=== PATIENT | male | born 1955 | race Caucasian/White ===

== ENCOUNTER → 2024-10-09 | Outpatient (CLI) | payer MEDICARE, BC, SELFPAY ==
[2024-10-10 13:08] LABS: PSA, Free 2.27 ng/mL; PSA, Free % 20.3 % (.); PSA, Total Ultrasensitive 11.200 ng/mL (0.000-4.000)
== END | disposition home or self-care (01) ==
PROVIDERS: PCP Family Medicine; Referring Provider Nurse Practitioner; Visit Provider Nurse Practitioner
DX: R97.20 Elevated prostate specific antigen [PSA] (principal)
CPT/HCPCS: 36415; 84153; 84154

== ENCOUNTER → 2024-10-17 | Outpatient (CLI) | payer MEDICARE, BC, SELFPAY ==
--- NOTE | 2024-10-17 10:54 | MRI_ITS ---
PROCEDURE: PELVIS W/WO CONTRAST, 10/17/2024 REASON FOR EXAM: ELEVATED PSA. PSA reportedly 11.2 on 10/09/2024 TECHNIQUE: Multisequence multiplanar MRI pelvis was performed with and without IV contrast. IV Contrast: 19 mL Clariscan COMPARISON: None FINDINGS: Variable overall mild motion limitation. Prostate size: 5.1 x 3.7 x 4.9 cm, estimated volume 48.1 mL. Per the above provided PSA, PSA density is 0.233 ng/mL. Transition zone: PI-RADS 2 findings. Peripheral Zone: Background changes of likely prostatitis (PI-RADS 2). Additional lesions as below: *Lesion 1: RIGHT anterior and posterolateral peripheral zone midgland to apex, 2.4 cm (series 12, image 20).. *T2 score: 5. *DWI score: 5. *DCE: Positive. *Overall PI-RADS: PI-RADS 5. *Extracapsular extension:Broad-based capsular abutment well over 1 cm with subtle capsular bulging suspicious for possible early extracapsular extension. *Lesion 2: Ill-defined signal spanning 3.0 cm of the along the bilateral posteromedial peripheral zones extending from base to apex (series 12 image 19).. *T2 score: 3. *DWI score: Minimal restricted diffusion above background; DWI score 3. *DCE: Positive. *Overall PI-RADS: Borderline; felt the best considered PI-RADS 3. *Extracapsular extension:No gross extracapsular extension, however, there is capsular abutment well over 1 cm which increases the risk of occult early/microscopic extracapsular extension. Note that this includes the region of the bilateral neurovascular bundles and anterior rectum, without gross involvement. Neurovascular bundles: As above. Seminal vesicles: Unremarkable. Bladder: Underdistended and suboptimally evaluated. Mild trabeculation may suggest chronic bladder outlet obstruction.. Lymph nodes: Unremarkable. Bones: No destructive or frankly suspicious bony lesions identified. Artifact related to lumbar spinal fusion. Other: Diverticulosis.. MRI/Pelvis W/WO Contrast IMPRESSION: 1. 2.4 cm PI-RADS 5 lesion in the RIGHT anterior and posterolateral peripheral zone midgland to apex (lesion 1). Broad-based capsular abutment well over 1 cm with subtle capsular bulging suspicious for po ssible early extracapsular extension. 2. 3.0 cm ill-defined signal in the bilateral posteromedial peripheral zones ex tending from base to apex is felt the sequela of focally prominent prostatitis but is felt the best considered PI-RADS 3 (lesion 2). No gross extracapsular extension, however, there is capsular abutment well over 1 cm which increases the risk of occult ea rly/microscopic extracapsular extension. Note that this includes the region of the bilateral neurovascular bundles and anterior re ctum, without gross involvement. 3. no overt pelvic lymphadenopathy 4. Additional description as above. Reading Location: [id number]
== END | disposition home or self-care (01) ==
LOC: OPMRI 10:51
PROVIDERS: PCP Family Medicine; Referring Provider Urology; Visit Provider Urology
DX: R97.20 Elevated prostate specific antigen [PSA] (principal)
CPT/HCPCS: 72197; A9575; A4216

== ENCOUNTER → 2024-11-12 | Outpatient (CLI) | payer MEDICARE, BC, SELFPAY ==
--- NOTE | 2024-11-12 08:00 | PROSBIL_PTH ---
PATIENT: JONATHAN MCCRARY LOC: [facility] U#:[id number] AGE/SX: 69/M ROOM: RE11/12/[address]: Dr. Miah Pink MD : [id number] BED: DIS: 11/12/2024 SPEC #: [id number] RECD: 11/12/24 12:00 STATUS: RUSLAN JERRY #: [id number] SKIP: 11/12/24 08:[address]: Miah Pink DEPT: SURGICAL PATHOLOGY RECD BY: Darren Dykes ENTERED: 11/13/24 09:40 SP TYPE: PROST BX OTHR DR: Dr. Tank Peterson MD Tissues: A - PROSTATE RIGHT B - PROSTATE RIGHT C - PROSTATE RIGHT D - PROSTATE LEFT E - PROSTATE LEFT F - PROSTATE LEFT Procedures: PROSTATE BX Immunohistochemical Stains IHC Stain ADDITIONAL HEADER OPERATION: Prostate biopsy PRE-OP DIAGNOSIS: Elevated PSA TISSUE SUBMITTED: A - A - Right apex, B - Right mid, C - Right base, D - Left apex, E - Left mid, F - Left base MICROSCOPIC DIAGNOSIS A. 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 B. Prostate, right, mid, biopsy: - Adenocarcinoma Mindy 4+3=7 (55% cribriform pattern 4), two of two cores, involving 80% of the tissue. C. Prostate, right, base, biopsy: - Focal atypical small acini. - High grade PIN. - PIN4 IHC supports the histologic impression. D. Prostate, left, apex, biopsy: - Benign prostate tissue. E. Prostate, left, mid, biopsy: - Benign prostate tissue. F. Prostate, left, base, biopsy: - Adenocarcinoma Hana 3+3=6, two of two cores, involving 5% 0f the tissue. MICROSCOPIC DESCRIPTION Slides are reviewed. All matched controls reacted appropriately. These tests were developed and their performance characteristics determined by [facility]. They may not have been cleared or approved by the U.[place]. Food and Drug Administration. The FDA has determined that such clearance or approval is not necessary.? The above immunohistochemical/dualISH?markers are reviewed by the Pathologist. GROSS DESCRIPTION Received in 6 formalin containers labeled with the patient's name and date of . Designated as: A. RA is a conway tissue core, 1.5 cm in length by 0.1 cm in diameter. Entirely submitted in 1 cassette. B. RM are 2 conway tissue cores, averaging 1.3 cm in length by 0.1 cm in diameter. Entirely submitted in 1 cassette. C. RB are 3 conway tissue cores 0.6 cm to 1.1 cm in length by 0.1 cm in diameter. Entirely submitted in 1 cassette. D. LA is a conway tissue core, 1.6 cm in length by 0.1 cm in diameter. Entirely submitted in 1 cassette. E. LM are 2 conway tissue cores, 1.0 cm and 1.8 cm in length by 0.1 cm in diameter. Entirely submitted in 1 cassette. F. LB are 2 fragmented conway tissue cores, 1.4 cm and 2.0 cm in length by 0.1 cm in diameter. Entirely submitted in 1 cassette. CA 5CPT:[id number]
== END | disposition home or self-care (01) ==
LOC: LABSPEC 16:01
PROVIDERS: PCP Family Medicine; Referring Provider Urology; Visit Provider Urology
DX: R97.20 Elevated prostate specific antigen [PSA] (principal)
CPT/HCPCS: 88305; 88341; 88342; G0416

== ENCOUNTER → 2024-11-27 | Outpatient (CLI) | payer MEDICARE, BC, SELFPAY ==
[2024-11-27 12:58] LABS: Hematocrit 41.8 % (40-54); Hemoglobin 14.4 g/dL (13.0-16.5); Mean Corp Hgb Conc 34.4 g/dL (32-36); Mean Corpuscular Volume 88.7 fL (80-94); Mean Platelet Vol. 9.3 fl (6.2-12.0); Platelet Count 219 K/mm3 (150-450); RBC Distribution Width CV 12.3 % (11.6-14.6); RBC Distribution Width SD 40.5 fl (35.1-43.9); Red Blood Count 4.71 M/mm3 (4.6-6.2); White Blood Count 8.5 K/mm3 (4.4-11.0)
[2024-11-27 13:55] LABS: Anion Gap 11 (5-15); BUN 17 mg/dL (4-19); BUN/Creat Ratio 14.4 RATIO (10-20); Calcium,Total 9.2 mg/dL (7.6-11.0); Carbon Dioxide 24.4 mmol/L (21.0-32.0); Chloride 104 mmol/L (98-108); Glucose 105 mg/dL (70-99); Potassium 4.5 mmol/L (3.3-5.1)
== END | disposition home or self-care (01) ==
LOC: LAB 11:42
PROVIDERS: PCP Family Medicine; Referring Provider Urology; Visit Provider Urology
DX: C61 Malignant neoplasm of prostate (principal)
CPT/HCPCS: 36415; 80048; 85027

== ENCOUNTER 2024-12-07 07:42 | Observation (INO) | payer MEDICARE, BC, SELFPAY ==
--- NOTE | 2024-12-04 10:49 | EKG12_ITS ---
Test Reason : PREOP Blood Pressure : */* mmHG Vent. Rate : 64 BPM Atrial Rate : 64 BPM P-R Int : 174 ms QRS Dur : 120 ms QT Int : 404 ms P-R-T Axes : 9 -30 17 degrees QTcB Int : 416 ms Normal sinus rhythm Left axis deviation Non-specific intra-ventricular conduction delay Abnormal ECG Confirmed by LILLIAN MARTÍNEZ, RENALDO ([id number]), publications editor PAYTON MONTEZ ([id number]) on 12/05/2024 6:17:25 AM Referred By: Miah Pink Confirmed By: RENALDO SNYDER MD
--- NOTE | 2024-12-06 12:37 | PAT.ANESEVAL ---
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 When Was Last Pacemaker Check QUESTION #4 FULL TEXT: You/Your Family Experience fever (hyperthermia) with Anesthesia Last Oral Intake Last Oral intake: Last Oral Intake NPO since Meds taken in AM with sips of water? Meds patient instructed to take am of surgery PONV PONV - dining room attendant cafeteria: PONV - dining room attendant cafeteria Female No 11/28/24 14:13 HX of Motion Sickness No 11/28/24 14:13 HX of N/V After Surgery No 11/28/24 14:13 Non-Smoker Yes 11/28/24 14:13 Duration of Surgery greater Yes 11/28/24 14:13 than 60 minutes Number of Risk Factors 2 11/28/24 14:13 PONV Score Moderate Risk 11/28/24 14:13 Respiratory Assessment Respiratory Assessment - dining room attendant cafeteria: Respiratory Tract Infection Hx - dining room attendant cafeteria Hx Respiratory Tract Infection No 11/28/24 14:13 STOP Sleep Apnea STOP Sleep Apnea - dining room attendant cafeteria: STOP Sleep Apnea - dining room attendant cafeteria Hx Hypertension Yes 11/28/24 14:13 Hx Sleep Apnea No 11/28/24 14:13 CPAP BIPAP Do you snore loudly (louder No 11/28/24 14:13 than talking or can be heard Do you often feel tired/ No 11/28/24 14:13 fatigued/ sleepy during daytime? Has anyone observed you stop No 11/28/24 14:13 breathing during sleep? STOP Results Negative 11/28/24 14:13 QUESTION #5 FULL TEXT : Do you snore loudly (louder than talking or can be heard through closed doors)? 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 Specify any problems Hx of Preganancy in last 3 N/A 11/28/24 14:13 Months Nurse Filling Out Transfusion [id number] 11/28/24 14:13 & Questions: Date: 11/28/24 11/28/24 14:13 Time: 14:17 11/28/24 14:13 Patient unable to answer at this time (ie. confused, unrespo /Reproduction History /Reproductive History - dining room attendant cafeteria: /Reproductive Hx- dining room attendant cafeteria Hx Now Gestational Age (in weeks): EDC: Hx Hx Para Hx Section SAB Active Medications Active Medications: Current Medications Generic Name Dose Route Start Last Admin Trade Name Freq PRN Reason Stop Dose Admin Cefazolin Sodium 2 gm/ Sodium 110 mls @ 200 mls/hr 12/07/24 07:30 Chloride IV 12/07/24 08:02 INTRAOP ONE [facility] Medical History (Updated 11/28/24 @ 14:22 by Shamar Aldana) Kidney stones Wears glasses Cancer Arthritis Prostate disease High cholesterol Migraine headache Back pain History of pain when walking Hypertension History of echocardiogram History of stress test Home Medications ?Medication ?Instructions ?Recorded ?Last Taken ?Type aspirin 81 mg tablet,delayed 81 mg PO DAILY BLOOD THINNER 11/28/24 Unknown History release (Adult Aspirin Regimen) atorvastatin 20 mg tablet (Lipitor) 20 mg PO DAILY HIGH CHOLESTEROL 11/28/24 Unknown History docusate sodium 100 mg capsule 100 mg PO DAILY STOOL SOFTNER 11/28/24 Unknown History (Colace) fluticasone propionate 50 1 spray intranasal DAILY PRN 11/28/24 Unknown History mcg/actuation nasal allergy symptoms spray,suspension (24 Hour Allergy Relief) [id number] C-Mn 500 1 cap PO DAILY SUPPLEMENT 11/28/24 Unknown History mg-400 mg capsule (Glucosamine Chondroitin Maximum Strength) lisinopril 10 mg tablet 10 mg PO DAILY HTN 11/28/24 Unknown History tamsulosin 0.4 mg capsule (Flomax) 0.4 mg PO DAILY BPH 11/28/24 Unknown History Allergy/AdvReac Type Severity Reaction Status Date / Time No Known Allergies Allergy Verified 11/28/24 14:06 Surgical History (Updated 11/28/24 @ 14:22 by Shamar Aldana) H/O hand surgery Previous back surgery Social History Smoking Status: Former smoker Audit: Pertinent Findings Pertinent Findings EKG Perinent findings: 12/05/2024.Normal sinus rhythm. Left axis deviation. Non-specific intra-ventricular conduction delay Recommendation Anesthesia Recommendation Anesthesia recommendation: OPTIMIZED for anesthesia
[2024-12-07] VITALS (17 sets, daily range): BP systolic 85–138; BP diastolic 50–86; PULSE 60–89; RESP 14–18; TEMP 36.4–37.6; O2SAT 94–100; BMI 29.9
--- OUTSIDE RECORDS SUMMARY | 2024-12-07 05:41 | XMS RPT_ITS | CCD ---
Author Organization [facility] Care Team Providers Care Garage Door Opener Installer Name Role Phone VUCETIC, JORGE E Unavailable Unavailable VUCETIC, JORGE E Unavailable Unavailable TANK MELCHOR Unavailable Unavailable CHARLENE GARCIA Unavailable Unavailable IMCA Unavailable Unavailable TANK MELCHOR Unavailable Unavailable VUCETIC, JORGE E Unavailable Unavailable TANK MELCHOR Unavailable Unavailable TANK MELCHOR Unavailable Unavailable RADHACHARLENE Unavailable Unavailable VUCETIC, JORGE E Unavailable Unavailable TANK MELCHOR Unavailable Unavailable VUCETIC, JORGE E Unavailable Unavailable IMCA Unavailable Unavailable TANK MELCHOR Unavailable Unavailable CHARLENE GARCIA Unavailable Unavailable IMCA Unavailable Unavailable TANK MELCHOR Unavailable Unavailable VUCETIC, JORGE E Unavailable Unavailable IMCA Unavailable Unavailable TANK MELCHOR Unavailable Unavailable CHARLENE GARCIA Unavailable Unavailable IMCA Unavailable Unavailable TANK MELCHOR Unavailable Unavailable VUCETIC, JORGE Unavailable Unavailable VUCETIC, JORGE Unavailable Unavailable CHARLENE GARCIA (HEAD GREASE MAKER) Unavailable Unavailable VUCETIC, JORGE Unavailable Unavailable TANK MELCHOR [place] Unavailable Unavailable CHARLENE GARCIA (HEAD GREASE MAKER) Unavailable Unavailable VUCETIC, JORGE Unavailable Unavailable VUCETIC, JORGE Unavailable Unavailable RADHACHARLENE Camara (HEAD GREASE MAKER) Unavailable Unavailable VUCETIC, JORGE Unavailable Unavailable Tank Melchor MD Unavailable Dr. Hemal Baugh MD Unavailable [phone] [facility] Unavailable Dr. Aamn Meier MD ([place] [facility]) A Unavail able Orthopedic Provider Unavailable Unavailable Angelic Moser LPN Unavailable Misael JARAMILLO [employer] [place] Unavailable Unavailable Radha Hurst LPN Unavailable Unavailable Shay Seth MD Unavailable Karan Menon PA-C Unavailable [phone] Sinna, Michaela C Unavailable Unavailable Shilo ENERGY AUDIT ADVISOR, Tigist Unavailable Unavailable HEAD GREASE MAKER-C, Adair P Unavailable Saundra SOSA, Sonal Thornton Unavailable Unavaila ble Kleber TAYLOR, Mary Kay Unavailable Unavailable Felipe ENERGY AUDIT ADVISOR, Robin Unavailable Unavailable Mutersbaugh ENERGY AUDIT ADVISOR, Meryl K Unavailable Unavai quin Renee PA-C, Mis J Unavailable Johnny ENERGY AUDIT ADVISOR, Gracie M Unavailable Unavailab le Rishabh ENERGY AUDIT ADVISOR, Dominique Hearn Unavailable Unavailab luis Fabian MD, Donte Thornton Unavailable [phone] Wengerd ENERGY AUDIT ADVISOR, Daina Unavailable Unavailabl e Virginie ENERGY AUDIT ADVISOR, Marielos Almaguer Unavailable Unavaila ble Kalin ENERGY AUDIT ADVISOR, Mylene Unavailable Unavailable Unavailable Unavailable TANK MELCHOR Admitting Unavailable TANK MELCHOR Attending Unavailable TANK MELCHOR Consulting Unavailable TANK MELCHOR Primary Care Unavailable PROVIDER, UNKNOWN Consulting Unavailable PROVIDER, UNKNOWN Consulting Unavailable PROVIDER, UNKNOWN Consulting Unavailable Joesph MARTÍNEZ, Dr. Miah Almazan) Unavailable Dr. Tank Melchor MD Primary Care Provider Marielos Urban Attending Provider Marielos Urban Referring Provider Joesph MARTÍNEZ, Dr. Miah Fine Attending Provider Joesph MARTÍNEZ, Dr. Miah Fine Referring Provider Miah Pink Referring Unavailable Tank Melchor Primary Care Unavailable Miah Pink Attending Unavailable Tank Melchor Primary Care Unavailable JoesphMiah Attending Unavailable JoesphMiah quiñonez Referring Unavailable Tank Melchor Primary Care Unavailable Crosslake[place]ielos Attending Unavailable Crosslakea[place]rielos Referring Unavailable Miah Pink Admitting Unavailable Miah Pink Attending Unavailable Tank Melchor Primary Care Unavailable JoesphMiah quiñonez Referring Unavailable JoesphMiah Referring Unavailable Tank Melchor Primary Care Unavailable JoesphMiah Attending Unavailable Medications Current Medications Medication Drug Class(es) Dates Sig (Normalized) Sig (Original) aspirin 81 mg delayed release oral tablet (20 sources) Platelet Aggregation Inhibitor, Nonsteroidal Anti-inflammatory Drug Start: 11-28-2024 take 1 tablet by mouth once daily Aspirin (Adult Aspirin Regimen) 81 mg tablet,delayed release (DR/EC) Active 81 mg PO DAILY November 28, 2024 12:00am BLOOD THINNER atorvastatin 20 mg oral tablet (20 sources) HMG-CoA Reductase Inhibitor Start: 11-03-2023 atorvastatin 20 mg tablet ; 1 (one) Tablet qd for 0 days Quantity: 90 {Tablet} Refills: 1 Ordered: 20-Sep-2024 MD Tank Melchor Start: 20-Sep-2024 Start: 09-22-2023 atorvastatin 2 0 mg tablet ; 1 (one) Tablet qd for 0 days Quantity: 90 {Tablet} Refills: 1 Ordered: 22-Sep-2023 MD Tank Melchor Start: 22-Sep-2023 Start: 08-08-2023 atorvastatin 2 0 mg tablet ; 1 (one) Tablet qd for 0 days Quantity: 90 {Tablet} Refills: 0 Ordered: 08-Aug-2023 MD Tank Melchor Start: 08-Aug-2023 Start: 05-09-2023 atorvastatin 2 0 mg tablet ; 1 (one) Tablet qd for 0 days Quantity: 90 {Tablet} Refills: 0 Ordered: 09-May-2023 MD Tank Melchor Start: 09-May-2023 Start: 02-11-2023 atorvastatin 2 0 mg tablet ; 1 (one) Tablet qd for 0 days Quantity: 90 {Tablet} Refills: 0 Ordered: 11-Feb-2023 GASTON Renee Start: 11-Feb-2023 docusate sodium 100 mg oral capsule (1 source) Start: 11-28-2024 take 1 capsule by mouth once daily Docusate Sodium (Colace) 100 mg capsule Active 100 mg PO DAILY November 28, 2024 12:00am STOOL SOFTNER etodolac 500 mg oral tablet (20 sources) Nonsteroidal Anti-inflammatory Drug Start: 01-11-2022 etodolac 500 mg tablet ; 1 (one) Tablet bid prn back pain for 0 days Quantity: 60 {Tablet} Refills: 5 Ordered: 22-Sep-2023 MD Tank Melchor Start: 22-Sep-2023 Comment on above: Medication taken as needed. fluticasone propionate 0.05 mg/actuat metered dose nasal spray (20 sources) Corticosteroid Start: 11-28-2024 take 50 ug nasal route once daily as needed Fluticasone Propionate (24 Hour Allergy Relief) 50 mcg/actuation spray,suspension Active 1 NMA INTRANASAL DAILY as needed for allergy symptoms November 28, 2024 12:00am administer into each nostril Start: 09-20-2024 take 2 spray(s) nasa l route once daily fluticasone propionate 50 mcg/actuation nasal spray,suspension ; 2 (two) sprays each nostril daily for 30 days Quantity: 1 {Each} Refills: 3 Ordered: 20-Sep-2024 MD Tank Melchor Start: 20-Sep-2024 Comments: nasal inhaler Start: 07-23-2024 End: 08-22-2024 take 2 spray(s) nasal route once daily fluticasone propionate 50 mcg/actuation nasal spray,suspension ; 2 (two) sprays each nostril daily for 30 days Quantity: 1 {Each} Refills: 0 Ordered: 23-Jul-2024 MD Tank Melchor Start: 23-Jul-2024 End: 22-Aug-2024 Status: Inactive Comments: nasal inhaler Start: 05-09-2023 take 2 spray(s) nasa l route once daily fluticasone propionate 50 mcg/actuation nasal spray,suspension ; 2 (two) sprays each nostril daily for 30 days Quantity: 1 {Each} Refills: 5 Ordered: 09-May-2023 MD Tank Melchor Start: 09-May-2023 Comments: nasal inhaler Start: 03-24-2022 take 2 spray(s) nasa l route once daily Fluticasone Propionate 50 MCG/ACT Nasal Suspension ; 2 (two) sprays each nostril daily for 30 days Quantity: 1 {Each} Refills: 5 Ordered: 24-Mar-2022 MD Tank Melchor Start: 24-Mar-2022 Comments: nasal inhaler take 2 puff(s) nasal route once daily FLONASE, 50MCG/ACT (Nasal Suspension) ; 2 puffs each nostril once daily (50 MCG/ACT) Status: Inactive Comment on above: nasal inhaler glucosamine hydrochloride 1500 mg oral tablet (13 sources) glucosamine HCL 1,500 mg tablet ; 2 daily (1,500 mg) Yzdujswkpek-Vooshnpse-Rbw C-Mn (Glucosamine Chondroitin Maxstr) 500-400 mg capsule (1 source) Start: 11-28-2024 Kmtadhmrvlg-Fydkhucye-W it C-Mn (Glucosamine Chondroitin Maxstr) 500-400 mg capsule Active 1 NMA PO DAILY November 28, 2024 12:00am SUPPLEMENT lisinopril 10 mg oral tablet (20 sources) Angiotensin Converting Enzyme Inhibitor Start: 03-14-2024 lisinopriL 10 mg tablet ; 1 (one) Tablet qd for 0 days Quantity: 90 {Tablet} Refills: 1 Ordered: 20-Sep-2024 MD Tank Melchor Start: 20-Sep-2024 Start: 09-22-2023 lisinopriL 10 mg tablet ; 1 (one) Tablet qd for 0 days Quantity: 90 {Tablet} Refills: 1 Ordered: 22-Sep-2023 MD Tank Melchor Start: 22-Sep-2023 Start: 08-08-2023 lisinopriL 20 mg tablet ; 1 (one) Tablet qd for 0 days Quantity: 90 {Tablet} Refills: 0 Ordered: 08-Aug-2023 MD Tank Melchor Start: 08-Aug-2023 Start: 05-09-2023 lisinopriL 20 mg tablet ; 1 (one) Tablet qd for 0 days Quantity: 90 {Tablet} Refills: 0 Ordered: 09-May-2023 MD Tank Melchor Start: 09-May-2023 Start: 02-11-2023 lisinopriL 20 mg tablet ; 1 (one) Tablet qd for 0 days Quantity: 90 {Tablet} Refills: 0 Ordered: 11-Feb-2023 GASTON Renee Start: 11-Feb-2023 Start: 08-09-2014 End: 08-13-2015 take 1 tablet by mouth once daily LISINOPRIL, 20MG (Oral Tablet) ; 1 (one) Tablet Tablet qd for 0 days Quantity: 90 {Tablet} Refills: 1 Ordered: 13-Aug-2015 ELLA Trammell Start: 09-Aug-2014 End: 13-Aug-2015 Status: Inactive tamsulosin hydrochloride 0.4 mg oral capsule (1 source) alpha-Adrenergic Chris Start: 11-28-2024 take 1 capsule by mouth once daily Tamsulosin (Flomax) 0.4 mg capsule Active 0.4 mg PO DAILY November 28, 2024 12:00am BPH Completed/Discontinued Medications Medication Drug Class(es) Dates Sig (Normalized) Sig (Original) acetaminophen 500 mg / HYDROcodone bitartrate 5 mg oral tablet (20 sources) Opioid Agonist Start: 09-28-2010 End: 01-24-2012 take 1-2 tablets by mouth every four hours as needed VICODIN, 5-500MG (Oral Tablet) ; 1-2 Tablet every four hours, as needed for severe pain for 0 days Quantity: 60 {Tablet} Refills: 0 Ordered: 24-Jan-2012 ELLA Moser Start: 28-Sep-2010 End: 24-Jan-2012 Status: Inactive Comments: Medication taken as needed. wm Comment on above: Medication taken as needed. wm amoxicillin 875 mg / clavulanate 125 mg oral tablet (20 sources) Penicillin-class Antibacterial Start: 06-04-2022 End: 06-11-2022 take 1 tablet by mouth twice daily Amoxicillin-Pot Clavulanate 875-125 MG Oral Tablet ; 1 (one) Tablet twice a day for 7 days Quantity: 14 {Tablet} Refills: 0 Ordered: 04-Jun-2022 GASTON Menon Start: 04-Jun-2022 End: 11-Jun-2022 Status: Inactive Start: 04-13-2022 End: 04-23-2022 take 1 tablet by mouth twice daily Amoxicillin-Pot Clavulanate 875-125 MG Oral Tablet ; 1 (one) Tablet bid for 10 days Quantity: 20 {Tablet} Refills: 0 Ordered: 13-Apr-2022 MD aTnk Melchor Start: 13-Apr-2022 End: 23-Apr-2022 Status: Inactive Comments: take w food Start: 03-18-2014 End: 03-28-2014 take 1 tablet by mouth twice daily AUGMENTIN, 875-125MG (Oral Tablet) ; 1 (one) Tablet Tablet two times daily for 10 days Quantity: 20 {Tablet} Refills: 0 Ordered: 18-Mar-2014 MD Tank Melchor Start: 18-Mar-2014 End: 28-Mar-2014 Status: Inactive Comment on above: take w food azithromycin 250 mg oral tablet (20 sources) Macrolide Antimicrobial Start: 013 End: 013 ZITHROMAX Z-TOBY, 250MG (Oral Tablet) ; 2 (two) Tablet today and then 1 tablet daily for 4 days for 0 days Quantity: 1 {z-toby} Refills: 0 Ordered: 02-Aug-2012 Start: 29-Apr-2012 End: 02-Aug-2012 Status: Inactive cefdinir 300 mg oral capsule (20 sources) Cephalosporin Antibacterial Start: End: take 1 capsule by mouth twice daily Cefdinir 300 MG Oral Capsule ; 1 (one) Capsule bid for 10 days Quantity: 20 {Capsule} Refills: 0 Ordered: 20-Apr-2019 MD Tank Melchor Start: 20-Apr-2019 End: 30-Apr-2019 Status: Inactive cholecalciferol 0.05 mg oral capsule (20 sources) Vitamin D take 1 capsule by mouth once daily Vitamin D3 50 MCG (2000 UT) Oral Capsule ; 1 daily (50 MCG (2000 UT)) Status: Inactive cyclobenzaprine hydrochloride 10 mg oral tablet (20 sources) Muscle Relaxant Start: 011 End: take 1 tablet by mouth three times daily as needed FLEXERIL, 10MG (Oral Tablet) ; 1 Tab three times daily, as needed for 0 days Quantity: 20 {Tab} Refills: 0 Ordered: 24-Jan-2012 ELLA Moser Start: 28-Sep-2010 End: 24-Jan-2012 Status: Inactive Comments: Medication taken as needed. May cause drowsiness. Comment on above: Medication taken as needed. May cause drowsiness. enalapril maleate 20 mg oral tablet (20 sources) Angiotensin Converting Enzyme Inhibitor Start: 014 End: take 1 tablet by mouth once daily Enalapril Maleate 20 MG Oral Tablet ; 1 (one) Tablet daily for 0 days Quantity: 90 {Tablet} Refills: 2 Ordered: 28-May-2016 ELLA Hurst Start: 22-Feb-2014 End: 28-May-2016 Status: Inactive famciclovir 500 mg oral tablet (20 sources) Herpes Simplex Virus Nucleoside Analog DNA Polymerase Inhibitor Start: 017 End: 017 take 1 tablet by mouth every eight hours Famciclovir 500 MG Oral Tablet ; 1 (one) Tablet Every 8 hours for 7 days Quantity: 21 {Tablet} Refills: 0 Ordered: 14-Aug-2016 JAROD Cervantes Start: 14-Aug-2016 End: 21-Aug-2016 Status: Inactive hydroCHLOROthiazide 12.5 mg oral tablet (20 sources) Thiazide Diuretic Start: 015 End: 016 take 1 tablet by mouth once daily HYDROCHLOROTHIAZID E, 12.5MG (Oral Tablet) ; 1 (one) Tablet daily for 0 days Quantity: 90 {Tablet} Refills: 1 Ordered: 13-Aug-2015 ELLA Trammell [place] Start: 09-Aug-2014 End: 13-Aug-2015 Status: Inactive take 0.5 tablet by mouth once [place] HYDROCHLOROTHIAZIDE, 25MG (Oral Tablet) ; 1/2 tab daily (25 MG) Status: Inactive hydroCHLOROthiazide 12.5 mg / lisinopril 20 mg oral tablet (20 sources) Thiazide Diuretic, Angiotensin Converting Enzyme Inhibitor Start: 08-18-2020 End: 08-20-2020 take 1 tablet by mouth once daily Lisinopril-hydroCHLOROthiazide 20-12.5 MG Oral Tablet ; 1 (one) Tablet qd for 0 days Quantity: 90 {Tablet} Refills: 1 Ordered: 20-Aug-2020 MD Tank Melchor Start: 18-Aug-2020 End: 20-Aug-2020 Status: Inactive omeprazole 20 mg delayed release oral capsule (20 sources) Proton Pump Inhibitor Start: 02-04-2012 End: 02-07-2015 take 1 capsule by mouth once daily as needed OMEPRAZOLE, 20MG (Oral Capsule Delayed Release) ; [address] qd prn for 0 days Quantity: 60 {Cap_DR} Refills: 3 Ordered: 07-Feb-2015 ELLA Newsome Start: 04-Feb-2012 End: 07-Feb-2015 Status: Inactive predniSONE 20 mg oral tablet (20 sources) Start: 12-02-2022 End: 02-10-2023 predniSONE 20 mg tablet ; 1 (one) Tablet as directed for 0 days Quantity: 20 {Tablet} Refills: 0 Ordered: 10-Feb-2023 ELLA Wang Start: 02-Dec-2022 End: 10-Feb-2023 Status: Inactive Comments: Take 1 tab tid for 3 days thenTake 1 tab bid for 3 days thenTake 1 tab qd for 3 days thenTake 1/2 tab qd for 4 days. Comment on above: Take 1 tab tid for 3 days thenTake 1 tab bid for 3 days thenTake 1 tab qd for 3 days thenTake 1/2 tab qd for 4 days. sucralfate 1000 mg oral tablet (20 sources) Aluminum Complex take 1 tablet by mouth at bedtime CARAFATE, 1GM (Oral Tablet) ; 1 tablet AC and HS (1 GM) Status: Inactive sulfamethoxazole 800 mg / trimethoprim 160 mg oral tablet (20 sources) Dihydrofolate Reductase Inhibitor Antibacterial, Sulfonamide Antimicrobial Start: 06-17-2022 End: 06-27-2022 take 1 tablet by mouth twice daily Bactrim DS 800-160 MG Oral Tablet ; 1 (one) Tablet bid for 10 days Quantity: 20 {Tablet} Refills: 0 Ordered: 17-Jun-2022 MD Tank Melchor Start: 17-Jun-2022 End: 27-Jun-2022 Status: Inactive Problems Active Problems Problem Classification Problem Date Documented Date Episodic/Chronic Allergic reactions (20 sources) Environmental allergy; Translations: [Other allergy status, other than to drugs and biological substances] 09-20-2024 Episodic Cancer of prostate (1 source) Malignant neoplasm of prostate; Translations: [Malignant neoplasm of prostate] Onset: 12-03-2024 Chronic Chronic obstructive pulmonary disease and bronchiectasis (20 sources) Bronchitis; Translations: [Bronchitis, not specified as acute or chronic] 03-17-2023 Episodic Complications of surgical procedures or medical care (20 sources) Wound abscess; Translations: [Infection following a procedure, initial encounter] 03-05-2014 Episodic Coronary atherosclerosis and other heart disease (1 source) Coronary atherosclerosis and other heart disease 09-22-2023 Diabetes mellitus without complication (20 sources) Hyperglycemia; Translations: [Hyperglycemia, unspecified] 02-27-2020 Episodic Disorders of lipid metabolism (20 sources) Hyperlipidemia; Translations: [Hyperlipidemia, unspecified] 03-17-2023 Chronic Esophageal disorders (20 sources) Gastroesophageal reflux disease; Translations: [Gastro-esophageal reflux disease without esophagitis] 08-20-2020 Chronic Essential hypertension (20 sources) Benign essential hypertension; Translations: [Essential (primary) hypertension] 03-17-2023 Chronic Immunizations and screening for infectious disease (20 sources) Need for prophylactic vaccination and inoculation against influenza; Translations: [Needs influenza immunization] 02-22-2014 Episodic Osteoarthritis (20 sources) Degenerative joint disease involving multiple joints; Translations: [Polyosteoarthritis, unspecified] 03-17-2023 Chronic Other aftercare (20 sources) Drug indicated; Translations: [Other assisted (current) drug therapy] 09-01-2016 Episodic Other connective tissue disease (20 sources) Pain in right hand; Translations: [Pain in right hand] 03-17-2023 Episodic Other connective tissue disease (20 sources) Trigger finger of right hand; Translations: [Trigger finger, unspecified finger] 02-02-2013 Episodic Other diseases of veins and lymphatics (20 sources) Engorgement of vein; Translations: [Other specified disorders of veins] 09-28-2017 Episodic Other nervous system disorders (1 source) Other chronic pain; Translations: [Other chronic pain] Onset: 10-13-2017 Chronic Other non-traumatic joint disorders (20 sources) Pain in left knee; Translations: [Pain in joint, lower leg] 03-17-2023 Episodic Other nutritional; endocrine; and metabolic disorders (20 sources) Body mass index 30+ - obesity; Translations: [Body mass index (BMI) 38.0-38.9, adult] 03-14-2017 Chronic Other nutritional; endocrine; and metabolic disorders (20 sources) Obese class I; Translations: [Obesity, unspecified] 03-17-2023 Chronic Other screening for suspected conditions (not mental disorders or infectious disease) (20 sources) Encounter for screening for other disorder; Translations: [Raised prostate specific antigen] Onset: 09-08-2017 03-17-2023 Episodic Other skin disorders (20 sources) Sebaceous cyst of skin; Translations: [Sebaceous cyst] 03-01-2014 Episodic Other skin disorders (20 sources) Skin tag; Translations: [Other hypertrophic disorders of the skin] 02-04-2012 Episodic Other upper respiratory disease (20 sources) Eosinophilic nonallergic rhinitis; Translations: [Chronic rhinitis] 08-09-2014 Chronic Other upper respiratory disease (20 sources) Congestion of nasal sinus; Translations: [Nasal congestion] 03-17-2023 Episodic Otitis media and related conditions (20 sources) Dysfunction of eustachian tube; Translations: [Unspecified Eustachian tube disorder, unspecified ear] 01-07-2020 Episodic Pneumonia (except that caused by tuberculosis or sexually transmitted disease) (20 sources) Pneumonia; Translations: [Pneumonia, unspecified organism] 05-28-2016 Episodic Screening and history of mental health and substance abuse codes (20 sources) Patient encounter status; Translations: [Encounter for screening for depression] 08-19-2020 Episodic Spondylosis; intervertebral disc disorders; other back problems (20 sources) Postlaminectomy syndrome, not elsewhere classified; Translations: [Degeneration of lumbar or lumbosacral intervertebral disc] Onset: 12-08-2016 02-02-2013 Chronic Spondylosis; intervertebral disc disorders; other back problems (20 sources) Low back pain; Translations: [Low back pain] Onset: 10-13-2017 03-17-2023 Episodic Unclassified (1 source) Unknown / UNK(Unknown) Onset: 10-13-2017 Unclassified (20 sources) MCR Well Adult - In general the patient feels well with no complaints, has good energy level and is sleeping well. The patient has a balanced diet and takes no supplemental vitamins & iron. The patient exercises none (active) and sleeps 7 hours per night. The patient denies having trouble with bathing, dressing/grooming, toileting, preparing meals and ambulating. The patient denies having trouble with grocery shopping, driving, use of telephone, housework, laundry, preparing/taking medications and finances. The patient does not have Healthcare Power of Agricultural Scientist or Living Will. Note for MCR Well Adult: Pt is scheduled for surgery for his thumb next week at [facility]. 03-17-2023 Unclassified (20 sources) Follow Up for Multiple Chronic Conditions - The patient is here for follow-up of GERD, hyperlipidemia and hypertension. The patient always takes the prescribed medications. No side effects noted (does not need refills). The patient has an active lifestyle but no regular exercise program. The patient's out of office blood pressure checks occur rarely and dietary compliance is fairly good usually adhering to recommendations. The patient states that there is no recent angina or dyspnea, weight has decreased (down 1 pound) and headaches have been noticed occasionally. Note for Multiple chronic conditions follow-up: reviewed by [facility] 08-20-2020 Unclassified (20 sources) Well Adult, male - The patient feels well with no complaints, has good energy level and is sleeping well. The patient has a balanced diet and takes supplemental vitamins. The patient exercises none (active). The patient sleeps 7 hours per night. Note for Well Adult, male: reviewed by [facility] 02-27-2020 Unclassified (20 sources) Follow Up for Multiple Chronic Conditions - The patient is here for follow-up of hyperlipidemia and hypertension. The patient always takes the prescribed medications. No side effects noted (no refills needed). The patient has an active lifestyle but no regular exercise program. The patient's out of office blood pressure checks occur occasionally and dietary compliance is fair often eating foods not normally recommended. The patient states that there is no recent angina or dyspnea, there are no vision changes or weakness (recently got new glasses), weight has decreased (2#) and they do not have headaches. Note for Multiple chronic conditions follow-up: Last CMP, Lipid, PSA 09/2017 reviewed by [facility] 03-17-2018 Unclassified (20 sources) Follow Up for Multiple Chronic Conditions - The patient is here for follow-up of hyperlipidemia, hypertension and other condition(s) (Esophageal Reflux). The patient always takes the prescribed medications. No side effects noted. The patient has an active lifestyle but no regular exercise program. The patient's out of office blood pressure checks occur rarely and dietary compliance is fairly good usually adhering to recommendations. The patient states that there is no recent angina or dyspnea, there are no vision changes or weakness, weight has increased (up 8# from last visit.) and they do not have headaches (but still has some vertigo when he gets up from lying or sitting position at times.). The patient states that the disease has no overall impact. Note for Multiple chronic conditions follow-up: Has been fasting today. reviewed by [facility] 03-14-2017 Unclassified (20 sources) Back pain - The onset of the back pain has been gradual and has been occurring in a persistent pattern for 11 years. The course has been constant. The pain is characterized as stabbing (and tightening pain in mid back). The pain does not radiate. The pain is precipitated by a fall. The symptoms have no relieving factors. Note for Back pain: has had chronic back pain for 11 years. had back surgery in 2010. strained back while shoveling 2-3 weeks ago. then patient fell on 08/11/2016 and hurt back again. Denies bowel/bladder dysfunction. has had rash on lower back for 2 days. 08-14-2016 Unclassified (20 sources) Follow Up for Multiple Chronic Conditions - The patient is here for follow-up of hypertension and other condition(s) (Esophageal Reflux, Non Allergic Eosinpophlic Rhinitis). The patient always takes the prescribed medications. No side effects noted. The patient has an active lifestyle but no regular exercise program. The patient's out of office blood pressure checks occur occasionally (Average at home pressure 132/80.). The patient states that there is no recent angina or dyspnea (Rarely has need for Flonase. ), there are no vision changes or weakness (Pt states that he will get dizzy whenever he squats down. Dizziness does not happen any other time.), weight has decreased (Down 10# from last visit. GERD doing well.) and headaches are rarely noted. The patient states that the disease has no overall impact. Note for Multiple chronic conditions follow-up: reviewed by B 02-13-2016 Unclassified (20 sources) [facility] Routine Follow up - The patient is here for follow-up of hypertension and GERD. The patient always takes the prescribed medications. No side effects noted. The patient has an active lifestyle but no regular program. The patient's out of office blood pressure checks occur occasionally and dietary compliance is fairly good usually adhering to recommendations. The patient states that there is no recent angina or dyspnea, there are no vision changes or weakness and they do not have headaches. Note for Routine chronic follow-up: reviewed by [facility] 08-13-2015 Unclassified (20 sources) Follow up for multiple chronic conditions - The patient is here for follow-up of hypertension and GERD. The patient always takes the prescribed medications. No side effects noted. The patient has an active lifestyle but no regular exercise program. The patient's out of office blood pressure checks occur frequently and dietary compliance is fairly good usually adhering to recommendations. The patient states that breathing effort is stable, there is no recent angina or dyspnea, there are no vision changes or weakness and they do not have headaches. Note for Multiple chronic conditions follow-up: ov 08/23 and bmp. Reflux doing well. reviewed by [facility] 02-07-2015 Unclassified (20 sources) Follow Up for Multiple Chronic Conditions - The patient is here for follow-up of hypertension and other condition(s) (Esophageal Reflux and Lumbar disc degeneration). The patient always takes the prescribed medications. No side effects noted. The patient has an active lifestyle but no regular exercise program. The patient's out of office blood pressure checks occur occasionally (Average at home 128-135/70-80's) and dietary compliance is fairly good usually adhering to recommendations. The patient states that there is no recent angina or dyspnea, there are no vision changes or weakness, pain has improved (Back pain has really improved and doing well.), weight has decreased (Down 2# from last visit.) and they do not have headaches (but starts that he is having some pressure in his head- all around front portion of head and around eyes. Started week or two ago. He is wondering about sinus pressure/headache. It has not been bad enough where he has to take anything for it. Does have little drainage and blows clear out nose.). The patient states that the disease has no overall impact. Note for Multiple chronic conditions follow-up: Acid Reflux doing pretty well. Just using the Omeprazole or TUMS when he has a flare up which works well for him.. He is getting ready to retire. No record of immunizations. 08-09-2014 Unclassified (20 sources) Follow Up for Multiple Chronic Conditions - The patient is here for follow-up of hypertension and GERD. The patient always takes the prescribed medications. No side effects noted (Needs refills.). The patient has an active lifestyle but no regular exercise program. The patient's out of office blood pressure checks occur occasionally and dietary compliance is fairly good usually adhering to recommendations. The patient states that there is no recent angina or dyspnea, weight has increased (Up 7 pounds.) and headaches are rarely noted. Note for Multiple chronic conditions follow-up: He also has a mass on his back that gets painful as he leans against objects. 02-22-2014 Unclassified (20 sources) Follow Up for Multiple Chronic Conditions - The patient is here for follow-up of hypertension and other condition(s) (Esophageal Reflux and Degenration of Disc). The patient always takes the prescribed medications. No side effects noted. The patient engages in regular exercise program 3-5 times per week. The patient's out of office blood pressure checks occur rarely. The patient states that there is no recent angina or dyspnea, there are no vision changes or weakness, pain is generally stable (Back pain is doing well. Using Excedrin at times but does not feel he needs anything stronger than that.) and weight has increased (UP about4# since last visit.). Note for Multiple chronic conditions follow-up: Acid reflux doing pretty well. Only uses Omeprazole prn and that seems to keep it under control. Pt does want flu shot today. Pt ate some breakfast. reviewed by [facility] 02-02-2013 Unclassified (20 sources) [ADDITIONAL REASON] FInger issue - Pt states that right ring finger will click when he first gets up in the morning and then at night. Does not have the mobility or flexibility that he normally has. Started couple months ago. Not painful but would like to have evlauated. reviewed by [facility] 02-02-2013 Unclassified (20 sources) Follow Up for Multiple Chronic Conditions - The patient is here for follow-up of hypertension, GERD and other condition(s) (Degenerative disc disease). The patient always takes the prescribed medications. No side effects noted. The patient engages in regular exercise program 1-3 times per week (Has been off routine for couple weeks but had been walking every day.). The patient's out of office blood pressure checks occur occasionally (Does not remember what Bp's have been running.). The patient states that there is no recent angina or dyspnea, there are no vision changes or weakness, pain is worse (Having problems with pain in upper right side of back. If he moves certain way it causes quite a bit of pain .Dr. Hemal Baugh ordered pt some topical cream but has not come in yet. Dr. Baugh says that cream should help relieve the pain. ), weight has decreased (DOwn 2# from Apr. visit.) and headaches have been noticed occasionally (But feels these h/s's are related to allergies.). Note for Multiple chronic conditions follow-up: Acid reflux has been acting up a little bit so is back to using his omeprazole on occassion. reviewed by [facility] 08-04-2012 Unclassified (20 sources) Follow Up for Multiple Chronic Conditions - The patient is here for follow-up of hypertension, GERD and other condition(s). The patient always takes the prescribed medications. No side effects noted. The patient engages in regular exercise program 3-5 times per week (Walks daily). The patient's out of office blood pressure checks occur occasionally (Average home bp is anywhere from 124/75-121/61) and dietary compliance is fairly good usually adhering to recommendations. The patient states that there is no recent angina or dyspnea, there are no vision changes or weakness, weight has increased (Weight up about 3# from last visit.) and they do not have headaches. Note for Multiple chronic conditions follow-up: reviewed by B 02-04-2012 Unclassified (20 sources) [ADDITIONAL REASON] Skin Tag - Pt also needs skin tag removed from left upper eyelid. It is starting to bother him when he blinks and he just notices it a lot more lately.Pt would also like flu shot today. reviewed by [facility] 02-04-2012 Unclassified (20 sources) Follow Up for Multiple Chronic Conditions - The patient is here for follow-up of hypertension and GERD (Using omeprazole only as needed.). The patient always takes the prescribed medications. No side effects noted. The patient engages in regular exercise program 3-5 times per week (Walks daily). The patient's out of office blood pressure checks occur rarely and dietary compliance is fairly good usually adhering to recommendations. The patient states that weight has decreased (down 12 pounds) and they do not have headaches. Note for Follow Up for Multiple Chronic Conditions: reviewed by [facility] 07-05-2011 Unclassified (20 sources) Follow up for multiple chronic conditions - The patient is here for follow-up of hypertension. The patient always takes the prescribed medications. No side effects noted. The patient has an active lifestyle but no regular exercise program. The patient's out of office blood pressure checks occur frequently. Note for Follow up for multiple chronic conditions: Pt has hx of lumbar disc disease with stenosis seen on MRI about 6 years ago. Sx are progressing w pain down R leg. Have treated as sciatica but not helping. 07-06-2010 Unclassified (9 sources) FInger issue - Pt states that right ring finger will click when he first gets up in the morning and then at night. Does not have the mobility or flexibility that he normally has. Started couple months ago. Not painful but would like to have evlauated. reviewed by [facility] 02-02-2013 Unclassified (9 sources) [ADDITIONAL REASON] Follow Up for Multiple Chronic Conditions - The patient is here for follow-up of hypertension and other condition(s) (Esophageal Reflux and Degenration of Disc). The patient always takes the prescribed medications. No side effects noted. The patient engages in regular exercise program 3-5 times per week. The patient's out of office blood pressure checks occur rarely. The patient states that there is no recent angina or dyspnea, there are no vision changes or weakness, pain is generally stable (Back pain is doing well. Using Excedrin at times but does not feel he needs anything stronger than that.) and weight has increased (UP about4# since last visit.). Note for Multiple chronic conditions follow-up: Acid reflux doing pretty well. Only uses Omeprazole prn and that seems to keep it under control. Pt does want flu shot today. Pt ate some breakfast. reviewed by [facility] 02-02-2013 Unclassified (10 sources) Skin Tag - Pt also needs skin tag removed from left upper eyelid. It is starting to bother him when he blinks and he just notices it a lot more lately.Pt would also like flu shot today. reviewed by [facility] 02-04-2012 Unclassified (10 sources) [ADDITIONAL REASON] Follow Up for Multiple Chronic Conditions - The patient is here for follow-up of hypertension, GERD and other condition(s). The patient always takes the prescribed medications. No side effects noted. The patient engages in regular exercise program 3-5 times per week (Walks daily). The patient's out of office blood pressure checks occur occasionally (Average home bp is anywhere from 124/75-121/61) and dietary compliance is fairly good usually adhering to recommendations. The patient states that there is no recent angina or dyspnea, there are no vision changes or weakness, weight has increased (Weight up about 3# from last visit.) and they do not have headaches. Note for Multiple chronic conditions follow-up: reviewed by [facility] 02-04-2012 Unclassified (20 sources) Follow up for multiple chronic conditions - The patient is here for follow-up of hyperlipidemia, hypertension and other condition(s) (elevated PSA). The patient always takes the prescribed medications. No side effects noted. The patient has an active lifestyle but no regular exercise program. The patient's out of office blood pressure checks occur rarely and dietary compliance is fairly good usually adhering to recommendations. The patient states that there is no recent angina or dyspnea, weight has decreased (down 2) and headaches are rarely noted. Note for Multiple chronic conditions follow-up: reviewed by [facility] 09-22-2023 Unclassified (13 sources) MCR Well Adult - In general the patient feels well with no complaints, has good energy level and is sleeping well. The patient has a balanced diet. The patient exercises none (Patient stays active in general) and sleeps 7 (8) hours per night. The patient denies having trouble with bathing, dressing/grooming, toileting, preparing meals and ambulating. The patient denies having trouble with grocery shopping, driving, use of telephone, housework, laundry, preparing/taking medications and finances. The patient does not have Healthcare Power of Agricultural Scientist or Living Will. Note for MCR Well Adult: BP at home 116/68, 129/79, 109/69, 114/68, 115/75 reviewed by B 09-20-2024 Viral infection (20 sources) Herpes zoster; Translations: [Zoster without complications] 08-14-2016 Episodic Past or Other Problems Problem Classification Problem Date Documented Da te Episodic/Chronic Esophageal disorders (20 sources) Esophageal disorders 01-06-2010 Unclassified (20 sources) Hand pain - The hand pain has been occurring in a persistent pattern for 8 months. The course has been increasing. The hand pain is characterized as a moderate sharp stabbing. The hand pain is aggravated by physical activity. There have been no relieving factors. Note for Hand pain: Pt voicing c/o right hand pain, having difficulty tying shoes. Pt states had talked about it before and told arthritis. 12-02-2022 Unclassified (20 sources) Cold Symptoms - Symptoms include runny nose, scratchy throat (PND), hoarseness, productive cough and general malaise (fatigue). The onset was gradual 3 week(s) ago (3-4 weeks ?). The symptoms occur constantly. The patient describes this as moderate in severity and worsening. The patient is not currently being treated for this problem. Risk factors do not include smoking. Note for Upper respiratory infection: DOMINICK 06/04/22-- bronchitis given augmentin seen by DILCIA reviewed by [facility] 06-17-2022 Unclassified (20 sources) Cold Symptoms - Symptoms include runny nose, ear fullness, sore throat (PND), productive cough, wheezing and general malaise, but do not include nasal congestion, ear pain, fever (maybe 100 one day), chills or headache. The onset was gradual 2 month(s) ago. The symptoms occur frequently. The patient describes this as moderate in severity and unchanged. Current treatment includes a decongestant nasal spray and frank pot . Risk factors do not include smoking. The patient has been exposed to an individual with similar symptoms (family member are sick in general). Patient denies history of seasonal allergies, recurrent sinusitis, recurrent strep pharyngitis, asthma, tonsillectomy or recurrent ear infections. Note for Upper respiratory infection: he says he is having SOB 06-04-2022 Unclassified (20 sources) Well Adult, male - The patient feels well with minor complaints (painful hands for a couple of months and getting worse.), has good energy level and is sleeping well. The patient has a balanced diet and takes no supplemental vitamins & iron. The patient does not exercise. The patient sleeps 7 hours per night. Note for Well Adult, male: reviewed by [facility] 03-24-2022 Unclassified (20 sources) Well adult male - The patient feels well with no complaints, has good energy level and is sleeping well. The patient has a balanced diet. The patient exercises daily (CUTS FIRE WOOD AND WALKS DOG DAILY). The patient sleeps 7 hours per night. 04-02-2021 Unclassified (20 sources) Plugged ears - Ears have felt plugged for the past couple of weeks and getting worse. No ear pain. Is having a small amount of sinus drainage and slight cough. reviewed by [facility] 01-07-2020 Unclassified (20 sources) Cough - The onset of the cough has been acute and has been occurring in a persistent pattern for weeks (about 3 1/2 weeks). The course has been constant. The cough is characterized as productive of white sputum (white-dixon). The cough occurs all the time (worse in the mornings). Associated symptoms include fever (possibly low grade fever at times), hoarseness, runny nose and throat clearing. Note for Cough: Been taking Mucinex-DM and using Netti-pod.Has scratchy throat and chest hurt from coughing. Feels very tired. Having shortness of breath and wheezing. reviewed by [facility] 04-06-2019 Unclassified (20 sources) Well adult male - The patient feels well with minor complaints, has good energy level and is sleeping well. The patient has an inappropriate diet (diet has not been as good lately since surgery) and takes no supplemental vitamins & iron. The patient exercises daily (walking with dog for about 1 hour, was doing water therapy). The patient sleeps 8 hours per night. Note for Well adult male: Labs printed to review today.Would like refill on Atorvastatin and Etodolac. 02-26-2019 Unclassified (20 sources) [ADDITIONAL REASON] Transition into care - The patient is transitioning into care from a hospital ([facility] 09/13 to 09/14/2018) and a summary of care was reviewed. Note for Transition into care: Pt saw [facility] 09/01/2018. 02-26-2019 Unclassified (20 sources) Well adult male - The patient feels well with no complaints, has good energy level and is sleeping well. The patient has a balanced diet and takes no supplemental vitamins & iron. The patient exercises 3 - 4 times per week (work and walks). The patient sleeps 7 hours per night. Note for Well adult male: Pt is having some back problems again and is seeing pain management for that. Pt had injections on 08/22/17 and 09/26 epidural steroid. reviewed by [facility] 09-30-2017 Unclassified (20 sources) swelling - Noted swelling in right wrist after venipuncture 2 days ago. Annada like vein was iflammed. Picked at a pimple on his arm and noted swelling was worse. He also had a frozen thumb on that side for awhile last night and wonders if its all related. 09-28-2017 Unclassified (20 sources) Knee pain - The onset of the knee pain has been sudden following no specific incident and has been occurring in a persistent pattern for 8 days. The course has been constant. The knee pain is moderate to severe in the left knee. The knee pain is characterized as a dull aching (but can be sharp at times.). The knee pain is described as being located in the lateral knee (but also feels pain right under knee cap itself.). There were no relieving factors. The symptoms have been associated with muscle stiffness and joint swelling (at times.), but have not been associated with erythema or fever. Previous diagnostic tests include none (but has knee issues for years.). Note for Knee pain: Pt is worse when walking or stairs- any time he bends the knee. reviewed by [facility] 06-06-2017 Unclassified (20 sources) Well Adult, male - The patient feels well with no complaints, has good energy level and is sleeping well. The patient has a balanced diet and takes no supplemental vitamins & iron. The patient does not exercise. The patient sleeps 7 hours per night. Note for Well Adult, male: reviewed by [facility] 09-01-2016 Unclassified (20 sources) Back pain - The onset of the back pain has been acute and has been occurring in a persistent pattern for 2 weeks (fell and has increased pain.). The course has been constant. The pain is characterized as a dull ache. The pain is located in the lower back. The symptoms have no relieving factors. Note for Back pain: Was diagnosed with shingles in same area a few weeks ago. Has a history of back surgery. reviewed by [facility] 08-25-2016 Unclassified (20 sources) Follow up consultation - The patient is here to follow-up after Emergency Room/Urgent Care (Diagnosis: Lower respiratory infection and sinusitis. Was given Z-Pack x 5 days whoch he has finished and Pro-Air Inhaler. ) on : (05/22/2016). Current symptoms include cough (and slightly wheezing. PO 97%. Expectorating clear phlegm. Cough is less than it was. Nasal congestion and runny nose but that has lessened also. Using Blanchard Pot.). Past medical history includes hypertension. Note for Consultation follow-up: reviewed by [facility] 05-28-2016 Unclassified (20 sources) [ADDITIONAL REASON] Transition into care - The patient is transitioning into care from urgent care and a summary of care was reviewed. 05-28-2016 Unclassified (20 sources) follow up - Patient had a sebaceous cyst removed from his back, on 02/22/14, by Dr. Tank Melchor. Patient was seen by Dr. Seth, on 02/28/14, for a wound abscess at the site of the cyst removal. Patient was started on Augmentin 875mg at that time. Patient is back because the wound is still not healing and is draining. Patient reports he was starting to improve, but then last night it starting draining large amounts of puss again. Patient denies a fever or pain. reviewed by [facility] 03-05-2014 Unclassified (20 sources) Cyst draining - Was in office to have cyst checked on 02/22/14, area was cut out by Dr. Melchor. Area is located on his left back under the shoulder blade. Six sutures were placed. Area is now draining, clear, white, greenish yellow colors. Surrounding tussue is pink. 03-01-2014 Unclassified (20 sources) Cold Symptoms - Symptoms include runny nose, sore throat (intially; noticed swollen lymph nodes yesterday) and productive cough, but do not include sneezing or nasal congestion. The onset was sudden 1 week(s) ago. The symptoms occur constantly. The patient describes this as moderate in severity and improving (some with rhinitis). Current treatment includes non-prescription cold medication (nell seltzer). The patient has been exposed to an individual with similar symptoms (). Patient denies history of seasonal allergies, recurrent sinusitis, recurrent strep pharyngitis, asthma, tonsillectomy or recurrent ear infections. 04-29-2012 Unclassified (20 sources) Follow Up for Multiple Chronic Conditions - The patient is here for follow-up of hypertension, GERD (Has not had any symptoms for several months and has stopped medication.) and other condition(s) (Lumbar disc degeneration. Has surgery early November and is doing much better. Is currently doing Physical Therapy.). The patient always takes the prescribed medications. No side effects noted. The patient engages in regular exercise program 3-5 times per week (Walks and Physical Therapy). The patient's out of office blood pressure checks occur occasionally. The patient states that weight has decreased (Down 15 pounds since June.) and they do not have headaches. Note for Follow Up for Multiple Chronic Conditions: reviewed by B 01-04-2011 Unclassified (20 sources) Preoperative Clearance - Date of procedure: (November 04) Surgeon: (Dr Hemal Baugh) and Location of procedure: ([facility]) There have been no problems with general anesthesia or blood/blood products. Prosthetics include eye glasses. Medical history includes hypertension. Pertinent family history includes myocardial infarction (Father). Note for Preoperative Clearance: reviewed by [facility] 10-27-2010 Unclassified (20 sources) Hypertension - The symptoms can not be characterized. Habits include adequate exercise, use of alcohol, medications as directed and home blood pressure monitoring (once per month). There is a family history of diabetes, hypertension, myocardial infarction before age 55 and stroke. 01-06-2010 Unclassified (7 sources) Transition into care - The patient is transitioning into care from a hospital ([facility] 09/13 to 09/14/2018) and a summary of care was reviewed. Note for Transition into care: Pt saw [facility] 09/01/2018. 02-26-2019 Unclassified (7 sources) [ADDITIONAL REASON] Well adult male - The patient feels well with minor complaints, has good energy level and is sleeping well. The patient has an inappropriate diet (diet has not been as good lately since surgery) and takes no supplemental vitamins & iron. The patient exercises daily (walking with dog for about 1 hour, was doing water therapy). The patient sleeps 8 hours per night. Note for Well adult male: Labs printed to review today.Would like refill on Atorvastatin and Etodolac. 02-26-2019 Unclassified (15 sources) Transition into care - The patient is transitioning into care from urgent care and a summary of care was reviewed. 05-28-2016 Unclassified (15 sources) [ADDITIONAL REASON] Follow up consultation - The patient is here to follow-up after Emergency Room/Urgent Care (Diagnosis: Lower respiratory infection and sinusitis. Was given Z-Pack x 5 days whoch he has finished and Pro-Air Inhaler. ) on : (05/22/2016). Current symptoms include cough (and slightly wheezing. PO 97%. Expectorating clear phlegm. Cough is less than it was. Nasal congestion and runny nose but that has lessened also. Using Frank Pot.). Past medical history includes hypertension. Note for Consultation follow-up: reviewed by [facility] 05-28-2016 Unclassified (12 sources) [ADDITIONAL REASON] Hypertension - The symptoms can not be characterized. Habits include adequate exercise, use of alcohol, medications as directed and home blood pressure monitoring (once per month). There is a family history of diabetes, hypertension, myocardial infarction before age 55 and stroke. 01-06-2010 Unclassified (1 source) [facility] Well Adult 09-20-2024 Results Test Name Value Interpretation Reference Range Facility MR/PAT.JOHNNYon 12-06-2024 MR/PAT.JOHNNY [facility] Medical Records Department [address] [place] [address] PAT - Anesthesia 12/06/24 1237 MR#: [id number] Acct: [id number] Name: JONATHAN MCCRARY Rep #: [id number] : 1955 69 From: Gilles Phan MD PCP: Dr. 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 When Was Last Pacemaker Check QUESTION #4 FULL TEXT: You/Your Family Experience fever (hyperthermia) with Anesthesia Last Oral Intake Last Oral intake: Last Oral Intake NPO since Meds taken in AM with sips of water? Meds patient instructed to take am of surgery PONV PONV - relay tester: PONV - relay tester Female No 11/28/24 14:13 HX of Motion Sickness No 11/28/24 14:13 HX of N/V After Surgery No 11/28/24 14:13 Non-Smoker Yes 11/28/24 14:13 Duration of Surgery greater Yes 11/28/24 14:13 than 60 minutes Number of Risk Factors 2 11/28/24 14:13 PONV Score Moderate Risk 11/28/24 14:13 Respiratory Assessment Respiratory Assessment - relay tester: Respiratory Tract Infection Hx - relay tester Hx Respiratory Tract Infection No 11/28/24 14:13 STOP Sleep Apnea STOP Sleep Apnea - relay tester: STOP Sleep Apnea - relay tester Hx Hypertension Yes 11/28/24 14:13 Hx Sleep Apnea No 11/28/24 14:13 CPAP BIPAP Do you snore loudly (louder No 11/28/24 14:13 than talking or can be heard Do you often feel tired/ No 11/28/24 14:13 fatigued/ sleepy during daytime? Has anyone observed you stop No 11/28/24 14:13 breathing during sleep? STOP Results Negative 11/28/24 14:13 QUESTION #5 FULL TEXT : Do you snore loudly (louder than talking or can be heard through closed doors)? 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 Specify any problems Hx of Preganancy in last 3 N/A 11/28/24 14:13 Months Nurse Filling Out Transfusion [email or web address] 11/28/24 14:13 Questions: Date: 11/28/24 11/28/24 14:13 Time: 14:17 11/28/24 14:13 Patient unable to answer at this time (ie. confused, unrespo /Reproduction History /Reproductive History - relay tester: /Reproductive Hx- relay tester Hx Now Gestational Age (in weeks): EDC: Hx Hx Para Hx Section SAB Active Medications Active Medications: Current Medications Generic Name Dose Route Start Last Admin Trade Name Freq PRN Reason Stop Dose Admin Cefazolin Sodium 2 gm/ Sodium 110 mls @ 200 mls/hr 12/07/24 07:30 Chloride IV 12/07/24 08:02 INTRAOP ONE [facility] Medical History (Updated 11/28/24 @ 14:22 by Shamar Aldana) Kidney stones Wears glasses Cancer Arthritis Prostate disease High cholesterol Migraine headache Back pain History of pain when walking Hypertension History of echocardiogram History of stress test Home Medications ???Medication ???Instructions ???Recorded ???Last Taken ???Type aspirin 81 mg tablet,delayed 81 mg PO DAILY BLOOD THINNER 11/28 Unknown History release (Adult Aspirin Regimen) atorvastatin 20 mg tablet (Lipitor) 20 mg PO DAILY HIGH CHOLESTEROL 11/28/24 Unknown History docusate sodium 100 mg capsule 100 mg PO DAILY STOOL SOFTNER 11/10 Unknown History (Colace) fluticasone propionate 50 1 spray intranasal DAILY PRN 11/28 Unknown History mcg/actuation n (more content not included)... Normal [facility] 12 Lead EKGon 12-04-2024 12 Lead EKG [facility] Cardiovascular Services [address] [place] [address] 12 Lead EKG 12/04/24 1101 MR#: [id number] Acct: [id number] Name: JONATHAN MCCRARY Rep #: [id number] : 1955 69 From: Dion Solomon MD Attending Dr: Dr. Miah Pink MD Status: PRE [facility] Ordering Dr: Miah Pink MD Date: 12/04/24 Location: [facility] Sex: M C Admitted: Test Reason : PREOP Blood Pressure : */* mmHG Vent. Rate : 64 BPM Atrial Rate : 64 BPM P-R Int : 174 ms QRS Dur : 120 ms QT Int : 404 ms P-R-T Axes : 9 -30 17 degrees QTcB Int : 416 ms Normal sinus rhythm Left axis deviation Non-specific intra-ventricular conduction delay Abnormal ECG Confirmed by LILLIAN MARTÍNEZ, DION ([id number]), scientific publications editor PAYTON MONTEZ ([id number]) on 12/05/2024 6:17:25 AM Referred By: Miah Pink Confirmed By: DION SOLOMON MD 12/05/24 0617 Date Dion Solomon MD CC: Dr. Miah Pink MD; Dr. Tank Melchor MD Signed [facility] Anion gap in Serum or Plasma Ordered By: Miah Pink on 11-27-2024 Anion gap [Moles/Vol] 11 mmol/L 5-15 [facility] BUN/creatinine ratioOrdered By: Miah Pink on 11-27-2024 Urea nitrogen/Creatinine [Mass ratio] 14.4 mg/mg - [facility] Basic Metabolic Profile (BMP )on 11-27-2024 BUN/CRE 14.4 RATIO Normal 01-28 [facility] Comment on above: Performed By: #### L 100.0500, L500.2500 #### [facility] [address] [place], [address] Calcium [Mass/Vol] 9.2 mg/dL Normal 7.6-11.0 [facility] Comment on above: Performed By: #### L 100.0500, L500.2500 #### [facility] [address] [place], [address] Chloride [Moles/Vol] 104 mmol/L Normal 98-108 [facility] Comment on above: Performed By: #### L 100.0500, L500.2500 #### [facility] [address] [place], [address] CO2 [Moles/Vol] 24.4 mmol/L Normal 21.0-32.0 [facility] Comment on above: Performed By: #### L 100.0500, L500.2500 #### [facility] [address] [place], [address] Creatinine [Mass/Vol] 1.15 mg/dL Normal 0.70-1.20 [facility] Comment on above: Performed By: #### L 100.0500, L500.2500 #### [facility] [address] [place] [place], [address] GAP 11 Normal 08-23 [facility] Comment on above: Performed By: #### L 100.0500, L500.2500 #### [facility] [address] [place] [place], [address] GFR/1.73 sq M.predicted among non-blacks MDRD (S/P/Bld) [Vol rate/Area] 70 mL/min/{1.73_m2} Normal >60 [facility] Comment on above: Result Comment: mL/m in/1.73m2 CKD-EPI Creatinine Equation (2020) Performed By: #### L 100.0500, L500.2500 #### [facility] [address] [place], [address] Glucose [Mass/Vol] 105 mg/dL High 70-99 [facility] Comment on above: Performed By: #### L 100.0500, L500.2500 #### [facility] [address] [place], [address] Potassium [Moles/Vol] 4.5 mmol/L Normal 3.3-5.1 [facility] Comment on above: Performed By: #### L 100.0500, L500.2500 #### [facility] [address] [place], [address] Sodium [Moles/Vol] 140 mmol/L Normal 133-145 [facility] Comment on above: Performed By: #### L 100.0500, L500.2500 #### [facility] [address] [place], [address] Urea nitrogen [Mass/Vol] 17 mg/dL Normal 4-19 [facility] Comment on above: Performed By: #### L 100.0500, L500.2500 #### [facility] [address] [place], [address] CBC-Complete Blood Cnt No Di ffon 11-27-2024 Erythrocyte distribution width (RBC) [Ratio] 12.3 % Normal 11.6-14.6 [facility] Comment on above: Performed By: #### L 100.0500, L500.2500 #### [facility] [address] [place], [address] Hematocrit (Bld) [Volume fraction] 41.8 % Normal 40-54 [facility] Comment on above: Performed By: #### L 100.0500, L500.2500 #### [facility] [address] [place], [address] Hemoglobin (Bld) [Mass/Vol] 14.4 g/dL Normal 13.0-16.5 [facility] Comment on above: Performed By: #### L 100.0500, L500.2500 #### [facility] [address] [place], [address] MCH (RBC) [Entitic mass] 30.6 pg Normal 27.0-32.0 [facility] Comment on above: Performed By: #### L 100.0500, L500.2500 #### [facility] [address] [place], [address] MCHC (RBC) [Mass/Vol] 34.4 g/dL Normal 32-36 [facility] Comment on above: Performed By: #### L 100.0500, L500.2500 #### [facility] [address] [place], [address] MCV (RBC) [Entitic vol] 88.7 fL Normal 80-94 [facility] Comment on above: Performed By: #### L 100.0500, L500.2500 #### [facility] [address] [place], [address] Platelet mean volume (Bld) [Entitic vol] 9.3 fL Normal 6.2-12.0 [facility] Comment on above: Performed By: #### L 100.0500, L500.2500 #### [facility] [address] [place], [address] Platelets (Bld) [#/Vol] 219 10*3/uL Normal 150-450 [facility] Comment on above: Performed By: #### L 100.0500, L500.2500 #### [facility] [address] [place], [address] RBC (Bld) [#/Vol] 4.71 10*6/uL Normal 4.6-6.2 [facility] Comment on above: Performed By: #### L 100.0500, L500.2500 #### [facility] [address] [place], [address] RDW SD 40.5 fl Normal 35.1-43.9 [facility] Comment on above: Performed By: #### L 100.0500, L500.2500 #### [facility] [address] [place], [address] WBC (Bld) [#/Vol] 8.5 10*3/uL Normal 4.4-11.0 [facility] Comment on above: Performed By: #### L 100.0500, L500.2500 #### [facility] [address] [place], [address] Carbon dioxide, total [Moles /volume] in Central venous bloodOrdered By: Miah Pink on 11-27-2024 CO2 [Moles/Vol] 24.4 mmol/L 21.0-32.0 [facility] Chloride assayOrdered By: Birdie Pink on 11-27-2024 Chloride [Moles/Vol] 104 mmol/L 98-108 [facility] Erythrocyte distribution wid th ratioOrdered By: Miah Pink on 11-27-2024 Erythrocyte distribution width (RBC) [Ratio] 12.3 % 11.6-14.6 [facility] Erythrocyte distribution wid th standard deviationOrdered By: Miah Pink on 11-27-2024 Erythrocyte distribution width (RBC) [Ratio] 40.5 fl 35.1-43.9 [facility] Glomerular filtration rate ( GFR) estimation/1.73 sq m using serum, plasma, or whole bOrdered By: Miah Pink on 11-27-2024 GFR/1.73 sq M.predicted among non-blacks MDRD (S/P/Bld) [Vol rate/Area] 70 mL/min/{1.73_m2} >60 [facility] Comment on above: mL/min/1.73m2 CKD-EP I Creatinine Equation (2020) Hematocrit Auto (Bld) [Volum e fraction]Ordered By: Miah Pink on 11-27-2024 Hematocrit (Bld) [Volume fraction] 41.8 % 40-54 [facility] Hemoglobin measurementOrdere d By: Miah Pink on 11-27-2024 Hemoglobin (Bld) [Mass/Vol] 14.4 g/dL 13.0-16.5 [facility] MCV (mean corpuscular volume ) determinationOrdered By: Miah Pink on 11-27-2024 MCV (RBC) [Entitic vol] 88.7 fL 80-94 [facility] Mean corpuscular hemoglobin (MCH) determinationOrdered By: Miah Pink on 11-27-2024 MCH (RBC) [Entitic mass] 30.6 pg 27.0-32.0 [facility] Mean corpuscular hemoglobin concentration (MCHC) determinationOrdered By: Miah Pink on 11-27-2024 MCHC (RBC) [Mass/Vol] 34.4 g/dL 32-36 [facility] Mean platelet volume determi nationOrdered By: Miah Pink on 11-27-2024 Platelet mean volume (Bld) [Entitic vol] 9.3 fL 6.2-12.0 [facility] Platelet countOrdered By: Birdie Pink on 11-27-2024 Platelets (Bld) [#/Vol] 219 10*3/uL 150-450 [facility] Potassium measurement (mass/ volume)Ordered By: Miah Pnik on 11-27-2024 Potassium (Unsp spec) [Mass/Vol] 4.5 mmol/L 3.3-5.1 [facility] RBC Auto (Bld) [#/Vol]Ordere d By: Miah Pink on 11-27-2024 RBC (Bld) [#/Vol] 4.71 10*6/uL 4.6-6.2 [facility] Serum creatinine measurement (mass/volume)Ordered By: Miah Pink on 11-27-2024 Creatinine [Mass/Vol] 1.15 mg/dL 0.70-1.20 [facility] Serum glucose measurement (m ass/volume)Ordered By: Miah Pink on 11-27-2024 Glucose [Mass/Vol] 105 mg/dL High 70-99 [facility] Serum or plasma calcium dez urement (mass/volume)Ordered By: Miah Pink on 11-27-2024 Calcium [Mass/Vol] 9.2 mg/dL 7.6-11.0 [facility] Serum or plasma urea nitroge n measurement (mass/volume)Ordered By: Miah Pink on 11-27-2024 Urea nitrogen [Mass/Vol] 17 mg/dL 4- [facility] Sodium levelOrdered By: Miah Pink on 11-27-2024 Sodium [Moles/Vol] 140 mmol/L 133-145 [facility] White blood cell (WBC) count Ordered By: Miah Pink on 11-27-2024 WBC (Bld) [#/Vol] 8.5 10*3/uL 4.4-11.0 [facility] Immunohistochemical Stainson 11-12-2024 Immunohistochemical Stains Patient Age/Sex Location Account Attending Physician JONATHAN MCCRARY 69/M LABSPEC [id number] Dr. Miah Pink MD Specimen: [id number] Received: 11/12/24 Status: RUSLAN Mckeon Num: [id number] Spec Type: PROST BX Subm Dr: Dr. Miah Pink MD HEADER OPERATION: Prostate biopsy PRE-OP DIAGNOSIS: Elevated PSA TISSUE SUBMITTED: A - A - Right apex, B - Right mid, C - Right base, D - Left apex, E - Left mid, F - Left base MICROSCOPIC DIAGNOSIS A. 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 B. Prostate, right, mid, biopsy: - Adenocarcinoma Mindy 4+3=7 (55% cribriform pattern 4), two of two cores, involving 80% of the tissue. C. Prostate, right, base, biopsy: - Focal atypical small acini. - High grade PIN. - PIN4 IHC supports the histologic impression. D. Prostate, left, apex, biopsy: - Benign prostate tissue. E. Prostate, left, mid, biopsy: - Benign prostate tissue. F. Prostate, left, base, biopsy: - Adenocarcinoma Dinosaur 3+3=6, two of two cores, involving 5% 0f the tissue. MICROSCOPIC DESCRIPTION Slides are reviewed. All matched controls reacted appropriately. These tests were developed and their performance characteristics determined by [facility]. They may not have been cleared or approved by the U.[place]. Food and Drug Administration. The FDA has determined that such clearance or approval is not necessary.??? The above immunohistochemical/dualIS H???markers are reviewed by the Pathologist. GROSS DESCRIPTION Received in 6 formalin containers labeled with the patient's name and date of . Designated as: A. RA is a conway tissue core, 1.5 cm in length by 0.1 cm in diameter. Entirely submitted in 1 cassette. B. RM are 2 conway tissue cores, averaging 1.3 cm in length by 0.1 cm in diameter. Entirely submitted in 1 cassette. Patient Age/Sex Location Account Attending Physician [facility]CRARY 69[id number]. Miah Pink MD C. RB are 3 conway tissue cores 0.6 cm to 1.1 cm in length by 0.1 cm in diameter. Entirely submitted in 1 cassette. D. LA is a conway tissue core, 1.6 cm in length by 0.1 cm in diameter. Entirely submitted in 1 cassette. E. LM are 2 conway tissue cores, 1.0 cm and 1.8 cm in length by 0.1 cm in diameter. Entirely submitted in 1 cassette. F. LB are 2 fragmented conway tissue cores, 1.4 cm and 2.0 cm in length by 0.1 cm in diameter. Entirely submitted in 1 cassette. DE 11/13/2024PT:[id number], [id number] Patient Age/Sex Location Account Attending Physician JONATHAN MCCRARY 69/M [facility]SPEC [id number] Dr. Miah Pink MD Signed (signature on file) Dr. Kadie Cabrera MD 11/21/24 1528 [facility] Comment on above: Performed By: #### P IMHI #### [facility] [address] [place], [place], [address] Magnetic resonance imaging r eportOrdered By: Hemal Kim on 10-18-2024 Study report [facility] Imaging Services [address] [place] [address] Pelvis W/WO Contrast MR#: [id number] Acct: [id number] Name: JONATHAN MCCRARY Rep #: [id number] : 1955 M 69 From: Nini Kim MD PCP: Dr. Tank Melchor MD Status: REG CL I Study:Pelvis W/WO Contrast Date of Exam: 10/17/24 Exam# [id number] Ordering Dr: Talat Pink MD PROCEDURE: PELVIS W/WO CONTRAST, 10/17/2024 REASON FOR EXAM: ELEVATED PSA. PSA reportedly 11.2 on 10/09/2024 TECHNIQUE: Multisequence multiplanar MRI pelvis was performed with and without IV contrast. IV Contrast: 19 mL Clariscan COMPARISON: None FINDINGS: Variable overall mild motion limitation. Prostate size: 5.1 x 3.7 x 4.9 cm, estimated volume 48.1 mL. Per the above provided PSA, PSA density is 0.233 ng/mL. Transition zone: PI-RADS 2 findings. Peripheral Zone: Background changes of likely prostatitis (PI-RADS 2). Additional lesions as below: *Lesion 1: RIGHT anterior and posterolateral peripheral zone midgland to apex, 2.4 cm (series 12, image 20).. *T2 score: 5. *DWI score: 5. *DCE: Positive. *Overall PI-RADS: PI-RADS 5. *Extracapsular extension:Broad-based capsular abutment well over 1 cm with subtle capsular bulging suspicious for possible early extracapsular extension. *Lesion 2: Ill-defined signal spanning 3.0 cm of the along the bilateral posteromedial peripheral zones extending from base to apex (series 12 image 19).. *T2 score: 3. *DWI score: Minimal restricted diffusion above background; DWI score 3. *DCE: Positive. *Overall PI-RADS: Borderline; felt the best considered PI-RADS 3. *Extracapsular extension:No gross extracapsular extension, however, there is capsular abutment well over 1 cm which increases the risk of occult early/microscopic extracapsular extension. Note that this includes the region of the bilateral neurovascular bundles and anterior rectum, without gross involvement. Neurovascular bundles: As above. Seminal vesicles: Unremarkable. Bladder: Underdistended and suboptimally evaluated. Mild trabeculation may suggest chronic bladder outlet obstruction.. Lymph nodes: Unremarkable. Bones: No destructive or frankly suspicious bony lesions identified. Artifact related to lumbar spinal fusion. Other: Diverticulosis.. MRI/Pelvis W/WO Contrast IMPRESSION: 1. 2.4 cm PI-RADS 5 lesion in the RIGHT anterior and posterolateral peripheral zone midgland to apex (lesion 1). Broad-based capsular abutment well over 1 cm with subtle capsular bulging suspicious for possible early extracapsular extension. 2. 3.0 cm ill-defined signal in the bilateral posteromedial peripheral zones extending from base to apex is felt the sequela of focally prominent prostatitis but is felt the best considered PI-RADS 3 (lesion 2). No gross extracapsular extension, however, there is capsular abutment well over 1 cm which increases the risk of occult early/microscopic extracapsular extension. Note that this includes the region of the bilateral neurovascular bundles and anterior rectum, without gross involvement. 3. no overt pelvic lymphadenopathy 4. Additional description as above. Reading Location: [id number] CC: Dr. Miah Pink MD; Dr. Tank Melchor MD ~ Plasma Processing Centrifuge Operator: Signed [facility] Pelvis W/WO Contraston 10-17 Pelvis W/WO Contrast [facility] Imaging Services [address] [place] [address] Pelvis W/WO Contrast MR#: [id number] Acct: [id number] Name: JONATHAN MCCRARY Rep #: [id number] : 1955 M 69 From: Hemal Kim MD PCP: Dr. Tank Melchor MD Status: REG CLI Study: Pelvis W/WO Contrast Date of Exam: 10/17/24 Exam# [id number] Ordering Dr: Miah Pink MD PROCEDURE: PELVIS W/WO CONTRAST, 10/17/2024 REASON FOR EXAM: ELEVATED PSA. PSA reportedly 11.2 on 10/09/2024 TECHNIQUE: Multisequence multiplanar MRI pelvis was performed with and without IV contrast. IV Contrast: 19 mL Clariscan COMPARISON: None FINDINGS: Variable overall mild motion limitation. Prostate size: 5.1 x 3.7 x 4.9 cm, estimated volume 48.1 mL. Per the above provided PSA, PSA density is 0.233 ng/mL. Transition zone: PI-RADS 2 findings. Peripheral Zone: Background changes of likely prostatitis (PI-RADS 2). Additional lesions as below: *Lesion 1: RIGHT anterior and posterolateral peripheral zone midgland to apex, 2.4 cm (series 12, image 20).. *T2 score: 5. *DWI score: 5. *DCE: Positive. *Overall PI-RADS: PI-RADS 5. *Extracapsular extension:Broad-based capsular abutment well over 1 cm with subtle capsular bulging suspicious for possible early extracapsular extension. *Lesion 2: Ill-defined signal spanning 3.0 cm of the along the bilateral posteromedial peripheral zones extending from base to apex (series 12 image 19).. *T2 score: 3. *DWI score: Minimal restricted diffusion above background; DWI score 3. *DCE: Positive. *Overall PI-RADS: Borderline; felt the best considered PI-RADS 3. *Extracapsular extension:No gross extracapsular extension, however, there is capsular abutment well over 1 cm which increases the risk of occult early/microscopic extracapsular extension. Note that this includes the region of the bilateral neurovascular bundles and anterior rectum, without gross involvement. Neurovascular bundles: As above. Seminal vesicles: Unremarkable. Bladder: Underdistended and suboptimally evaluated. Mild trabeculation may suggest chronic bladder outlet obstruction.. Lymph nodes: Unremarkable. Bones: No destructive or frankly suspicious bony lesions identified. Artifact related to lumbar spinal fusion. Other: Diverticulosis.. MRI/Pelvis W/WO Contrast IMPRESSION: 1. 2.4 cm PI-RADS 5 lesion in the RIGHT anterior and posterolateral peripheral zone midgland to apex (lesion 1). Broad-based capsular abutment well over 1 cm with subtle capsular bulging suspicious for possible early extracapsular extension. 2. 3.0 cm ill-defined signal in the bilateral posteromedial peripheral zones extending from base to apex is felt the sequela of focally prominent prostatitis but is felt the best considered PI-RADS 3 (lesion 2). No gross extracapsular extension, however, there is capsular abutment well over 1 cm which increases the risk of occult early/microscopic extracapsular extension. Note that this includes the region of the bilateral neurovascular bundles and anterior rectum, without gross involvement. 3. no overt pelvic lymphadenopathy 4. Additional description as above. Reading Location: [id number] CC: Dr. Miah Pink MD; Dr. Tank Melchor MD Plasma Processing Centrifuge Operator: Signed Normal [facility] PSA Total+%Freeon 10-10-2024 PSA, FREE 2.27 ng/mL Normal N/A [facility] Comment on above: Result Comment: Godwin ARMENTA methodology. Performed By: #### L 3110.0500 #### [facility] [address] [place], [address] PSA, FREE % 20.3 Normal . [facility] Comment on above: Result Comment: The table below lists the probability of prostate cancer for men with non-suspicious DEVIKA results and total PSA between 4 and 10 ng/mL, by patient age (Barron et al, NORI 1998, 279:1542). % Free PSA 50-64 yr 65-75 yr 0.00-10.00% 56% 55% 10.01-15.00% 24% 35% 15.01-20.00% 17% 23% 20.01-25.00% 10% 20% >25.00% 5% 9% Please note: Barron et al did not make specific recommendations regarding the use of percent free PSA for any other population of men. Performed at: [facility] [id number] Collection Systems Technician: Alejo Cruz PhD, Phone: [phone] Performed By: #### L 3110.0500 #### [facility] [address] [place], [address] PSA, TOTAL ULTR 11.200 ng/mL Abnormal 0.000-4.00 0 [facility] Comment on above: Result Comment: Godwin camara ECLIA methodology. According to the [employer], Serum PSA should decrease and remain at undetectable levels after radical prostatectomy. The AUA defines biochemical recurrence as an initial PSA value 0.200 ng/mL or greater followed by a subsequent confirmatory PSA value 0.200 ng/mL or greater. Values obtained with different assay methods or kits cannot be used interchangeably. Results cannot be interpreted as absolute evidence of the presence or absence of malignant disease. Performed By: #### L 3110.0500 #### [facility] [address] [place], [address] Serum or plasma free prostat e specific antigen (PSA)/total PSA mass ratioOrdered By: Marielos Urban on 10-09-2024 Free PSA/Total PSA [Mass fraction] 20.3 % . [facility] Comment on above: The table below list s the probability of prostate cancer formen with non-suspicious DEVIKA results and total PSA between4 and 10 ng/mL, by patient age (Barron et al, NORI 1998,279:1542). % Free PSA 50-64 yr 65-75 yr 0.00-10.00% 56% 55% 10.01-15.00% 24% 35% 15.01-20.00% 17% 23% 20.01-25.00% 10% 20% >25.00% 5% 9%Please note: Barron et al did not make specific recommendations regarding the use of percent free PSA for any other population of men.Performed at: [facility] [id number] [place], [place] [id number] Director: Alejo Cruz PhD, Phone: [phone] [facility] with eGFRon 03-14-2024 AGE 68 years Normal [facility] Comment on above: Performed By: #### 2 68945 #### [facility],[address] [facility] [address] Albumin [Mass/Vol] 4.1 g/dL Normal 3.4 - 5.0 g/dL [facility].; [facility]. Comment on above: Performed By: #### 2 36395 #### [place] [id number] Albumin/Globulin [Mass ratio] 1.5 {ratio} Normal 0.9 - 1.6 [facility] Comment on above: Performed By: #### 2 60994 #### [address] [address] ALK PHOS 68 U/L Normal 46 - 116 [facility] Comment on above: Performed By: #### 2 93665 #### [place] [id number] ALT [Catalytic activity/Vol] 27 U/L Normal 16 - 63 U/L [facility].; [facility], [facility]. Comment on above: Performed By: #### 2 33676 #### [address] [address] Anion gap [Moles/Vol] 11 mmol/L Normal 10 - 2 0 mmol/L [facility].; [facility], [facility]. Comment on above: Performed By: #### 2 08530 #### [address] [address] AST [Catalytic activity/Vol] 19 U/L Normal 15 - 37 U/L [facility].; [facility], [facility]. Comment on above: Performed By: #### 2 62886 #### [address] [address] B/C RATIO 14 ratio Normal 0 - 30 [facility] Comment on above: Performed By: #### 2 51406 #### [address] [address] Bilirubin [Mass/Vol] 0.8 mg/dL Normal 0.2 - 1 .0 mg/dL [facility].; [facility], [facility]. Comment on above: Performed By: #### 2 22168 #### [address] [address] Calcium [Mass/Vol] 9.2 mg/dL Normal 8.5 - 10. 1 mg/dL [facility], [facility].; [facility], [facility]. Comment on above: Performed By: #### 2 07252 #### [place] [id number] Chloride [Moles/Vol] 103 mmol/L Normal 98 - 10 7 mmol/L [facility].; [facility], [facility]. Comment on above: Performed By: #### 2 59618 #### [place] [id number] CMP with eGFR Normal [facility] Comment on above: Result Comment: COMP REHENSIVE METABOLIC PANEL Performed By: #### 2 39230 #### [place] [id number] CO2 [Moles/Vol] 29.6 mmol/L Normal 21.0 - 32.0 mmol/L [facility], [facility].; [facility], [facility]. Comment on above: Performed By: #### 2 55318 #### [address] [address] Creatinine [Mass/Vol] 1.22 mg/dL Normal 0.70 - 1.30 mg/dL [facility], [facility].; [facility], [facility]. Comment on above: Performed By: #### 2 23738 #### [place] [id number] eGFR 59 ML/MINUTE Low 60 - 999 [facility] Comment on above: Performed By: #### 2 30097 #### [address] [address] GFR/1.73 sq M.predicted among non-blacks MDRD (S/P/Bld) [Vol rate/Area] mL/min/{1.73_m2} Normal 60 - 999 [facility] Comment on above: Result Comment: ACCO RDING TO THE NATIONAL KIDNEY DISEASE EDUCATION PROGRAM(NKDE), A NORMAL eGFR IS A VALUE GREATER THAN OR EQUAL TO 60 ML/MIN/1.73 SQ METERS. CHRONIC KIDNEY DISEASE: <60mL/MIN/1.73 SQ METERS KIDNEY FAILURE: <15mL/MIN/1.73 SQ METERS THIS TEST SHOULD ONLY BE USED FOR PATIENTS 18 YEARS OF AGE AND OLDER. Performed By: #### 2 54891 #### [place] [address] Globulin (S) [Mass/Vol] 2.8 g/dL Normal 1.5 - 3.8 g/dL [facility], [facility].; [facility], [place]. Comment on above: Performed By: #### 2 98876 #### [address] [address] Glucose [Mass/Vol] 96 mg/dL Normal 74 - 106 mg/dL [facility], [facility].; [facility] [employer] [facility], [place]. Comment on above: Performed By: #### 2 36135 #### [address] [address] Potassium [Moles/Vol] 4.0 mmol/L Normal 3.5 - 5.1 mmol/L [facility], [facility].; [facility], [facility]. Comment on above: Performed By: #### 2 50999 #### [address] [address] Protein [Mass/Vol] 6.9 g/dL Normal 6.4 - 8.2 g/dL [facility], [facility].; [facility] [employer] [facility], [place]. Comment on above: Performed By: #### 2 48242 #### [address] [address] Sodium [Moles/Vol] 140 mmol/L Normal 136 - 145 mmol/L [facility], [facility].; [facility] [employer] [facility], [place]. Comment on above: Performed By: #### 2 37368 #### [facility],[address] [place] [address] Urea nitrogen [Mass/Vol] 17 mg/dL Normal 7 - 18 mg/dL [facility], [facility].; [facility], [facility]. Comment on above: Performed By: #### 2 43606 #### [facility],[address] [place] [address] LIPID PROFILEon 03-14-2024 Cholesterol [Mass/Vol] 144 mg/dL Normal 0 - 2 40 mg/dL [facility], [facility].; [facility], [facility]. Comment on above: Performed By: #### 2 97527 #### [facility],[address] [place] [address] Cholesterol in HDL [Mass/Vol] 61 mg/dL High 40 - 60 [facility] Comment on above: Performed By: #### 2 22066 #### [facility],[address] [place] [address] Cholesterol in LDL [Mass/Vol] 69 mg/dL Normal 0 - 129 mg/dL [facility], [facility].; [facility] Comment on above: Performed By: #### 2 39025 #### [address] [address] Cholesterol.total/Chol esterol in HDL [Mass ratio] 2.4 {ratio} Normal 0.0 - 5.0 [facility], [facility].; [facility], [facility]. Comment on above: Performed By: #### 2 61475 #### [address] [address] Lipid 1996 panel Normal [facility] Comment on above: Result Comment: LIPI D PROFILE Performed By: #### 2 57456 #### [facility],[address] [place] [address] Triglyceride [Mass/Vol] 72 mg/dL Normal 0 - 150 mg/dL [facility], [facility].; [facility], [facility]. Comment on above: Performed By: #### 2 20545 #### [facility],[address] [place] [address] Laboratory - Chemistry and C hemistry - challengeon 03-14-2024 Albumin [Mass/Vol] 1.5 g/dL Normal 0.9 - 1.6 [facility], [facility].; [facility] [employer] [facility] ALP [Catalytic activity/Vol] 68 U/L Normal 46 - 116 U/L [facility], [facility].; [facility] [employer] [facility] Cholesterol in HDL [Mass or moles/Vol] 61 mg/dL Abnormal 40 - 60 mg/dL [facility], [facility].; [facility] [employer] [facility], [facility]. Comprehensive metabolic 2000 panel CMP with eGFR Normal [facility], [facility].; [facility] GFR/1.73 sq M.predicted among blacks MDRD (S/P/Bld) [Vol rate/Area] mL/min/{1.73_m2} Normal 60 - 999 {ML/MINUTE } [facility], [facility].; [facility] [employer] [facility], [facility]. GFR/1.73 sq M.predicted MDRD (S/P/Bld) [Vol rate/Area] 59 {ML/MINUTE} Abnormal 60 - 999 {ML/MINUTE } [facility], [facility].; [facility] [employer] [facility] Lipid 1996 panel LIPID PROFILE Normal [facility], [facility].; [facility] [employer] Prostate specific Ag [Mass/Vol] 12.23 ng/mL Abnormal 0.00 - 4.00 ng/mL [facility], [facility].; [facility] [employer] [facility] Urea nitrogen/Creatinine [Mass ratio] 14 {ratio} Normal 0 - 30 {ratio} [facility] [employer] No Panel Informationon 03-14 AGE 68 {years} Normal [facility] [employer] [facility], [facility].; [facility] [employer] [facility] COMPREHENSIVE METABOLIC PANE Shane 03-11-2023 Albumin [Mass/Vol] 4.6 g/dL Normal 3.6-5.1 [facility] Comment on above: Performed By: #### 7 727, 17389, 1876 #### [facility] [address], [address] [place] [address] Distribution Transformer Assembler: Enmanuel Mirza MD Albumin/Globulin [Mass ratio] 2.2 {ratio} Normal 1.0-2.5 [facility] Comment on above: Performed By: #### 7 600, 88942, 5363 #### [facility] of [address], [address] [place] [address] Distribution [employer] Assembler: Enmanuel Mirza MD ALP [Catalytic activity/Vol] 49 U/L Normal 35-144 [facility] Comment on above: Performed By: #### 7 600, 19044, 5363 #### [facility] of [address], [address] [place] [address] [employer] Assembler: Enmanuel Mirza MD ALT [Catalytic activity/Vol] 18 U/L Normal 9-46 [facility] Comment on above: Performed By: #### 7 600, 31518, 5363 #### [facility] of [address], [address] [place] [address] Distribution [employer]former Assembler: Enmanuel Mirza MD AST [Catalytic activity/Vol] 16 U/L Normal 10-35 [facility] Comment on above: Performed By: #### 7 600, 31947, 5363 #### [facility] of [address], [address] [place] [address] Distribution [employer] Assembler: Enmanuel Mirza MD Bilirubin [Mass/Vol] 0.8 mg/dL Normal 0.2-1.2 [facility] Comment on above: Performed By: #### 7 600, 10545, 5363 #### [facility] of [place] [address] Distribution Transformer Assembler: Enmanuel Mirza MD BUN/CREATININE RATIO SEE NOTE: Normal 6-22 [facility] Comment on above: Result Comment: Not Reported: BUN and Creatinine are within reference range. Performed By: #### 7 600, 19614, 5363 #### [facility] of [address], [address] [place] [address] Distribution [employer]former Assembler: Enmanuel Mirza MD Calcium [Mass/Vol] 9.5 mg/dL Normal 8.6-10.3 [facility] Comment on above: Performed By: #### 7 600, 58543, 5363 #### [facility] of [place] [address] Distribution Transformer Assembler: Enmanuel Mirza MD Chloride [Moles/Vol] 105 mmol/L Normal 98-110 [facility] Comment on above: Performed By: #### 7 600, , 5363 #### [facility] of [address], [address] [place] [address] Distribution [employer]former Assembler: Enmanuel Mirza MD CO2 [Moles/Vol] 26 mmol/L Normal 20-32 [facility] Comment on above: Performed By: #### 7 600, , 5363 #### [facility] of [place] [address] Distribution Transformer Assembler: Enmanuel Mirza MD Creatinine [Mass/Vol] 1.15 mg/dL Normal 0.70-1.35 [facility] Comment on above: Performed By: #### 7 600, , 5363 #### [facility] of [place] [address] Distribution Transformer Assembler: Enmanuel Mirza MD GFR/1.73 sq M.predicted among non-blacks MDRD (S/P/Bld) [Vol rate/Area] 71 mL/min/{1.73_m2} Normal > OR = 60 [facility] Comment on above: Performed By: #### 7 600, 15875, 5363 #### [facility] of [place] [address] Distribution Transformer Assembler: Enmanuel Mirza MD Globulin (S) [Mass/Vol] 2.1 g/dL Normal 1.9-3.7 [facility] Comment on above: Performed By: #### 7 600, 88352, 5363 #### [facility] of [place] [address] Distribution Transformer Assembler: Enmanuel Mirza MD Glucose [Mass/Vol] 94 mg/dL Normal 65-99 [facility] Comment on above: Result Comment: Fasting reference interval Performed By: #### 7 600, 23812, 5363 #### [facility] of [place] [address] Distribution Transformer Assembler: Enmanuel Mirza MD Potassium [Moles/Vol] 4.3 mmol/L Normal 3.5-5.[address] [facility] Comment on above: Performed By: #### 7 600, 80466, 5363 #### [facility] of [place] [address] Distribution Transformer Assembler: Enmanuel Mirza MD Protein [Mass/Vol] 6.7 g/dL Normal 6.1-8.1 [facility] Comment on above: Performed By: #### 7 600, , 5363 #### [facility] of [place] [address] Distribution Transformer Assembler: Enmanuel Mirza MD Sodium [Moles/Vol] 140 mmol/L Normal 135-146 [facility] Comment on above: Performed By: #### 7 600, , 5363 #### [facility] of [place] [address] Distribution Transformer Assembler: Enmanuel Mirza MD Urea nitrogen [Mass/Vol] 17 mg/dL Normal 7-25 [facility] Comment on above: Performed By: #### 7 600, , 5363 #### [facility] of [place] [address] Distribution Transformer Assembler: Enmanuel Mirza MD LIPID PANEL, [facility] 12-0 Cholesterol [Mass/Vol] 140 mg/dL Normal <200 [facility] Comment on above: Performed By: #### 7 600, 56127, 5363 #### [facility] of [place] [address] Distribution Transformer Assembler: Enmanuel Mirza MD Cholesterol in HDL [Mass/Vol] 55 mg/dL Normal > OR = 40 [facility] Comment on above: Performed By: #### 7 600, , 5363 #### [facility] [place] [address] Distribution Transformer Assembler: Enmanuel Mirza MD Cholesterol in LDL [Mass/Vol] 67 mg/dL Normal [facility] Comment on above: Result Comment: Refe rence range: <100 Desirable range <100 mg/dL for primary prevention; <70 mg/dL for patients with CHD or diabetic patients with > or = 2 CHD risk factors. LDL-C is now calculated using the Dany calculation, which is a validated novel method providing better accuracy than the Friedewald equation in the estimation of LDL-C. Arturo QUINONES et al. NORI. 2013;310(19): 2205-6968 (http://education.KitLocate.[employer]faq/ZKK788) Performed By: #### 7 600, 08573, 5363 #### [facility] [place] [address] Distribution Transformer Assembler: Enmanuel Mirza MD Cholesterol.total/Chol esterol in HDL [Mass ratio] 2.5 {ratio} Normal <5.0 [facility] Comment on above: Performed By: #### 7 600, 25549, 5363 #### [facility] [place] [address] Distribution [employer] Assembler: Enmanuel Mirza MD NON HDL CHOLESTEROL 85 mg/dL (calc) Normal <130 [facility] Comment on above: Result Comment: For patients with diabetes plus 1 major ASCVD risk factor, treating to a non-HDL-C goal of <100 mg/dL (LDL-C of <70 mg/dL) is considered a therapeutic option. Performed By: #### 7 600, 69896, 5363 #### [facility] [address], [address] [place] [address] Distribution Transformer Assembler: Enmanuel Mirza MD Triglyceride [Mass/Vol] 92 mg/dL Normal <150 [facility] Comment on above: Performed By: #### 7 600, 98537, 5363 #### [facility] [place] [address] Distribution Transformer Assembler: Enmanuel Mirza MD PSA, TOTALon 03-11-2023 PSA, TOTAL 7.97 ng/mL High < OR = 4.00 [employer] [facility] Comment on above: Result Comment: The total PSA value from this assay system is standardized against the WHO standard. The test result will be approximately 20% lower when compared to the equimolar-standardized total PSA (Chay Pride). Comparison of serial PSA results should be interpreted with this fact in mind. This test was performed using the Siemens chemiluminescent method. Values obtained from different assay methods cannot be used interchangeably. PSA levels, regardless of value, should not be interpreted as absolute evidence of the presence or absence of disease. Performed By: #### 7 600, 99536, 5363 #### [employer] [facility] [place] [address] [facility], [address] [place] [id number] Distribution Transformer Assembler: Enmanuel Mirza MD Laboratory - Chemistry and C hemistry - challengeon 03-10-2023 Albumin [Mass/Vol] 4.6 g/dL Normal 3.6 - 5.1 g/dL [facility] [employer] Albumin/Globulin [Mass ratio] 2.2 {ratio} Normal 1.0 - 2.5 [facility] [employer] [facility], [facility].; [facility] [employer] ALP [Catalytic activity/Vol] 49 U/L Normal 35 - 144 U/L [facility] [employer] [facility] [place] [employer] ALT [Catalytic activity/Vol] 18 U/L Normal 9 - 46 U/L [facility] [employer] [facility] [employer] AST [Catalytic activity/Vol] 16 U/L Normal 10 - 35 U/L [facility] [employer] [facility], [facility].; [employer] Bilirubin [Mass/Vol] 0.8 mg/dL Normal 0.2 - 1 .2 mg/dL [facility] [employer] [facility] [employer] Calcium [Mass/Vol] 9.5 mg/dL Normal 8.6 - 10. 3 mg/dL [facility] [employer] [facility] [employer] Chloride [Moles/Vol] 105 mmol/L Normal 98 - 11 0 mmol/L [facility] [employer] [facility] [employer] Cholesterol [Mass/Vol] 140 mg/dL Normal [facility], [place].; [facility] [employer]. Cholesterol in HDL [Mass/Vol] 55 mg/dL Normal [facility].; [facility] [employer] [facility], [facility]. Cholesterol in LDL [Mass/Vol] 67 mg/dL Normal [facility].; [facility] [employer] [facility], [place]. CO2 [Moles/Vol] 26 mmol/L Normal 20 - 32 mmol/L [facility], [facility].; [facility] [employer] [facility], [facility]. Creatinine [Mass/Vol] 1.15 mg/dL Normal 0.70 - 1.35 mg/dL [facility] [employer] [facility].; [facility] [employer] [facility], [facility]. GFR/1.73 sq M.predicted among non-blacks MDRD (S/P/Bld) [Vol rate/Area] 71 mL/min/{1.73_m2} Normal [facility].; [facility], [place]. Glucose [Mass/Vol] 94 mg/dL Normal 65 - 99 mg/dL [facility].; [facility] [employer], [facility]. Potassium [Moles/Vol] 4.3 mmol/L Normal 3.5 - 5.3 mmol/L [facility].; [employer]. Protein [Mass/Vol] 6.7 g/dL Normal 6.1 - 8.1 g/dL [facility] [employer] [facility].; [employer], [place]. Sodium [Moles/Vol] 140 mmol/L Normal 135 - 146 mmol/L [facility] [employer] [facility].; [employer], [place]. Triglyceride [Mass/Vol] 92 mg/dL Normal [facility] [employer].; [employer]. Urea nitrogen [Mass/Vol] 17 mg/dL Normal 7 - 25 mg/dL [facility] [employer] [facility].; [employer] [facility] No Panel Informationon 03-10 BUN/CREATININE RATIO SEE NOTE: Normal 6 - 22 [facility] [employer] [facility].; [employer], [place]. CHOL/HDLC RATIO 2.5 Normal [facility].; [employer] GLOBULIN 2.1 Normal 1.9 - 3.7 [facility] [employer] [facility].; [employer], [place]. NON HDL CHOLESTEROL 85 Normal [facility].; [facility] [employer] PSA, TOTAL 7.97 ng/mL Abnormal [facility].; [facility]. PSA, TOTALon 12-03-2022 PSA, TOTAL 6.38 ng/mL High < OR = 4.00 [facility] Comment on above: Result Comment: The total PSA value from this assay system is standardized against the WHO standard. The test result will be approximately 20% lower when compared to the equimolar-standardized total PSA (Chay Aryan). Comparison of serial PSA results should be interpreted with this fact in mind. This test was performed using the Siemens chemiluminescent method. Values obtained from different assay methods cannot be used interchangeably. PSA levels, regardless of value, should not be interpreted as absolute evidence of the presence or absence of disease. Performed By: #### 5 363 #### [facility] [place] [address] [employer]former Assembler: Enmanuel Mirza MD No Panel Informationon 12-02 PSA, TOTAL 6.38 ng/mL Abnormal [facility].; [facility] COMPREHENSIVE METABOLIC PANE [facility] 03-19-2022 Albumin [Mass/Vol] 4.8 g/dL Normal 3.6-5.1 [facility] Comment on above: Performed By: #### 7 600, 43302, 5398 #### [facility] [place] [address] [employer] Assembler: Enmanuel Mirza MD Albumin/Globulin [Mass ratio] 2.0 {ratio} Normal 1.0-2.5 [facility] Comment on above: Performed By: #### 7 600, 08632, 5363 #### [facility] [place] [address] [employer]er: Enmanuel Mirza MD ALP [Catalytic activity/Vol] 53 U/L Normal 35-144 [facility] Comment on above: Performed By: #### 7 600, 64209, 5363 #### [facility] [place] [address] [employer] As[employer]er: Enmanuel Mirza MD ALT [Catalytic activity/Vol] 23 U/L Normal 9-46 [facility] Comment on above: Performed By: #### 7 600, 61856, 5363 #### [facility] of [address], [address] [place] [address] Distribution [employer]former [employer]er: Enmanuel Mirza MD AST [Catalytic activity/Vol] 17 U/L Normal 10-35 [facility] Comment on above: Performed By: #### 7 600, [id number], [id number] #### [facility] of [address], [address] [place] [address] [employer]er: Enmanuel Mirza MD Bilirubin [Mass/Vol] 1.0 mg/dL Normal 0.2-1.2 [facility] Comment on above: Performed By: #### 7 600, 13754, 5363 #### [facility] of [address], [address] [place] [address] Distribution [employer]er: Enmanuel Mirza MD BUN/CREATININE RATIO NOT APPLICABLE Normal 6-22 [facility] Comment on above: Performed By: #### 7 600, [id number], 5363 #### [facility] of [address], [address] [place] [address] Distribution [employer]er: Enmanuel Mirza MD Calcium [Mass/Vol] 9.6 mg/dL Normal 8.6-10.3 [facility] Comment on above: Performed By: #### 7 600, 73271, 5363 #### [facility] of [address], [address] [place] [address] [employer]er: Enmanuel Mirza MD Chloride [Moles/Vol] 104 mmol/L Normal 98-110 [facility] Comment on above: Performed By: #### 7 600, [id number], 5363 #### [facility] of [address], [address] [place] [address] [employer]er: Enmanuel Mirza MD CO2 [Moles/Vol] 27 mmol/L Normal 20-32 [facility] Comment on above: Performed By: #### 7 600, [id number], 5363 #### [facility] of [address], [address] [place] [address] [employer]er: Enmanuel Mirza MD Creatinine [Mass/Vol] 1.09 mg/dL Normal 0.70-1.[address] [facility] Comment on above: Performed By: #### 7 600, 89720, 5363 #### [facility] [place] [address] [employer]er: Enmanuel Mirza MD GFR/1.73 sq M.predicted among non-blacks MDRD (S/P/Bld) [Vol rate/Area] 76 mL/min/{1.73_m2} Normal > OR = 60 [facility] Comment on above: Result Comment: The eGFR is based on the CKD-EPI 2020 equation. To calculate the new eGFR from a previous Creatinine or Cystatin C result, go to https://www.kidney.org/professionals/ kdoqi/gfr%5Fcalculator Performed By: #### 7 600, [id number], 5363 #### [facility] [place] [address] [employer]er: Enmanuel Mirza MD Globulin (S) [Mass/Vol] 2.4 g/dL Normal 1.9-3.7 [facility] Comment on above: Performed By: #### 7 600, 30183, 5363 #### [facility] [place] [address] [employer]er: Enmanuel Mirza MD Glucose [Mass/Vol] 86 mg/dL Normal 65-99 [facility] Comment on above: Result Comment: Fasting reference interval Performed By: #### 7 600, 15584, 5363 #### [facility] [place] [address] [employer]er: Enmanuel Mirza MD Potassium [Moles/Vol] 4.4 mmol/L Normal 3.5-5.[address] [facility] Comment on above: Performed By: #### 7 600, 30292, 5363 #### [facility] [place] [address] [employer]er: Enmanuel Mirza MD Protein [Mass/Vol] 7.2 g/dL Normal 6.1-8.1 [facility] Comment on above: Performed By: #### 7 600, 02474, 5363 #### [facility] of [place] [address] Distribution [employer]er: Enmanuel Mirza MD Sodium [Moles/Vol] 140 mmol/L Normal 135-146 [facility] Comment on above: Performed By: #### 7 600, 09547, 5363 #### [facility] of [place] [address] [employer]er: Enmanuel Mirza MD Urea nitrogen [Mass/Vol] 21 mg/dL Normal 7-25 [facility] Comment on above: Performed By: #### 7 600, 90984, 5363 #### [facility] of [place] [address] [employer]er: Enmanuel Mirza MD LIPID PANEL, [facility] 12-0 Cholesterol [Mass/Vol] 159 mg/dL Normal <200 [facility] Comment on above: Performed By: #### 7 600, 34304, 5363 #### [facility] of [place] [address] [employer]er: Enmanuel Mirza MD Cholesterol in HDL [Mass/Vol] 60 mg/dL Normal > OR = 40 [facility] Comment on above: Performed By: #### 7 600, 17316, 5363 #### [facility] of [place] [address] [employer]er: Enmanuel Mirza MD Cholesterol in LDL [Mass/Vol] 85 mg/dL Normal [facility] Comment on above: Result Comment: Refe rence range: <100 Desirable range <100 mg/dL for primary prevention; <70 mg/dL for patients with CHD or diabetic patients with > or = 2 CHD risk factors. LDL-C is now calculated using the Dany calculation, which is a validated novel method providing better accuracy than the Friedewald equation in the estimation of LDL-C. Arturo QUINONES et al. NORI. 2013;310(19): 5723-1033 (http://education.[employer]/faq/BEZ397) Performed By: #### 7 600, , 5363 #### [facility] [place] [address] [employer]er: Enmanuel Mirza MD Cholesterol.total/Chol esterol in HDL [Mass ratio] 2.7 {ratio} Normal <5.0 [facility] Comment on above: Performed By: #### 7 600, , 5363 #### [facility] [place] [address] [employer]er: Enmanuel Mirza MD NON HDL CHOLESTEROL 99 mg/dL (calc) Normal <130 [facility] Comment on above: Result Comment: For patients with diabetes plus 1 major ASCVD risk factor, treating to a non-HDL-C goal of <100 mg/dL (LDL-C of <70 mg/dL) is considered a therapeutic option. Performed By: #### 7 600, 97144, 5363 #### [facility] [place] [address] [employer]er: Enmanuel Mirza MD Triglyceride [Mass/Vol] 62 mg/dL Normal <150 [facility] Comment on above: Performed By: #### 7 600, 16068, 5363 #### [facility] [place] [address] [employer]er: Enmanuel Mirza MD PSA, TOTALon 03-19-2022 PSA, TOTAL 7.60 ng/mL High < OR = 4.00 [facility] Comment on above: Result Comment: The total PSA value from this assay system is standardized against the WHO standard. The test result will be approximately 20% lower when compared to the equimolar-standardized total PSA (Chay Aryan). Comparison of serial PSA results should be interpreted with this fact in mind. This test was performed using the Siemens chemiluminescent method. Values obtained from different assay methods cannot be used interchangeably. PSA levels, regardless of value, should not be interpreted as absolute evidence of the presence or absence of disease. Performed By: #### 7 600, 54278, 5363 #### [facility] [address] [place] [address] Distribution [employer]er: Enmanuel Mirza MD Laboratory - Chemistry and C hemistry - challengeon 03-18-2022 Albumin [Mass/Vol] 4.8 g/dL Normal 3.6 - 5.1 g/dL [facility], [facility].; [facility] [employer] [facility] Albumin/Globulin [Mass ratio] 2.0 {ratio} Normal 1.0 - 2.5 [facility], [facility].; [facility] [employer] [facility] ALP [Catalytic activity/Vol] 53 U/L Normal 35 - 144 U/L [facility], [facility].; [facility] [employer] [facility] ALT [Catalytic activity/Vol] 23 U/L Normal 9 - 46 U/L [facility], [facility].; [facility] [employer] [facility] AST [Catalytic activity/Vol] 17 U/L Normal 10 - 35 U/L [facility], [facility].; [facility] [employer] Bilirubin [Mass/Vol] 1.0 mg/dL Normal 0.2 - 1 .2 mg/dL [facility], [facility].; [facility] [employer] Calcium [Mass/Vol] 9.6 mg/dL Normal 8.6 - 10. 3 mg/dL [facility], [facility].; [facility] [employer] Chloride [Moles/Vol] 104 mmol/L Normal 98 - 11 0 mmol/L [facility], [facility].; [facility] [employer] Cholesterol [Mass/Vol] 159 mg/dL Normal [facility], [facility].; [facility] [employer] Cholesterol in HDL [Mass/Vol] 60 mg/dL Normal [facility] [employer] [facility] [employer] Cholesterol in LDL [Mass/Vol] 85 mg/dL Normal [facility] [employer] [facility] [employer] CO2 [Moles/Vol] 27 mmol/L Normal 20 - 32 mmol/L [facility], [facility].; [facility] [employer] Creatinine [Mass/Vol] 1.09 mg/dL Normal 0.70 - 1.35 mg/dL [facility], [facility].; [facility] [employer] GFR/1.73 sq M.predicted among non-blacks MDRD (S/P/Bld) [Vol rate/Area] 76 mL/min/{1.73_m2} Normal [facility]; [facility] Glucose [Mass/Vol] 86 mg/dL Normal 65 - 99 mg/dL [facility]; [facility] Potassium [Moles/Vol] 4.4 mmol/L Normal 3.5 - 5.3 mmol/L [facility]; [facility] Protein [Mass/Vol] 7.2 g/dL Normal 6.1 - 8.1 g/dL [facility]; [facility] Sodium [Moles/Vol] 140 mmol/L Normal 135 - 146 mmol/L [facility]; [facility] Triglyceride [Mass/Vol] 62 mg/dL Normal [facility]; [facility] [employer] [facility] Urea nitrogen [Mass/Vol] 21 mg/dL Normal 7 - 25 mg/dL [facility]; [facility] [employer] [facility] No Panel Informationon 03-18 BUN/CREATININE RATIO NOT APPLICABLE Normal 6 - 22 [facility]; [facility] [employer] [facility] CHOL/HDLC RATIO 2.7 Normal [facility]; [facility] [employer] [facility] GLOBULIN 2.4 Normal 1.9 - 3.7 [facility]; [facility] [employer] [facility] NON HDL CHOLESTEROL 99 Normal [facility]; [facility] [employer] [facility] PSA, TOTAL 7.60 ng/mL Abnormal [facility]; [facility] [employer] [facility] Laboratory - Chemistry and C hemistry - challengeon 02-25-2021 Albumin [Mass/Vol] 4.5 g/dL Normal 3.6 - 5.1 g/dL [facility]; [employer] [facility], [facility] Albumin/Globulin [Mass ratio] 2.1 {ratio} Normal 1.0 - 2.5 [facility]; [facility] [employer] [facility] ALP [Catalytic activity/Vol] 50 U/L Normal 35 - 144 U/L [facility].; [facility] [employer] [facility] ALT [Catalytic activity/Vol] 20 U/L Normal 9 - 46 U/L [facility].; [facility], [facility]. AST [Catalytic activity/Vol] 15 U/L Normal 10 - 35 U/L [facility].; [facility], [facility]. Bilirubin [Mass/Vol] 0.7 mg/dL Normal 0.2 - 1 .2 mg/dL [facility], [facility].; [facility], [facility] Calcium [Mass/Vol] 9.3 mg/dL Normal 8.6 - 10. 3 mg/dL [facility], [facility].; [facility], [facility]. Chloride [Moles/Vol] 104 mmol/L Normal 98 - 11 0 mmol/L [facility], [facility].; [facility], [facility]. Cholesterol [Mass/Vol] 133 mg/dL Normal [facility]; [facility], [facility] Cholesterol in HDL [Mass/Vol] 51 mg/dL Normal [facility], [facility].; [facility], [facility] Cholesterol in LDL [Mass/Vol] 68 mg/dL Normal [facility], [facility].; [facility], [facility]. CO2 [Moles/Vol] 26 mmol/L Normal 20 - 32 mmol/L [facility], [facility].; [facility], [facility] Creatinine [Mass/Vol] 1.01 mg/dL Normal 0.70 - 1.25 mg/dL [facility], [facility].; [facility], [facility]. GFR/1.73 sq M.predicted among blacks MDRD (S/P/Bld) [Vol rate/Area] 91 mL/min/{1.73_m2} Normal [facility], [facility].; [facility] Glucose [Mass/Vol] 81 mg/dL Normal 65 - 99 mg/dL [facility], [facility].; [facility], [facility]. Potassium [Moles/Vol] 4.3 mmol/L Normal 3.5 - 5.3 mmol/L [facility], [facility].; [facility] Protein [Mass/Vol] 6.6 g/dL Normal 6.1 - 8.1 g/dL [facility], [facility].; [facility] Sodium [Moles/Vol] 140 mmol/L Normal 135 - 146 mmol/L [facility]; [facility] Triglyceride [Mass/Vol] 65 mg/dL Normal [facility]; [facility] Urea nitrogen [Mass/Vol] 18 mg/dL Normal 7 - 25 mg/dL [facility]; [facility] [employer] [facility] No Panel Informationon 02-25 BUN/CREATININE RATIO NOT APPLICABLE Normal 6 - 22 [facility]; [facility] CHOL/HDLC RATIO 2.6 Normal [facility]; [facility] eGFR NON-AFR. SUDANESE 79 Normal [facility]; [facility] GLOBULIN 2.1 Normal 1.9 - 3.7 [facility]; [facility] NON HDL CHOLESTEROL 82 Normal [facility]; [facility] [employer] [facility] PSA, TOTAL 5.23 ng/mL Abnormal [facility]; [facility] [employer] [facility] Laboratory - Chemistry and C hemistry - challengeon 02-18-2020 Albumin [Mass/Vol] 4.7 g/dL Normal 3.6 - 5.1 g/dL [facility]; [employer] [facility], [facility] Albumin/Globulin [Mass ratio] 2.2 {ratio} Normal 1.0 - 2.5 [facility]; [facility] [employer] [facility]. ALP [Catalytic activity/Vol] 53 U/L Normal 35 - 144 U/L [facility].; [facility] [employer] [facility], [facility]. ALT [Catalytic activity/Vol] 23 U/L Normal 9 - 46 U/L [facility]; [employer] [facility], [facility]. AST [Catalytic activity/Vol] 18 U/L Normal 10 - 35 U/L [facility]; [employer] [facility], [facility]. Bilirubin [Mass/Vol] 0.6 mg/dL Normal 0.2 - 1 .2 mg/dL [facility]; [employer] [facility], [facility]. Calcium [Mass/Vol] 9.6 mg/dL Normal 8.6 - 10. 3 mg/dL [facility].; [facility] [employer] [facility]. Chloride [Moles/Vol] 102 mmol/L Normal 98 - 11 0 mmol/L [facility].; [facility], [facility]. Cholesterol [Mass/Vol] 140 mg/dL Normal [facility].; [facility], [facility] Cholesterol in HDL [Mass/Vol] 48 mg/dL Normal [facility].; [facility], [facility] Cholesterol in LDL [Mass/Vol] 78 mg/dL Normal [facility].; [facility] [employer] [facility]. CO2 [Moles/Vol] 24 mmol/L Normal 20 - 32 mmol/L [facility].; [facility], [facility]. Creatinine [Mass/Vol] 1.13 mg/dL Normal 0.70 - 1.25 mg/dL [facility].; [facility], [facility]. GFR/1.73 sq M.predicted among blacks MDRD (S/P/Bld) [Vol rate/Area] 80 mL/min/{1.73_m2} Normal [facility].; [facility], [facility]. Glucose [Mass/Vol] 95 mg/dL Normal 65 - 99 mg/dL [facility].; [facility] [employer] [facility], [facility]. Potassium [Moles/Vol] 3.8 mmol/L Normal 3.5 - 5.3 mmol/L [facility].; [facility] [employer] [facility], [facility]. Protein [Mass/Vol] 6.8 g/dL Normal 6.1 - 8.1 g/dL [facility], [facility].; [facility] [employer], [facility]. Sodium [Moles/Vol] 138 mmol/L Normal 135 - 146 mmol/L [facility].; [facility] [employer], [facility]. Triglyceride [Mass/Vol] 68 mg/dL Normal [facility].; [facility] [employer], [facility]. Urea nitrogen [Mass/Vol] 21 mg/dL Normal 7 - 25 mg/dL [facility].; [facility] [employer] [facility], [facility]. Laboratory - Hematology and Cell countson 02-18-2020 HbA1c (Bld) [Mass fraction] 5.7 % Abnormal [facility].; [facility] [employer], [facility]. No Panel Informationon 02-17 BUN/CREATININE RATIO NOT APPLICABLE Normal 6 - 22 [facility]; [facility] CHOL/HDLC RATIO 2.9 Normal [facility]; [facility] eGFR NON-AFR. SUDANESE 69 Normal [facility]; [facility] GLOBULIN 2.1 Normal 1.9 - 3.7 [facility]; [facility] [employer] [facility] NON HDL CHOLESTEROL 92 Normal [facility]; [facility] PSA, TOTAL 4.2 ng/mL Abnormal [facility]; [facility] Laboratory - Hematology and Cell countson 02-26-2019 HbA1c (Bld) [Mass fraction] 7.3 % Abnormal 4.6 - 7.1 % [facility]; [facility] [employer] [facility] Laboratory - Chemistry and C hemistry - challengeon 02-19-2019 Albumin [Mass/Vol] 4.2 g/dL Normal 3.6 - 5.1 g/dL [facility]; [facility] Albumin/Globulin [Mass ratio] 1.7 {ratio} Normal 1.0 - 2.5 [facility]; [facility] ALP [Catalytic activity/Vol] 77 U/L Normal 40 - 115 U/L [facility]; [facility] [employer] [facility] [place]. ALT [Catalytic activity/Vol] 23 U/L Normal 9 - 46 U/L [facility]; [facility] [employer] [facility]. AST [Catalytic activity/Vol] 17 U/L Normal 10 - 35 U/L [facility]; [facility] [employer] [facility]. Bilirubin [Mass/Vol] 0.6 mg/dL Normal 0.2 - 1 .2 mg/dL [facility]; [facility] [employer] [facility] Calcium [Mass/Vol] 9.2 mg/dL Normal 8.6 - 10. 3 mg/dL [facility].; [facility] [employer] [facility], [place] Chloride [Moles/Vol] 104 mmol/L Normal 98 - 11 0 mmol/L [facility]; [facility] [employer] [facility] Cholesterol [Mass/Vol] 143 mg/dL Normal [facility] Cholesterol in HDL [Mass/Vol] 41 mg/dL Normal [facility]; [facility] Cholesterol in LDL [Mass/Vol] 82 mg/dL Normal 0 - 100 mg/dL [facility].; [facility], [facility] Cholesterol non HDL [Mass/Vol] 102 mg/dL Normal [facility].; [facility], [facility] Cholesterol.total/Chol esterol in HDL [Mass ratio] 3.5 {ratio} Normal [facility]; [facility] CO2 [Moles/Vol] 24 mmol/L Normal 20 - 32 mmol/L [facility]; [facility], [facility] Creatinine [Mass/Vol] 1.04 mg/dL Normal 0.70 - 1.25 mg/dL [facility].; [facility], [facility]. GFR/1.73 sq M.predicted among blacks MDRD (S/P/Bld) [Vol rate/Area] 89 {ML/MIN/1.73M2} Normal [facility].; [facility], [facility]. GFR/1.73 sq M.predicted MDRD (S/P/Bld) [Vol rate/Area] 77 {ML/MIN/1.73M2} Normal [facility].; [facility], [facility]. Globulin (S) [Mass/Vol] 2.5 g/dL Normal 1.9 - 3.7 g/dL [facility].; [facility], [facility]. Glucose [Mass/Vol] 143 mg/dL Abnormal 65 - 99 mg/dL [facility].; [facility], [facility]. Potassium [Moles/Vol] 4.0 mmol/L Normal 3.5 - 5.3 mmol/L [facility].; [facility], [facility]. Prostate specific Ag [Mass/Vol] 3.4 ng/mL Normal [facility].; [facility], [facility]. Protein [Mass/Vol] 6.7 g/dL Normal 6.1 - 8.1 g/dL [facility].; [facility] Sodium [Moles/Vol] 137 mmol/L Normal 135 - 146 mmol/L [facility].; [facility]. Triglyceride [Mass/Vol] 106 mg/dL Normal [facility]; [facility]. Urea nitrogen [Mass/Vol] 17 mg/dL Normal 7 - 25 mg/dL [facility].; [facility] Urea nitrogen/Creatinine [Mass ratio] 16.0 mg/mg Normal 6 - 22 [facility]; [facility] URINE CULTUREon 09-15-2018 Bacteria identified Cx Nom (U) NO GROWTH 2 DAYS Normal [facility] [facility] Comment on above: Order Comment: CONSE RVATIONCBN: YESCampus: MAIN Performed By: #### M 100.85543 ####Test performed at: [address] [address] BASIC MET PANELon 09-14-2018 Anion gap [Moles/Vol] 13 mmol/L Normal 6-18 [facility] Comment on above: Order Comment: CONSE RVATION Performed By: #### L 500.68984, L500.05048, L500.51702 ####Test performed at: [address] [address] Calcium [Mass/Vol] 8.4 mg/dL Low 8.5-10.1 [facility] Comment on above: Order Comment: CONSE RVATION Performed By: #### L 500.73927, L500.52059, L500.01291 ####Test performed at: [address] [address] Chloride [Moles/Vol] 105 mmol/L Normal 98-107 [facility] Comment on above: Order Comment: CONSE RVATION Performed By: #### L 500.80173, L500.71628, L500.74729 ####Test performed at: [address] [address] CO2 [Moles/Vol] 24 mmol/L Normal 21-32 [facility] Comment on above: Order Comment: CONSE RVATION Performed By: #### L 500.87599, L500.38708, L500.57935 ####Test performed at: [address] [address] Creatinine [Mass/Vol] 1.110 mg/dL Normal 0.700- 1.30 0 [facility] Comment on above: Order Comment: CONSE RVATION Performed By: #### L 500.43181, L500.83239, L500.85117 ####Test performed at: [address] [address] Glucose [Mass/Vol] 153 mg/dL High 70-99 [facility] Comment on above: Order Comment: CONSE RVATION Result Comment: Fast ing GLUCOSE reference range has been updated per (ADA) [place] [employer]'s recommendation. 07/04/2018 Performed By: #### L 500.54702, L500.83431, L500.58794 ####Test performed at: [address] [address] OSM 290 mosm/kg Normal 270-300 [facility] Comment on above: Order Comment: CONSE RVATION Performed By: #### L 500.68079, L500.03250, L500.14338 ####Test performed at: [address] [address] Potassium [Moles/Vol] 4.1 mmol/L Normal 3.5-5.1 [facility] Comment on above: Order Comment: CONSE RVATION Performed By: #### L 500.39188, L500.26578, L500.57577 ####Test performed at: [address] [address] Sodium [Moles/Vol] 138 mmol/L Normal 136-145 [facility] Comment on above: Order Comment: CONSE RVATION Performed By: #### L 500.99016, L500.43200, L500.88757 ####Test performed at: [address] [address] Urea nitrogen [Mass/Vol] 14 mg/dL Normal 7-18 [facility] Comment on above: Order Comment: CONSE RVATION Performed By: #### L 500.77671, L500.48582, L500.87905 ####Test performed at: [address] [address] CBC W/DIFFon 09-14-2018 BASO ABS 0.0 K/uL Normal 0.0-0.2 [facility] Comment on above: Order Comment: CONSE RVATION Performed By: #### L 200.82313 ####Test performed at: [address] [address] Basophils/100 WBC (Bld) 0.1 % Normal [facility] Comment on above: Order Comment: CONSE RVATION Performed By: #### L 200.72700 ####Test performed at: [address] [address] EOS ABS 0.0 K/uL Normal 0.0-0.5 [facility] Comment on above: Order Comment: CONSE RVATION Performed By: #### L 200.38537 ####Test performed at: [address] [address] Eosinophils/100 WBC (Bld) 0.0 % Normal [facility] Comment on above: Order Comment: CONSE RVATION Performed By: #### L 200.59665 ####Test performed at: [address] [address] Erythrocyte distribution width (RBC) [Ratio] 12.2 % Normal 11.5-14.5 [facility] Comment on above: Order Comment: CONSE RVATION Performed By: #### L 200.10344 ####Test performed at: [address] [address] Hematocrit (Bld) [Volume fraction] 38.0 % Low 39.0-55.0 [facility] Comment on above: Order Comment: CONSE RVATION Performed By: #### L 200.31740 ####Test performed at: [place] [address] Hemoglobin (Bld) [Mass/Vol] 13.0 g/dL Low 14.0-16.5 [facility] Comment on above: Order Comment: CONSE RVATION Result Comment: Delt a: 15.8 on 08/29/18-1210 Performed By: #### L 200.36564 ####Test performed at: [place] [address] IG % 0.5 % Normal [facility] Comment on above: Order Comment: CONSE RVATION Performed By: #### L 200.10472 ####Test performed at: [address] [address] IG ABS 0.08 K/uL High 0-0.05 [facility] Comment on above: Order Comment: CONSE RVATION Performed By: #### L 200.70816 ####Test performed at: [address] [address] Lymphocytes (Bld) [#/Vol] 0.9 10*3/uL Low 1.2-3.5 [facility] Comment on above: Order Comment: CONSE RVATION Performed By: #### L 200.24166 ####Test performed at: [place] [address] Lymphocytes/100 WBC (Bld) 5.4 % Normal [facility] Comment on above: Order Comment: CONSE RVATION Performed By: #### L 200.53168 ####Test performed at: [address] [address] MCH (RBC) [Entitic mass] 29.1 pg Normal 25.4-34.6 [facility] Comment on above: Order Comment: CONSE RVATION Performed By: #### L 200.77333 ####Test performed at: [address] [address] MCHC (RBC) [Mass/Vol] 34.2 g/dL Normal 31.5-36.5 [facility] Comment on above: Order Comment: CONSE RVATION Performed By: #### L 200.99951 ####Test performed at: [address] [address] MCV (RBC) [Entitic vol] 85.0 fL Normal 80.0-100.0 [facility] Comment on above: Order Comment: CONSE RVATION Performed By: #### L 200.49269 ####Test performed at: [address] [address] MONO ABS 0.5 K/uL Normal 0.0-1.0 [facility] Comment on above: Order Comment: CONSE RVATION Performed By: #### L 200.39000 ####Test performed at: [address] [address] Monocytes/100 WBC (Bld) 3.3 % Normal [facility] Comment on above: Order Comment: CONSE RVATION Performed By: #### L 200.87346 ####Test performed at: [address] [address] NEUTROPHIL ABS 15.0 K/uL High 1.4-6.6 [facility] Comment on above: Order Comment: CONSE RVATION Performed By: #### L 200.64624 ####Test performed at: [address] [address] Neutrophils/100 WBC (Bld) 90.7 % Normal [facility] Comment on above: Order Comment: CONSE RVATION Performed By: #### L 200.37573 ####Test performed at: [address] [address] NRBC # 0.000 K/uL Normal 0-0.012 [facility] Comment on above: Order Comment: CONSE RVATION Performed By: #### L 200.59555 ####Test performed at: [address] [address] NRBC % 0.0 /100 WBC Normal 0-0.2 [facility] Comment on above: Order Comment: CONSE RVATION Performed By: #### L 200.06772 ####Test performed at: [address] [address] Platelet mean volume (Bld) [Entitic vol] 9.1 fL Normal 8.7-12.4 [facility] Comment on above: Order Comment: CONSE RVATION Performed By: #### L 200.91101 ####Test performed at: [address] [address] Platelets (Bld) [#/Vol] 211 10*3/uL Normal 140-440 [facility] Comment on above: Order Comment: CONSE RVATION Performed By: #### L 200.28572 ####Test performed at: [address] [address] RBC (Bld) [#/Vol] 4.47 10*6/uL Normal 3.5-5.5 [facility] Comment on above: Order Comment: CONSE RVATION Performed By: #### L 200.93934 ####Test performed at: [address] [address] WBC (Bld) [#/Vol] 16.5 10*3/uL High 3.9-11.0 [facility] Comment on above: Order Comment: CONSE RVATION Performed By: #### L 200.78281 ####Test performed at: [place] [address] EST. CREAT CLRon 09-14-2018 Creatinine [Mass/Vol] 117.117 ML/MIN Normal [facility] Comment on above: Order Comment: CONSE RVATION Result Comment: This result is an ESTIMATED blood creatinine clearance value which is derived from the patient age, sex, weight, and previous blood creatinine result. Performed By: #### L 500.84932, L500.35225, L500.40553 ####Test performed at: [place] [address] GFR ESTIMATEon 09-14-2018 IF AMER > 60 Normal > 60 [facility] Comment on above: Order Comment: CONSE RVATION Result Comment: eGFR (Estimated GFR) Units of measure:mL/min/1.73 meters sq. *CALCULATION REVISED 01/28/2015;IDMS-traceable MDRD equation eGFR is derived from the reexpressed MDRD Study equation using the following parameters: serum creatinine, age, gender and race. An eGFR<60 mL/min/1.73m2 for >3 months is consistent with chronic kidney disease. Refer to KDOQI guidelines for clinical interpretation. Performed By: #### L 500.44969, L500.82965, L500.05917 ####Test performed at: [place] [address] IF non-AFR AMER > 60 Normal > 60 [facility] Comment on above: Order Comment: CONSE RVATION Performed By: #### L 500.18527, L500.33170, L500.23016 ####Test performed at: [place] [address] OPERATIVE REPORTon 9 OPERATIVE REPORT NAME: JONATHAN MCCRARY MR#: [id number] SURGEON: Hemal Baugh MD DATE OF SURGERY: 09/13/2018 OPERATIVE REPORT PROCEDURES: 1. Posterolateral fusion, L3-L4. 2. Lumbar laminectomy, facetectomies, and foraminotomies, L3 bilaterally. 3. Lumbar laminectomy, facetectomy, and foraminotomy, L4 right. 4. Exploration of spinal fusion, L4-L5. 5. Removal of nonsegmental pedicle screw zee fixation L4-L5. 6. Placement of nonsegmental pedicle screw zee fixation L3-L4. 7. Use of local autograft. 8. Bone marrow aspiration L4 vertebral body. 9. Use of allograft bone graft. PREOPERATIVE DIAGNOSES: 1. Lumbar spinal stenosis. 2. Lumbar segmental instability. 3. Status post previous low back surgery. POSTOPERATIVE DIAGNOSES: 1. Lumbar spinal stenosis. 2. Lumbar segmental instability. 3. Status post previous low back surgery. ANESTHESIA: General. COUNTS: Sponge and needle counts correct. COMPLICATIONS: None. EBL: Minimal. COMPLICATIONS: None. INSTRUMENTATION: [place]. NARRATIVE: Patient had undergone anterior surgery and was positioned for posterior surgery. The patient's lower back was then prepped and draped in the usual sterile manner. Fluoroscopy was brought in. Fluoroscopy assisted with skin incision placement. Initial incision was made on the left side in a posterolateral manner with a #15 knife blade. Fascia was divided with electrocautery. Previously placed instrumentation at L4-5 was identified. This pedicle screw zee construct was carefully removed. Loli and [facility] PT NAME: JONATHAN MCCRARY MR#: [id number] [address] [place] [address] ACCT: [id number] : 59 OPERATIVE REPORT subsequent K-wire were placed in the pedicles at L3 and L4 on the left side. Bone marrow was aspirated from the L4 vertebral body via the pedicle. The bone marrow was then mixed with local autograft and allograft bone for the posterior lateral fusions. We then went over to the right side. A right- sided posterolateral incision was made with a #15 knife blade. Fascia was divided with electrocautery. Previously placed instrumentation at L4-L5 was identified and carefully removed. Exploration of the spinal fusion at this level along with on the other side revealed good posterolateral fusion. Jamshidi and subsequent K-wires were placed in the pedicles at L3 and L4 on the right. We then made a slightly more midline fascial incision with electrocautery. Tubular retractor was placed following serial dilation. Tubular retractor was docked on the lamina of L3 on the right. Tubular retractor used was a 90 mm x 22 mm retractor. Retractor was then connected to the flexible retractor arm. Microscope was brought in for direct visualization. Residual soft tissue was carefully removed electrocautery. Laminectomies, facetectomies, and foraminotomies were begun with the fluted bur. We also used a sara bur, straight and angled curettes and Kerrison rongeurs of various sizes to complete the decompression. Following decompression, the thecal sac was found to be freely mobile bilaterally along with the exiting traversing nerve roots. Blockade was placed over the exposed dura to prevent future epidural fibrosis. The tubular retractor was removed. [place] following dilation onto the lamina of L4 was then performed. Microscope was brought, improved with direct visualization. Residual soft tissue was carefully removed with electrocautery. The patient had previous surgery at this level. A laminotomy, facetectomy, and foraminotomy were performed at L4-5 on the right. This allowed decompressing transversing and the exiting L4 nerve root. Following the decompression, blockade was placed along the dura. Decompression included use of this fluted and sara burs, straight and angled curettes and Kerrison rongeurs of various sizes. Following the decompression, the tubular retractor was removed. Decortication of the posterolateral surfaces at L3-L4 was then performed. This was done bilaterally. Bone graft was placed along the decorticated posterolateral surfaces bilaterally for the posterolateral fusion. Cannulated and polyaxial pedicle screws were then placed on each respective K-wire. The K-wires were removed and the pedicle screws were fully seated. This was done under fluoroscopic guidance. In addition, all pedicle screws were stimulated with EMG technique. All pedicle screws stimulated above threshold values. Top- loading rods and set screws were placed. For final set screw tightening, the extension sleeves were removed. Final AP and lateral fluoroscopic images revealed well placed construct. We then commenced with closure of the incision. This was done in the usual manner. Dry sterile dressings were thus applied. HEMAL BAUGH MD MRG/MODL/[id number] [facility] PT NAME: JONATHAN MCCRARY MR#: [id number] [address] [place] [address] ACCT: [id number] : 59 OPERATIVE REPORT E/S: Hemal Baugh MD 12/20/18 0848 Electronically Signed [facility] PT NAME: JONATHAN MCCRARY MR#: [id number] [address] [place], [place] [address] ACCT: [id number] : 59 OPERATIVE REPORT Normal [facility] OPERATIVE REPORT NAME: JONATHAN MCCRARY MR#: [id number] SURGEON: Hemal Baugh MD DATE OF SURGERY: 09/13/2018 OPERATIVE REPORT PROCEDURES: 1. Anterior lumbar interbody fusion, L3-4. 2. Exploration of spinal fusion, L4-L5. 3. Placement of anterior interbody cage, lumbar interspace, L3-L4. 4. Bone marrow aspiration L3 vertebrae. 5. Use of allograft bone graft. PRE/POSTOPERATIVE DIAGNOSIS: 1. Lumbar spinal stenosis. 2. Lumbar instability. 3. Status post L4-5 fusion. ANESTHESIA: General. COUNTS: Sponge and needle counts correct. COMPLICATIONS: None. ESTIMATED BLOOD LOSS: Minimal. INSTRUMENTATION: [place]. NARRATIVE: The patient was brought into the operating room. He successfully underwent endotracheal intubation, administration of general anesthesia. The patient was then carefully positioned on the radiolucent table. The area of the patient's lower back and right flank were prepped and draped in the usual sterile manner. Fluoroscopy was brought in. Fluoroscopy assisted with skin incision placement. The skin incision was made such that the anterior access via anterior oblique incision would be possible for the L3-4 disk space. The incision was made with a #15 knife blade. Fascia was divided with electrocautery. Blunt retroperitoneal dissection was performed without difficulty. Fluoroscopy confirmed our location. We placed a Jamshidi needle within the L3 vertebral body. Bone marrow was aspirated. This bone marrow was then concentrated down mixed with allograft bone for the interbody fusion. We then also explored the L4-5 level. A solid fusion was identified. We then approached the L3-4 disk space. Using the ProMap probe as well as fluoroscopic guidance, the safe zone of entry into the anterior disk space was determined. This was followed by the guide pin placement such that the tip of the guide pin was at the center of the disk space at both AP and lateral views. We then commenced with anterior diskectomy for interbody fusion using [facility] PT NAME: JONATHAN MCCRARY MR#: [id number] [address] [place], [place] [address] ACCT: [id number] : 59 OPERATIVE REPORT the disk cutters, end-plate adrian and disk extraction instrumentation. The adequacy of the disk and endplate preparation was verified using a contrast filled balloon catheter. Approximately 80% of the disk space was noted to have been prepared on both AP and lateral fluoroscopic imaging. We then removed the working port. Guide pin was placed. Then we removed the working port. This was followed by the obturator placement. Obturator was placed within the L3-4 disk space. We then placed the interbody cage. The cage was placed within the center of the disk space. This was followed by removal of the obturator. We then expanded the interbody cage. Post expansion additional bone graft was placed within the disk space. Good disk space height jewish was achieved as well as bilateral indirect neuroforaminal decompression. Blockade was then placed along the anterior surface of the L3- 4 disk space. This was done to prevent future fibrosis. We then commenced with closure of the incision. This was done in the usual manner. Dry sterile dressing was then applied. HEMAL BAUGH MD MRG/MODL/[id number] E/S: Hemal Baugh MD 12/20/18 0848 Electronically Signed [facility] PT NAME: JONATHAN MCCRARY MR#: [id number] [address] [place], [place] [address] ACCT: [id number] : 59 OPERATIVE REPORT Normal [facility] SURGon 09-13-2018 SURG Normal [facility] Comment on above: Result Comment: RUN DATE: 09/14/18 [facility] LAB *LIVE* PAGE 1RUN TIME: 1400 Specimen InquiryRUN USER: [employer]ITE[employer] Name: JONATHAN MCCRARY : 59 Sex:M Attend Dr: Hemal Baugh [facility]#: [id number] Unit#: [id number] Status: ADM IN Location: [place] 605-01 Received: 09/13/18 Status: RUSLAN Mike#: [id number]#: [id number] Collected: 09/13/18 [facility] [address]: Hemal Baugh MDTISSUES: A. EXPLANTED HARDWARE MICROSCOPIC EXAM: N/A DIAGNOSIS: SPINAL HARDWARE, REMOVAL: - ORTHOPEDIC HARDWARE (GROSS DIAGNOSIS ONLY) Signed Signature on File SEVERINO DRISCOLL 09/14/18 1400 [facility] Name: JONATHAN MCCRARY [facility] Hosp Num: [id number] A [facility] of Age / Sex: 62/M [facility] Physician: Hemal Baugh MD [address] [place] [address] Location: SPINE/ORTHO UNIT END OF REPORT Performed By: #### P SURG ####Test performed at: [place] [address] TSon 09-13-2018 ABO and Rh group Nom (Bld) O POSITIVE Normal [facility] Comment on above: Order Comment: CONSE RVATION CBN: NO [place]: MAIN Transfusion Status: CONSERVATION Blood Bank service requested: TYPE AND SCREEN Comments To Phleb: IN SDS-COMPLETED Performed By: #### B 100.0200 #### Test performed at: [place] [address] ECHO REPORT (HL)on ECHO REPORT (HL) Patient: GRACIA MCCRARY [facility] Rec#: [id number] : 1955 Date: 09/11/2018 Age: 62y Height: 5.8 Weight: 254.5 lbs Sex: M BSA: 2.29 m2 Type: Outpatient Loc: ECHO DEPARTMENT Referring: Hemal Baugh Reading: Raza Bang MD Rink Rat: SR Transthoracic Echocardiogram CPT Codes: ECHOALL - ECHO COMPLETE WITH 2D M MODE DOP CLR (1) Indication: HTN BP: 126/84 Measurements Chambers MM IVSd (MM) 1.04 cm LVPWd (MM) 1 cm LVIDd (MM) 5.12 cm LVIDs (MM) 3.43 cm Ao root diameter (MM) 2.6 cm LA dimension (MM) 3.7 cm AV cusp separation (MM) 2 cm Volumes/Mass LA ESV SP 4CH (MOD) 36 ml Diastolic/Systolic Function MV E-wave Vmax 0.57 m/sec MV deceleration time 306 msec MV A-wave Vmax 0.9 m/sec LV septal e' Vmax 0.07 m/sec LV lateral e' Vmax 0.08 m/sec LV E:e' septal ratio 8.6 ratio LV E:e' lateral ratio 7.3 ratio Aortic Valve [facility] PT. NAME: JONATHAN MCCRARY MR#: [id number] [address] [place] [address] ACCT: [id number] : 59 ECHOCARDIOGRAPHIC REPORT ATTENDING PHY: Raza Bang MD AV Vmax 1.25 m/sec AV peak gradient 6 mmHg LVOT Vmax 0.84 m/sec LVOT peak gradient 3 mmHg Ascending Ao 3.1 cm Tricuspid Valve TR Vmax 2.31 m/sec TR peak gradient 21 mmHg RAP 5 mmHg RVSP 26 mmHg Pulmonic Valve/Qp:Qs PV Vmax 1.1 m/sec PV peak gradient 5 mmHg Findings Procedure Info: The study quality is fair. The exam was completed at14:30PM Left Ventricle: The left ventricular chamber size is normal. There is no left ventricular hypertrophy. Global left ventricular wall motion and contractility are within normal limits. There is normal left ventricular systolic function. The estimated ejection fraction is 60-65 percent. Abnormal left ventricular diastolic function is observed. Abnormal left ventricular diastolic filling is observed, consistent with impaired relaxation. Left Atrium: The left atrial chamber size is normal. Right Ventricle: The right ventricular cavity size is normal. The right ventricular global systolic function is normal. Right Atrium: The right atrium is normal in size with no visual thrombus identified. Aortic Valve: The aortic valve is trileaflet. There is no evidence of aortic regurgitation. There is no evidence of aortic stenosis. Mitral Valve: The mitral valve appears normal in structure and function. Tricuspid Valve: The tricuspid valve is normal in structure. There is mild tricuspid [facility] PT. NAME: JONATHAN MCCRARY MR#: [id number] [address] [place], [place] [address] ACCT: [id number] : 59 ECHOCARDIOGRAPHIC REPORT ATTENDING PHY: Raza Bang MD regurgitation. The right ventricular systolic pressure is calculated at 26 mmHg. Pulmonic Valve: The pulmonic valve is not well visualized. There is no evidence of pulmonic regurgitation. There is no pulmonic stenosis. Pericardium: There is no pericardial effusion seen. Aorta: There is no dilatation of the ascending aorta. There is no dilatation of the aortic root. Pulmonary Artery: The main pulmonary artery is not well visualized. Venous: The inferior vena cava was not well visualized. Conclusions There is normal left ventricular systolic function: the estimated ejection fraction is 60-65 percent. Thank you for the courtesy of this referral. [facility] PT. NAME: JONATHAN MCCRARY MR#: [id number] [address] [place], [place] [address] ACCT: [id number] : 59 ECHOCARDIOGRAPHIC REPORT ATTENDING PHY: Raza Bang MD Normal [facility] BASIC MET PANELon 08-29-2018 Anion gap [Moles/Vol] 14 mmol/L Normal 6-18 [facility] Comment on above: Order Comment: CBN: YES [place]: MAIN Performed By: #### L 500.16002, L500.05572 #### Test performed at: [address] [address] Calcium [Mass/Vol] 9.5 mg/dL Normal 8.5-10.1 [facility] Comment on above: Order Comment: CBN: YES [place]: MAIN Performed By: #### L 500.27347, L500.29132 #### Test performed at: [address] [address] Chloride [Moles/Vol] 101 mmol/L Normal 98-107 [facility] Comment on above: Order Comment: CBN: YES [place]: MAIN Performed By: #### L 500.20775, L500.08295 #### Test performed at: [address] [address] CO2 [Moles/Vol] 27 mmol/L Normal 21-32 [facility] Comment on above: Order Comment: CBN: YES [place]: MAIN Performed By: #### L 500.71230, L500.56893 #### Test performed at: [address] [address] Creatinine [Mass/Vol] 1.190 mg/dL Normal 0.700- 1.30 0 [facility] Comment on above: Order Comment: CBN: YES [place]: MAIN Performed By: #### L 500.43871, L500.23005 #### Test performed at: [address] [address] Glucose [Mass/Vol] 94 mg/dL Normal 70-99 [facility] Comment on above: Order Comment: CBN: YES [place]: MAIN Result Comment: Fast ing GLUCOSE reference range has been updated per (ADA) [place] [employer]'s recommendation. 07/04/2018 Performed By: #### L 500.11812, L500.22853 #### Test performed at: [address] [address] OSM 285 mosm/kg Normal 270-300 [facility] Comment on above: Order Comment: CBN: YES [place]: MAIN Performed By: #### L 500.12418, L500.36362 #### Test performed at: [address] [address] Potassium [Moles/Vol] 4.6 mmol/L Normal 3.5-5.1 [facility] Comment on above: Order Comment: CBN: YES [place]: MAIN Performed By: #### L 500.43624, L500.28545 #### Test performed at: [address] [address] Sodium [Moles/Vol] 137 mmol/L Normal 136-145 [facility] Comment on above: Order Comment: CBN: YES [place]: MAIN Performed By: #### L 500.23773, L500.90022 #### Test performed at: [address] [address] Urea nitrogen [Mass/Vol] 16 mg/dL Normal 7-18 [facility] Comment on above: Order Comment: CBN: YES Hitchcock: MAIN Performed By: #### L 500.22701, L500.96229 #### Test performed at: [address] [address] CBCon 08-29-2018 Erythrocyte distribution width (RBC) [Ratio] 12.3 % Normal 11.5-14.5 [facility] Comment on above: Order Comment: CBN: YES Hitchcock: MAIN Performed By: #### L 200.76073 #### Test performed at: [address] [address] Hematocrit (Bld) [Volume fraction] 46.6 % Normal 39.0-55.0 [facility] Comment on above: Order Comment: CBN: YES Hitchcock: MAIN Performed By: #### L 200.13759 #### Test performed at: [address] [address] Hemoglobin (Bld) [Mass/Vol] 15.8 g/dL Normal 14.0-16.5 [facility] Comment on above: Order Comment: CBN: YES Hitchcock: MAIN Performed By: #### L 200.10585 #### Test performed at: [address] [address] MCH (RBC) [Entitic mass] 29.5 pg Normal 25.4-34.6 [facility] Comment on above: Order Comment: CBN: YES Hitchcock: MAIN Performed By: #### L 200.08360 #### Test performed at: [address] [address] MCHC (RBC) [Mass/Vol] 33.9 g/dL Normal 31.5-36.5 [facility] Comment on above: Order Comment: CBN: YES Hitchcock: MAIN Performed By: #### L 200.39794 #### Test performed at: [address] [address] MCV (RBC) [Entitic vol] 86.9 fL Normal 80.0-100.0 [facility] Comment on above: Order Comment: CBN: YES Hitchcock: MAIN Performed By: #### L 200.36241 #### Test performed at: [address] [address] NRBC # 0.000 K/uL Normal 0-0.012 [facility] Comment on above: Order Comment: CBN: YES Hitchcock: MAIN Performed By: #### L 200.79803 #### Test performed at: [address] [address] NRBC % 0.0 /100 WBC Normal 0-0.2 [facility] Comment on above: Order Comment: CBN: YES Hitchcock: MAIN Performed By: #### L 200.98734 #### Test performed at: [address] [address] Platelet mean volume (Bld) [Entitic vol] 9.5 fL Normal 8.7-12.4 [facility] Comment on above: Order Comment: CBN: YES Hitchcock: MAIN Performed By: #### L 200.01421 #### Test performed at: [address] [address] Platelets (Bld) [#/Vol] 292 10*3/uL Normal 140-440 [facility] Comment on above: Order Comment: CBN: YES Hitchcock: MAIN Performed By: #### L 200.84642 #### Test performed at: [address] [address] RBC (Bld) [#/Vol] 5.36 10*6/uL Normal 3.5-5.5 [facility] Comment on above: Order Comment: CBN: YES Hitchcock: MAIN Performed By: #### L 200.73421 #### Test performed at: [address] [address] WBC (Bld) [#/Vol] 12.2 10*3/uL High 3.9-11.0 [facility] Comment on above: Order Comment: CBN: YES Hitchcock: MAIN Performed By: #### L 200.09636 #### Test performed at: [address] [address] CHEST PA/AP & LATERAL OR 2 V WSon 08-29-2018 CHEST PA/AP & LATERAL OR 2 VWS STUDY: CHEST PA/AP LATERAL OR 2 VWS; 08/29/2018 12:28 pm INDICATION: HTN. COMPARISON: None. ACCESSION NUMBER(S): [id number] ORDERING CLINICIAN: Hemal Baugh FINDINGS: Mild atelectasis or scarring in the left lung base. Otherwise lungs are clear without pleural effusion. Normal heart size, mediastinum, elizabeth, and pulmonary vasculature. Thoracic degenerative changes are present. IMPRESSION: Mild left basilar atelectasis or scarring. Otherwise no active disease in the chest. Normal [facility] GFR ESTIMATEon 08-29-2018 IF AMER > 60 Normal > 60 [facility] Comment on above: Order Comment: CBN: YES Hitchcock: MAIN Result Comment: eGFR (Estimated GFR) Units of measure:mL/min/1.73 meters sq. *CALCULATION REVISED 01/28/2015;IDMS-traceable MDRD equation eGFR is derived from the reexpressed MDRD Study equation using the following parameters: serum creatinine, age, gender and race. An eGFR<60 mL/min/1.73m2 for >3 months is consistent with chronic kidney disease. Refer to KDOQI guidelines for clinical interpretation. Performed By: #### L 500.02240, L500.16855 #### Test performed at: [place] [address] IF non-AFR AMER > 60 Normal > 60 [facility] Comment on above: Order Comment: CBN: YES Hitchcock: MAIN Performed By: #### L 500.21769, L500.36399 #### Test performed at: [place] [address] TSPATon 08-29-2018 ABO and Rh group Nom (Bld) O POSITIVE Normal [facility] Comment on above: Order Comment: CBN: YES Hitchcock: MAIN Transfusion Status: CONSERVATION Blood Bank service requested: TYPE AND SCREEN Specimen Comment: SURG 09/13 Performed By: #### B 100.0201 #### Test performed at: [place] [address] CNOVon 03-31-2018 CNOV Office Visit (AGSPINE3) JONATHAN MCCRARY ([id number]) 1955 MDate Time Provider Dwevqiojld07/21/18 9:10 AM JORGE BAUM AGSPINE3 During your visit today, we recorded the following information about you: Pulse Respiration Blood pressure Weight 73/minute 16/minute 120/73 117.9 kg Height 1.753 Bridger Moya LPN 03/31/2018 8:51 AM SignedPROCEDURE DISCHARGE [id number]/21/2018Betito Mccrary1955Physician: KASSY Ascenciorocedure:Epidural Steroid Injection: Lumbar (transforaminal/Interlamin ar/Caudal)Post Procedure Instructions:If sedation not given, no driving for 3 hours after the procedure., If sedationgiven, no driving the day of the procedure., Rest the day of the procedure.,You may resume normal activities the day after the procedure, as tolerated.,Avoid movements that may aggravate pain., Apply cold compresses to injectionsite if needed., If medically acceptable, take over the counteranti-inflammatories such as ibuprofen or Aleve if needed for post procedurediscomfort., No hot baths, hot tubs or hot compresses for 24 hours. andIncreased pain the day after the procedure may occur.If you have any of the following signs or symptoms, please call our office [phone]? Fever and/or chills? Swelling and/or drainage from injection site? New pain that is different than your normal pain (other than soreness at thesite of the procedure)? Stiff neck? Shortness of breath? Severe increase in pain? Motor dysfunctions, such as difficulty walking, bowel or bladder dysfunctionand/or incontinence? Headache that is severe, light sensitive or develops when changing positions(positional headache)? Nausea and/or vomiting accompanied by headache that started 24-48 hours afterthe procedureIf you have any emergent concerns, please call [phone] or go to your localemergency room. Please also contact our office to let us know you will beseeking emergency care and why.Tammy Moya LPN 03/31/2018 9:03 AM SignedDriver: Steven: Melany thinner: noBridge: noPregnancy/Surgery: n/aXanax: noSteroid: noAntibiotic: Lindsay Moya LPN 03/31/2018 9:25 AM SignedSubjectiveHPIReview of SystemsEyes: Negative for blurred vision and double vision.Respiratory: Negative for shortness of breath.Cardiovascular: Negative for chest pain and leg swelling.Gastrointestinal: Negative for constipation, diarrhea, nausea and vomiting.Genitourinary: Negative for dysuria.Skin: Negative for itching.Neurological: Positive for tingling. Negative for dizziness, weakness andheadaches. LegEndo/Heme/Allergies: Does not bruise/bleed easily.Psychiatric/Behavio ral: Negative for depression and suicidal ideas.PAST MEDICAL HISTORYDiagnosis Date- HypertensionPAST SURGICAL HISTORYProcedure Laterality Date- OTHER SURGICAL HISTORY (PLEASE SPECIFY) HX 2010 Back surgery - fusion- OTHER SURGICAL HISTORY (PLEASE SPECIFY) HX 2010 Back surgery - cyst removedFAMILY HISTORYProblem Relation Age of Onset- Diabetes Mother- Hypertension FatherSocial History Marital status: Spouse name: Years of education: Number of children:Social History Main Topics Smoking status: Never Smoker Smokeless tobacco: Current User Types: Chew Comment: Uses chewing tobacco Alcohol use: No Drug use: NoOther Topics ConcernCaffeine Concern NoSpecial Diet NoExercise YesCurrent Medsaspirin, enteric coated (ASPIRIN, ENTERIC COATED) 81 mg EC tablet Take 81 mg bymouth once daily.atorvastatin (LIPITOR) 20 mg tablet Take 20 mg by mouth once daily.Etodolac 500 mg tablet Take 500 mg by mouth twice daily.lisinopril-hydrochlo rothiazide (PRINZIDE,ZESTORETIC) 20-12.5 mg per tablet Take1 tablet by mouth once daily.methylPREDNISolone (MEDROL, TOBY,) 4 mg Dose-Pack Take as directedObjectiveBP 120/73 Pulse 73 Resp 16 Ht 5' 9 (1.75m) Wt 260 lb (117.9kg) BMI38.38 kg/(m2).Physical ExamAdriana Shane MA 03/31/2018 9:22 AM SignedProcedure to be performed: CaudalPatient was wheeled on stretcher from pre op bay to procedure room and assistedonto the procedure tablePatient?s procedure was performed in an [facility] Procedure[facility]. Pressure was applied to patient?s injection site(s) and bleeding wasminimal. Patient had no complaint of shortness of breath, dizziness, headache,numbness, tingling, weakness or complications from procedure. Patient wasassisted from the procedure table onto the stretcher and wheeled into a post opbay. Patient was advised a clinician will be to obtain another set of vitals.Jorge Baum MD 03/31/2018 9:25 AM SignedDiagnosis: Lumbar Spinal StenosisProcedure: Caudal Epidural Steroid InjectionThe patient was identified in the preoperative area. The procedure wasdiscussed in detail including its risks, benefits, and alternatives. Signedconsent was obtained and the patient agreed to proceed.The patient was brought to the [facility] procedure room andplaced in the prone position onto the fluoroscopy table. The lumbosacral areawas prepped and draped in the usual sterile fashion using Chloroprep and afenestrated drape. Under fluoroscopic guidance in the lateral view the sacrumwas imaged and the the intended needle insertion site was marked onto the skin. The skin was anesthetized with 5ml of 2% lidocaine. After adequate skinanesthesia was obtained, a 22 gauge spinale needle was inserted through thesacro-coccygeal ligament into the epidural space under fluoroscopic guidance inthe AP view. The needle was aspirated and 1 ml of omnipaque contrast dye wasinjected under live fluoroscopy which showed epidural spread. The needle wasthen advanced under intermittent fluoroscopic guidance in the AP until theneedle tip was between the S2 and S3 neuro-foramen. The needle was aspiratedfor heme and csf again, which was negative, and 1 ml of omnipqaue was injectedunder live fluoroscopy which showed appropriate spread without intrathecal orintravascular uptake. Then 10 ml of 0.5% preservative free lidocaine and 40 mgof methylprednisolone was injected. The needle was removed and a sterilebandage was applied. The patient was take back to the recovery area.The procedure was completed without complications and was tolerated well. Thepatient was monitored after the procedure. The patient (or responsible green party)was given post-procedure and discharge instructions to follow at home. Thepatient was discharged in stable condition. A follow up appointment was made.Time Out: 916Confirmed patient name, date of , procedure site, laterality, and allergiesProcedure Start: 917Procedure End: 923Jorge Baum MD 03/31/2018 9:25 AM SignedUPDATED HISTORY AND PHYSICAL EXAMINATIONSERVICE DATE: 03/31/2018SERVICE TIME: 909PHYSICAL EXAM MUST BE COMPLETED ON ADMISSIONThe History and Physical (completed in the past 30 days) has been reviewed andthe patient has been examined. The contents accurately reflect the patient'scondition with the following additions or revisions since the HANDP was completed.Examination indicates no changes.This HANDP can be found in the Electronic Medical Record dated 03/30/2018.SIGNATURE: Jorge Baum MD PATIENT NAME:DATE: MRN:TIME: PAGER:Tammy Griffin JARAMILLO 03/31/2018 9:36 AM SignedDressing dry and intact. No drainage noted. The patient denies numbness,tingling, weakness, shortness of breath, dizziness, or headache. Pain level0/10. Vital signs within normal limits. Patient given discharge instructionsand escorted to transportation via ambulatory method. Patient left in goodcondition.Tammy Moya LPNReferring Provider: SELF [200]Allergies As of Date: 03/31/2018(No Known Allergies)Date Reviewed: 03/31/2018Reviewed by: Tammy Moya LPN - Fully AssessedReason for Visit: Injections [199] Cmt: caudal ESIPrimary Visit Diagnosis:Postlaminectomy syndrome, lumbar region [M96.1]Order(s):[] methylPREDNISolone acetate 40 mg injection (DEPO-Medrol)Disp: Rfl: [] lidocaine (PF) 5 mg/mL (0.5 %) 40 mg injection (XYLOCAINE)Disp: Rfl: [] lidocaine (PF) 20 mg/mL (2 %) 100 mg injection (XYLOCAINE)Disp: Rfl: [] iohexol 600 mg IV injection (OMNIPAQUE 300)Disp: Rfl:Prescriptions as of 03/31/2018 Sig: ASPIRIN 81 MG TABLET,DELAYED * Take 81 mg by mouth once matilda* ATORVASTATIN 20 MG TABLET Take 20 mg by mouth once matilda* ETODOLAC 500 MG TABLET Take 500 mg by mouth twice da* LISINOPRIL 20 MG-HYDROCHLOROT* Take 1 tablet by mouth once d* METHYLPREDNISOLONE 4 MG TABLE* Take as directed Patient not taking: Reported on 09/08/2017Problem List As Of Date 03/31/2018 Noted Resolved Lumbar stenosis [M48.061] INVALID FOR* Postlaminectomy syndrome, lumbar region [M96.1] INVALID FOR* Chronic bilateral low back pain without sciatic*INVALID FOR* Other instructions from your clinician: PROCEDURE DISCHARGE INSTRUCTIONS 03/31/2018 Jonathan Mccrary 1955 Physician: Jorge Baum MD Procedure: Epidural Steroid Injection: Lumbar (transforaminal/Interlamin ar/Caudal) Post Procedure Instructions: If sedation not given, no driving for 3 hours after the procedure., If sedation given, no driving the day of the procedure., Rest the day of the procedure., You may resume normal activities the day after the procedure, as tolerated., Avoid movements that may aggravate pain., Apply cold compresses to injection site if needed., If medically acceptable, take over the counter anti-inflammatories such as ibuprofen or Aleve if needed for post procedure discomfort., No hot baths, hot tubs or hot compresses for 24 hours. and Increased pain the day after the procedure may occur. If you have any of the following signs or symptoms, please call our office at ? Fever and/or chills ? Swelling and/or drainage from injection site ? New pain that is different than your normal pain (other than soreness at the site of the procedure) ? Stiff neck ? Shortness of breath ? Severe increase in pain ? Motor dysfunctions, such as difficulty walking, bowel or bladder dysfunction and/or incontinence ? Headache that is severe, light sensitive or develops when changing positions (positional headache) ? Nausea and/or vomiting accompanied by headache that started 24-48 hours after the procedure If you have any emergent concerns, please call 911 or go to your local emergency room. Please also contact our office to let us know you will be seeking emergency care and why.Visit Notes:>> Tmamy Moya LPN TueMar 31, 2018 9:03 AM Status: SignedDriver: PatRosauraabetic: Melany thinner: noBridge: noPregnancy/Surgery: n/aXanax: noSteroid: noAntibiotic: Lindsay Moya LPN>> Adriana Shane TueMar 31, 2018 9:21 AM Status: SignedProcedure to be performed: CaudalPatient was wheeled on stretcher from pre op bay to procedure room andassisted onto the procedure tablePatient?s procedure was performed in [facility] Procedure room. Pressure was applied to patient?s injection site(s)and bleeding was minimal. Patient had no complaint of shortness of breath,dizziness, headache, numbness, tingling, weakness or complications fromprocedure. [facility]. Patient was advised a clinicianwill be to obtain another set of vitals.>> Tammy Moya LPN TueMar 31, 2018 9:35 AM Status: SignedDressing dry and intact. No drainage noted. The patient denies numbness,tingling, weakness, shortness of breath, dizziness, or headache. Painlevel 0/10. Vital signs within normal limits. Patient given dischargeinstructions and escorted to transportation via ambulatory method. Patientleft in good condition.Tammy Moya LPNPrescriptions ordered this encounter Disp Refills Start End METHYLPREDNISOLONE ACETATE 40 MG/ML * 03/31/2018 03/31/2018 Route: OTHER LIDOCAINE (PF) 5 MG/ML (0.5 %) INJEC* 03/31/2018 03/31/2018 Route: OTHER LIDOCAINE (PF) 20 MG/ML (2 %) INJECT* 03/31/2018 03/31/2018 Route: OTHER IOHEXOL 300 MG IODINE/ML INTRAVENOUS* 03/31/2018 03/31/2018 Route: OTHEREncounter Number: [id number] Status:Closed by JORGE BAUM MD on 03/31/18 Normal [facility] PROCEDUREon 03-31-2018 Protein mass conc HNO ID: [id number] thor: Jorge Tinocoervice: (none)Author Type: PhysicianType: ProceduresFiled: 03/31/2018 9:25 AMNote Text:Diagnosis: Lumbar Spinal StenosisProcedure: Caudal Epidural Steroid InjectionThe patient was identified in the preoperative area. The procedure wasdiscussed in detail including its risks, benefits, and alternatives.Signed consent was obtained and the patient agreed to proceed.The patient was brought to the [facility] procedure roomand placed in the prone position onto the fluoroscopy table. Thelumbosacral area was prepped and draped in the usual sterile fashion usingChloroprep and a fenestrated drape. Under fluoroscopic guidance in thelateral view the sacrum was imaged and the the intended needle insertionsite was marked onto the skin. The skin was anesthetized with 5ml of 2%lidocaine. After adequate skin anesthesia was obtained, a 22 gaugespinale needle was inserted through the sacro-coccygeal ligament into theepidural space under fluoroscopic guidance in the AP view. The needle wasaspirated and 1 ml of omnipaque contrast dye was injected under livefluoroscopy which showed epidural spread. The needle was then advancedunder intermittent fluoroscopic guidance in the AP until the needle tipwas between the S2 and S3 neuro-foramen. The needle was aspirated forheme and csf again, which was negative, and 1 ml of omnipqaue was injectedunder live fluoroscopy which showed appropriate spread without intrathecalor intravascular uptake. Then 10 ml of 0.5% preservative free lidocaineand 40 mg of methylprednisolone was injected. The needle was removed devante sterile bandage was applied. The patient was take back to the recoveryarea.The procedure was completed without complications and was tolerated well.The patient was monitored after the procedure. The patient (or responsibleparty) was given post-procedure and discharge instructions to follow athome. The patient was discharged in stable condition. A follow upappointment was made.Time Out: 916Confirmed patient name, date of , procedure site, laterality, andallergiesProcedure Start: 917Procedure End: 923 [facility] PROGRESSon 03-31-2018 Protein mass conc HNO ID: [id number] thor: Jorge Tinocoervice: (none)Author Type: PhysicianType: Progress NotesFiled: 03/31/2018 9:25 AMNote Text:UPDATED HISTORY AND PHYSICAL EXAMINATIONSERVICE DATE: 03/31/2018SERVICE TIME: 909PHYSICAL EXAM MUST BE COMPLETED ON ADMISSIONThe History and Physical (completed in the past 30 days) has been reviewedand the patient has been examined. The contents accurately reflect thepatient's condition with the following additions or revisions since theHANDP was completed.Examination indicates no changes.This HANDP can be found in the Electronic Medical Record dated 03/30/2018.SIGNATURE: Jorge Baum MD PATIENT NAME:DATE: MRN:TIME: PAGER: [facility] Protein mass conc HNO ID: [id number] thor: Tammy Moya LPNService: (none)Author Type: (none)Type: Progress NotesFiled: 03/31/2018 9:25 AMNote Text:SubjectiveHPIReview of SystemsEyes: Negative for blurred vision and double vision.Respiratory: Negative for shortness of breath.Cardiovascular: Negative for chest pain and leg swelling.Gastrointestinal: Negative for constipation, diarrhea, nausea andvomiting.Genitourinary: Negative for dysuria.Skin: Negative for itching.Neurological: Positive for tingling. Negative for dizziness, weakness andheadaches. LegEndo/Heme/Allergies: Does not bruise/bleed easily.Psychiatric/Behavio ral: Negative for depression and suicidal ideas.PAST MEDICAL HISTORYDiagnosis Date- HypertensionPAST SURGICAL HISTORYProcedure Laterality Date- OTHER SURGICAL HISTORY (PLEASE SPECIFY) HX 2010 Back surgery - fusion- OTHER SURGICAL HISTORY (PLEASE SPECIFY) HX 2010 Back surgery - cyst removedFAMILY HISTORYProblem Relation Age of Onset- Diabetes Mother- Hypertension FatherSocial History Marital status: Spouse name: Years of education: Number of children:Social History Main Topics Smoking status: Never Smoker Smokeless tobacco: Current User Types: Chew Comment: Uses chewing tobacco Alcohol use: No Drug use: NoOther Topics ConcernCaffeine Concern NoSpecial Diet NoExercise YesCurrent Medsaspirin, enteric coated (ASPIRIN, ENTERIC COATED) 81 mg EC tablet Take 81mg by mouth once daily.atorvastatin (LIPITOR) 20 mg tablet Take 20 mg by mouth once daily.Etodolac 500 mg tablet Take 500 mg by mouth twice daily.lisinopril-hydrochlo rothiazide (PRINZIDE,ZESTORETIC) 20-12.5 mg per tabletTake 1 tablet by mouth once daily.methylPREDNISolone (MEDROL, TOBY,) 4 mg Dose-Pack Take as directedObjectiveBP 120/73 Pulse 73 Resp 16 Ht 5' 9 (1.75m) Wt 260 lb (117.9kg) BMI 38.38 kg/(m2).[facility] Office Visit (AGSPINE3) JONATHAN MCCRARY ([id number]) 1955 MDate Time Provider Qlttfswasd42/20/18 2:45 PM CHARLENE GARCIA (HEAD GREASE MAKER) AGSPINE3 During your visit today, we recorded the following information about you: Blood pressure Weight Height 138/84 117.9 kg 1.753 Huey Garcia APRN.CNP 04/03/2018 10:48 AM SignedSubjectiveBack PainThis is a chronic problem. The problem occurs constantly. The problem has beengradually improving. The pain is present in the lumbar spine. The quality ofthe pain is described as stabbing and shooting. The pain is at a severity of6/10. The pain is moderate. The symptoms are aggravated by twisting andbending. The pain is the same all the time. Associated symptoms includetingling. Pertinent negatives include no chest pain, no headaches, no dysuriaand no weakness. He has tried NSAIDs for the symptoms.He is here for a follow up from a caudal APOLLO. He states he received about 60%improvement however it is slowly tapering off. He would like to try anotherinjection before he goes out of town.Review of SystemsEyes: Negative for blurred vision.Respiratory: Negative for shortness of breath.Cardiovascular: Negative for chest pain and leg swelling.Gastrointestinal: Negative for constipation, diarrhea, nausea and vomiting.Genitourinary: Negative for dysuria.Musculoskeletal: Positive for back pain.Skin: Negative for itching.Neurological: Positive for tingling. Negative for dizziness, weakness andheadaches.Endo/Heme/All ergies: Bruises/bleeds easily.Psychiatric/Behavio ral: Negative for depression, substance abuse and suicidalideas.PAST MEDICAL HISTORYDiagnosis Date- HypertensionPAST SURGICAL HISTORYProcedure Laterality Date- OTHER SURGICAL HISTORY (PLEASE SPECIFY) 2010 Back surgery - fusion- OTHER SURGICAL HISTORY (PLEASE SPECIFY) 2010 Back surgery - cyst removedFAMILY HISTORYProblem Relation Age of Onset- Diabetes Mother- Hypertension FatherSocial History Marital status: Spouse name: Years of education: Number of children:Social History Main Topics Smoking status: Never Smoker Smokeless tobacco: Current User Types: Chew Comment: Uses chewing tobacco Alcohol use: No Drug use: NoOther Topics ConcernCaffeine Concern NoSpecial Diet NoExercise YesCurrent Medsaspirin, enteric coated (ASPIRIN, ENTERIC COATED) 81 mg EC tablet Take 81 mg bymouth once daily.atorvastatin (LIPITOR) 20 mg tablet Take 20 mg by mouth once daily.Etodolac 500 mg tablet Take 500 mg by mouth twice daily.lisinopril-hydrochlo rothiazide (PRINZIDE,ZESTORETIC) 20-12.5 mg per tablet Take1 tablet by mouth once daily.methylPREDNISolone (MEDROL, TOBY,) 4 mg Dose-Pack Take as directedObjectiveThere were no vitals taken for this visit.Physical ExamConstitutional: He is oriented to person, place, and time and well-developed,well-nouris hed, and in no distress.HENT:Head: Normocephalic and atraumatic. Head is without abrasion and withoutcontusion. Hair is normal.Right Ear: Hearing normal.Left Ear: Hearing normal.Nose: No rhinorrhea.Mouth/Throat: No oropharyngeal exudate.Eyes: Lids are normal. Right eye exhibits no discharge. Left eye exhibits nodischarge. Right conjunctiva is not injected. Left conjunctiva is not injected.Neck: Normal range of motion. No JVD present. No spinous process tendernesspresent.Cardiova scular: Normal rate.Pulmonary/Chest: Effort normal. No stridor. No apnea and no tachypnea. Norespiratory distress.Abdominal: Normal appearance. He exhibits no distension.Musculoskeletal : Normal range of motion. Lumbar back: He exhibits tenderness, pain and spasm. Back:Lymphadenopathy: He has no cervical adenopathy.Neurological: He is alert and oriented to person, place, and time. He is notagitated and not disoriented. He displays weakness. He displays no atrophy andno tremor. A sensory deficit is present. He exhibits normal muscle tone. Gaitnormal. Coordination and gait normal.Reflex Scores: Patellar reflexes are 1+ on the right side and 2+ on the left side.Strength:Right hip 4/5 Left hip 5/5Right knee 4/5 Left knee 5/5Right foot 5/5 Left foot 5/5Skin: Skin is warm and dry. No lesion noted.Psychiatric: Mood, memory, affect and judgment normal.Assessment/Plan1. Postlaminectomy syndrome, lumbar regionI will order a second caudal APOLLO.He is trying to avoid surgery.He will follow up 2 weeks after.- PRE-CERT ORDER (AG)2. Chronic bilateral low back pain without sciatica- PRE-CERT ORDER (AG)Charlene Garcia APRN.CNPReferring Provider: SELF [200]Allergies As of Date: 03/30/2018(No Known Allergies)Date Reviewed: 03/30/2018Reviewed by: April Sevilla - Fully AssessedReason for Visit: Follow Up [171] Pain [78]Primary Visit Diagnosis:Postlaminectomy syndrome, lumbar region [M96.1] Other Visit Diagnosis:Chronic bilateral low back pain without sciatica [M54.5, G89.29]Order(s):PRE-CERT ORDER () [[id number]] Order #: [id number]: 1Prescriptions as of 03/30/2018 Sig: ASPIRIN 81 MG TABLET,DELAYED * Take 81 mg by mouth once matilda* ATORVASTATIN 20 MG TABLET Take 20 mg by mouth once matilda* ETODOLAC 500 MG TABLET Take 500 mg by mouth twice da* LISINOPRIL 20 MG-HYDROCHLOROT* Take 1 tablet by mouth once d* METHYLPREDNISOLONE 4 MG TABLE* Take as directed Patient not taking: Reported on 09/08/2017Problem List As Of Date 03/30/2018 Noted Resolved Lumbar stenosis [M48.061] INVALID FOR* Postlaminectomy syndrome, lumbar region [M96.1] INVALID FOR* Chronic bilateral low back pain without sciatic*INVALID FOR* Status:Closed by CHARLENE GARCIA CNP on 04/03/18 [facility] PROGRESSon 03-30-2018 Protein mass conc HNO ID: [id number] thor: Charlene (Manager Secondary) AmriteService: (none)Author Type: Nurse PractitionerType: Progress NotesFiled: 04/03/2018 10:48 AMNote Text:SubjectiveBack PainThis is a chronic problem. The problem occurs constantly. The problem hasbeen gradually improving. The pain is present in the lumbar spine. Thequality of the pain is described as stabbing and shooting. The pain is ben severity of 6/10. The pain is moderate. The symptoms are aggravated bytwisting and bending. The pain is the same all the time. Associatedsymptoms include tingling. Pertinent negatives include no chest pain, noheadaches, no dysuria and no weakness. He has tried NSAIDs for thesymptoms.He is here for a follow up from a caudal APOLLO. He states he received about60% improvement however it is slowly tapering off. He would like to tryanother injection before he goes out of town.Review of SystemsEyes: Negative for blurred vision.Respiratory: Negative for shortness of breath.Cardiovascular: Negative for chest pain and leg swelling.Gastrointestinal: Negative for constipation, diarrhea, nausea andvomiting.Genitourinary: Negative for dysuria.Musculoskeletal: Positive for back pain.Skin: Negative for itching.Neurological: Positive for tingling. Negative for dizziness, weakness andheadaches.Endo/Heme/All ergies: Bruises/bleeds easily.Psychiatric/Behavio ral: Negative for depression, substance abuse andsuicidal ideas.PAST MEDICAL HISTORYDiagnosis Date- HypertensionPAST SURGICAL HISTORYProcedure Laterality Date- OTHER SURGICAL HISTORY (PLEASE SPECIFY) HX 2010 Back surgery - fusion- OTHER SURGICAL HISTORY (PLEASE SPECIFY) HX 2010 Back surgery - cyst removedFAMILY HISTORYProblem Relation Age of Onset- Diabetes Mother- Hypertension FatherSocial History Marital status: Spouse name: Years of education: Number of children:Social History Main Topics Smoking status: Never Smoker Smokeless tobacco: Current User Types: Chew Comment: Uses chewing tobacco Alcohol use: No Drug use: NoOther Topics ConcernCaffeine Concern NoSpecial Diet NoExercise YesCurrent Medsaspirin, enteric coated (ASPIRIN, ENTERIC COATED) 81 mg EC tablet Take 81mg by mouth once daily.atorvastatin (LIPITOR) 20 mg tablet Take 20 mg by mouth once daily.Etodolac 500 mg tablet Take 500 mg by mouth twice daily.lisinopril-hydrochlo rothiazide (PRINZIDE,ZESTORETIC) 20-12.5 mg per tabletTake 1 tablet by mouth once daily.methylPREDNISolone (MEDROL, TOBY,) 4 mg Dose-Pack Take as directedObjectiveThere were no vitals taken for this visit.Physical ExamConstitutional: He is oriented to person, place, and time andwell-developed, well-nourished, and in no distress.HENT:Head: Normocephalic and atraumatic. Head is without abrasion and withoutcontusion. Hair is normal.Right Ear: Hearing normal.Left Ear: Hearing normal.Nose: No rhinorrhea.Mouth/Throat: No oropharyngeal exudate.Eyes: Lids are normal. Right eye exhibits no discharge. Left eye exhibitsno discharge. Right conjunctiva is not injected. Left conjunctiva is notinjected.Neck: Normal range of motion. No JVD present. No spinous processtenderness present.Cardiovascular: Normal rate.Pulmonary/Chest: Effort normal. No stridor. No apnea and no tachypnea. Norespiratory distress.Abdominal: Normal appearance. He exhibits no distension.Musculoskeletal : Normal range of motion. Lumbar back: He exhibits tenderness, pain and spasm. Back:Lymphadenopathy: He has no cervical adenopathy.Neurological: He is alert and oriented to person, place, and time. He isnot agitated and not disoriented. He displays weakness. He displays noatrophy and no tremor. A sensory deficit is present. He exhibits normalmuscle tone. Gait normal. Coordination and gait normal.Reflex Scores: Patellar reflexes are 1+ on the right side and 2+ on the left side.Strength:Right hip 4/5 Left hip 5/5Right knee 4/5 Left knee 5/5Right foot 5/5 Left foot 5/5Skin: Skin is warm and dry. No lesion noted.Psychiatric: Mood, memory, affect and judgment normal.Assessment/Plan1. Postlaminectomy syndrome, lumbar regionI will order a second caudal APOLLO.He is trying to avoid surgery.He will follow up 2 weeks after.- PRE-CERT ORDER (AG)2. Chronic bilateral low back pain without sciatica- PRE-CERT ORDER (AG)Charlene Garcia APRN.COURSE DEVELOPER [facility] CNOVon 03-06-2018 CNOV Office Visit (AGSPINE3) JONATHAN MCCRARY ([id number]) 1955 MDate Time Provider Agfclckyao68/26/18 9:50 AM JORGE BAUM AGSPINE3 During your visit today, we recorded the following information about you: Pulse Blood pressure Weight Height 67/minute 114/56 117.9 kg 1.753 Tee Sevilla MA 03/06/2018 9:29 AM SignedPROCEDURE DISCHARGE [id number]/26/2018Betito Mccrary1955Physician: KASSY Ascenciorocedure:Epidural Steroid Injection: Lumbar (transforaminal/Interlamin ar/Caudal)Post Procedure Instructions:If sedation not given, no driving for 3 hours after the procedure., If sedationgiven, no driving the day of the procedure., Rest the day of the procedure.,You may resume normal activities the day after the procedure, as tolerated.,Avoid movements that may aggravate pain., Apply cold compresses to injectionsite if needed., If medically acceptable, take over the counteranti-inflammatories such as ibuprofen or Aleve if needed for post procedurediscomfort., No hot baths, hot tubs or hot compresses for 24 hours. andIncreased pain the day after the procedure may occur.If you have any of the following signs or symptoms, please call our office [phone]? Fever and/or chills? Swelling and/or drainage from injection site? New pain that is different than your normal pain (other than soreness at thesite of the procedure)? Stiff neck? Shortness of breath? Severe increase in pain? Motor dysfunctions, such as difficulty walking, bowel or bladder dysfunctionand/or incontinence? Headache that is severe, light sensitive or develops when changing positions(positional headache)? Nausea and/or vomiting accompanied by headache that started 24-48 hours afterthe procedureIf you have any emergent concerns, please call 911 or go to your localemergency room. Please also contact our office to let us know you will beseeking emergency care and why.April Sevilla MA 03/06/2018 10:18 AM SignedSubjectiveHPIReview of SystemsEyes: Negative for blurred vision.Respiratory: Negative for shortness of breath.Cardiovascular: Negative for chest pain and leg swelling.Gastrointestinal: Negative for constipation, diarrhea, nausea and vomiting.Genitourinary: Negative for dysuria.Skin: Negative for itching.Neurological: Positive for dizziness. Negative for tingling, weakness andheadaches.Endo/Heme/All ergies: Does not bruise/bleed easily.Psychiatric/Behavio ral: Negative for depression, substance abuse and suicidalideas.PAST MEDICAL HISTORYDiagnosis Date- HypertensionPAST SURGICAL HISTORYProcedure Laterality Date- OTHER SURGICAL HISTORY (PLEASE SPECIFY) 2010 Back surgery - fusion- OTHER SURGICAL HISTORY (PLEASE SPECIFY) 2010 Back surgery - cyst removedFAMILY HISTORYProblem Relation Age of Onset- Diabetes Mother- Hypertension FatherSocial History Marital status: Spouse name: Years of education: Number of children:Social History Main Topics Smoking status: Never Smoker Smokeless tobacco: Current User Types: Chew Comment: Uses chewing tobacco Alcohol use: No Drug use: NoOther Topics ConcernCaffeine Concern NoSpecial Diet NoExercise YesCurrent Medslisinopril-hydrochloro thiazide (PRINZIDE,ZESTORETIC) 20-12.5 mg per tablet Take1 tablet by mouth once daily.aspirin, enteric coated (ASPIRIN, ENTERIC COATED) 81 mg EC tablet Take 81 mg bymouth once daily.atorvastatin (LIPITOR) 20 mg tablet Take 20 mg by mouth once daily.Etodolac 500 mg tablet Take 500 mg by mouth twice daily.methylPREDNISolone (MEDROL, TOBY,) 4 mg Dose-Pack Take as directedObjectiveBP 133/84 Pulse 89 Ht 5' 9 (1.75m) Wt 260 lb (117.9kg) BMI 38.38kg/(m2).Physical ExamMallory BRANDON Sevilla 03/06/2018 9:37 AM SignedPatients pick up truck driver is GustavoAuthorly Thinnersean NoDiabetic NoPregnancy waiver NoXanax Lindsay Moya LPN 03/06/2018 10:12 AM SignedProcedure to be performed: Caudal Epidural Steroid Injection???Patient was wheeled on stretcher from the pre-op bay to the procedure room andassisted onto the procedure table Patient?s procedure was performed in [facility] procedure [facility]. Pressure was applied topatient?s injection site(s) and bleeding was minimal. Patient had no complaintof shortness of breath, dizziness, headache, numbness, tingling, weakness orcomplications from procedure. Patient was assisted from the procedure tableonto the stretcher and wheeled into a post op bay. Patient was advised aclinician will be to obtain another set of vitals.Tammy Baum MD 03/06/2018 10:18 AM SignedDiagnosis: Lumbar Spinal StenosisProcedure: Caudal Epidural Steroid InjectionThe patient was identified in the preoperative area. The procedure wasdiscussed in detail including its risks, benefits, and alternatives. Signedconsent was obtained and the patient agreed to proceed.The patient was brought to the [facility] procedure room andplaced in the prone position onto the fluoroscopy table. The lumbosacral areawas prepped and draped in the usual sterile fashion using Chloroprep and afenestrated drape. Under fluoroscopic guidance in the lateral view the sacrumwas imaged and the the intended needle insertion site was marked onto the skin. The skin was anesthetized with 5ml of 2% lidocaine. After adequate skinanesthesia was obtained, a 22 gauge spinale needle was inserted through thesacro-coccygeal ligament into the epidural space under fluoroscopic guidance inthe AP view. The needle was aspirated and 1 ml of omnipaque contrast dye wasinjected under live fluoroscopy which showed epidural spread. The needle wasthen advanced under intermittent fluoroscopic guidance in the AP until theneedle tip was between the S2 and S3 neuro-foramen. The needle was aspiratedfor heme and csf again, which was negative, and 1 ml of omnipaque was injectedunder live fluoroscopy which showed appropriate spread without intrathecal orintravascular uptake. Then 10 ml of 0.5% preservative free lidocaine and 40 mgof methylprednisolone was injected. The needle was removed and a sterilebandage was applied. The patient was take back to the recovery area.The procedure was completed without complications and was tolerated well. Thepatient was monitored after the procedure. The patient (or responsible green party)was given post-procedure and discharge instructions to follow at home. Thepatient was discharged in stable condition. A follow up appointment was made.Time Out: 1009Confirmed patient name, date of , procedure site, laterality, and allergiesProcedure Start: 1010Procedure End: 1014Jorge Baum MD 03/06/2018 10:18 AM SignedSubjectiveHPI Jonathan Mccrary is a 62 year old male who presents with low back and leg painhere for APOLLO.ROSPAST MEDICAL HISTORYDiagnosis Date- HypertensionPAST SURGICAL HISTORYProcedure Laterality Date- OTHER SURGICAL HISTORY (PLEASE SPECIFY) 2010 Back surgery - fusion- OTHER SURGICAL HISTORY (PLEASE SPECIFY) 2010 Back surgery - cyst removedFAMILY HISTORYProblem Relation Age of Onset- Diabetes Mother- Hypertension FatherSocial History Marital status: Spouse name: Years of education: Number of children:Social History Main Topics Smoking status: Never Smoker Smokeless tobacco: Current User Types: Chew Comment: Uses chewing tobacco Alcohol use: No Drug use: NoOther Topics ConcernCaffeine Concern NoSpecial Diet NoExercise YesCurrent Medslisinopril-hydrochloro thiazide (PRINZIDE,ZESTORETIC) 20-12.5 mg per tablet Take1 tablet by mouth once daily.aspirin, enteric coated (ASPIRIN, ENTERIC COATED) 81 mg EC tablet Take 81 mg bymouth once daily.atorvastatin (LIPITOR) 20 mg tablet Take 20 mg by mouth once daily.Etodolac 500 mg tablet Take 500 mg by mouth twice daily.methylPREDNISolone (MEDROL, TOBY,) 4 mg Dose-Pack Take as directedObjectiveBP 133/84 Pulse 89 Ht 5' 9 (1.75m) Wt 260 lb (117.9kg) BMI 38.38kg/(m2).Physical ExamConstitutional: He is oriented to person, place, and time and well-developed,well-nouris hed, and in no distress. No distress.HENT:Head: Normocephalic.Eyes: Right eye exhibits no discharge. Left eye exhibits no discharge.Cardiovascular: Normal rate.Pulmonary/Chest: Effort normal.Neurological: He is alert and oriented to person, place, and time.Skin: Skin is dry. No lesion noted. He is not diaphoretic. No pallor.Psychiatric: Mood, memory, affect and judgment normal.Nursing note and vitals reviewed. Assessment and PlanI had a nice discussion with the patient today about their current pain and thepathology that could be causing it. We discussed different treatment options.Our plan will be as follows:1. Postlaminectomy syndrome, lumbar regionCaudal APOLLO.riks Risks, benefits, and alternatives were discussed with the patient prior to theprocedure.- methylPREDNISolone acetate 40 mg injection (DEPO-Medrol); 1 mL one time only.- iohexol 600 mg IV injection (OMNIPAQUE 300); 2 mL one time only.- lidocaine (PF) 10 mg/mL (1 %) 50 mg injection (XYLOCAINE); 5 mL byINTRADERMAL route one time only.- lidocaine (PF) 5 mg/mL (0.5 %) 40 mg injection (XYLOCAINE); 8 mL one timeonly.Referring Provider: SELF [200]Allergies As of Date: 03/06/2018(No Known Allergies)Date Reviewed: 03/06/2018Reviewed by: Tammy Moya LPN - Fully AssessedReason for Visit: Injections [199] Cmt: caudalPrimary Visit Diagnosis:Postlaminectomy syndrome, lumbar region [M96.1]Order(s):[] methylPREDNISolone acetate 40 mg injection (DEPO-Medrol)Disp: Rfl: [] iohexol 600 mg IV injection (OMNIPAQUE 300)Disp: Rfl: [] lidocaine (PF) 10 mg/mL (1 %) 50 mg injection (XYLOCAINE)Disp: Rfl: [] lidocaine (PF) 5 mg/mL (0.5 %) 40 mg injection (XYLOCAINE)Disp: Rfl:Prescriptions as of 03/06/2018 Sig: LISINOPRIL 20 MG-HYDROCHLOROT* Take 1 tablet by mouth once d* ASPIRIN 81 MG TABLET,DELAYED * Take 81 mg by mouth once matilda* ATORVASTATIN 20 MG TABLET Take 20 mg by mouth once matilda* ETODOLAC 500 MG TABLET Take 500 mg by mouth twice da* METHYLPREDNISOLONE 4 MG TABLE* Take as directed Patient not taking: Reported on 09/08/2017Problem List As Of Date 03/06/2018 Noted Resolved Lumbar stenosis [M48.061] INVALID FOR* Postlaminectomy syndrome, lumbar region [M96.1] INVALID FOR* Chronic bilateral low back pain without sciatic*INVALID FOR* Other instructions from your clinician: PROCEDURE DISCHARGE INSTRUCTIONS 03/06/2018 Jonathan Mccrary 1955 Physician: Jorge Baum MD Procedure: Epidural Steroid Injection: Lumbar (transforaminal/Interlamin ar/Caudal) Post Procedure Instructions: If sedation not given, no driving for 3 hours after the procedure., If sedation given, no driving the day of the procedure., Rest the day of the procedure., You may resume normal activities the day after the procedure, as tolerated., Avoid movements that may aggravate pain., Apply cold compresses to injection site if needed., If medically acceptable, take over the counter anti-inflammatories such as ibuprofen or Aleve if needed for post procedure discomfort., No hot baths, hot tubs or hot compresses for 24 hours. and Increased pain the day after the procedure may occur. If you have any of the following signs or symptoms, please call our office at ? Fever and/or chills ? Swelling and/or drainage from injection site ? New pain that is different than your normal pain (other than soreness at the site of the procedure) ? Stiff neck ? Shortness of breath ? Severe increase in pain ? Motor dysfunctions, such as difficulty walking, bowel or bladder dysfunction and/or incontinence ? Headache that is severe, light sensitive or develops when changing positions (positional headache) ? Nausea and/or vomiting accompanied by headache that started 24-48 hours after the procedure If you have any emergent concerns, please call 911 or go to your local emergency room. 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 Pressure was applied topatient?s injection site(s) and bleeding was minimal. Patient had nocomplaint of shortness of breath, dizziness, headache, numbness, tingling,weakness or complications from procedure. Patient was assisted from theprocedure table onto the stretcher and wheeled into a post op bay. Patientwas advised a clinician will be to obtain another set of vitals.Tammy Moya LPNPrescriptions ordered this encounter Disp Refills Start End METHYLPREDNISOLONE ACETATE 40 MG/ML * 03/06/2018 03/06/2018 Route: OTHER IOHEXOL 300 MG IODINE/ML INTRAVENOUS* 03/06/2018 03/06/2018 Route: OTHER LIDOCAINE (PF) 10 MG/ML (1 %) INJECT* 03/06/2018 03/06/2018 Route: INTRADERM. LIDOCAINE (PF) 5 MG/ML (0.5 %) INJEC* 03/06/2018 03/06/2018 Route: OTHEREncounter Number: [id number] Status:Closed by JORGE BAUM MD on 03/06/18 [facility] PROCEDUREon 03-06-2018 Protein mass conc HNO ID: [id number] thor: Jorge Tinocoervice: (none)Author Type: PhysicianType: ProceduresFiled: 03/06/2018 10:18 AMNote Text:Diagnosis: Lumbar Spinal StenosisProcedure: Caudal Epidural Steroid InjectionThe patient was identified in the preoperative area. The procedure wasdiscussed in detail including its risks, benefits, and alternatives.Signed consent was obtained and the patient agreed to proceed.The patient was brought to the [facility] procedure roomand placed in the prone position onto the fluoroscopy table. Thelumbosacral area was prepped and draped in the usual sterile fashion usingChloroprep and a fenestrated drape. Under fluoroscopic guidance in thelateral view the sacrum was imaged and the the intended needle insertionsite was marked onto the skin. The skin was anesthetized with 5ml of 2%lidocaine. After adequate skin anesthesia was obtained, a 22 gaugespinale needle was inserted through the sacro-coccygeal ligament into theepidural space under fluoroscopic guidance in the AP view. The needle wasaspirated and 1 ml of omnipaque contrast dye was injected under livefluoroscopy which showed epidural spread. The needle was then advancedunder intermittent fluoroscopic guidance in the AP until the needle tipwas between the S2 and S3 neuro-foramen. The needle was aspirated forheme and csf again, which was negative, and 1 ml of omnipaque was injectedunder live fluoroscopy which showed appropriate spread without intrathecalor intravascular uptake. Then 10 ml of 0.5% preservative free lidocaineand 40 mg of methylprednisolone was injected. The needle was removed devante sterile bandage was applied. The patient was take back to the recoveryarea.The procedure was completed without complications and was tolerated well.The patient was monitored after the procedure. The patient (or responsibleparty) was given post-procedure and discharge instructions to follow athome. The patient was discharged in stable condition. A follow upappointment was made.Time Out: 1009Confirmed patient name, date of , procedure site, laterality, andallergiesProcedure Start: 1010Procedure End: 1015 [facility] PROGRESSon 03-06-2018 Protein mass conc HNO ID: [id number] thor: Jorge Tinocoervice: (none)Author Type: PhysicianType: Progress NotesFiled: 03/06/2018 10:18 AMNote Text:SubjectiveHPI Jonathan Mccrary is a 62 year old male who presents with low back and legpain here for APOLLO.ROSPAST MEDICAL HISTORYDiagnosis Date- HypertensionPAST SURGICAL HISTORYProcedure Laterality Date- OTHER SURGICAL HISTORY (PLEASE SPECIFY) HX 2010 Back surgery - fusion- OTHER SURGICAL HISTORY (PLEASE SPECIFY) HX 2010 Back surgery - cyst removedFAMILY HISTORYProblem Relation Age of Onset- Diabetes Mother- Hypertension FatherSocial History Marital status: Spouse name: Years of education: Number of children:Social History Main Topics Smoking status: Never Smoker Smokeless tobacco: Current User Types: Chew Comment: Uses chewing tobacco Alcohol use: No Drug use: NoOther Topics ConcernCaffeine Concern NoSpecial Diet NoExercise YesCurrent Medslisinopril-hydrochloro thiazide (PRINZIDE,ZESTORETIC) 20-12.5 mg per tabletTake 1 tablet by mouth once daily.aspirin, enteric coated (ASPIRIN, ENTERIC COATED) 81 mg EC tablet Take 81mg by mouth once daily.atorvastatin (LIPITOR) 20 mg tablet Take 20 mg by mouth once daily.Etodolac 500 mg tablet Take 500 mg by mouth twice daily.methylPREDNISolone (MEDROL, TOBY,) 4 mg Dose-Pack Take as directedObjectiveBP 133/84 Pulse 89 Ht 5' 9 (1.75m) Wt 260 lb (117.9kg) BMI 38.38kg/(m2).Physical ExamConstitutional: He is oriented to person, place, and time andwell-developed, well-nourished, and in no distress. No distress.HENT:Head: Normocephalic.Eyes: Right eye exhibits no discharge. Left eye exhibits no discharge.Cardiovascular: Normal rate.Pulmonary/Chest: Effort normal.Neurological: He is alert and oriented to person, place, and time.Skin: Skin is dry. No lesion noted. He is not diaphoretic. No pallor.Psychiatric: Mood, memory, affect and judgment normal.Nursing note and vitals reviewed. Assessment and PlanI had a nice discussion with the patient today about their current painand the pathology that could be causing it. We discussed differenttreatment options. Our plan will be as follows:1. Postlaminectomy syndrome, lumbar regionCaudal APOLLO.hvriks Risks, benefits, and alternatives were discussed with the patient priorto the procedure.- methylPREDNISolone acetate 40 mg injection (DEPO-Medrol); 1 mL one timeonly.- iohexol 600 mg IV injection (OMNIPAQUE 300); 2 mL one time only.- lidocaine (PF) 10 mg/mL (1 %) 50 mg injection (XYLOCAINE); 5 mL byINTRADERMAL route one time only.- lidocaine (PF) 5 mg/mL (0.5 %) 40 mg injection (XYLOCAINE); 8 mL onetime only. [facility] Protein mass conc HNO ID: [id number] thor: April Braxton) McEwenService: (none)Author Type: Medical AssistantType: Progress NotesFiled: 03/06/2018 10:18 AMNote Text:SubjectiveHPIReview of SystemsEyes: Negative for blurred vision.Respiratory: Negative for shortness of breath.Cardiovascular: Negative for chest pain and leg swelling.Gastrointestinal: Negative for constipation, diarrhea, nausea andvomiting.Genitourinary: Negative for dysuria.Skin: Negative for itching.Neurological: Positive for dizziness. Negative for tingling, weakness andheadaches.Endo/Heme/All ergies: Does not bruise/bleed easily.Psychiatric/Behavio ral: Negative for depression, substance abuse andsuicidal ideas.PAST MEDICAL HISTORYDiagnosis Date- HypertensionPAST SURGICAL HISTORYProcedure Laterality Date- OTHER SURGICAL HISTORY (PLEASE SPECIFY) 2010 Back surgery - fusion- OTHER SURGICAL HISTORY (PLEASE SPECIFY) 2010 Back surgery - cyst removedFAMILY HISTORYProblem Relation Age of Onset- Diabetes Mother- Hypertension FatherSocial History Marital status: Spouse name: Years of education: Number of children:Social History Main Topics Smoking status: Never Smoker Smokeless tobacco: Current User Types: Chew Comment: Uses chewing tobacco Alcohol use: No Drug use: NoOther Topics ConcernCaffeine Concern NoSpecial Diet NoExercise YesCurrent Medslisinopril-hydrochloro thiazide (PRINZIDE,ZESTORETIC) 20-12.5 mg per tabletTake 1 tablet by mouth once daily.aspirin, enteric coated (ASPIRIN, ENTERIC COATED) 81 mg EC tablet Take 81mg by mouth once daily.atorvastatin (LIPITOR) 20 mg tablet Take 20 mg by mouth once daily.Etodolac 500 mg tablet Take 500 mg by mouth twice daily.methylPREDNISolone (MEDROL, TOBY,) 4 mg Dose-Pack Take as directedObjectiveBP 133/84 Pulse 89 Ht 5' 9 (1.75m) Wt 260 lb (117.9kg) BMI 38.38kg/(m2).Physical Exam [facility]N Telephone (AGSPINE3) DEMETRAJONATHAN ([id number]) 1955 MDate Time Provider Derweiqgmb62/30/18 JORGE BAUM AGSPINE3 During your visit today, we recorded the following information about you:Fernando Sanchez 02/07/2018 9:49 AM SignedPatients left a message wanting to know if Jonathan could have another backinjection. If so, please place order and I will call to schedule.Fernando SanchezSecretary to Dr. Jorge Baum and Dr. Danitza Shah [facility] [phone] ext [phone] Baum MD 02/07/2018 10:34 AM SignedOrder in for Margaret Baum MD 02/07/2018 10:34 AM SignedAddended by: JORGE BAUM MD on: 02/07/2018 10:34 AM Modules accepted: OrdersAllergies As of Date: 02/07/2018(No Known Allergies)Date Reviewed: 10/13/2017Reviewed by: April Sevilla - Fully AssessedReason for Visit: Patient Question [5447]Primary Visit Diagnosis:Postlaminectomy syndrome, lumbar region [M96.1]Order(s):PRE-CERT ORDER (AG) [[id number]] Order #: [id number]: 1Prescriptions as of 02/07/2018 Sig: METHYLPREDNISOLONE 4 MG TABLE* Take as directed Patient not taking: Reported on 09/08/2017 LISINOPRIL 20 MG-HYDROCHLOROT* Take 1 tablet by mouth once d* ASPIRIN 81 MG TABLET,DELAYED * Take 81 mg by mouth once matilda* ATORVASTATIN 20 MG TABLET Take 20 mg by mouth once matilda* ETODOLAC 500 MG TABLET Take 500 mg by mouth twice da*Problem List As Of Date 02/07/2018 Noted Resolved Lumbar stenosis [M48.061] INVALID FOR* Postlaminectomy syndrome, lumbar region [M96.1] INVALID FOR* Chronic bilateral low back pain without sciatic*INVALID FOR* Status:Closed by FERNANDO SANCHEZ on 02/07/18 [facility] CNOVon 10-13-2017 CNOV Office Visit (AGSPINE3) JONATHAN MCCRARY ([id number]) 1955 MDate Time Provider Department10/13/17 3:30 PM CHARLENE GARCIA (HEAD GREASE MAKER) AGSPINE3 During your visit today, we recorded the following information about you: Blood pressure Weight Height 128/82 117.9 kg 1.753 Huey Garcia APRN.CNP 10/13/2017 3:46 PM SignedSubjectiveBack PainThis is a chronic problem. The problem occurs constantly. The problem has beengradually improving. The pain is present in the lumbar spine. The quality ofthe pain is described as stabbing and shooting. The pain is at a severity of1/10. The pain is mild. The symptoms are aggravated by twisting and bending.The pain is the same all the time. Pertinent negatives include no chest pain,no headaches, no dysuria, no tingling and no weakness. He has tried NSAIDs forthe symptoms.HE is here to follow up from a caudal APOLLO. He states he received about 90%improvement. He is happy with how his pain has been managed.Review of SystemsEyes: Negative for blurred vision.Respiratory: Negative for shortness of breath.Cardiovascular: Negative for chest pain and leg swelling.Gastrointestinal: Negative for constipation, diarrhea, nausea and vomiting.Genitourinary: Negative for dysuria.Musculoskeletal: Positive for back pain.Skin: Negative for itching.Neurological: Negative for dizziness, tingling, weakness and headaches.Endo/Heme/Allerg ies: Bruises/bleeds easily.Psychiatric/Behavio ral: Negative for depression, substance abuse and suicidalideas.PAST MEDICAL HISTORYDiagnosis Date- HypertensionPAST SURGICAL HISTORYProcedure Laterality Date- OTHER SURGICAL HISTORY (PLEASE SPECIFY) HX 2010 Back surgery - fusion- OTHER SURGICAL HISTORY (PLEASE SPECIFY) HX 2010 Back surgery - cyst removedFAMILY HISTORYProblem Relation Age of Onset- Diabetes Mother- Hypertension FatherSocial History Marital status: Spouse name: Years of education: Number of children:Social History Main Topics Smoking status: Never Smoker Smokeless tobacco: Current User Types: Chew Comment: Uses chewing tobacco Alcohol use: No Drug use: NoOther Topics ConcernCaffeine Concern NoSpecial Diet NoExercise YesCurrent Medslisinopril-hydrochloro thiazide (PRINZIDE,ZESTORETIC) 20-12.5 mg per tablet Take1 tablet by mouth once daily.aspirin, enteric coated (ASPIRIN, ENTERIC COATED) 81 mg EC tablet Take 81 mg bymouth once daily.atorvastatin (LIPITOR) 20 mg tablet Take 20 mg by mouth once daily.Etodolac 500 mg tablet Take 500 mg by mouth twice daily.methylPREDNISolone (MEDROL, TOBY,) 4 mg Dose-Pack Take as directedObjectiveBP 128/82 Ht 5' 9 (1.75m) Wt 260 lb (117.9kg) BMI 38.38 kg/(m2).Physical ExamConstitutional: He is oriented to person, place, and time and well-developed,well-nouris hed, and in no distress.HENT:Head: Normocephalic and atraumatic. Head is without abrasion and withoutcontusion. Hair is normal.Right Ear: Hearing normal.Left Ear: Hearing normal.Nose: No rhinorrhea.Mouth/Throat: No oropharyngeal exudate.Eyes: Lids are normal. Right eye exhibits no discharge. Left eye exhibits nodischarge. Right conjunctiva is not injected. Left conjunctiva is not injected.Neck: Normal range of motion. No JVD present. No spinous process tendernesspresent.Cardiova scular: Normal rate.Pulmonary/Chest: Effort normal. No stridor. No apnea and no tachypnea. Norespiratory distress.Abdominal: Normal appearance. He exhibits no distension.Musculoskeletal : Normal range of motion. Lumbar back: He exhibits tenderness, pain and spasm. Back:Lymphadenopathy: He has no cervical adenopathy.Neurological: He is alert and oriented to person, place, and time. He is notagitated and not disoriented. He displays weakness. He displays no atrophy andno tremor. A sensory deficit is present. He exhibits normal muscle tone. Gaitnormal. Coordination and gait normal.Reflex Scores: Patellar reflexes are 1+ on the right side and 2+ on the left side.Strength:Right hip 4/5 Left hip 5/5Right knee 4/5 Left knee 5/5Right foot 5/5 Left foot 5/5Skin: Skin is warm and dry. No lesion noted.Psychiatric: Mood, memory, affect and judgment normal.Assessment/Plan1. Postlaminectomy syndrome, lumbar regionHe is doing much better overall.He will follow up prn for future injections.2. Chronic bilateral low back pain without sciaticaHe was told to call if pain worse.Charlene Garcia APRN.CNPReferring Provider: JORGE BAUM [[id number]]Allergies As of Date: 10/13/2017(No Known Allergies)Date Reviewed: 10/13/2017Reviewed by: April Sevilla - Fully AssessedReason for Visit: Follow Up [171] Pain [78]Primary Visit Diagnosis:Postlaminectomy syndrome, lumbar region [M96.1] Other Visit Diagnosis:Chronic bilateral low back pain without sciatica [M54.5, G89.29]Prescriptions as of 10/13/2017 Sig: LISINOPRIL 20 MG-HYDROCHLOROT* Take 1 tablet by mouth once d* ASPIRIN 81 MG TABLET,DELAYED * Take 81 mg by mouth once matilda* ATORVASTATIN 20 MG TABLET Take 20 mg by mouth once matilda* ETODOLAC 500 MG TABLET Take 500 mg by mouth twice da* METHYLPREDNISOLONE 4 MG TABLE* Take as directed Patient not taking: Reported on 09/08/2017Problem List As Of Date 10/13/2017 Noted Resolved Lumbar stenosis [M48.061] INVALID FOR* Postlaminectomy syndrome, lumbar region [M96.1] INVALID FOR* Chronic bilateral low back pain without sciatic*INVALID FOR*Disposition: Return if symptoms worsen or fail to improve.Follow-up and Disposition History RecordedEncounter Number: [id number] Status:Closed by CHARLENE GARCIA CNP on 10/13/17 [facility] PROGRESSon 10-13-2017 Protein mass conc HNO ID: [id number] thor: Charlene (Manager Secondary) AmriteService: (none)Author Type: Nurse PractitionerType: Progress NotesFiled: 10/13/2017 3:46 PMNote Text:SubjectiveBack PainThis is a chronic problem. The problem occurs constantly. The problem hasbeen gradually improving. The pain is present in the lumbar spine. Thequality of the pain is described as stabbing and shooting. The pain is ben severity of 1/10. The pain is mild. The symptoms are aggravated bytwisting and bending. The pain is the same all the time. Pertinentnegatives include no chest pain, no headaches, no dysuria, no tingling andno weakness. He has tried NSAIDs for the symptoms.HE is here to follow up from a caudal APOLLO. He states he received about 90%improvement. He is happy with how his pain has been managed.Review of SystemsEyes: Negative for blurred vision.Respiratory: Negative for shortness of breath.Cardiovascular: Negative for chest pain and leg swelling.Gastrointestinal: Negative for constipation, diarrhea, nausea andvomiting.Genitourinary: Negative for dysuria.Musculoskeletal: Positive for back pain.Skin: Negative for itching.Neurological: Negative for dizziness, tingling, weakness and headaches.Endo/Heme/Allerg ies: Bruises/bleeds easily.Psychiatric/Behavio ral: Negative for depression, substance abuse andsuicidal ideas.PAST MEDICAL HISTORYDiagnosis Date- HypertensionPAST SURGICAL HISTORYProcedure Laterality Date- OTHER SURGICAL HISTORY (PLEASE SPECIFY) HX 2010 Back surgery - fusion- OTHER SURGICAL HISTORY (PLEASE SPECIFY) HX 2010 Back surgery - cyst removedFAMILY HISTORYProblem Relation Age of Onset- Diabetes Mother- Hypertension FatherSocial History Marital status: Spouse name: Years of education: Number of children:Social History Main Topics Smoking status: Never Smoker Smokeless tobacco: Current User Types: Chew Comment: Uses chewing tobacco Alcohol use: No Drug use: NoOther Topics ConcernCaffeine Concern NoSpecial Diet NoExercise YesCurrent Medslisinopril-hydrochloro thiazide (PRINZIDE,ZESTORETIC) 20-12.5 mg per tabletTake 1 tablet by mouth once daily.aspirin, enteric coated (ASPIRIN, ENTERIC COATED) 81 mg EC tablet Take 81mg by mouth once daily.atorvastatin (LIPITOR) 20 mg tablet Take 20 mg by mouth once daily.Etodolac 500 mg tablet Take 500 mg by mouth twice daily.methylPREDNISolone (MEDROL, TOBY,) 4 mg Dose-Pack Take as directedObjectiveBP 128/82 Ht 5' 9 (1.75m) Wt 260 lb (117.9kg) BMI 38.38 kg/(m2).Physical ExamConstitutional: He is oriented to person, place, and time andwell-developed, well-nourished, and in no distress.HENT:Head: Normocephalic and atraumatic. Head is without abrasion and withoutcontusion. Hair is normal.Right Ear: Hearing normal.Left Ear: Hearing normal.Nose: No rhinorrhea.Mouth/Throat: No oropharyngeal exudate.Eyes: Lids are normal. Right eye exhibits no discharge. Left eye exhibitsno discharge. Right conjunctiva is not injected. Left conjunctiva is notinjected.Neck: Normal range of motion. No JVD present. No spinous processtenderness present.Cardiovascular: Normal rate.Pulmonary/Chest: Effort normal. No stridor. No apnea and no tachypnea. Norespiratory distress.Abdominal: Normal appearance. He exhibits no distension.Musculoskeletal : Normal range of motion. Lumbar back: He exhibits tenderness, pain and spasm. Back:Lymphadenopathy: He has no cervical adenopathy.Neurological: He is alert and oriented to person, place, and time. He isnot agitated and not disoriented. He displays weakness. He displays noatrophy and no tremor. A sensory deficit is present. He exhibits normalmuscle tone. Gait normal. Coordination and gait normal.Reflex Scores: Patellar reflexes are 1+ on the right side and 2+ on the left side.Strength:Right hip 4/5 Left hip 5/5Right knee 4/5 Left knee 5/5Right foot 5/5 Left foot 5/5Skin: Skin is warm and dry. No lesion noted.Psychiatric: Mood, memory, affect and judgment normal.Assessment/Plan1. Postlaminectomy syndrome, lumbar regionHe is doing much better overall.He will follow up prn for future injections.2. Chronic bilateral low back pain without sciaticaHe was told to call if pain worse.Charlene Garcia APRN.COURSE DEVELOPER [facility] OBSOLETEon 09-26-2017 OBSOLETE Procedure (AGSPINE3) JONATHAN MCCRARY ([id number]) 1955 MDate Time Provider Department09/26/17 11:00 AM JORGE BAUM AGSPINE3 During your visit today, we recorded the following information about you: Temperature Pulse Respiration Blood pressure 97.7 degrees 71/minute 16/minute 117/62 Weight Height 117.9 kg 1.753 mCaroline Arias 09/26/2017 11:07 AM SignedDriver PatBlood Thinners NoDiabetic NoPregnancy N/ACaroline Arias 09/26/2017 12:14 PM SignedSubjectiveHPIReview of SystemsEyes: Negative for blurred vision.Respiratory: Negative for shortness of breath.Cardiovascular: Negative for chest pain and leg swelling.Gastrointestinal: Negative for constipation, diarrhea, nausea and vomiting.Genitourinary: Negative for dysuria.Skin: Negative for itching.Neurological: Negative for dizziness, tingling, weakness and headaches.Endo/Heme/Allerg ies: Does not bruise/bleed easily.Psychiatric/Behavio ral: Negative for depression and suicidal ideas.PAST MEDICAL HISTORYDiagnosis Date- HypertensionPAST SURGICAL HISTORYProcedure Laterality Date- OTHER SURGICAL HISTORY (PLEASE SPECIFY) 2010 Back surgery - fusion- OTHER SURGICAL HISTORY (PLEASE SPECIFY) 2010 Back surgery - cyst removedFAMILY HISTORYProblem Relation Age of Onset- Diabetes Mother- Hypertension FatherSocial History Marital status: Spouse name: Years of education: Number of children:Social History Main Topics Smoking status: Never Smoker Smokeless tobacco: Current User Types: Chew Comment: Uses chewing tobacco Alcohol use: No Drug use: NoOther Topics ConcernCaffeine Concern NoSpecial Diet NoExercise YesCurrent Medslisinopril-hydrochloro thiazide (PRINZIDE,ZESTORETIC) 20-12.5 mg per tablet Take1 tablet by mouth once daily.aspirin, enteric coated (ASPIRIN, ENTERIC COATED) 81 mg EC tablet Take 81 mg bymouth once daily.atorvastatin (LIPITOR) 20 mg tablet Take 20 mg by mouth once daily.Etodolac 500 mg tablet Take 500 mg by mouth twice daily.methylPREDNISolone (MEDROL, TOBY,) 4 mg Dose-Pack Take as directedObjectiveHt 5' 9 (1.75m) Wt 260 lb (117.9kg) BMI 38.38 kg/(m2).Physical ExamCaroline Arias 09/26/2017 11:07 AM SignedPROCEDURE DISCHARGE INSTRUCTIONS09/26/2017Jonathan Mccrary1955Physician: Jorge Baum, MDProcedure:Epidural Steroid Injection: Lumbar (transforaminal/Interlamin ar/Caudal)Post Procedure Instructions:If sedation not given, no driving for 3 hours after the procedure., Rest theday of the procedure., You may resume normal activities the day after theprocedure, as tolerated., Avoid movements that may aggravate pain., Apply coldcompresses to injection site if needed., If medically acceptable, take over thecounter anti-inflammatories such as ibuprofen or Aleve if needed for postprocedure discomfort., No hot baths, hot tubs or hot compresses for 24 hours.and Increased pain the day after the procedure may occur.If you have any of the following signs or symptoms, please call our office [phone]? Fever and/or chills? Swelling and/or drainage from injection site? New pain that is different than your normal pain (other than soreness at thesite of the procedure)? Stiff neck? Shortness of breath? Severe increase in pain? Motor dysfunctions, such as difficulty walking, bowel or bladder dysfunctionand/or incontinence? Headache that is severe, light sensitive or develops when changing positions(positional headache)? Nausea and/or vomiting accompanied by headache that started 24-48 hours afterthe procedureIf you have any emergent concerns, please call 911 or go to your localemergency room. Please also contact our office to let us know you will beseeking emergency care and why.Tammy Griffin JARAMILLO 09/26/2017 11:26 AM SignedProcedure to be performed: Caudal Epidural Steroid Injection???Patient was wheeled on stretcher from the pre-op bay to the procedure room andassisted onto the procedure table Patient?s procedure was performed in [facility] procedure [facility]. Pressure was applied topatient?s injection site(s) and bleeding was minimal. Patient had no complaintof shortness of breath, dizziness, headache, numbness, tingling, weakness orcomplications from procedure. Patient was assisted from the procedure tableonto the stretcher and wheeled into a post op bay. Patient was advised aclinician will be to obtain another set of vitals.Tammy Munozchris LUNDBERGNCaroline Arias 09/26/2017 11:36 AM SignedDressing dry and intact, no drainage noted. The patient denies numbness,tingling, weakness, shortness of breath, dizziness or headache. Pain level0/10.Patient given discharge instructions and escorted to transportation viaambulatory method. Patient left in good condition.Rachell Baum MD 09/26/2017 12:14 PM SignedDiagnosis: Lumbar Spinal StenosisProcedure: Caudal Epidural Steroid InjectionThe patient was identified in the preoperative area. The procedure wasdiscussed in detail including its risks, benefits, and alternatives. Signedconsent was obtained and the patient agreed to proceed.The patient was brought to the [facility] procedure room andplaced in the prone position onto the fluoroscopy table. The lumbosacral areawas prepped and draped in the usual sterile fashion using Chloroprep and afenestrated drape. Under fluoroscopic guidance in the lateral view the sacrumwas imaged and the the intended needle insertion site was marked onto the skin. The skin was anesthetized with 5ml of 2% lidocaine. After adequate skinanesthesia was obtained, a 22 gauge spinale needle was inserted through thesacro-coccygeal ligament into the epidural space under fluoroscopic guidance inthe AP view. The needle was aspirated and 1 ml of omnipaque contrast dye wasinjected under live fluoroscopy which showed epidural spread. The needle wasthen advanced under intermittent fluoroscopic guidance in the AP until theneedle tip was between the S2 and S3 neuro-foramen. The needle was aspiratedfor heme and csf again, which was negative, and 1 ml of omnipaque was injectedunder live fluoroscopy which showed appropriate spread without intrathecal orintravascular uptake. Then 10 ml of 0.5% preservative free lidocaine and 40 mgof methylprednisolone was injected. The needle was removed and a sterilebandage was applied. The patient was take back to the recovery area.The procedure was completed without complications and was tolerated well. Thepatient was monitored after the procedure. The patient (or responsible green party)was given post-procedure and discharge instructions to follow at home. Thepatient was discharged in stable condition. A follow up appointment was made.Time Out: 1140Confirmed patient name, date of , procedure site, laterality, and allergiesProcedure Start: 1154Procedure End: 1150Henalyssa Baum MD 09/26/2017 12:14 PM SignedSubjective Low Back and Leg PainHPIJloree Mccrary is a 61 year old male who presents today for caudal APOLLO to helpwith low back and leg pain.ROSPAST MEDICAL HISTORYDiagnosis Date- HypertensionPAST SURGICAL HISTORYProcedure Laterality Date- OTHER SURGICAL HISTORY (PLEASE SPECIFY) 2010 Back surgery - fusion- OTHER SURGICAL HISTORY (PLEASE SPECIFY) 2010 Back surgery - cyst removedFAMILY HISTORYProblem Relation Age of Onset- Diabetes Mother- Hypertension FatherSocial History Marital status: Spouse name: Years of education: Number of children:Social History Main Topics Smoking status: Never Smoker Smokeless tobacco: Current User Types: Chew Comment: Uses chewing tobacco Alcohol use: No Drug use: NoOther Topics ConcernCaffeine Concern NoSpecial Diet NoExercise YesCurrent Medslisinopril-hydrochloro thiazide (PRINZIDE,ZESTORETIC) 20-12.5 mg per tablet Take1 tablet by mouth once daily.aspirin, enteric coated (ASPIRIN, ENTERIC COATED) 81 mg EC tablet Take 81 mg bymouth once daily.atorvastatin (LIPITOR) 20 mg tablet Take 20 mg by mouth once daily.Etodolac 500 mg tablet Take 500 mg by mouth twice daily.methylPREDNISolone (MEDROL, TOBY,) 4 mg Dose-Pack Take as directedObjectiveBP 117/62 Pulse 71 Temp (Src) 97.7 (Tympanic) Resp 16 Ht 5' 9 (1.75m) Wt 260 lb (117.9kg) BMI 38.38 kg/(m2).Physical ExamConstitutional: He is oriented to person, place, and time and well-developed,well-nouris hed, and in no distress. No distress.HENT:Head: Normocephalic.Eyes: Right eye exhibits no discharge. Left eye exhibits no discharge.Cardiovascular: Normal rate.Pulmonary/Chest: Effort normal.Neurological: He is alert and oriented to person, place, and time.Skin: Skin is dry. No lesion noted. He is not diaphoretic. No pallor.Psychiatric: Mood, memory, affect and judgment normal.Nursing note and vitals reviewed. Assessment and PlanI had a nice discussion with the patient today about their current pain and thepathology that could be causing it. We discussed different treatment options.Our plan will be as follows:1. Postlaminectomy syndrome, lumbar regionCaudal APOLLO Risks, benefits, and alternatives were discussed with the patient prior to theprocedure.Referring Provider: TANK MELCHOR [[id number]]Allergies As of Date: 09/26/2017(No Known Allergies)Date Reviewed: 09/26/2017Reviewed by: Tammy Moya LPN - Fully AssessedReason for Visit: Injections [199] Cmt: caudalPrimary Visit Diagnosis:Postlaminectomy syndrome, lumbar region [M96.1]Order(s):[] methylPREDNISolone acetate 40 mg injection (DEPO-Medrol)Disp: Rfl: [] lidocaine (PF) 5 mg/mL (0.5 %) 45 mg injection (XYLOCAINE)Disp: Rfl: [] lidocaine 2 % 9 mL buffered injection (XYLOCAINE)Disp: Rfl: [] iohexol 600 mg IV injection (OMNIPAQUE 300)Disp: Rfl:Prescriptions as of 09/26/2017 Sig: LISINOPRIL 20 MG-HYDROCHLOROT* Take 1 tablet by mouth once d* ASPIRIN 81 MG TABLET,DELAYED * Take 81 mg by mouth once matilda* ATORVASTATIN 20 MG TABLET Take 20 mg by mouth once matilda* ETODOLAC 500 MG TABLET Take 500 mg by mouth twice da* METHYLPREDNISOLONE 4 MG TABLE* Take as directed Patient not taking: Reported on 09/08/2017Problem List As Of Date 09/26/2017 Noted Resolved Lumbar stenosis [M48.061] INVALID FOR* Postlaminectomy syndrome, lumbar region [M96.1] INVALID FOR* Other instructions from your clinician: PROCEDURE DISCHARGE INSTRUCTIONS 09/26/2017 Jonathan Mccrary 1955 Physician: Jorge Baum MD Procedure: Epidural Steroid Injection: Lumbar (transforaminal/Interlamin ar/Caudal) Post Procedure Instructions: If sedation not given, no driving for 3 hours after the procedure., Rest the day of the procedure., You may resume normal activities the day after the procedure, as tolerated., Avoid movements that may aggravate pain., Apply cold compresses to injection site if needed., If medically acceptable, take over the counter anti-inflammatories such as ibuprofen or Aleve if needed for post procedure discomfort., No hot baths, hot tubs or hot compresses for 24 hours. and Increased pain the day after the procedure may occur. If you have any of the following signs or symptoms, please call our office at ? Fever and/or chills ? Swelling and/or drainage from injection site ? New pain that is different than your normal pain (other than soreness at the site of the procedure) ? Stiff neck ? Shortness of breath ? Severe increase in pain ? Motor dysfunctions, such as difficulty walking, bowel or bladder dysfunction and/or incontinence ? Headache that is severe, light sensitive or develops when changing positions (positional headache) ? Nausea and/or vomiting accompanied by headache that started 24-48 hours after the procedure If you have any emergent concerns, please call 911 or go to your local emergency room. Please also contact our office to let us know you will be seeking emergency care and why.Visit Notes:>> Rachell Hawk Sep 26, 2017 11:01 AM Status: SignedDriver Jaret Arora NoDiabetic NoPregnancy N/A>> Tammy Hawk Sep 26, 2017 11:23 AM Status: SignedProcedure to be performed: Caudal Epidural Steroid Injection???Patient was wheeled on stretcher from the pre-op bay to the procedure roomand assisted onto the procedure table Patient?s procedure was performed [facility] procedure [facility]. Pressure was applied topatient?s injection site(s) and bleeding was minimal. Patient had nocomplaint of shortness of breath, dizziness, headache, numbness, tingling,weakness or complications from procedure. Patient was assisted from theprocedure table onto the stretcher and wheeled into a post op bay. Patientwas advised a clinician will be to obtain another set of vitals.Tammy Moya ENERGY AUDIT ADVISOR>> Rachell Arias TueSep 26, 2017 11:36 AM Status: SignedDressing dry and intact, no drainage noted. The patient denies numbness,tingling, weakness, shortness of breath, dizziness or headache. Painlevel 0/10.Patient given discharge instructions and escorted to transportation viaambulatory method. Patient left in good condition.Rachell Mayrescriptions ordered this encounter Disp Refills Start End METHYLPREDNISOLONE ACETATE 40 MG/ML * 09/26/2017 09/26/2017 Route: OTHER LIDOCAINE (PF) 5 MG/ML (0.5 %) INJEC* 09/26/2017 09/26/2017 Route: INTRADERM. LIDOCAINE 2 % (BUFFERED) INJECTION 09/26/2017 09/26/2017 Route: OTHER IOHEXOL 300 MG IODINE/ML INTRAVENOUS* 09/26/2017 09/26/2017 Route: OTHEREncounter Number: [id number] Status:Closed by JORGE BAUM MD on 09/26/17 [facility] PROCEDUREon 09-26-2017 Protein mass conc HNO ID: [id number] thor: Jorge Tinocoervice: (none)Author Type: PhysicianType: ProceduresFiled: 09/26/2017 12:14 PMNote Text:Diagnosis: Lumbar Spinal StenosisProcedure: Caudal Epidural Steroid InjectionThe patient was identified in the preoperative area. The procedure wasdiscussed in detail including its risks, benefits, and alternatives.Signed consent was obtained and the patient agreed to proceed.The patient was brought to the [facility] procedure roomand placed in the prone position onto the fluoroscopy table. Thelumbosacral area was prepped and draped in the usual sterile fashion usingChloroprep and a fenestrated drape. Under fluoroscopic guidance in thelateral view the sacrum was imaged and the the intended needle insertionsite was marked onto the skin. The skin was anesthetized with 5ml of 2%lidocaine. After adequate skin anesthesia was obtained, a 22 gaugespinale needle was inserted through the sacro-coccygeal ligament into theepidural space under fluoroscopic guidance in the AP view. The needle wasaspirated and 1 ml of omnipaque contrast dye was injected under livefluoroscopy which showed epidural spread. The needle was then advancedunder intermittent fluoroscopic guidance in the AP until the needle tipwas between the S2 and S3 neuro-foramen. The needle was aspirated forheme and csf again, which was negative, and 1 ml of omnipaque was injectedunder live fluoroscopy which showed appropriate spread without intrathecalor intravascular uptake. Then 10 ml of 0.5% preservative free lidocaineand 40 mg of methylprednisolone was injected. The needle was removed devante sterile bandage was applied. The patient was take back to the recoveryarea.The procedure was completed without complications and was tolerated well.The patient was monitored after the procedure. The patient (or responsibleparty) was given post-procedure and discharge instructions to follow athome. The patient was discharged in stable condition. A follow upappointment was made.Time Out: 1140Confirmed patient name, date of , procedure site, laterality, andallergiesProcedure Start: 1154Procedure End: 1150 Normal [facility] PROGRESSon 09-26-2017 Protein mass conc HNO ID: [id number] thor: Jorge Tinocoervice: (none)Author Type: PhysicianType: Progress NotesFiled: 09/26/2017 12:14 PMNote Text:Subjective Low Back and Leg PainHPPaula Mccrary is a 61 year old male who presents today for caudal APOLLO tohelp with low back and leg pain.ROSPAST MEDICAL HISTORYDiagnosis Date- HypertensionPAST SURGICAL HISTORYProcedure Laterality Date- OTHER SURGICAL HISTORY (PLEASE SPECIFY) HX 2010 Back surgery - fusion- OTHER SURGICAL HISTORY (PLEASE SPECIFY) HX 2010 Back surgery - cyst removedFAMILY HISTORYProblem Relation Age of Onset- Diabetes Mother- Hypertension FatherSocial History Marital status: Spouse name: Years of education: Number of children:Social History Main Topics Smoking status: Never Smoker Smokeless tobacco: Current User Types: Chew Comment: Uses chewing tobacco Alcohol use: No Drug use: NoOther Topics ConcernCaffeine Concern NoSpecial Diet NoExercise YesCurrent Medslisinopril-hydrochloro thiazide (PRINZIDE,ZESTORETIC) 20-12.5 mg per tabletTake 1 tablet by mouth once daily.aspirin, enteric coated (ASPIRIN, ENTERIC COATED) 81 mg EC tablet Take 81mg by mouth once daily.atorvastatin (LIPITOR) 20 mg tablet Take 20 mg by mouth once daily.Etodolac 500 mg tablet Take 500 mg by mouth twice daily.methylPREDNISolone (MEDROL, TOBY,) 4 mg Dose-Pack Take as directedObjectiveBP 117/62 Pulse 71 Temp (Src) 97.7 (Tympanic) Resp 16 Ht 5' 9(1.75m) Wt 260 lb (117.9kg) BMI 38.38 kg/(m2).Physical ExamConstitutional: He is oriented to person, place, and time andwell-developed, well-nourished, and in no distress. No distress.HENT:Head: Normocephalic.Eyes: Right eye exhibits no discharge. Left eye exhibits no discharge.Cardiovascular: Normal rate.Pulmonary/Chest: Effort normal.Neurological: He is alert and oriented to person, place, and time.Skin: Skin is dry. No lesion noted. He is not diaphoretic. No pallor.Psychiatric: Mood, memory, affect and judgment normal.Nursing note and vitals reviewed. Assessment and PlanI had a nice discussion with the patient today about their current painand the pathology that could be causing it. We discussed differenttreatment options. Our plan will be as follows:1. Postlaminectomy syndrome, lumbar regionCaudal APOLLO Risks, benefits, and alternatives were discussed with the patient priorto the procedure. [facility] Protein mass conc HNO ID: [id number] thor: Rachell Quintero: (none)Author Type: (none)Type: Progress NotesFiled: 09/26/2017 12:14 PMNote Text:SubjectiveHPIReview of SystemsEyes: Negative for blurred vision.Respiratory: Negative for shortness of breath.Cardiovascular: Negative for chest pain and leg swelling.Gastrointestinal: Negative for constipation, diarrhea, nausea andvomiting.Genitourinary: Negative for dysuria.Skin: Negative for itching.Neurological: Negative for dizziness, tingling, weakness and headaches.Endo/Heme/Allerg ies: Does not bruise/bleed easily.Psychiatric/Behavio ral: Negative for depression and suicidal ideas.PAST MEDICAL HISTORYDiagnosis Date- HypertensionPAST SURGICAL HISTORYProcedure Laterality Date- OTHER SURGICAL HISTORY (PLEASE SPECIFY) HX 2010 Back surgery - fusion- OTHER SURGICAL HISTORY (PLEASE SPECIFY) HX 2010 Back surgery - cyst removedFAMILY HISTORYProblem Relation Age of Onset- Diabetes Mother- Hypertension FatherSocial History Marital status: Spouse name: Years of education: Number of children:Social History Main Topics Smoking status: Never Smoker Smokeless tobacco: Current User Types: Chew Comment: Uses chewing tobacco Alcohol use: No Drug use: NoOther Topics ConcernCaffeine Concern NoSpecial Diet NoExercise YesCurrent Medslisinopril-hydrochloro thiazide (PRINZIDE,ZESTORETIC) 20-12.5 mg per tabletTake 1 tablet by mouth once daily.aspirin, enteric coated (ASPIRIN, ENTERIC COATED) 81 mg EC tablet Take 81mg by mouth once daily.atorvastatin (LIPITOR) 20 mg tablet Take 20 mg by mouth once daily.Etodolac 500 mg tablet Take 500 mg by mouth twice daily.methylPREDNISolone (MEDROL, TOBY,) 4 mg Dose-Pack Take as directedObjectiveHt 5' 9 (1.75m) Wt 260 lb (117.9kg) BMI 38.38 kg/(m2).Physical Exam Normal [facility] Laboratory - Chemistry and C hemistry - challengeon 09-19-2017 Albumin [Mass/Vol] 4.6 g/dL Normal 3.6 - 5.1 g/dL [facility], [place].; [facility] Albumin/Globulin [Mass ratio] 2.1 {ratio} Normal 1.0 - 2.5 [facility], [facility].; [employer], [place]. ALP [Catalytic activity/Vol] 71 U/L Normal 40 - 115 U/L [facility].; [facility]. ALT [Catalytic activity/Vol] 25 U/L Normal 9 - 46 U/L [facility], [facility].; [facility], [facility]. AST [Catalytic activity/Vol] 16 U/L Normal 10 - 35 U/L [facility].; [facility], [facility]. Bilirubin [Mass/Vol] 0.8 mg/dL Normal 0.2 - 1 .2 mg/dL [facility].; [facility], [facility] Calcium [Mass/Vol] 9.3 mg/dL Normal 8.6 - 10. 3 mg/dL [facility].; [facility], [facility] Chloride [Moles/Vol] 103 mmol/L Normal 98 - 11 0 mmol/L [facility].; [facility], [facility]. Cholesterol [Mass/Vol] 126 mg/dL Normal [facility].; [facility], [facility] Cholesterol in HDL [Mass/Vol] 41 mg/dL Normal [facility].; [facility], [facility]. Cholesterol in LDL [Mass/Vol] 69 mg/dL Normal 0 - 100 mg/dL [facility].; [facility], [facility]. Cholesterol non HDL [Mass/Vol] 85 mg/dL Normal [facility].; [facility], [facility]. Cholesterol.total/Chol esterol in HDL [Mass ratio] 3.1 {ratio} Normal [facility].; [facility], [facility] CO2 [Moles/Vol] 22 mmol/L Normal 20 - 31 mmol/L [facility].; [facility], [facility]. Creatinine [Mass/Vol] 1.15 mg/dL Normal 0.70 - 1.33 mg/dL [facility], [facility].; [facility], [facility]. GFR/1.73 sq M.predicted among blacks MDRD (S/P/Bld) [Vol rate/Area] 80 {ML/MIN/1.73M2} Normal [facility], [facility].; [facility], [facility]. GFR/1.73 sq M.predicted MDRD (S/P/Bld) [Vol rate/Area] 69 {ML/MIN/1.73M2} Normal [facility] [employer]. Globulin (S) [Mass/Vol] 2.2 g/dL Normal 1.9 - 3.7 g/dL [employer].; [employer]. Glucose [Mass/Vol] 120 mg/dL Abnormal 65 - 99 mg/dL [employer].; [employer]. Potassium [Moles/Vol] 4.1 mmol/L Normal 3.5 - 5.3 mmol/L [employer].; [employer]. Prostate specific Ag [Mass/Vol] 2.7 ng/mL Normal [employer].; [employer]. Protein [Mass/Vol] 6.8 g/dL Normal 6.1 - 8.1 g/dL [employer].; [employer]. Sodium [Moles/Vol] 135 mmol/L Normal 135 - 146 mmol/L [employer].; [employer]. Triglyceride [Mass/Vol] 77 mg/dL Normal [employer].; [employer]. Urea nitrogen [Mass/Vol] 17 mg/dL Normal 7 - 25 mg/dL [employer].; [employer]. Urea nitrogen/Creatinine [Mass ratio] 14.9 mg/mg Normal 6 - 22 [employer].; [employer]. Namita 09-09-2017 [facility] Telephone (AGSPINE3) JONATHAN MCCRARY ([id number]) 1955 [facility] Department09/09/17 CHARLENE GARCIA (DIYA) AGSPINE3 During your visit today, we recorded the following information about you:Dotty Harper 09/09/2017 12:56 PM SignedThere is no precert needed per Medical MutualCovered benefit.Reference #: [id number]: [id number] Dx: M96.1Veronica TommieMahnazKeron Jose 09/12/2017 2:19 PM Yokastaemma Mccrary has been scheduled for an Injection on 09/26/17 at 11am, with Dr.Henry Baum in [place].Neema GarciaEmmie As of Date: 09/09/2017(No Known Allergies)Date Reviewed: 09/08/2017Reviewed by: Kvng Gallegos - Fully AssessedReason for Visit: Insurance Authorization [[id number]] Cmt: Caudal ESIPrescriptions as of 09/09/2017 Sig: METHYLPREDNISOLONE 4 MG TABLE* Take as directed Patient not taking: Reported on 09/08/2017 LISINOPRIL 20 MG-HYDROCHLOROT* Take 1 tablet by mouth once d* ASPIRIN 81 MG TABLET,DELAYED * Take 81 mg by mouth once matilda* ATORVASTATIN 20 MG TABLET Take 20 mg by mouth once matilda* ETODOLAC 500 MG TABLET Take 500 mg by mouth twice da*Problem List As Of Date 09/09/2017 Noted Resolved Lumbar stenosis [M48.061] INVALID FOR* Postlaminectomy syndrome, lumbar region [M96.1] INVALID FOR* Status:Closed by DOTTY HARPER on 09/09/17 [facility] Amarjit 09-08-2017 [facility] Office Visit (AGSPINE3) MCCRARYJONATHAN NINO ([id number]) 1955 MDate Time Provider Department09/08/17 10:45 AM CHARLENE GARCIA (HEAD GREASE MAKER) AGSPINE3 During your visit today, we recorded the following information about you: Pulse Blood pressure Weight Height 72/minute 132/90 117.9 kg 1.753 Huey Garcia APRN.CNP 09/08/2017 1:00 PM SignedSubjectiveBack PainThis is a chronic problem. The problem occurs constantly. The problem has beengradually improving. The pain is present in the lumbar spine. The quality ofthe pain is described as stabbing and shooting. The pain radiates to the leftthigh, left knee, right thigh, right knee and right foot. The pain is at aseverity of 5/10. The pain is moderate. The symptoms are aggravated by twistingand bending. The pain is the same all the time. He has tried NSAIDs for thesymptoms.He is here to follow up from a caudal APOLLO. He states he received about 80%improvement for 3 days and then it tapered to about 65% improvement.He is still having some right leg pain. He would like to try another injection.[employer] Questionnaire GREENLIGHTCompleted Date 09/08/2017Review of SystemsConstitutional: Negative.Eyes: Negative.Respiratory: Negative.Cardiovascular: Negative.Gastrointestinal: Positive for constipation.Genitourinary : Negative.Musculoskeletal: Positive for back pain.Skin: Negative.Neurological: Negative.Endo/Heme/Allergi es: Negative.Psychiatric/Behav ioral: Negative.PAST MEDICAL HISTORYDiagnosis Date- HypertensionPAST SURGICAL HISTORYProcedure Laterality Date- OTHER SURGICAL HISTORY (PLEASE SPECIFY) 2010 Back surgery - fusion- OTHER SURGICAL HISTORY (PLEASE SPECIFY) 2010 Back surgery - cyst removedFAMILY HISTORYProblem Relation Age of Onset- Diabetes Mother- Hypertension FatherSocial History Marital status: Spouse name: Years of education: Number of children:Social History Main Topics Smoking status: Never Smoker Smokeless tobacco: Current User Types: Chew Comment: Uses chewing tobacco Alcohol use: No Drug use: NoOther Topics ConcernCaffeine Concern NoSpecial Diet NoExercise YesCurrent Medslisinopril-hydrochloro thiazide (PRINZIDE,ZESTORETIC) 20-12.5 mg per tablet Take1 tablet by mouth once daily.aspirin, enteric coated (ASPIRIN, ENTERIC COATED) 81 mg EC tablet Take 81 mg bymouth once daily.atorvastatin (LIPITOR) 20 mg tablet Take 20 mg by mouth once daily.Etodolac 500 mg tablet Take 500 mg by mouth twice daily.methylPREDNISolone (MEDROL, TOBY,) 4 mg Dose-Pack Take as directedObjectiveHt 5' 9 (1.75m) Wt 260 lb (117.9kg) BMI 38.38 kg/(m2).Physical ExamConstitutional: He is oriented to person, place, and time and well-developed,well-nouris hed, and in no distress.HENT:Head: Normocephalic and atraumatic. Head is without abrasion and withoutcontusion. Hair is normal.Right Ear: Hearing normal.Left Ear: Hearing normal.Nose: No rhinorrhea.Mouth/Throat: No oropharyngeal exudate.Eyes: Lids are normal. Right eye exhibits no discharge. Left eye exhibits nodischarge. Right conjunctiva is not injected. Left conjunctiva is not injected.Neck: Normal range of motion. No JVD present. No spinous process tendernesspresent.Cardiova scular: Normal rate.Pulmonary/Chest: Effort normal. No stridor. No apnea and no tachypnea. Norespiratory distress.Abdominal: Normal appearance. He exhibits no distension.Musculoskeletal : Normal range of motion. Lumbar back: He exhibits tenderness, pain and spasm. Back:Lymphadenopathy: He has no cervical adenopathy.Neurological: He is alert and oriented to person, place, and time. He is notagitated and not disoriented. He displays weakness. He displays no atrophy andno tremor. A sensory deficit is present. He exhibits normal muscle tone. Gaitnormal. Coordination and gait normal.Reflex Scores: Patellar reflexes are 1+ on the right side and 2+ on the left side.Strength:Right hip 4/5 Left hip 5/5Right knee 4/5 Left knee 5/5Right foot 5/5 Left foot 5/5Skin: Skin is warm and dry. No lesion noted.Psychiatric: Mood, memory, affect and judgment normal.Assessment/Plan1. Postlaminectomy syndrome, lumbar regionWe will plan on repeating the caudal APOLLO since he had good relief with thefirst.He will follow up 2 weeks.He is trying to avoid surgery with Dr. Baugh.- PRE-CERT ORDER (AG)2. Screening for depression [facility] Medical screen for anxiety, depression, and opioid risk assessmentcompleted today. Patient stable and no concern or need for referral to psychat this time.- PSYCHOLOGIC TESTING ADMIN BY COMPUTER3. Radiculopathy, lumbar region4. Chronic right-sided low back pain with right-sided sciaticaElise PETRA Garcia.CNPReferring Provider: SELF [[id number]]Allergies As of Date: 09/08/2017(No Known Allergies)Date Reviewed: 09/08/2017Reviewed by: Kvng HooksCancer Treatment Centers Of AmericaNorman Gallegos - Fully AssessedReason for Visit: Follow Up [171] Cmt: felt great two days after. Stayed fine since then.Primary Visit Diagnosis:Postlaminectomy syndrome, lumbar region [M96.1] Other Visit Diagnoses:Screening for depression [Z13.89] Radiculopathy, lumbar region [M54.16] Chronic right-sided low back pain with right-sided sciatica [M54.41, G89.29]Order(s):PSYCHOLOGI C TESTING ADMIN BY COMPUTER [[id number]] Order #: [id number] PRE-CERT ORDER (AG) [[id number]] Order #: [id number]: 1Prescriptions as of 09/08/2017 Sig: LISINOPRIL 20 MG-HYDROCHLOROT* Take 1 tablet by mouth once d* ASPIRIN 81 MG TABLET,DELAYED * Take 81 mg by mouth once matilda* ATORVASTATIN 20 MG TABLET Take 20 mg by mouth once matilda* ETODOLAC 500 MG TABLET Take 500 mg by mouth twice da* METHYLPREDNISOLONE 4 MG TABLE* Take as directed Patient not taking: Reported on 09/08/2017Problem List As Of Date 09/08/2017 Noted Resolved Lumbar stenosis [M48.061] INVALID FOR* Postlaminectomy syndrome, lumbar region [M96.1] INVALID FOR*Disposition: Return in about 2 weeks (around 09/22/2017).Follow-up and Disposition History RecordedEncounter Number: [id number] Status:Closed by CHARLENE GARCIA CNP on 09/08/17 [facility] Namita 09-08-2017 [facility] Telephone (AGSPINE3) JONATHAN MCCRARY ([id number]) 1955 MDate Time Provider Department09/08/17 VUCETICJORGE3 During your visit today, we recorded the following information about you:Jannie Bennett 09/08/2017 11:45 AM AddendumPatient will be calling in to schedule.1.Are you diabetic No2. Are you on any blood thinners? No3. Are you taking any aspirin? Yes. Please list the current medications beingprescribed baby Asprin 81 mg.4. Have you had any recent imaging done on your body part that's beinginjected? No5. Do you have any allergies to latex? No6. Do you have any allergies to seafood? No7. Do you have any allergies to shellfish? No8. Do you have any allergies to x-ray dye? No9. Are you taking Xanax for the procedure? No10. Have you done physical therapy in the last year? No If yes, When and Where? (Medical Records Release needs to be signed.)11. Were the pre-procedure instructions explained to the patient? Yes12. Do you have a pacemaker? Bob Persaud As of Date: 09/08/2017(No Known Allergies)Date Reviewed: 09/08/2017Reviewed by: Kvng HooksCancer Treatment Centers Of America) El - Fully AssessedReason for Visit: Injections [199]Prescriptions as of 09/08/2017 Sig: METHYLPREDNISOLONE 4 MG TABLE* Take as directed Patient not taking: Reported on 09/08/2017 LISINOPRIL 20 MG-HYDROCHLOROT* Take 1 tablet by mouth once d* ASPIRIN 81 MG TABLET,DELAYED * Take 81 mg by mouth once matilda* ATORVASTATIN 20 MG TABLET Take 20 mg by mouth once matilda* ETODOLAC 500 MG TABLET Take 500 mg by mouth twice da*Problem List As Of Date 09/08/2017 Noted Resolved Lumbar stenosis [M48.061] INVALID FOR* Postlaminectomy syndrome, lumbar region [M96.1] INVALID FOR* Status:Closed by ANDRESSA JANNIE on 09/08/17 [facility] PROGRESSon 09-08-2017 Protein mass conc HNO ID: [id number] thor: Charlene Britt) LeoneService: (none)Author Type: Nurse PractitionerType: Progress NotesFiled: 09/08/2017 1:00 PMNote Text:SubjectiveBack PainThis is a chronic problem. The problem occurs constantly. The problem hasbeen gradually improving. The pain is present in the lumbar spine. Thequality of the pain is described as stabbing and shooting. The painradiates to the left thigh, left knee, right thigh, right knee and rightfoot. The pain is at a severity of 5/10. The pain is moderate. Thesymptoms are aggravated by twisting and bending. The pain is the same allthe time. He has tried NSAIDs for the symptoms.He is here to follow up from a caudal APOLLO. He states he received about 80%improvement for 3 days and then it tapered to about 65% improvement.He is still having some right leg pain. He would like to try anotherinjection.Tiarra leonel Questionnaire GREENLIGHTCompleted Date 09/08/2017Review of SystemsConstitutional: Negative.Eyes: Negative.Respiratory: Negative.Cardiovascular: Negative.Gastrointestinal: Positive for constipation.Genitourinary : Negative.Musculoskeletal: Positive for back pain.Skin: Negative.Neurological: Negative.Endo/Heme/Allergi es: Negative.Psychiatric/Behav ioral: Negative.PAST MEDICAL HISTORYDiagnosis Date- HypertensionPAST SURGICAL HISTORYProcedure Laterality Date- OTHER SURGICAL HISTORY (PLEASE SPECIFY) 2010 Back surgery - fusion- OTHER SURGICAL HISTORY (PLEASE SPECIFY) 2010 Back surgery - cyst removedFAMILY HISTORYProblem Relation Age of Onset- Diabetes Mother- Hypertension FatherSocial History Marital status: Spouse name: Years of education: Number of children:Social History Main Topics Smoking status: Never Smoker Smokeless tobacco: Current User Types: Chew Comment: Uses chewing tobacco Alcohol use: No Drug use: NoOther Topics ConcernCaffeine Concern NoSpecial Diet NoExercise YesCurrent Medslisinopril-hydrochloro thiazide (PRINZIDE,ZESTORETIC) 20-12.5 mg per tabletTake 1 tablet by mouth once daily.aspirin, enteric coated (ASPIRIN, ENTERIC COATED) 81 mg EC tablet Take 81mg by mouth once daily.atorvastatin (LIPITOR) 20 mg tablet Take 20 mg by mouth once daily.Etodolac 500 mg tablet Take 500 mg by mouth twice daily.methylPREDNISolone (MEDROL, TOBY,) 4 mg Dose-Pack Take as directedObjectiveHt 5' 9 (1.75m) Wt 260 lb (117.9kg) BMI 38.38 kg/(m2).Physical ExamConstitutional: He is oriented to person, place, and time andwell-developed, well-nourished, and in no distress.HENT:Head: Normocephalic and atraumatic. Head is without abrasion and withoutcontusion. Hair is normal.Right Ear: Hearing normal.Left Ear: Hearing normal.Nose: No rhinorrhea.Mouth/Throat: No oropharyngeal exudate.Eyes: Lids are normal. Right eye exhibits no discharge. Left eye exhibitsno discharge. Right conjunctiva is not injected. Left conjunctiva is notinjected.Neck: Normal range of motion. No JVD present. No spinous processtenderness present.Cardiovascular: Normal rate.Pulmonary/Chest: Effort normal. No stridor. No apnea and no tachypnea. Norespiratory distress.Abdominal: Normal appearance. He exhibits no distension.Musculoskeletal : Normal range of motion. Lumbar back: He exhibits tenderness, pain and spasm. Back:Lymphadenopathy: He has no cervical adenopathy.Neurological: He is alert and oriented to person, place, and time. He isnot agitated and not disoriented. He displays weakness. He displays noatrophy and no tremor. A sensory deficit is present. He exhibits normalmuscle tone. Gait normal. Coordination and gait normal.Reflex Scores: Patellar reflexes are 1+ on the right side and 2+ on the left side.Strength:Right hip 4/5 Left hip 5/5Right knee 4/5 Left knee 5/5Right foot 5/5 Left foot 5/5Skin: Skin is warm and dry. No lesion noted.Psychiatric: Mood, memory, affect and judgment normal.Assessment/Plan1. Postlaminectomy syndrome, lumbar regionWe will plan on repeating the caudal APOLLO since he had good relief with thefirst.He will follow up 2 weeks.He is trying to avoid surgery with Dr. Baugh.- PRE-CERT ORDER (AG)2. Screening for depression [facility] Medical screen for anxiety, depression, and opioid riskassessment completed today. Patient stable and no concern or need forreferral to psych at this time.- PSYCHOLOGIC TESTING ADMIN BY COMPUTER3. Radiculopathy, lumbar region4. Chronic right-sided low back pain with right-sided sciaticaElkasandra Garcia APRN.COURSE DEVELOPER [facility] CNOVon 08-22-2017 CNOV Office Visit (AGSPINE3) JONATHAN MCCRARY ([id number]) 1955 MDate Time Provider Department08/22/17 9:40 AM JORGE BAUM AGSPINE3 During your visit today, we recorded the following information about you: Temperature Pulse Respiration Blood pressure 97.6 degrees 67/minute 16/minute 112/60 Weight Height 113.4 kg 1.753 Tammy George LPN 08/22/2017 8:56 AM SignedPROCEDURE DISCHARGE INSTRUCTIONS08/22/2017Jonathan Mccrary1955Physician: KASSY Ascenciorocedure:Epidural Steroid Injection: Lumbar (transforaminal/Interlamin ar/Caudal)Post Procedure Instructions:If sedation not given, no driving for 3 hours after the procedure., If sedationgiven, no driving the day of the procedure., Rest the day of the procedure.,You may resume normal activities the day after the procedure, as tolerated.,Avoid movements that may aggravate pain., Apply cold compresses to injectionsite if needed., If medically acceptable, take over the counteranti-inflammatories such as ibuprofen or Aleve if needed for post procedurediscomfort., No hot baths, hot tubs or hot compresses for 24 hours. andIncreased pain the day after the procedure may occur.If you have any of the following signs or symptoms, please call our office [phone]? Fever and/or chills? Swelling and/or drainage from injection site? New pain that is different than your normal pain (other than soreness at thesite of the procedure)? Stiff neck? Shortness of breath? Severe increase in pain? Motor dysfunctions, such as difficulty walking, bowel or bladder dysfunctionand/or incontinence? Headache that is severe, light sensitive or develops when changing positions(positional headache)? Nausea and/or vomiting accompanied by headache that started 24-48 hours afterthe procedureIf you have any emergent concerns, please call 911 or go to your localemergency room. Please also contact our office to let us know you will beseeking emergency care and why.Tammy Moya LPN 08/22/2017 9:45 AM SignedDriver: PatDiabetic: noBlood thinner: ASA 81mgBridge: noPregnancy/Surgery: n/aXanax: noJeperry Moya LPNKsachaTammy perez LPN 08/22/2017 10:08 AM SignedSubjectiveHPIReview of SystemsEyes: Negative for blurred vision and double vision.Respiratory: Negative for shortness of breath.Cardiovascular: Negative for chest pain and leg swelling.Gastrointestinal: Negative for constipation, diarrhea, nausea and vomiting.Genitourinary: Negative for dysuria.Skin: Negative for itching.Neurological: Negative for dizziness, tingling, weakness and headaches.Endo/Heme/Allerg ies: Does not bruise/bleed easily.Psychiatric/Behavio ral: Negative for depression and suicidal ideas.PAST MEDICAL HISTORYDiagnosis Date- HypertensionPAST SURGICAL HISTORYProcedure Laterality Date- OTHER SURGICAL HISTORY (PLEASE SPECIFY) 2010 Back surgery - fusion- OTHER SURGICAL HISTORY (PLEASE SPECIFY) 2010 Back surgery - cyst removedFAMILY HISTORYProblem Relation Age of Onset- Diabetes Mother- Hypertension FatherSocial History Marital status: Spouse name: Years of education: Number of children:Social History Main Topics Smoking status: Never Smoker Smokeless tobacco: Current User Types: Chew Comment: Uses chewing tobacco Alcohol use: No Drug use: NoOther Topics ConcernCaffeine Concern NoSpecial Diet NoExercise NoCurrent Medslisinopril-hydrochloro thiazide (PRINZIDE,ZESTORETIC) 20-12.5 mg per tablet Take1 tablet by mouth once daily.aspirin, enteric coated (ASPIRIN, ENTERIC COATED) 81 mg EC tablet Take 81 mg bymouth once daily.atorvastatin (LIPITOR) 20 mg tablet Take 20 mg by mouth once daily.Etodolac 500 mg tablet Take 500 mg by mouth twice daily.methylPREDNISolone (MEDROL, TOBY,) 4 mg Dose-Pack Take as directedObjectiveHt 5' 9 (1.75m) Wt 250 lb (113.4kg) BMI 36.90 kg/(m2).Physical ExamVrosaJorge sandoval 08/22/2017 10:08 AM SignedDiagnosis: Lumbar Spinal StenosisProcedure: Caudal Epidural Steroid InjectionThe patient was identified in the preoperative area. The procedure wasdiscussed in detail including its risks, benefits, and alternatives. Signedconsent was obtained and the patient agreed to proceed.The patient was brought to the [facility] procedure room andplaced in the prone position onto the fluoroscopy table. The lumbosacral areawas prepped and draped in the usual sterile fashion using Chloroprep and afenestrated drape. Under fluoroscopic guidance in the lateral view the sacrumwas imaged and the the intended needle insertion site was marked onto the skin. The skin was anesthetized with 5ml of 2% lidocaine. After adequate skinanesthesia was obtained, a 22 gauge spinale needle was inserted through thesacro-coccygeal ligament into the epidural space under fluoroscopic guidance inthe AP view. The needle was aspirated and 1 ml of omnipaque contrast dye wasinjected under live fluoroscopy which showed epidural spread. The needle wasthen advanced under intermittent fluoroscopic guidance in the AP until theneedle tip was between the S2 and S3 neuro-foramen. The needle was aspiratedfor heme and csf again, which was negative, and 1 ml of omnipaque was injectedunder live fluoroscopy which showed appropriate spread without intrathecal orintravascular uptake. Then 10 ml of 0.5% preservative free lidocaine and 40 mgof methylprednisolone was injected. The needle was removed and a sterilebandage was applied. The patient was take back to the recovery area.The procedure was completed without complications and was tolerated well. Thepatient was monitored after the procedure. The patient (or responsible green party)was given post-procedure and discharge instructions to follow at home. Thepatient was discharged in stable condition. A follow up appointment was made.Time Out: 1000Confirmed patient name, date of , procedure site, laterality, and allergiesProcedure Start: 1001Procedure End: 1006Vucelori Jorge 08/22/2017 10:08 AM SignedSubjective Low back and Leg PainHPDIANAloree Mccrary is a 61 year old male who presents today with chronic low back andleg pain here today for APOLLO.ROSPAST MEDICAL HISTORYDiagnosis Date- HypertensionPAST SURGICAL HISTORYProcedure Laterality Date- OTHER SURGICAL HISTORY (PLEASE SPECIFY) HX 2010 Back surgery - fusion- OTHER SURGICAL HISTORY (PLEASE SPECIFY) HX 2010 Back surgery - cyst removedFAMILY HISTORYProblem Relation Age of Onset- Diabetes Mother- Hypertension FatherSocial History Marital status: Spouse name: Years of education: Number of children:Social History Main Topics Smoking status: Never Smoker Smokeless tobacco: Current User Types: Chew Comment: Uses chewing tobacco Alcohol use: No Drug use: NoOther Topics ConcernCaffeine Concern NoSpecial Diet NoExercise NoCurrent Medslisinopril-hydrochloro thiazide (PRINZIDE,ZESTORETIC) 20-12.5 mg per tablet Take1 tablet by mouth once daily.aspirin, enteric coated (ASPIRIN, ENTERIC COATED) 81 mg EC tablet Take 81 mg bymouth once daily.atorvastatin (LIPITOR) 20 mg tablet Take 20 mg by mouth once daily.Etodolac 500 mg tablet Take 500 mg by mouth twice daily.methylPREDNISolone (MEDROL, TOBY,) 4 mg Dose-Pack Take as directedObjectiveBP 133/74 Pulse 76 Temp 97.6 Resp 16 Ht 5' 9 (1.75m) Wt 250 lb(113.4kg) BMI 36.90 kg/(m2).Physical ExamConstitutional: He is oriented to person, place, and time and well-developed,well-nouris hed, and in no distress. No distress.HENT:Head: Normocephalic.Eyes: Right eye exhibits no discharge. Left eye exhibits no discharge.Cardiovascular: Normal rate.Pulmonary/Chest: Effort normal.Neurological: He is alert and oriented to person, place, and time.Skin: Skin is dry. No lesion noted. He is not diaphoretic. No pallor.Psychiatric: Mood, memory, affect and judgment normal.Nursing note and vitals reviewed.Assessment and PlanI had a nice discussion with the patient today about their current pain and thepathology that could be causing it. We discussed different treatment options.Our plan will be as follows:1. Postlaminectomy syndrome, lumbar regionCadual APOLLO Risks, benefits, and alternatives were discussed with the patient prior to theprocedure.Kai Correa LPN 08/22/2017 10:16 AM SignedDressing dry and intact, no drainage noted. The patient denies numbness,tingling, weakness, shortness of breath, dizziness or headache. Pain level0/10. Patient given discharge instructions and escorted out to [facility] ambulatory method. Patient left in good condition.Kai (Ella) LandinghamReferring Provider: JORGE BAUM [[id number]]Allergies As of Date: 08/22/2017(No Known Allergies)Date Reviewed: 08/22/2017Reviewed by: Tammy Moya LPN - Fully AssessedReason for Visit: Injections [199] Cmt: Caudal ESIPrimary Visit Diagnosis:Postlaminectomy syndrome, lumbar region [M96.1]Order(s):[] lidocaine (PF) 20 mg/mL (2 %) 200 mg injection (XYLOCAINE)Disp: Rfl: [] lidocaine (PF) 5 mg/mL (0.5 %) 45 mg injection (XYLOCAINE)Disp: Rfl: [] methylPREDNISolone acetate 40 mg injection (DEPO-MEDROL)Disp: Rfl: [] iohexol 600 mg IV injection (OMNIPAQUE 300)Disp: Rfl:Prescriptions as of 08/22/2017 Sig: LISINOPRIL 20 MG-HYDROCHLOROT* Take 1 tablet by mouth once d* ASPIRIN 81 MG TABLET,DELAYED * Take 81 mg by mouth once matilda* ATORVASTATIN 20 MG TABLET Take 20 mg by mouth once matilda* ETODOLAC 500 MG TABLET Take 500 mg by mouth twice da* METHYLPREDNISOLONE 4 MG TABLE* Take as directedMedication notes this encounter METHYLPREDNISOLONE 4 MG TABLETS IN A DOSE PACK >> Tammy Moya LPN 08/22/2017 9:41 AM >> TAMMY MOYA LPN TueAugust 22, 2017 9:41 AM NOT TAKINGProblem List As Of Date 08/22/2017 Noted Resolved Lumbar stenosis [M48.061] INVALID FOR* Postlaminectomy syndrome, lumbar region [M96.1] INVALID FOR* Other instructions from your clinician: PROCEDURE DISCHARGE INSTRUCTIONS 08/22/2017 Jonathan Mccrary 1955 Physician: Jorge Baum MD Procedure: Epidural Steroid Injection: Lumbar (transforaminal/Interlamin ar/Caudal) Post Procedure Instructions: If sedation not given, no driving for 3 hours after the procedure., If sedation given, no driving the day of the procedure., Rest the day of the procedure., You may resume normal activities the day after the procedure, as tolerated., Avoid movements that may aggravate pain., Apply cold compresses to injection site if needed., If medically acceptable, take over the counter anti-inflammatories such as ibuprofen or Aleve if needed for post procedure discomfort., No hot baths, hot tubs or hot compresses for 24 hours. and Increased pain the day after the procedure may occur. If you have any of the following signs or symptoms, please call our office at ? Fever and/or chills ? Swelling and/or drainage from injection site ? New pain that is different than your normal pain (other than soreness at the site of the procedure) ? Stiff neck ? Shortness of breath ? Severe increase in pain ? Motor dysfunctions, such as difficulty walking, bowel or bladder dysfunction and/or incontinence ? Headache that is severe, light sensitive or develops when changing positions (positional headache) ? Nausea and/or vomiting accompanied by headache that started 24-48 hours after the procedure If you have any emergent concerns, please call 911 or go to your local emergency room. Please also contact our office to let us know you will be seeking emergency care and why.Visit Notes:>> Tammy Moya LPN TueAugust 22, 2017 9:41 AM Status: SignedDriver: PatDiabetic: noBlood thinner: ASA 81mgBridge: noPregnancy/Surgery: n/aXanax: Lindsay Moya LPN>> Kai Correa LPN TueAugust 22, 2017 10:16 AM Status: SignedDressing dry and intact, no drainage noted. The patient denies numbness,tingling, weakness, shortness of breath, dizziness or headache. Pain level0/10. Patient given discharge instructions and escorted out totransportation via ambulatory method. Patient left in good condition.Kai CorreaPrescriptions ordered this encounter Disp Refills Start End LIDOCAINE (PF) 20 MG/ML (2 %) INJECT* 08/22/2017 08/22/2017 Route: INTRADERM. LIDOCAINE (PF) 5 MG/ML (0.5 %) INJEC* 08/22/2017 08/22/2017 Route: OTHER METHYLPREDNISOLONE ACETATE 40 MG/ML * 08/22/2017 08/22/2017 Route: OTHER IOHEXOL 300 MG IODINE/ML INTRAVENOUS* 08/22/2017 08/22/2017 Route: OTHEREncounter Number: [id number] Status:Closed by JORGE BAUM MD on 08/22/17 [facility] PROCEDUREon 08-22-2017 Protein mass conc HNO ID: [id number] thor: Jorge BaumService: (none)Author Type: PhysicianType: ProceduresFiled: 08/22/2017 10:08 AMNote Text:Diagnosis: Lumbar Spinal StenosisProcedure: Caudal Epidural Steroid InjectionThe patient was identified in the preoperative area. The procedure wasdiscussed in detail including its risks, benefits, and alternatives.Signed consent was obtained and the patient agreed to proceed.The patient was brought to the [facility] procedure roomand placed in the prone position onto the fluoroscopy table. Thelumbosacral area was prepped and draped in the usual sterile fashion usingChloroprep and a fenestrated drape. Under fluoroscopic guidance in thelateral view the sacrum was imaged and the the intended needle insertionsite was marked onto the skin. The skin was anesthetized with 5ml of 2%lidocaine. After adequate skin anesthesia was obtained, a 22 gaugespinale needle was inserted through the sacro-coccygeal ligament into theepidural space under fluoroscopic guidance in the AP view. The needle wasaspirated and 1 ml of omnipaque contrast dye was injected under livefluoroscopy which showed epidural spread. The needle was then advancedunder intermittent fluoroscopic guidance in the AP until the needle tipwas between the S2 and S3 neuro-foramen. The needle was aspirated forheme and csf again, which was negative, and 1 ml of omnipaque was injectedunder live fluoroscopy which showed appropriate spread without intrathecalor intravascular uptake. Then 10 ml of 0.5% preservative free lidocaineand 40 mg of methylprednisolone was injected. The needle was removed devante sterile bandage was applied. The patient was take back to the recoveryarea.The procedure was completed without complications and was tolerated well.The patient was monitored after the procedure. The patient (or responsibleparty) was given post-procedure and discharge instructions to follow athome. The patient was discharged in stable condition. A follow upappointment was made.Time Out: 1000Confirmed patient name, date of , procedure site, laterality, andallergiesProcedure Start: 1001Procedure End: 1006 [facility] PROGRESSon 08-22-2017 Protein mass conc HNO ID: [id number] thor: Corrina Baum: (none)Author Type: PhysicianType: Progress NotesFiled: 08/22/2017 10:08 AMNote Text:Subjective Low back and Leg PainHPIJloree Mccrary is a 61 year old male who presents today with chronic lowback and leg pain here today for APOLLO.ROSPAST MEDICAL HISTORYDiagnosis Date- HypertensionPAST SURGICAL HISTORYProcedure Laterality Date- OTHER SURGICAL HISTORY (PLEASE SPECIFY) HX 2010 Back surgery - fusion- OTHER SURGICAL HISTORY (PLEASE SPECIFY) HX 2010 Back surgery - cyst removedFAMILY HISTORYProblem Relation Age of Onset- Diabetes Mother- Hypertension FatherSocial History Marital status: Spouse name: Years of education: Number of children:Social History Main Topics Smoking status: Never Smoker Smokeless tobacco: Current User Types: Chew Comment: Uses chewing tobacco Alcohol use: No Drug use: NoOther Topics ConcernCaffeine Concern NoSpecial Diet NoExercise NoCurrent Medslisinopril-hydrochloro thiazide (PRINZIDE,ZESTORETIC) 20-12.5 mg per tabletTake 1 tablet by mouth once daily.aspirin, enteric coated (ASPIRIN, ENTERIC COATED) 81 mg EC tablet Take 81mg by mouth once daily.atorvastatin (LIPITOR) 20 mg tablet Take 20 mg by mouth once daily.Etodolac 500 mg tablet Take 500 mg by mouth twice daily.methylPREDNISolone (MEDROL, TOBY,) 4 mg Dose-Pack Take as directedObjectiveBP 133/74 Pulse 76 Temp 97.6 Resp 16 Ht 5' 9 (1.75m) Wt 250 lb(113.4kg) BMI 36.90 kg/(m2).Physical ExamConstitutional: He is oriented to person, place, and time andwell-developed, well-nourished, and in no distress. No distress.HENT:Head: Normocephalic.Eyes: Right eye exhibits no discharge. Left eye exhibits no discharge.Cardiovascular: Normal rate.Pulmonary/Chest: Effort normal.Neurological: He is alert and oriented to person, place, and time.Skin: Skin is dry. No lesion noted. He is not diaphoretic. No pallor.Psychiatric: Mood, memory, affect and judgment normal.Nursing note and vitals reviewed.Assessment and PlanI had a nice discussion with the patient today about their current painand the pathology that could be causing it. We discussed differenttreatment options. Our plan will be as follows:1. Postlaminectomy syndrome, lumbar regionCadual APOLLO Risks, benefits, and alternatives were discussed with the patient priorto the procedure. [facility] Protein mass conc HNO ID: [id number] thor: Gisselle Moya LPN: (none)Author Type: (none)Type: Progress NotesFiled: 08/22/2017 10:08 AMNote Text:SubjectiveHPIReview of SystemsEyes: Negative for blurred vision and double vision.Respiratory: Negative for shortness of breath.Cardiovascular: Negative for chest pain and leg swelling.Gastrointestinal: Negative for constipation, diarrhea, nausea andvomiting.Genitourinary: Negative for dysuria.Skin: Negative for itching.Neurological: Negative for dizziness, tingling, weakness and headaches.Endo/Heme/Allerg ies: Does not bruise/bleed easily.Psychiatric/Behavio ral: Negative for depression and suicidal ideas.PAST MEDICAL HISTORYDiagnosis Date- HypertensionPAST SURGICAL HISTORYProcedure Laterality Date- OTHER SURGICAL HISTORY (PLEASE SPECIFY) 2010 Back surgery - fusion- OTHER SURGICAL HISTORY (PLEASE SPECIFY) 2010 Back surgery - cyst removedFAMILY HISTORYProblem Relation Age of Onset- Diabetes Mother- Hypertension FatherSocial History Marital status: Spouse name: Years of education: Number of children:Social History Main Topics Smoking status: Never Smoker Smokeless tobacco: Current User Types: Chew Comment: Uses chewing tobacco Alcohol use: No Drug use: NoOther Topics ConcernCaffeine Concern NoSpecial Diet NoExercise NoCurrent Medslisinopril-hydrochloro thiazide (PRINZIDE,ZESTORETIC) 20-12.5 mg per tabletTake 1 tablet by mouth once daily.aspirin, enteric coated (ASPIRIN, ENTERIC COATED) 81 mg EC tablet Take 81mg by mouth once daily.atorvastatin (LIPITOR) 20 mg tablet Take 20 mg by mouth once daily.Etodolac 500 mg tablet Take 500 mg by mouth twice daily.methylPREDNISolone (MEDROL, TOBY,) 4 mg Dose-Pack Take as directedObjectiveHt 5' 9 (1.75m) Wt 250 lb (113.4kg) BMI 36.90 kg/(m2).Physical Exam [facility] CNPNon 08-18-2017 CNPN Telephone (AGSPINE3) JONATHAN MCCRARY ([id number]) 1955 MDate Time Provider Department08/18/17 JORGE BAUM AGSPINE3 During your visit today, we recorded the following information about you:Fernando Sanchez 08/18/2017 10:13 AM Signed1.Are you diabetic No2. Are you on any blood thinners? No3. Are you taking any aspirin? Yes. Please list the current medications beingprescribed 81mg.4. Have you had any recent imaging done on your body part that's beinginjected? No5. Do you have any allergies to latex? No6. Do you have any allergies to seafood? No7. Do you have any allergies to shellfish? No8. Do you have any allergies to x-ray dye? No9. Are you taking Xanax for the procedure? No10. Have you done physical therapy in the last year? No If yes, When and Where? (Medical Records Release needs to be signed.)11. Were the pre-procedure instructions explained to the patient? Yes12. Do you have a pacemaker? NoAutum Rowan Gramajo 08/18/2017 3:51 PM SignedNO PRECERT/AUTHORIZATION IS REQUIREDPER STU @ [facility] [id number] M96.1Ref # [id number] AdelmanAllergies As of Date: 08/18/2017(No Known Allergies)Date Reviewed: 12/08/2016Reviewed by: Tammy Moya LPN AssessedReason for Visit: Insurance Authorization [[id number]] Cmt: NO AUTH NEEDED FOR INTERLAMINAR INJ [id number] For Visit History RecordedPrescriptions as of 08/18/2017 Sig: METHYLPREDNISOLONE 4 MG TABLE* Take as directed LISINOPRIL 20 MG-HYDROCHLOROT* Take 1 tablet by mouth once d* ASPIRIN 81 MG TABLET,DELAYED * Take 81 mg by mouth once matilda* ATORVASTATIN 20 MG TABLET Take 20 mg by mouth once matilda* ETODOLAC 500 MG TABLET Take 500 mg by mouth twice da*Problem List As Of Date 08/18/2017 Noted Resolved Lumbar stenosis [M48.061] INVALID FOR* Postlaminectomy syndrome, lumbar region [M96.1] INVALID FOR* Status:Closed by FERNANDO SANCHEZ on 08/18/17 [facility] CNPN Telephone (AGSPINE3) JONATHAN MCCRARY ([id number]) 1955 MDate Time Provider Department08/18/17 JORGE BAUM AGSPINE3 During your visit today, we recorded the following information about you:Fernando Sanchez 08/18/2017 9:28 AM SignedPatients left message stating that Jonathan was told to call in when hewanted an injection? He hasnt been seen in a while and I dont see hes hadprocedures with us before?Fernando SanchezSecretary to Dr. Jorge Baum and Dr. Danitza Shah [facility] [phone] ext [phone] Baum 08/18/2017 9:53 AM SignedOrder plced for Jorge Mike 08/18/2017 9:53 AM SignedAddended by: JORGE BAUM MD on: 08/18/2017 09:53 AM Modules accepted: Fernando Amaya 08/18/2017 10:20 AM SignedPlease precert order, MMO insurance no cards scanned since he hasn't been insince November 2016. Dr. Baum placed an order for injection. Confirmed numberon the back of card was [phone] MMO supermed plus OPERS built into EPICregistration.Fernando SanchezSecretary to Dr. Jorge Baum and Dr. Danitza Shah [facility] [phone] ext [phone] As of Date: 08/18/2017(No Known Allergies)Date Reviewed: 12/08/2016Reviewed by: Tammy Moya LPN for Visit: Patient Question [3708]Primary Visit Diagnosis:Postlaminectomy syndrome, lumbar region [M96.1]Order(s):PRE-CERT ORDER (AG) [[id number]] Order #: [id number]: 1Prescriptions as of 08/18/2017 Sig: METHYLPREDNISOLONE 4 MG TABLE* Take as directed LISINOPRIL 20 MG-HYDROCHLOROT* Take 1 tablet by mouth once d* ASPIRIN 81 MG TABLET,DELAYED * Take 81 mg by mouth once matilda* ATORVASTATIN 20 MG TABLET Take 20 mg by mouth once matilda* ETODOLAC 500 MG TABLET Take 500 mg by mouth twice da*Problem List As Of Date 08/18/2017 Noted Resolved Lumbar stenosis [M48.061] INVALID FOR* Postlaminectomy syndrome, lumbar region [M96.1] INVALID FOR* Status:Closed by FERNANDO SANCHEZ on 08/18/17 [facility] CNOVon 12-08-2016 CNOV Office Visit (AGSPINE3) JONATHAN MCCRARY ([id number]) 1955 MDate Time Provider Department12/08/16 10:30 AM JORGE BAUM AGSPINE3 During your visit today, we recorded the following information about you: Pulse Blood pressure Weight Height 76/minute 124/86 113.4 kg 1.753 Maria Victoria Baum MD 12/09/2016 10:06 AM Yuri Mccrary is a 61 year old male who presents today for a new patientevaluation of his low back and right buttock pain. He has a l4/[id number] Baugh and was doing excellent up until about 1 year.He started to noticed pain low back pain that was high that before and then itwas a shooting pain across his pain. If he reached to his right he would haveshooting pain. He has pain in the back and now is having numbness and sorenessradiating into the buttocks and posterior thigh. He gets his pain with sittingmore than anything. If he can walk the buttock and leg pain. When he gets theshocking pain in the back there is nothing he can do.He has seen other pain management doctors in the past and had APOLLO prior to hisback surgery and it did not make him any better.He has had a recent appointment with Dr. Baugh and had a new MRI completed andhe felt that there is no need for surgery at this time.Greenlight Questionnaire GREENLIGHTComments GL not working, complete when availableOpioid Risk Tool Opiod Risk ToolDate Completed 12/08/2016Comments New ptReview of SystemsConstitutional: Positive for malaise/fatigue. Weight gainHENT: Positive for hearing loss.Eyes: Negative for blurred vision and double vision.Respiratory: Negative for shortness of breath.Cardiovascular: Positive for leg swelling. Negative for chest pain.Gastrointestinal: Positive for constipation. Negative for diarrhea, nausea andvomiting.Genitourinary: Positive for frequency. Negative for dysuria. IncontinenceSkin: Negative for itching.Neurological: Positive for tingling. Negative for dizziness, weakness andheadaches. Gait disturbanceEndo/Heme/Aller gies: Does not bruise/bleed easily.Psychiatric/Behavio ral: Positive for depression. Negative for suicidal ideas.The patient has insomnia.PAST MEDICAL HISTORYDiagnosis Date- HypertensionPAST SURGICAL HISTORYProcedure Laterality Date- OTHER SURGICAL HISTORY (PLEASE SPECIFY) HX 2010 Back surgery - fusion- OTHER SURGICAL HISTORY (PLEASE SPECIFY) 2010 Back surgery - cyst removedFAMILY HISTORYProblem Relation Age of Onset- Diabetes Mother- Hypertension FatherSocial History Marital status: Spouse name: Years of education: Number of children:Social History Main Topics Smoking status: Never Smoker Smokeless status: Current User Types: Chew Comment: Uses chewing tobacco Alcohol use: No Drug use: NoOther Topics ConcernCaffeine Concern NoSpecial Diet NoExercise NoCurrent Medslisinopril-hydrochloro thiazide (PRINZIDE,ZESTORETIC) 20-12.5 mg per tablet Take1 tablet by mouth once daily.aspirin, enteric coated (ASPIRIN, ENTERIC COATED) 81 mg EC tablet Take 81 mg bymouth once daily.atorvastatin (LIPITOR) 20 mg tablet Take 20 mg by mouth once daily.There were no vitals taken for this visit.Physical ExamConstitutional: He is oriented to person, place, and time and well-developed,well-nouris hed, and in no distress.HENT:Head: Normocephalic and atraumatic. Head is without abrasion and withoutcontusion. Hair is normal.Right Ear: Hearing normal.Left Ear: Hearing normal.Nose: No rhinorrhea.Mouth/Throat: No oropharyngeal exudate.Eyes: Lids are normal. Right eye exhibits no discharge. Left eye exhibits nodischarge. Right conjunctiva is not injected. Left conjunctiva is not injected.Neck: Normal range of motion. No JVD present. No spinous process tendernesspresent.Cardiova scular: Normal rate.Pulmonary/Chest: Effort normal. No stridor. No apnea and no tachypnea. Norespiratory distress.Abdominal: Normal appearance. He exhibits no distension.Musculoskeletal : Normal range of motion. Lumbar back: He exhibits tenderness, pain and spasm. Back:Lymphadenopathy: He has no cervical adenopathy.Neurological: He is alert and oriented to person, place, and time. He is notagitated and not disoriented. He displays weakness. He displays no atrophy andno tremor. A sensory deficit is present. He exhibits normal muscle tone. Gaitnormal. Coordination and gait normal.Reflex Scores: Patellar reflexes are 1+ on the right side and 2+ on the left side.Strength:Right hip 4/5 Left hip 5/5Right knee 4/5 Left knee 5/5Right foot 5/5 Left foot 5/5Skin: Skin is warm and dry. No lesion noted.Psychiatric: Mood, memory, affect and judgment normal.Assessment and PlanI had a nice discussion with the patient today about their current pain and thepathology that could be causing it. We discussed different treatment options.Our plan will be as follows:1. Postlaminectomy syndrome, lumbar regionPatient is doing well at this point. He does have severe stenosis at L3/4 aswell as foraminal stenosis at L4/5 at the level of his surgery. In the futureif his pain returns patient to call and I will call in medrol dose toby and ifpain is not better we will get him in for a caudal vs LTR at that time. Risks, benefits, and alternatives were discussed with the patient prior to theprocedure.Patient in agreement for the plan.2. Lumbar stenosisReferring Provider: HEMAL BAUGH [[id number]]Allergies As of Date: 12/08/2016(No Known Allergies)Date Reviewed: 12/08/2016Reviewed by: Tammy Moya LPN - Fully AssessedReason for Visit: New Patient Evaluation [154] Cmt: RP Hemal Baugh Back Pain [12]Primary Visit Diagnosis:Postlaminectomy syndrome, lumbar region [M96.1] Other Visit Diagnosis:Lumbar stenosis [M48.06]Prescriptions as of 12/08/2016 Sig: LISINOPRIL 20 MG-HYDROCHLOROT* Take 1 tablet by mouth once d* ASPIRIN 81 MG TABLET,DELAYED * Take 81 mg by mouth once matilda* ATORVASTATIN 20 MG TABLET Take 20 mg by mouth once matilda* ETODOLAC 500 MG TABLET Take 500 mg by mouth twice da*Medication notes this encounter ETODOLAC 500 MG TABLET >> Tammy Moya LPN 12/08/2016 10:19 AM >> TAMMY MOYA LPN TueDec 08, 2016 10:19 AM PRNProblem List As Of Date 12/08/2016 Noted Resolved Lumbar stenosis [M48.06] INVALID FOR* Postlaminectomy syndrome, lumbar region [M96.1] INVALID FOR*Level of Service: NEW PATIENT VISIT LEVEL 4 [16188]Additional E/M codes: PROLONG PHYS SERV 1ST HR [45072]Disposition: Return if symptoms worsen or fail to improve.Follow-up and Disposition History RecordedLetter [facility] [place] Jorge Baum [phone] Mccrary Patient : Jonathan MccraryDOSuki: 1955Gender: maleDear Hemal Baugh,Thank you for the opportunity of seeing your patient, Jonathan Mccrary, today.Following is a summary of today's visit and my recommendation(s).Nathalia Mccrary is a 61 year old male who presents today for a new patientevaluation of his low back and right buttock pain. He has a l4/[id number] Baugh and was doing excellent up until about 1 year.He started to noticed pain low back pain that was high that before and thenit was a shooting pain across his pain. If he reached to his right he wouldhave shooting pain. He has pain in the back and now is having numbness andsoreness radiating into the buttocks and posterior thigh. He gets his painwith sitting more than anything. If he can walk the buttock and leg pain.When he gets the shocking pain in the back there is nothing he can do.He has seen other pain management doctors in the past and had APOLLO prior tohis back surgery and it did not make him any better.He has had a recent appointment with Dr. Baugh and had a new MRI completedand he felt that there is no need for surgery at this time.Greenlight Questionnaire GREENLIGHTComments GL not working, complete when availableOpioid Risk Tool Opiod Risk ToolDate Completed 12/08/2016Comments New ptReview of SystemsConstitutional: Positive for malaise/fatigue. Weight gainHENT: Positive for hearing loss.Eyes: Negative for blurred vision and double vision.Respiratory: Negative for shortness of breath.Cardiovascular: Positive for leg swelling. Negative for chest pain.Gastrointestinal: Positive for constipation. Negative for diarrhea, nauseaand vomiting.Genitourinary: Positive for frequency. Negative for dysuria. IncontinenceSkin: Negative for itching.Neurological: Positive for tingling. Negative for dizziness, weakness andheadaches. Gait disturbanceEndo/Heme/Aller gies: Does not bruise/bleed easily.Psychiatric/Behavio ral: Positive for depression. Negative for suicidal ideas.The patient has insomnia.PAST MEDICAL HISTORYDiagnosis Date- HypertensionPAST SURGICAL HISTORYProcedure Laterality Date- OTHER SURGICAL HISTORY (PLEASE SPECIFY) HX 2010 Back surgery - fusion- OTHER SURGICAL HISTORY (PLEASE SPECIFY) HX 2010 Back surgery - cyst removedFAMILY HISTORYProblem Relation Age of Onset- Diabetes Mother- Hypertension FatherSocial History Marital status: Spouse name: Years of education: Number of children:Social History Main Topics Smoking status: Never Smoker Smokeless status: Current User Types: Chew Comment: Uses chewing tobacco Alcohol use: No Drug use: NoOther Topics ConcernCaffeine Concern NoSpecial Diet NoExercise NoCurrent Medslisinopril-hydrochloro thiazide (PRINZIDE,ZESTORETIC) 20-12.5 mg per tabletTake 1 tablet by mouth once daily.aspirin, enteric coated (ASPIRIN, ENTERIC COATED) 81 mg EC tablet Take 81mg by mouth once daily.atorvastatin (LIPITOR) 20 mg tablet Take 20 mg by mouth once daily.There were no vitals taken for this visit.Physical ExamConstitutional: He is oriented to person, place, and time and well-developed,well-nouris hed, and in no distress.HENT:Head: Normocephalic and atraumatic. Head is without abrasion and withoutcontusion. Hair is normal.Right Ear: Hearing normal.Left Ear: Hearing normal.Nose: No rhinorrhea.Mouth/Throat: No oropharyngeal exudate.Eyes: Lids are normal. Right eye exhibits no discharge. Left eye exhibits nodischarge. Right conjunctiva is not injected. Left conjunctiva is notinjected.Neck: Normal range of motion. No JVD present. No spinous process tendernesspresent.Cardiova scular: Normal rate.Pulmonary/Chest: Effort normal. No stridor. No apnea and no tachypnea. Norespiratory distress.Abdominal: Normal appearance. He exhibits no distension.Musculoskeletal : Normal range of motion. Lumbar back: He exhibits tenderness, pain and spasm. Back:Lymphadenopathy: He has no cervical adenopathy.Neurological: He is alert and oriented to person, place, and time. He is notagitated and not disoriented. He displays weakness. He displays no atrophyand no tremor. A sensory deficit is present. He exhibits normal muscle tone.Gait normal. Coordination and gait normal.Reflex Scores: Patellar reflexes are 1+ on the right side and 2+ on the left side.Strength:Right hip 4/5 Left hip 5/5Right knee 4/5 Left knee 5/5Right foot 5/5 Left foot 5/5Skin: Skin is warm and dry. No lesion noted.Psychiatric: Mood, memory, affect and judgment normal.Assessment and PlanI had a nice discussion with the patient today about their current pain andthe pathology that could be causing it. We discussed different treatmentoptions. Our plan will be as follows:1. Postlaminectomy syndrome, lumbar regionPatient is doing well at this point. He does have severe stenosis at L3/4 aswell as foraminal stenosis at L4/5 at the level of his surgery. In thefuture if his pain returns patient to call and I will [facility] if pain is not better we will get him in for a caudal vs LTR at thattime. Risks, benefits, and alternatives were discussed with the patient prior tothe procedure.Patient in agreement for the plan.2. Lumbar stenosisJorge Baum MD(Signed electronically to expedite mailing)[facility] [address] [id number] Number: [id number] Status:Closed by JORGE BAUM MD on 12/09/16 Normal [facility] PROGRESSon 12-08-2016 PROGRESS HNO ID: [id number] thor: Jorge Tinocoervice: (none)Author Type: PhysicianType: Progress NotesFiled: 12/09/2016 10:06 AMNote Text:Nathalia Mccrary is a 61 year old male who presents today for a new patientevaluation of his low back and right buttock pain. He has a l4/[address] Baugh and was doing excellent up until about 1 year.He started to noticed pain low back pain that was high that before andthen it was a shooting pain across his pain. If he reached to his righthe would have shooting pain. He has pain in the back and now is havingnumbness and soreness radiating into the buttocks and posterior thigh. Hegets his pain with sitting more than anything. If he can walk the buttockand leg pain. When he gets the shocking pain in the back there is nothinghe can do.He has seen other pain management doctors in the past and had APOLLO prior tohis back surgery and it did not make him any better.He has had a recent appointment with Dr. Baugh and had a new MRI completedand he felt that there is no need for surgery at this time.Greenlight Questionnaire GREENLIGHTComments GL not working, complete when availableOpioid Risk Tool Opiod Risk ToolDate Completed 12/08/2016Comments New ptReview of SystemsConstitutional: Positive for malaise/fatigue. Weight gainHENT: Positive for hearing loss.Eyes: Negative for blurred vision and double vision.Respiratory: Negative for shortness of breath.Cardiovascular: Positive for leg swelling. Negative for chest pain.Gastrointestinal: Positive for constipation. Negative for diarrhea, nauseaand vomiting.Genitourinary: Positive for frequency. Negative for dysuria. IncontinenceSkin: Negative for itching.Neurological: Positive for tingling. Negative for dizziness, weakness andheadaches. Gait disturbanceEndo/Heme/Aller gies: Does not bruise/bleed easily.Psychiatric/Behavio ral: Positive for depression. Negative for suicidalideas. The patient has insomnia.PAST MEDICAL HISTORYDiagnosis Date- HypertensionPAST SURGICAL HISTORYProcedure Laterality Date- OTHER SURGICAL HISTORY (PLEASE SPECIFY) 2010 Back surgery - fusion- OTHER SURGICAL HISTORY (PLEASE SPECIFY) 2010 Back surgery - cyst removedFAMILY HISTORYProblem Relation Age of Onset- Diabetes Mother- Hypertension FatherSocial History Marital status: Spouse name: Years of education: Number of children:Social History Main Topics Smoking status: Never Smoker Smokeless status: Current User Types: Chew Comment: Uses chewing tobacco Alcohol use: No Drug use: NoOther Topics ConcernCaffeine Concern NoSpecial Diet NoExercise NoCurrent Medslisinopril-hydrochloro thiazide (PRINZIDE,ZESTORETIC) 20-12.5 mg per tabletTake 1 tablet by mouth once daily.aspirin, enteric coated (ASPIRIN, ENTERIC COATED) 81 mg EC tablet Take 81mg by mouth once daily.atorvastatin (LIPITOR) 20 mg tablet Take 20 mg by mouth once daily.There were no vitals taken for this visit.Physical ExamConstitutional: He is oriented to person, place, and time andwell-developed, well-nourished, and in no distress.HENT:Head: Normocephalic and atraumatic. Head is without abrasion and withoutcontusion. Hair is normal.Right Ear: Hearing normal.Left Ear: Hearing normal.Nose: No rhinorrhea.Mouth/Throat: No oropharyngeal exudate.Eyes: Lids are normal. Right eye exhibits no discharge. Left eye exhibitsno discharge. Right conjunctiva is not injected. Left conjunctiva is notinjected.Neck: Normal range of motion. No JVD present. No spinous processtenderness present.Cardiovascular: Normal rate.Pulmonary/Chest: Effort normal. No stridor. No apnea and no tachypnea. Norespiratory distress.Abdominal: Normal appearance. He exhibits no distension.Musculoskeletal : Normal range of motion. Lumbar back: He exhibits tenderness, pain and spasm. Back:Lymphadenopathy: He has no cervical adenopathy.Neurological: He is alert and oriented to person, place, and time. He isnot agitated and not disoriented. He displays weakness. He displays noatrophy and no tremor. A sensory deficit is present. He exhibits normalmuscle tone. Gait normal. Coordination and gait normal.Reflex Scores: Patellar reflexes are 1+ on the right side and 2+ on the left side.Strength:Right hip 4/5 Left hip 5/5Right knee 4/5 Left knee 5/5Right foot 5/5 Left foot 5/5Skin: Skin is warm and dry. No lesion noted.Psychiatric: Mood, memory, affect and judgment normal.Assessment and PlanI had a nice discussion with the patient today about their current painand the pathology that could be causing it. We discussed differenttreatment options. Our plan will be as follows:1. Postlaminectomy syndrome, lumbar regionPatient is doing well at this point. He does have severe stenosis at L3/4as well as foraminal stenosis at L4/5 at the level of his surgery. In thefuture if his pain returns patient to call and I will call in medrol dosepak and if pain is not better we will get him in for a caudal vs LTR atthat time. Risks, benefits, and alternatives were discussed with the patient priorto the procedure.Patient in agreement for the plan.2. Lumbar stenosis Normal [facility] CNCOon 10-28-2016 CNCO Letter TextAd[facility] [place] Jorge Baum [phone] 2016Jonathan Mccrary[address] [place] [address]DjliLavern Solis:We have attempted to contact you by phone to schedule your new patientappointment, but have been unable to reach you.Please make every effort to contact us at your earliest convenience. We canbe reached at Tuesday through Tuesday from 8:00 am-5:00 pm.Thank you for your attention to this matter.Sincerely,[facility] [address] [facility] [address], [place], [place] [address]Wyeoq: [phone]: [phone] [facility] CNCO Letter TextThe [facility] [place] Jorge Baum [phone] TO OUR PRACTICEHere at [facility] [place], you will have access to physiatrists,interventiona l anestheslologists, chiropractors and physical therapists. Webelieve that combining specialties of these providers gives the patient thebest possible care and quickest road to recovery.Enclosed you will find your paperwork, which must be completed prior to yourappointment. Completing these forms before your appointment will expediteyour check in process and help keep everyone on schedule. If all of yourpaperwork is not completed we reserve the right to reschedule yourappointment. If you have any questions, please call our office and we'll behappy to assist you.Please bring the following information with you the day of your appointment: 1. Complete New Patient paperwork. Make sure the patient's name is onevery page. 2. Your Insurance Cards, both primary and secondary 3. Photo Identification 4. Your co-payment 5. Copies of x-rays or MRI's on disc 6. A list of any and all medication including over the counterPlease remember that an appointment does not guarantee a prescription forcontrolled substances or that any medications will be prescribed to you.At your new patient visit you will be required to do a psychologicalassessment, which will be performed on an iPad. Your appointment is scheduled with Dr. Jorge Baum On 12/08 at 10:30AM at [address] [facility] [address], [place] [address] .However, you MUST arrive at our office for processing no later than 10:00AM.If you do not arrive early for processing we reserve the right to rescheduleyour appointment.Please note that all appointments must be cancelled within 24 hours or a$25.00 no-show fee will be applied.If you have any questions before or regarding your appointment, please callour office at [phone].Sincerely,The Staff at [facility] [place] [facility] 10-22-2016 CNPN Telephone (AGSPINE3) JONATHAN MCCRARY ([id number]) 1955 MDate Time Provider Department10/22/16 JORGE BAUM AGSPINE3 During your visit today, we recorded the following information about you:Ivett Atkinson 10/22/2016 10:40 AM SignedThe background check is clear and the OARRS website stated that no matchingpatient was identified. The patient would be coming in for lumbar pain. This tunde [facility] referral. The referring physician is Dr. Hemal Baugh, of the [facility]. The patient has MMO insurance, which is eligible perPassport. Please review.Have you had Pain Management in the past 3 years? UnknownIf yes, where? Unknown - please ask the patient when they call inAre you currently taking pain medication? NoIf so, please list: OAS site stated no matching patient identified.Ivett Atkinson10/22/2016 10:39:25Ivett Atkinson 10/22/2016 10:40 AM SignedI have attempted to contact this patient by phone, Left brief message on homeBlue Ant Media stating to give us a call to get set up for a new patient appointmentwith Dr. Baum.Ivett Atkinson 10/28/2016 11:15 AM Ihjfnf1yw attempt:I have attempted to contact this patient by phone, Left brief message on homevoicemail stating to give us a call to get set up for a new patient appointmentwith Dr. Baum.An attempt to contact letter will be mailed.Ivett Atkinson10/28/2016 11:15:34Eric Cornel 10/28/2016 11:57 AM SignedJonathan Demetra has been scheduled for an Office visit on 12/08 at 10:30AM, [place]Dr. Jorge Ba[place] in [place].[facility]ram[facility] As of Date: 10/22/2016(Not on File)Date Reviewed: Never ReviewedReason for Visit: New Patient [172] Cmt: PPG ReferralProblem List As Of Date: 10/22/2016(None) Status:Closed by IVETT ATKINSON on 10/28/16 [facility] HOSPon 10-22-2016 HOSP Patient Update (AGSPINE3) JONATHAN MCCRARY ([id number]) 1955 MDate Time Provider Department10/22/16 [facility] During your visit today, we recorded the following information about you:Allergies As of Date: 10/22/2016(Not on File)Date Reviewed: Never ReviewedReason for Visit: OARRS [3503]Problem List As Of Date: 10/22/2016(None) Status:Closed by IVETT ATKINSON on 10/22/16 [facility] Laboratory - Chemistry and C hemistry - challengeon 08-25-2016 Albumin [Mass/Vol] 4.5 g/dL Normal 3.6 - 5.1 g/dL [facility] Albumin/Globulin [Mass ratio] 1.7 {ratio} Normal 1.0 - 2.5 [facility]. ALP [Catalytic activity/Vol] 71 U/L Normal 40 - 115 U/L [facility] [employer] [facility], [facility]. ALT [Catalytic activity/Vol] 32 U/L Normal 9 - 46 U/L [facility].; [facility]. AST [Catalytic activity/Vol] 18 U/L Normal 10 - 35 U/L [facility] [employer] [facility]. Bilirubin [Mass/Vol] 1.2 mg/dL Normal 0.2 - 1 .2 mg/dL [facility] [employer] [facility], [facility]. Calcium [Mass/Vol] 9.4 mg/dL Normal 8.6 - 10. 3 mg/dL [facility].; [facility] [employer] [facility]. Chloride [Moles/Vol] 99 mmol/L Normal 98 - 11 0 mmol/L [facility].; [facility] [employer] [place]. Cholesterol [Mass/Vol] 141 mg/dL Normal 125 - 200 mg/dL [facility] [employer] [facility].; [facility] [employer]. Cholesterol in HDL [Mass/Vol] 56 mg/dL Normal [facility].; [facility] [employer]. Cholesterol in LDL [Mass/Vol] 62 mg/dL Normal [facility] [employer] [facility].; [facility] [employer]. Cholesterol non HDL [Mass/Vol] 85 mg/dL Normal [facility] Strategies [facility].; Branch [employer]. Cholesterol.total/Chol esterol in HDL [Mass ratio] 2.5 {ratio} Normal Branch [facility].; [facility] [employer]. CO2 [Moles/Vol] 26 mmol/L Normal 20 - 31 mmol/L [facility].; Branch [employer] [facility], [facility]. Creatinine [Mass/Vol] 1.13 mg/dL Normal 0.70 - 1.33 mg/dL [facility].; Branch [employer], [place]. GFR/1.73 sq M.predicted among blacks MDRD (S/P/Bld) [Vol rate/Area] 83 {ML/MIN/1.73M2} Normal [facility], [facility].; [facility], [facility]. GFR/1.73 sq M.predicted MDRD (S/P/Bld) [Vol rate/Area] 71 {ML/MIN/1.73M2} Normal [facility], [facility].; [facility], [facility]. Globulin (S) [Mass/Vol] 2.6 g/dL Normal 1.9 - 3.7 g/dL [facility].; [facility], [facility]. Glucose [Mass/Vol] 94 mg/dL Normal 65 - 99 mg/dL [facility], [facility].; [facility], [facility]. Potassium [Moles/Vol] 4.3 mmol/L Normal 3.5 - 5.3 mmol/L [facility], [facility].; [facility], [facility]. Protein [Mass/Vol] 7.1 g/dL Normal 6.1 - 8.1 g/dL [facility], [facility].; [facility], [facility]. Sodium [Moles/Vol] 136 mmol/L Normal 135 - 146 mmol/L [facility].; [facility], [facility]. Triglyceride [Mass/Vol] 113 mg/dL Normal [facility].; [facility], [facility]. Urea nitrogen [Mass/Vol] 18 mg/dL Normal 7 - 25 mg/dL [facility], [facility].; Branch [employer] [facility], [facility]. Urea nitrogen/Creatinine [Mass ratio] 16.0 mg/mg Normal 6 - 22 [facility].; [facility], [facility]. Laboratory - Chemistry and C hemistry - challengeon 02-13-2016 Calcium [Mass/Vol] 9.5 mg/dL Normal 8.6 - 10. 3 mg/dL [facility], [facility].; [facility] [employer] [facility], [facility]. Chloride [Moles/Vol] 101 mmol/L Normal 98 - 11 0 mmol/L [facility], [facility].; [facility] [employer] [facility] Cholesterol [Mass/Vol] 211 mg/dL Abnormal 125 - 200 mg/dL [facility], [facility].; [facility], [facility]. Cholesterol in HDL [Mass/Vol] 41 mg/dL Normal [facility], [facility].; [facility], [facility]. Cholesterol in LDL [Mass/Vol] 145 mg/dL Abnormal [facility].; [facility], [facility]. Cholesterol non HDL [Mass/Vol] 169 mg/dL Abnormal [facility].; [facility], [facility]. Cholesterol.total/Chol esterol in HDL [Mass ratio] 5.1 {ratio} Abnormal [facility], [facility].; [facility], [facility]. CO2 [Moles/Vol] 27 mmol/L Normal 20 - 31 mmol/L [facility].; [facility], [facility]. Creatinine [Mass/Vol] 1.13 mg/dL Normal 0.70 - 1.33 mg/dL [facility], [facility].; [facility], [facility]. GFR/1.73 sq M.predicted among blacks MDRD (S/P/Bld) [Vol rate/Area] 83 {ML/MIN/1.73M2} Normal [facility], [facility].; [facility], [facility]. GFR/1.73 sq M.predicted MDRD (S/P/Bld) [Vol rate/Area] 71 {ML/MIN/1.73M2} Normal [facility], [facility].; [facility], [facility]. Glucose [Mass/Vol] 98 mg/dL Normal 65 - 99 mg/dL [facility], [facility].; [facility] [employer] [facility], [facility]. Potassium [Moles/Vol] 4.2 mmol/L Normal 3.5 - 5.3 mmol/L [facility], [facility].; [facility] [employer] [facility], [facility]. Prostate specific Ag [Mass/Vol] 3.3 ng/mL Normal [facility], [facility].; [facility] [employer] [facility], [facility]. Sodium [Moles/Vol] 135 mmol/L Normal 135 - 146 mmol/L [facility], [facility].; [facility] [employer] [facility], [facility]. Triglyceride [Mass/Vol] 124 mg/dL Normal [facility], [facility].; [facility] [employer] [facility], [facility]. Urea nitrogen [Mass/Vol] 18 mg/dL Normal 7 - 25 mg/dL [facility], [facility].; [facility] [employer] [facility], [facility]. Urea nitrogen/Creatinine [Mass ratio] 15.6 mg/mg Normal 6 - 22 [facility].; [facility] [employer] [facility], [facility]. Laboratory - Chemistry and C hemistry - challengeon 08-09-2014 Calcium [Mass/Vol] 9.2 mg/dL Normal 8.6 - 10. 3 mg/dL [facility], [facility].; [employer] Chloride [Moles/Vol] 106 mmol/L Normal 98 - 11 0 mmol/L [facility], [facility].; [employer] CO2 [Moles/Vol] 24 mmol/L Normal 19 - 30 mmol/L [facility] [employer] [facility], [facility].; [employer] Creatinine [Mass/Vol] 1.29 mg/dL Normal 0.70 - 1.33 mg/dL [facility] [employer] [facility], [facility].; Branch [employer] GFR/1.73 sq M.predicted among blacks MDRD (S/P/Bld) [Vol rate/Area] 71 {ML/MIN/1.73M2} Normal [facility] [employer] [facility], [facility].; [facility] [employer] GFR/1.73 sq M.predicted MDRD (S/P/Bld) [Vol rate/Area] 62 {ML/MIN/1.73M2} Normal [facility] [employer], [facility].; [employer] Glucose [Mass/Vol] 120 mg/dL Abnormal 65 - 99 mg/dL [facility] [employer] [facility], [facility].; [employer] Potassium [Moles/Vol] 4.3 mmol/L Normal 3.5 - 5.3 mmol/L [facility] [employer] [facility], [facility].; [employer] Sodium [Moles/Vol] 139 mmol/L Normal 135 - 146 mmol/L [facility] [employer], [facility].; [employer] Urea nitrogen [Mass/Vol] 18 mg/dL Normal 7 - 25 mg/dL [facility] [employer], [facility].; [employer] Urea nitrogen/Creatinine [Mass ratio] 13.8 mg/mg Normal 6 - 22 [facility] [employer], [place].; [employer] [place]. Vital Signs Date Time Vital Sign Value Performing Clinician Facility 09-20-2024 09:57-0400 Body height 176.53 cm Tigist Lao LPN [facility] [employer] [facility].; [employer] [place] 09-20-2024 09:57-0400 Body mass index (BMI) [Ratio] 28.67 kg/m2 Tigist Lao LPN [facility], [facility].; [facility], [facility]. 09-20-2024 09:57-0400 Body surface area Derived from formula 2.06 m2 Tigist Lao LPN [facility], [facility].; Branch [employer] 09-20-2024 09:57-0400 Body weight 89.36 kg Tigist Lao LPN [facility], [facility].; [facility] [employer] [facility], [facility]. 09-20-2024 09:57-0400 Diastolic blood pressure 84 mm[Hg] Tigist Lao LPN [facility], [facility].; [employer], [place]. Comment on above: Patient Position: Sitting; Cuff Location : Left Arm; Cuff Size: Standard 09-20-2024 09:57-0400 Heart rate 86 /min Tigist Lao LPN [facility], [facility].; [employer] Comment on above: Pattern: Regular 09-20-2024 09:57-0400 Systolic blood pressure 126 mm[Hg] Tigist Lao LPN [facility], [facility].; [employer], [place]. Comment on above: Patient Position: Sitting; Cuff Location : Left Arm; Cuff Size: Standard 09-22-2023 08:16-0400 Body height 176.53 cm Tigist Lao LPN [facility], [facility].; Branch [employer] 09-22-2023 08:16-0400 Body mass index (BMI) [Ratio] 29.26 kg/m2 Tigist Lao LPN [facility], [facility].; [facility] [employer] [facility], [facility]. 09-22-2023 08:16-0400 Body surface area Derived from formula 2.08 m2 Tigist Lao LPN [facility], [facility].; [facility] [employer] [facility], [facility]. 09-22-2023 08:16-0400 Body weight 91.17 kg Tigist Lao LPN [facility], [facility].; [facility] [employer], [facility]. 09-22-2023 08:16-0400 Diastolic blood pressure 69 mm[Hg] Tigist Lao LPN [facility], [facility].; [employer], [place]. Comment on above: Patient Position: Sitting; Cuff Location : Left Arm; Cuff Size: Standard 09-22-2023 08:16-0400 Heart rate 73 /min Tigist Lao ENERGY AUDIT ADVISOR [facility], [facility].; [employer]. Comment on above: Pattern: Regular 09-22-2023 08:16-0400 Systolic blood pressure 109 mm[Hg] Tigist Shilo JARAMILLO [facility] [employer], [place]. Comment on above: Patient Position: Sitting; Cuff Location : Left Arm; Cuff Size: Standard 03-17-2023 13:17-0500 Body height 176.53 cm Gracie Turner ENERGY AUDIT ADVISOR [facility], [facility].; [employer] [facility] 03-17-2023 13:17-0500 Body mass index (BMI) [Ratio] 29.55 kg/m2 Gracie Turner [facility], [facility].; [employer] [facility], [place]. 03-17-2023 13:170500 Body surface area Derived from formula 2.09 m2 Gracie Turner [facility], [facility].; [employer] [facility], [facility]. 03-17-2023 13:17050 Body weight 92.08 kg Gracie Oliver Johnny [facility], [facility].; [employer] [facility], [facility]. 03-17-2023 13:17-0500 Diastolic blood pressure 84 mm[Hg] Gracie Turner ENERGY AUDIT ADVISOR [facility], [facility].; [employer], [place]. Comment on above: Patient Position: Sitting; Cuff Location : Left Arm; Cuff Size: Standard 03-17-2023 13:17-0500 Heart rate 72 /min Gracie Turner LPN [facility], [facility].; [employer]. Comment on above: Pattern: Regular 03-17-2023 13:17-0500 Systolic blood pressure 137 mm[Hg] Gracie Turner [facility], [facility].; [employer]. Comment on above: Patient Position: Sitting; Cuff Location : Left Arm; Cuff Size: Standard 12-02-2022 07:03-0400 Body weight 90.72 kg Robin Wang LPN [facility], [facility].; [employer]. 12-02-2022 07:03-0400 Diastolic blood pressure 78 mm[Hg] Robinjade Wang ELLA [facility], [place]. Comment on above: Patient Position: Sitting; Cuff Location : Left Arm; Cuff Size: Standard 12-02-2022 07:03-0400 Heart rate 64 /min Robin Wang LPN [facility] [employer] Comment on above: Pattern: Regular 12-02-2022 07:03-0400 Systolic blood pressure 128 mm[Hg] Robinjade Wang ELLA [facility], [facility].; [facility] [employer] [facility] Comment on above: Patient Position: Sitting; Cuff Location : Left Arm; Cuff Size: Standard 06-17-2022 13:23-0500 Body height 176.53 cm Tigist Lao LPN [facility], [facility].; [facility] 06-17-2022 13:23-0500 Body mass index (BMI) [Ratio] 29.11 kg/m2 Tigist Lao LPN [facility], [facility].; [facility] [employer] [facility] 06-17-2022 13:23-0500 Body surface area Derived from formula 2.08 m2 Tigist Lao LPN [facility], [facility].; [facility], [facility]. 06-17-2022 13:23-0500 Body temperature 87.7 [degF] Tigist Lao LPN [facility].; Branch [employer], [place]. Comment on above: Method: Tympanic 06-17-2022 13:23-0500 Body weight 90.72 kg Tigist Lao LPN [facility], [facility].; Branch [employer] [facility] 06-17-2022 13:23-0500 Diastolic blood pressure 81 mm[Hg] Tigist Lao LPN [facility], [facility].; [employer], [place]. Comment on above: Patient Position: Sitting; Cuff Location : Left Arm; Cuff Size: Standard 06-17-2022 13:23-0500 Heart rate 73 /min Tigist Lao LPN [facility], [facility].; [employer], [place]. Comment on above: Pattern: Regular 06-17-2022 13:23-0500 Inhaled oxygen concentration 20 % Tigist Lao LPN [facility], [facility].; [facility] [employer] [facility], [place]. Comment on above: Room air 06-17-2022 13:23-0500 Inhaled oxygen concentration 21 % Tigist Lao LPN [facility], [facility].; [facility] Comment on above: Room air 06-17-2022 13:23-0500 SaO2% (BldA) [Mass fraction] 98 % Tgiist Lao LPN [facility], [facility].; [facility] 06-17-2022 13:23-0500 Systolic blood pressure 138 mm[Hg] Tigist Lao LPN [facility], [facility].; [facility], [place]. Comment on above: Patient Position: Sitting; Cuff Location : Left Arm; Cuff Size: Standard 06-04-2022 08:51-0500 Body height 176.53 cm Tigist Lao LPN [facility], [facility].; [facility], [facility]. 06-04-2022 08:51-0500 Body mass index (BMI) [Ratio] 29.11 kg/m2 Tigist Lao LPN [facility], [facility].; [facility] 06-04-2022 08:51-0500 Body surface area Derived from formula 2.08 m2 Tigist Lao LPN [facility], [facility].; [facility] [employer] [facility] 06-04-2022 08:51-0500 Body temperature 97.5 [degF] Tigist Lao LPN [facility], [facility].; [facility] [employer] [facility], [place]. Comment on above: Method: Tympanic 06-04-2022 08:51-0500 Body weight 90.72 kg Tigist Lao LPN [facility], [facility].; [facility] [employer] [facility] 06-04-2022 08:51-0500 Diastolic blood pressure 88 mm[Hg] Tigist Lao LPN [facility], [facility].; [employer] Comment on above: Patient Position: Sitting; Cuff Location : Left Arm; Cuff Size: Standard 06-04-2022 08:51-0500 Heart rate 75 /min Tigist Lao LPN [facility], [facility].; [employer] [facility] Comment on above: Pattern: Regular 06-04-2022 08:51-0500 Inhaled oxygen concentration 20 % Tigist Lao LPN [facility], [facility].; [employer] [facility]. Comment on above: Room air 06-04-2022 08:51-0500 Inhaled oxygen concentration 21 % Tigist Lao LPN [facility], [facility].; [employer]. Comment on above: Room air 06-04-2022 08:51-0500 SaO2% (BldA) [Mass fraction] 99 % [facility].; [employer]. 06-04-2022 08:51-0500 Systolic blood pressure 139 mm[Hg] [facility].; [employer]. Comment on above: Patient Position: Sitting; Cuff Location : Left Arm; Cuff Size: Standard 03-24-2022 11:51-0500 Body height 176.53 cm Tank Melchor MD Work Phone: [facility] [employer] [facility].; [employer]. 03-24-2022 11:51-0500 Body mass index (BMI) [Ratio] 29.26 kg/m2 Tank Melchor MD Work Phone: [employer] [facility].; [employer]. 03-24-2022 11:51-0500 Body surface area Derived from formula 2.08 m2 Tank Melchor MD Work Phone: [employer] [facility].; [employer]. 03-24-2022 11:51-0500 Body weight 91.17 kg Tank Melchor MD Work Phone: [employer].; [employer]. 03-24-2022 11:51-0500 Diastolic blood pressure 86 mm[Hg] Tank Melchor MD Work Phone: [employer].; [employer]. Comment on above: Patient Position: Sitting; Cuff Location : Left Arm; Cuff Size: Standard 03-24-2022 11:51-0500 Systolic blood pressure 145 mm[Hg] Tank Melchor MD Work Phone: [facility], [facility].; [employer]. Comment on above: Patient Position: Sitting; Cuff Location : Left Arm; Cuff Size: Standard 04-02-2021 13:17-0500 Body height 176.53 cm Tigist Lao LPN [facility] [employer] 04-02-2021 13:17-0500 Body mass index (BMI) [Ratio] 31.29 kg/m2 Tigist Lao LPN [facility] [employer] 04-02-2021 13:17-0500 Body surface area Derived from formula 2.14 m2 Tigist Lao LPN [facility] [employer] [facility] [employer], [place]. 04-02-2021 13:17-0500 Body weight 97.52 kg Tigist Lao LPN [facility] [employer] [facility] [employer], [place]. 04-02-2021 13:17-0500 Diastolic blood pressure 81 mm[Hg] Tigist Lao LPN [facility], [facility].; [employer], [place]. Comment on above: Patient Position: Sitting; Cuff Location : Left Arm; Cuff Size: Standard 04-02-2021 13:17-0500 Heart rate 61 /min Tigist Lao LPN [facility], [facility].; [employer], [place]. Comment on above: Pattern: Regular 04-02-2021 13:17-0500 Systolic blood pressure 130 mm[Hg] Tigist Lao LPN [facility], [facility].; [employer], [place]. Comment on above: Patient Position: Sitting; Cuff Location : Left Arm; Cuff Size: Standard 08-20-2020 07:20-0400 Body height 176.53 cm Dominique Keating LPN [facility] [employer], [place]. 08-20-2020 07:20-0400 Body mass index (BMI) [Ratio] 32.17 kg/m2 Dominique Keating LPN [facility] [employer] [facility] [employer] 08-20-2020 07:20-0400 Body surface area Derived from formula 2.17 m2 Dominique Keating ENERGY AUDIT ADVISOR [facility] [employer] [facility] 08-20-2020 07:20-0400 Body weight 100.25 kg Dominique Keating LPN [facility] [employer] [facility] 08-20-2020 07:20-0400 Diastolic blood pressure 80 mm[Hg] Dominique Keating LPN [facility] [employer] [facility] Comment on above: Patient Position: Sitting; Cuff Location : Left Arm; Cuff Size: Large 08-20-2020 07:20-0400 Heart rate 66 /min Dominique Keating LPN [facility] [employer] Comment on above: Pattern: Regular 08-20-2020 07:20-0400 Systolic blood pressure 116 mm[Hg] Dominique Keating LPN [facility] [employer] Comment on above: Patient Position: Sitting; Cuff Location : Left Arm; Cuff Size: Large 02-27-2020 08:50-0500 Body height 176.53 cm Dominique Keating LPN [facility] [employer] [facility] 02-27-2020 08:50-0500 Body mass index (BMI) [Ratio] 32.31 kg/m2 Dominique Keating ENERGY AUDIT ADVISOR [facility] [employer] [facility] 02-27-2020 08:50-0500 Body surface area Derived from formula 2.17 m2 Dominique Keating ENERGY AUDIT ADVISOR [facility] [employer] [facility] 02-27-2020 08:50-0500 Body weight 100.7 kg Dominique Keating LPN [facility] [employer] [facility] 02-27-2020 08:50-0500 Diastolic blood pressure 78 mm[Hg] Dominique Keating LPN [facility] [employer] Comment on above: Patient Position: Sitting; Cuff Location : Left Arm; Cuff Size: Large 02-27-2020 08:50-0500 Heart rate 66 /min Dominique Keating LPN [facility] [employer], [place]. Comment on above: Pattern: Regular 02-27-2020 08:50-0500 Systolic blood pressure 125 mm[Hg] Dominique Keating LPN [facility] [employer], [place]. Comment on above: Patient Position: Sitting; Cuff Location : Left Arm; Cuff Size: Large 01-07-2020 09:51-0400 Body height 176.53 cm Dominique Keating [facility] [employer] [facility], [place]. 01-07-2020 09:51-0400 Body mass index (BMI) [Ratio] 32.31 kg/m2 Dominique Keating [facility] [employer], [place]. 01-07-2020 09:51-0400 Body surface area Derived from formula 2.17 m2 Glory Rishabh [facility] [employer], [place]. 01-07-2020 09:51-0400 Body weight 100.7 kg Dominique Keating [facility] [employer], [place]. 01-07-2020 09:51-0400 Diastolic blood pressure 86 mm[Hg] Dominique Keating [facility] [employer], [place]. Comment on above: Patient Position: Sitting; Cuff Location : Left Arm; Cuff Size: Large 01-07-2020 09:51-0400 Heart rate 80 /min Dominique Keating ENERGY AUDIT ADVISOR [facility] [employer], [place]. Comment on above: Pattern: Regular 01-07-2020 09:51-0400 Systolic blood pressure 133 mm[Hg] Dominique Keating [facility] [employer]. Comment on above: Patient Position: Sitting; Cuff Location : Left Arm; Cuff Size: Large 04-06-2019 07:50-0500 Body height 176.53 cm Sonal Arguello RN [facility], [place].; [employer], [place]. 04-06-2019 07:50-0500 Body mass index (BMI) [Ratio] 36.24 kg/m2 Sonal Arguello RN [facility] [employer] [facility], [place].; [employer]. 04-06-2019 07:50-0500 Body surface area Derived from formula 2.28 m2 Sonal Arguello RN [employer] 04-06-2019 07:50-0500 Body temperature 97.9 [degF] Sonal Arguello RN [employer]. Comment on above: Method: Tympanic 04-06-2019 07:50-0500 Body weight 112.95 kg Sonal Arguello RN [employer]. 04-06-2019 07:50-0500 Diastolic blood pressure 68 mm[Hg] Sonal Arguello RN [employer]. Comment on above: Patient Position: Sitting; Cuff Location : Left Arm; Cuff Size: Large 04-06-2019 07:50-0500 Heart rate 82 /min Sonal Arguello RN [employer]. Comment on above: Pattern: Regular 04-06-2019 07:50-0500 Inhaled oxygen concentration 20 % Sonal Arguello RN [employer]. Comment on above: Room air 04-06-2019 07:50-0500 Inhaled oxygen concentration 21 % Sonal Arguello RN [employer]. Comment on above: Room air 04-06-2019 07:50-0500 SaO2% (BldA) [Mass fraction] 95 % Sonal Arguello RN [employer]. 04-06-2019 07:50-0500 Systolic blood pressure 103 mm[Hg] Sonal Arguello RN [employer]. Comment on above: Patient Position: Sitting; Cuff Location : Left Arm; Cuff Size: Large 02-26-2019 09:22-0500 Body height 176.53 cm Sonal Arguello RN [employer] 02-26-2019 09:22-0500 Body mass index (BMI) [Ratio] 37.7 kg/m2 Sonal Arguello RN [employer] 02-26-2019 09:22-0500 Body surface area Derived from formula 2.32 m2 Sonal Arguello RN [employer] 02-26-2019 09:22-0500 Body weight 117.48 kg Sonal Arguello RN [employer] 02-26-2019 09:22-0500 Diastolic blood pressure 77 mm[Hg] Sonal Arguello RN [employer]. Comment on above: Patient Position: Sitting; Cuff Location : Right Arm; Cuff Size: Large 02-26-2019 09:22-0500 Heart rate 80 /min Sonal Arguello RN [employer]. Comment on above: Pattern: Regular 02-26-2019 09:22-0500 Systolic blood pressure 112 mm[Hg] Sonal Arguello RN [employer]. Comment on above: Patient Position: Sitting; Cuff Location : Right Arm; Cuff Size: Large 03-17-2018 08:51-0500 Body height 176.53 cm Sonal Arguello RN [employer] 03-17-2018 08:51-0500 Body mass index (BMI) [Ratio] 37.41 kg/m2 Sonal Arguello RN [employer] 03-17-2018 08:51-0500 Body surface area Derived from formula 2.31 m2 Sonal Arguello RN [employer]. 03-17-2018 08:51-0500 Body weight 116.58 kg Sonal Arguello RN [employer]. 03-17-2018 08:51-0500 Diastolic blood pressure 75 mm[Hg] Sonal Arguello RN [employer]. Comment on above: Patient Position: Sitting; Cuff Location : Left Arm; Cuff Size: Large 03-17-2018 08:51-0500 Heart rate 75 /min Sonal Arguello RN [employer] [facility], [employer]. Comment on above: Pattern: Regular 03-17-2018 08:51-0500 Systolic blood pressure 110 mm[Hg] Sonal Arguello RN [employer] [facility], [employer].; [employer] Comment on above: Patient Position: Sitting; Cuff Location : Left Arm; Cuff Size: Large 09-30-2017 08:51-0400 Body height 176.53 cm Gracie Turner [facility] [employer]. 09-30-2017 08:51-0400 Body mass index (BMI) [Ratio] 37.7 kg/m2 Gracie Turner ENERGY AUDIT ADVISOR [employer] [facility], [employer].; [employer] 09-30-2017 08:51-0400 Body surface area Derived from formula 2.32 m2 Gracie Oliver Johnny ENERGY AUDIT ADVISOR [employer] [facility], [employer].; [employer] 09-30-2017 08:51-0400 Body weight 117.48 kg Gracie M Johnny ENERGY AUDIT ADVISOR [employer]. 09-30-2017 08:51-0400 Diastolic blood pressure 78 mm[Hg] Gracie Turner ENERGY AUDIT ADVISOR [employer]. Comment on above: Patient Position: Sitting; Cuff Location : Left Arm; Cuff Size: Standard 09-30-2017 08:51-0400 Heart rate 73 /min Gracie Turner ENERGY AUDIT ADVISOR [employer]. Comment on above: Pattern: Regular 09-30-2017 08:51-0400 Systolic blood pressure 118 mm[Hg] Gracie Turner ENERGY AUDIT ADVISOR [employer]. Comment on above: Patient Position: Sitting; Cuff Location : Left Arm; Cuff Size: Standard 09-21-2017 16:17-0400 Body height 175.26 cm Angelic Moser LPN Work Phone: [employer]. 09-21-2017 16:17-0400 Body mass index (BMI) [Ratio] 36.92 kg/m2 Angelic Ehsan LPN Work Phone: [employer] 09-21-2017 16:17-0400 Body surface area Derived from formula 2.27 m2 Angelic [employer] Work Phone: [employer]. 09-21-2017 16:17-0400 Body weight 113.4 kg Angelic Ehsan LPN Work Phone: [employer]. 09-21-2017 16:17-0400 Diastolic blood pressure 79 mm[Hg] Angelic Ehsan LPN Work Phone: [employer]. Comment on above: Patient Position: Sitting; Cuff Location : Left Arm; Cuff Size: Standard 09-21-2017 16:17-0400 Heart rate 82 /min Angelic Ehsan LPN Work Phone: [employer]. Comment on above: Pattern: Regular 09-21-2017 16:17-0400 Systolic blood pressure 126 mm[Hg] Angelic Ehsan LPN Work Phone: [employer]. Comment on above: Patient Position: Sitting; Cuff Location : Left Arm; Cuff Size: Standard 06-06-2017 08:31-0500 Body height 175.26 cm Radha Hurst LPN [employer] 06-06-2017 08:31-0500 Body mass index (BMI) [Ratio] 38.84 kg/m2 Radha Hurst LPN [employer] 06-06-2017 08:31-0500 Body surface area Derived from formula 2.32 m2 Radha Hurst LPN [employer]. 06-06-2017 08:31-0500 Body weight 119.3 kg Radha Hurst ELLA [employer] [facility], [employer].; [employer] 06-06-2017 08:31-0500 Diastolic blood pressure 79 mm[Hg] Radha Hurst ELLA [facility], Inc.; [employer] Comment on above: Patient Position: Sitting; Cuff Location : Left Arm; Cuff Size: Standard 06-06-2017 08:31-0500 Heart rate 78 /min Radha Hurst ELLA [employer] [facility], [employer].; [employer] Comment on above: Pattern: Regular 06-06-2017 08:31-0500 Systolic blood pressure 122 mm[Hg] Radha Hurst ELLA [employer] Comment on above: Patient Position: Sitting; Cuff Location : Left Arm; Cuff Size: Standard 03-14-2017 09:05-0500 Body height 175.26 cm Radha Hoa Hurst LPN [facility], Inc.; [employer] 03-14-2017 09:05-0500 Body mass index (BMI) [Ratio] 38.25 kg/m2 Radha Hurst ELLA [employer] [facility], [employer].; [employer] 03-14-2017 09:05-0500 Body surface area Derived from formula 2.31 m2 Radha Hoa Hurst LPN [employer] [facility], [employer].; [employer] 03-14-2017 09:05-0500 Body weight 117.48 kg Radha Hoa Hurst LPN [facility] [facility], [employer].; [employer] 03-14-2017 09:05-0500 Diastolic blood pressure 75 mm[Hg] Radhatiara Hurst ELLA [employer] [facility], [employer].; [employer], [place]. Comment on above: Patient Position: Sitting; Cuff Location : Left Arm; Cuff Size: Standard 03-14-2017 09:05-0500 Heart rate 76 /min Radhatiara Hurst ELLA [facility] [facility], [employer], [place]. Comment on above: Pattern: Regular 03-14-2017 09:05-0500 Systolic blood pressure 113 mm[Hg] Radha Camara Aris ELLA [employer] [employer]. Comment on above: Patient Position: Sitting; Cuff Location : Left Arm; Cuff Size: Standard 09-01-2016 07:26-0400 Body height 176.53 cm Meryl Santa Morsebaugh ENERGY AUDIT ADVISOR [employer] [facility], [employer].; [employer] 09-01-2016 07:26-0400 Body mass index (BMI) [Ratio] 36.53 kg/m2 Meryl K Mutersbaugh ENERGY AUDIT ADVISOR [employer] [facility], [employer].; [employer] 09-01-2016 07:26-0400 Body surface area Derived from formula 2.29 m2 Meryl K Mutersbaugh ENERGY AUDIT ADVISOR [employer] [facility], [employer].; [employer], [place]. 09-01-2016 07:26-0400 Body weight 113.85 kg Meryl Santa Mutsharitabaugh ENERGY AUDIT ADVISOR [employer] [facility], [employer].; [employer], [place]. 09-01-2016 07:26-0400 Diastolic blood pressure 75 mm[Hg] Meryl K Mutersbaugh ENERGY AUDIT ADVISOR [employer] [facility], [employer].; [employer] Comment on above: Patient Position: Sitting; Cuff Location : Left Arm; Cuff Size: Standard 09-01-2016 07:26-0400 Heart rate 74 /min Meryl Santa Morsebaugh ENERGY AUDIT ADVISOR [employer] [facility], [employer].; [employer] Comment on above: Pattern: Regular 09-01-2016 07:26-0400 Systolic blood pressure 112 mm[Hg] Meryl Santa Mutersbaugh ENERGY AUDIT ADVISOR [employer] [facility], [employer] Comment on above: Patient Position: Sitting; Cuff Location : Left Arm; Cuff Size: Standard 08-25-2016 07:32-0400 Body height 176.53 cm Dominique Keating ENERGY AUDIT ADVISOR [employer] [facility], [employer], [place]. 08-25-2016 07:32-0400 Body mass index (BMI) [Ratio] 36.68 kg/m2 Dominique Keating [facility] [employer] [facility], [employer] 08-25-2016 07:32-0400 Body surface area Derived from formula 2.29 m2 Dominique Hearn [place] [facility] [employer] [facility], Inc.; [employer] 08-25-2016 07:32-0400 Body weight 114.31 kg Dominique Keating [facility] [employer] 08-25-2016 07:32-0400 Diastolic blood pressure 68 mm[Hg] Dominique Keating ENERGY AUDIT ADVISOR [employer] Comment on above: Patient Position: Sitting; Cuff Location : Left Arm; Cuff Size: Large 08-25-2016 07:32-0400 Heart rate 94 /min Dominique Keating [facility] [employer] Comment on above: Pattern: Regular 08-25-2016 07:32-0400 Systolic blood pressure 103 mm[Hg] Dominique Keating [facility] [employer] Comment on above: Patient Position: Sitting; Cuff Location : Left Arm; Cuff Size: Large 08-14-2016 08:31-0400 Body height 176.53 cm Tank Melchor MD Work Phone: [employer] 08-14-2016 08:31-0400 Body mass index (BMI) [Ratio] 37.7 kg/m2 Tank Melchor MD Work Phone: [employer] 08-14-2016 08:31-0400 Body surface area Derived from formula 2.32 m2 Tank Melchor MD Work Phone: [employer] 08-14-2016 08:31-0400 Body weight 117.48 kg Tank Melchor MD Work Phone: [employer]. 08-14-2016 08:31-0400 Diastolic blood pressure 82 mm[Hg] Tank Melchor MD Work Phone: [employer]. Comment on above: Patient Position: Sitting; Cuff Location : Left Arm; Cuff Size: Standard 08-14-2016 08:31-0400 Heart rate 76 /min Tank Melchor MD Work Phone: [employer]. Comment on above: Pattern: Regular 08-14-2016 08:31-0400 Systolic blood pressure 122 mm[Hg] Tank Melchor MD Work Phone: [employer]. Comment on above: Patient Position: Sitting; Cuff Location : Left Arm; Cuff Size: Standard 05-28-2016 09:02-0500 Body temperature 98.1 [degF] Radha Hurst LPN [employer] [place]. 05-28-2016 09:02-0500 Body weight 117.94 kg Radha Hurst LPN [employer]. 05-28-2016 09:02-0500 Diastolic blood pressure 92 mm[Hg] Radha Hurst LPN [employer]. Comment on above: Patient Position: Sitting; Cuff Location : Left Arm; Cuff Size: Standard 05-28-2016 09:02-0500 Heart rate 84 /min Radha Hurst LPN [employer], [place]. Comment on above: Pattern: Regular 05-28-2016 09:02-0500 Inhaled oxygen concentration 20 % Radha Hurst LPN [employer]. Comment on above: Room air 05-28-2016 09:02-0500 Inhaled oxygen concentration 21 % Radha Hurst LPN [employer]. Comment on above: Room air 05-28-2016 09:02-0500 SaO2% (BldA) [Mass fraction] 97 % Radha Hurst LPN [employer]. 05-28-2016 09:02-0500 Systolic blood pressure 135 mm[Hg] Radha Hurst LPN [employer]. Comment on above: Patient Position: Sitting; Cuff Location : Left Arm; Cuff Size: Standard 02-13-2016 08:27-0400 Body weight 113.4 kg Radha Hurst LPN [employer] [place]. 02-13-2016 08:27-0400 Diastolic blood pressure 72 mm[Hg] Radha Hurst LPN [employer]. Comment on above: Patient Position: Sitting; Cuff Location : Left Arm; Cuff Size: Standard 02-13-2016 08:27-0400 Heart rate 65 /min Radha Hurst LPN [employer]. Comment on above: Pattern: Regular 02-13-2016 08:27-0400 Systolic blood pressure 107 mm[Hg] Radha Hurst LPN [employer]. Comment on above: Patient Position: Sitting; Cuff Location : Left Arm; Cuff Size: Standard 08-13-2015 09:33-0400 Body height 176.53 cm Tank Melchor MD Work Phone: [employer]. 08-13-2015 09:33-0400 Body mass index (BMI) [Ratio] 37.84 kg/m2 Tank Melchor MD Work Phone: [employer]. 08-13-2015 09:33-0400 Body surface area Derived from formula 2.32 m2 Tank Mlechor MD Work Phone: [employer]. 08-13-2015 09:33-0400 Body weight 117.94 kg Tank Melchor MD Work Phone: [employer]. 08-13-2015 09:33-0400 Diastolic blood pressure 80 mm[Hg] Tank Melchor MD Work Phone: [employer]. Comment on above: Patient Position: Sitting; Cuff Location : Left Arm; Cuff Size: Standard 08-13-2015 09:33-0400 Heart rate 79 /min Tank Melchor MD Work Phone: [employer]. Comment on above: Pattern: Regular 08-13-2015 09:33-0400 Systolic blood pressure 132 mm[Hg] Tank Melchor MD [facility]: [facility].; [employer] [facility]. Comment on above: Patient Position: Sitting; Cuff Location : Left Arm; Cuff Size: Standard 02-07-2015 08:59-0400 Body height 176.53 cm Daina [facility]elluis [facility] [facility] 02-07-2015 08:59-0400 Body mass index (BMI) [Ratio] 39.59 kg/m2 Daina Rangelluis [facility] [employer] [facility].; [employer] 02-07-2015 08:59-0400 Body surface area Derived from formula 2.37 m2 Daina Rangelluis [facility], [facility].; [employer] [place]. 02-07-2015 08:59-0400 Body weight 123.38 kg Daina Rangelluis [facility] [employer] [facility], [facility].; [employer]. 02-07-2015 08:59-0400 Diastolic blood pressure 83 mm[Hg] Daina Rangelluis [facility] [employer] [facility].; [employer]. Comment on above: Patient Position: Sitting; Cuff Location : Left Arm; Cuff Size: Standard 02-07-2015 08:59-0400 Heart rate 76 /min Daina Rangelluis ENERGY AUDIT ADVISOR [employer] [facility], [place].; [employer]. Comment on above: Pattern: Regular 02-07-2015 08:59-0400 Systolic blood pressure 120 mm[Hg] Daina Rangelluis [facility] [employer] [facility].; [employer]. Comment on above: Patient Position: Sitting; Cuff Location : Left Arm; Cuff Size: Standard 08-09-2014 09:38-0400 Body weight 126.55 kg Radha Hurst LPN [employer] [facility], [place].; [employer]. 08-09-2014 09:38-0400 Diastolic blood pressure 73 mm[Hg] Radha Hurst ENERGY AUDIT ADVISOR [facility], [employer].; [employer]. Comment on above: Patient Position: Sitting; Cuff Location : Left Arm; Cuff Size: Standard 08-09-2014 09:38-0400 Heart rate 78 /min Radha E Aris [facility], [employer]. Comment on above: Pattern: Regular 08-09-2014 09:38-0400 Systolic blood pressure 116 mm[Hg] Radhatiara Hurst [facility], [employer], [employer]. Comment on above: Patient Position: Sitting; Cuff Location : Left Arm; Cuff Size: Standard 03-05-2014 13:43-0500 Body height 176.53 cm Marielos Rachel [facility], [employer], [employer]. 03-05-2014 13:43-0500 Body mass index (BMI) [Ratio] 40.9 kg/m2 Marielos Rachel [facility] [employer] [facility], [employer] 03-05-2014 13:43-0500 Body surface area Derived from formula 2.4 m2 Marielos Rachel [facility] [employer] [facility], [employer], [place]. 03-05-2014 13:43-0500 Body temperature 98.4 [degF] [facility], [place].; [employer], [employer]. Comment on above: Method: Tympanic 03-05-2014 13:43-0500 Body weight 127.46 kg Marielos Rachel ENERGY AUDIT ADVISOR [facility], Inc.; [employer] 03-05-2014 13:43-0500 Diastolic blood pressure 81 mm[Hg] Marielos Rachel ENERGY AUDIT ADVISOR [employer] [facility], [employer].; [employer], [employer]. Comment on above: Patient Position: Sitting; Cuff Location : Right Arm; Cuff Size: Large 03-05-2014 13:43-0500 Heart rate 98 /min [facility]os [facility], [place]. Comment on above: Pattern: Regular 03-05-2014 13:43-0500 Systolic blood pressure 126 mm[Hg] Marielos Pau Rachel [facility], [employer]. Comment on above: Patient Position: Sitting; Cuff Location : Right Arm; Cuff Size: Large 02-28-2014 15:49-0500 Body height 176.53 cm Catrachita Douglas LPN [facility], Inc[facility] [employer] 02-28-2014 15:49-0500 Body mass index (BMI) [Ratio] 41.34 kg/m2 Catrachita Douglas [facility], Inc.; [employer] 02-28-2014 15:49-0500 Body surface area Derived from formula 2.41 m2 Catrachitaharshad Douglas [facility], Inc.; [employer] 02-28-2014 15:49-0500 Body temperature 98.7 [degF] [place] Misael [facility], Inc[employer], [employer]. Comment on above: Method: Tympanic 02-28-2014 15:49-0500 Body weight 128.82 kg Catrachita Douglas [facility], Inc[facility] [employer] 02-28-2014 15:49-0500 Diastolic blood pressure 104 mm[Hg] Catrachita Douglas [facility], [employer], [employer]. Comment on above: Patient Position: Sitting; Cuff Location : Right Arm; Cuff Size: Standard 02-28-2014 15:49-0500 Heart rate 89 /min Catrachita Douglas [facility], [employer].; [employer], [employer]. Comment on above: Pattern: Regular 02-28-2014 15:49-0500 Systolic blood pressure 138 mm[Hg] Catrachita Douglas [facility], [employer], [employer]. Comment on above: Patient Position: Sitting; Cuff Location : Right Arm; Cuff Size: Standard 02-22-2014 08:49-0500 Body height 176.53 cm Dominique Keating ENERGY AUDIT ADVISOR [facility], Inc.; [employer], [employer]. 02-22-2014 08:49-0500 Body mass index (BMI) [Ratio] 39.88 kg/m2 Dominique Keating ENERGY AUDIT ADVISOR [facility], Inc.; [employer] 02-22-2014 08:49-0500 Body surface area Derived from formula 2.37 m2 Dominique Daiuckey ENERGY AUDIT ADVISOR [facility], Inc.; [employer]. 02-22-2014 08:49-0500 Body weight 124.29 kg Dominique Keating [facility], Inc.; [employer] 02-22-2014 08:49-0500 Diastolic blood pressure 85 mm[Hg] Dominique Keating ENERGY AUDIT ADVISOR [employer] [facility], Inc.; [employer] Comment on above: Patient Position: Sitting; Cuff Location : Left Arm; Cuff Size: Large 02-22-2014 08:49-0500 Heart rate 77 /min Dominique Keating [facility], Inc[facility] [employer] Comment on above: Pattern: Regular 02-22-2014 08:49-0500 Systolic blood pressure 140 mm[Hg] Domiinque Keating [facility] [employer] [employer] Comment on above: Patient Position: Sitting; Cuff Location : Left Arm; Cuff Size: Large 02-02-2013 09:08-0400 Body weight 121.11 kg Radha Hurst LPN [facility] [employer] [facility], Inc.; [employer] 02-02-2013 09:08-0400 Diastolic blood pressure 69 mm[Hg] Radha Hurst [facility] [employer], [place]. Comment on above: Patient Position: Sitting; Cuff Location : Left Arm; Cuff Size: Standard 02-02-2013 09:08-0400 Heart rate 69 /min Radha Hurst LPN [employer], [place]. Comment on above: Pattern: Regular 02-02-2013 09:08-0400 Systolic blood pressure 110 mm[Hg] Radha Hurst LPN [employer], [place]. Comment on above: Patient Position: Sitting; Cuff Location : Left Arm; Cuff Size: Standard 08-04-2012 09:15-0400 Body weight 119.3 kg Radha Hurst LPN [employer] 08-04-2012 09:15-0400 Diastolic blood pressure 85 mm[Hg] Radha Hurst LPN [employer]. Comment on above: Patient Position: Sitting; Cuff Location : Left Arm; Cuff Size: Standard 08-04-2012 09:15-0400 Heart rate 71 /min Radha Hurst ENERGY AUDIT ADVISOR [facility], Inc.; [employer]. Comment on above: Pattern: Regular 08-04-2012 09:15-0400 Systolic blood pressure 133 mm[Hg] Radha E Aris ENERGY AUDIT ADVISOR [facility], Inc.; [employer]. Comment on above: Patient Position: Sitting; Cuff Location : Left Arm; Cuff Size: Standard 04-29-2012 08:55-0500 Body height 176.53 cm [facility]aina [facility]cedez [facility] [employer]. 04-29-2012 08:55-0500 Body mass index (BMI) [Ratio] 38.59 kg/m2 Dainashirin Newsome [facility], Inc.; [employer], [place]. 04-29-2012 08:55-0500 Body surface area Derived from formula 2.34 m2 Daina Newsome [facility], Inc.; [employer], [place]. 04-29-2012 08:55-0500 Body temperature 98.5 [degF] Daina Weluis [facility] [employer] [facility], [place].; [employer]. Comment on above: Method: Tympanic 04-29-2012 08:55-0500 Body weight 120.26 kg Dainashirin Newsome [facility] [employer] [facility], Inc.; [employer] 04-29-2012 08:55-0500 Diastolic blood pressure 84 mm[Hg] Daina Newsome [facility] [employer] [facility], [place].; [employer]. Comment on above: Patient Position: Sitting; Cuff Location : Left Arm; Cuff Size: Standard 04-29-2012 08:55-0500 Heart rate 79 /min [facility] [employer] [facility], [place].; [employer]. Comment on above: Pattern: Regular 04-29-2012 08:55-0500 Inhaled oxygen concentration 20 % Daina Newsome [facility] [employer] [facility], [place].; [employer]. Comment on above: Room air 04-29-2012 08:55-0500 Inhaled oxygen concentration 21 % [facility] [employer] [facility], [facility].; [employer] [place]. Comment on above: Room air 04-29-2012 08:55-0500 SaO2% (BldA) [Mass fraction] 97 % Daina Newsome LPN [facility] [employer] 04-29-2012 08:55-0500 Systolic blood pressure 128 mm[Hg] [facility] [employer] [facility], [facility].; [employer], [place]. Comment on above: Patient Position: Sitting; Cuff Location : Left Arm; Cuff Size: Standard 02-04-2012 10:00-0400 Body weight 117.94 kg Radha Hurst LPN [facility], [facility].; [employer], [place]. 02-04-2012 10:00-0400 Diastolic blood pressure 76 mm[Hg] Radha Hurst [facility] [employer] [facility], [facility].; [employer], [place]. Comment on above: Patient Position: Sitting; Cuff Location : Left Arm; Cuff Size: Standard 02-04-2012 10:00-0400 Heart rate 65 /min Radha Hurst [facility] [employer] [facility], [facility].; [employer]. Comment on above: Pattern: Regular 02-04-2012 10:00-0400 Systolic blood pressure 116 mm[Hg] Radha Hurst [facility] [employer] [facility] [employer]. Comment on above: Patient Position: Sitting; Cuff Location : Left Arm; Cuff Size: Standard 07-05-2011 08:52-0400 Body height 176.53 cm Tank Melchor MD Work Phone: [employer]. 07-05-2011 08:52-0400 Body mass index (BMI) [Ratio] 37.41 kg/m2 Tank Melchor MD Work Phone: [employer] 07-05-2011 08:52-0400 Body surface area Derived from formula 2.31 m2 Tank Melchor MD Work Phone: [employer]. 07-05-2011 08:52-0400 Body weight 116.58 kg Tank Melchor MD Work [facility]: [facility] [employer] 07-05-2011 08:52-0400 Diastolic blood pressure 78 mm[Hg] Tank Melchor MD Work Phone: [facility] [employer]. Comment on above: Patient Position: Sitting; Cuff Location : Left Arm; Cuff Size: Large 07-05-2011 08:52-0400 Heart rate 78 /min Tank Melchor MD Work Phone: [facility] [employer]. Comment on above: Pattern: Regular 07-05-2011 08:52-0400 Systolic blood pressure 120 mm[Hg] Tank Melchor MD Work Phone: [facility] [employer]. Comment on above: Patient Position: Sitting; Cuff Location : Left Arm; Cuff Size: Large 01-04-2011 08:46-0400 Body height 176.53 cm [facility] [employer], [place]. 01-04-2011 08:46-0400 Body mass index (BMI) [Ratio] 39.15 kg/m2 [facility], [facility].; [employer] 01-04-2011 08:46-0400 Body surface area Derived from formula 2.36 m2 [facility] [employer]. 01-04-2011 08:46-0400 Body weight 122.02 kg [facility] [employer] [facility], [place].; [employer] [place]. 01-04-2011 08:46-0400 Diastolic blood pressure 83 mm[Hg] [facility] [employer] [facility] [employer]. Comment on above: Patient Position: Sitting; Cuff Location : Left Arm; Cuff Size: Large 01-04-2011 08:46-0400 Heart rate 84 /min Glory Stuckey ENERGY AUDIT ADVISOR [facility].; [employer] [facility]. Comment on above: Pattern: Regular 01-04-2011 08:46-0400 Systolic blood pressure 123 mm[Hg] Dominique Keating ENERGY AUDIT ADVISOR [facility] [employer], [place]. Comment on above: Patient Position: Sitting; Cuff Location : Left Arm; Cuff Size: Large 10-27-2010 08:23-0400 Body height 176.53 cm Dominique Keating ELLA [facility] [employer] 10-27-2010 08:23-0400 Body mass index (BMI) [Ratio] 39.45 kg/m2 Dominique Keating [facility], [facility].; [employer] [facility], [place]. 10-27-2010 08:23-0400 Body surface area Derived from formula 2.36 m2 Glory Rishabh ELLA [facility].; [employer] [facility] 10-27-2010 08:23-0400 Body weight 122.93 kg Dominique Keating ELLA [facility], [facility].; [employer] 10-27-2010 08:23-0400 Diastolic blood pressure 88 mm[Hg] Dominique Keating ELLA [facility] [employer], [place]. Comment on above: Patient Position: Sitting; Cuff Location : Left Arm; Cuff Size: Large 10-27-2010 08:23-0400 Heart rate 88 /min Dominique Keating ELLA [facility] [employer], [place]. Comment on above: Pattern: Regular 10-27-2010 08:23-0400 Systolic blood pressure 123 mm[Hg] Dominique Keating ELLA [facility] [employer], [place]. Comment on above: Patient Position: Sitting; Cuff Location : Left Arm; Cuff Size: Large 07-06-2010 08:54-0400 Body weight 128.82 kg Gracie Turner LPN [facility] [employer] 07-06-2010 08:54-0400 Diastolic blood pressure 83 mm[Hg] Gracie Turner LPN [facility] [employer] [facility] [employer] [place]. Comment on above: Patient Position: Sitting; Cuff Location : Left Arm; Cuff Size: Standard 07-06-2010 08:54-0400 Heart rate 72 /min Gracie Oliver [facility] [employer] Comment on above: Pattern: Regular 07-06-2010 08:54-0400 Systolic blood pressure 129 mm[Hg] Gracie Oliver Johnny ENERGY AUDIT ADVISOR[facility], Inc.; [employer] Comment on above: Patient Position: Sitting; Cuff Location : Left Arm; Cuff Size: Standard 01-06-2010 08:07-0400 Body height 175.26 cm Dominique Keating [facility] [employer] [facility] 01-06-2010 08:07-0400 Body mass index (BMI) [Ratio] 41.2 kg/m2 Glory Rishabh [facility], [facility].; [facility] [employer] [facility] 01-06-2010 08:07-0400 Body surface area Derived from formula 2.38 m2 Glory [place] [facility].; [employer] 01-06-2010 08:07-0400 Body weight 126.55 kg Dominique Keating ENERGY AUDIT ADVISOR [facility] [employer] [facility] 01-06-2010 08:07-0400 Diastolic blood pressure 84 mm[Hg] Glory [place] [facility] [employer] Comment on above: Patient Position: Sitting; Cuff Location : Left Arm; Cuff Size: Large 01-06-2010 08:07-0400 Heart rate 84 /min Dominique Keating ELLA [facility] [employer], [place]. Comment on above: Pattern: Regular 01-06-2010 08:07-0400 Systolic blood pressure 127 mm[Hg] Dominique Keating ENERGY AUDIT ADVISOR [facility] [employer] Comment on above: Patient Position: Sitting; Cuff Location : Left Arm; Cuff Size: Large Encounters Encounter Date Encounter Type Care Provider Facility Start: 12-07-2024 [facility] Miah Hanna lity:[facility] Start: 11-27-2024 End: 11-27-[address] Tank Melchor MD Work Phone: -Laboratory Start: 11-27-2024 End: 11-27-[address] Miah Pink MD -Laboratory Work Phone: Start: 11-27-2024 End: 11-27-2024 ambulatory Tank [facility] Facility:[facility] Start: 11-12-2024 End: 11-12-[address] Tank Melchor MD Work Phone: -Laboratory Specimen Start: 11-12-2024 End: 11-12-[address] Miah Pink MD -Laboratory Specimen Work Phone: Start: 11-12-2024 End: 11-12-2024 ambulatory Miah Pink Facility:[facility] Start: 10-17-2024 End: 10-17-[address] Tank Melchor MD Work Phone: -[facility] Start: 10-17-2024 End: 10-17-[address] Miah Pink MD -[facility] Work Phone: Start: 10-17-2024 End: 10-17-2024 ambulatory Miah Pink Facility:[facility] Start: 10-09-2024 End: 10-09-[address] Tank Melchor MD Work Phone: -Laboratory Start: 10-09-2024 End: 10-09-2024 Patient encounter procedure Marielos Chinoing -Laboratory Work Phone: Start: 10-09-2024 End: 10-09-2024 ambulatory Tank [facility] Facility:[facility] Start: 09-20-2024 End: 09-20-2024 Periodic preventive med est patient 65yrs& older Tank Melchor MD Work Phone: [facility], [facility] Start: 09-20-2024 End: 09-20-2024 Patient encounter procedure Tigist Lao LPN [employer] Start: 03-14-2024 End: 03-14-2024 ambulatory TANK MELCHOR [facility] Start: 02-13-2024 End: 02-13-2024 Orders Tank Melchor MD Work Phone: [employer]. Start: 09-22-2023 End: 09-22-2023 Office outpatient visit 15 minutes Tank Melchor MD Work Phone: [employer]. Start: 09-22-2023 Follow-up encounter Tank almaguer MD Work Phone: [employer]. Start: 03-17-2023 End: 03-17-2023 Patient encounter status Tank Melchor MD Work Phone: [employer] Start: 03-17-2023 End: 03-17-2023 Periodic preventive med est patient 65yrs& older Tank Melchor MD Work Phone: [employer]. Start: 02-10-2023 End: 02-10-2023 Orders Tank Melchor MD Work Phone: [employer]. Start: 12-07-2022 End: 12-07-2022 Orders Tank Melchor MD Work Phone: [employer]. Start: 12-02-2022 End: 12-02-2022 Office outpatient visit 15 minutes Tank Melchor MD Work Phone: [employer]. Start: 06-17-2022 End: 06-17-2022 Office outpatient visit 15 minutes Tank Melchor MD Work Phone: [employer]. Start: 06-04-2022 End: 06-04-2022 Office outpatient visit 15 minutes Tank Melchor MD Work Phone: [employer]. Start: 03-24-2022 End: 03-24-2022 Patient encounter status Tank Melchor MD Work Phone: [employer] Start: 03-24-2022 End: 03-24-2022 Periodic preventive med est patient 40-64yrs Tank Melchor MD Work Phone: [employer] Start: 03-18-2022 End: 03-18-2022 Orders Tank Melchor MD Work Phone: [employer]. Start: 02-16-2022 End: 02-16-2022 Orders Tank Melchor MD Work Phone: [employer]. Start: 04-02-2021 End: 04-02-2021 Periodic preventive med est patient 40-64yrs Tank Melchor MD Work Phone: [employer] Start: 04-02-2021 End: 04-02-2021 Physical examination Tank Melchor MD Work Phone: [employer]; [employer] Start: 02-25-2021 End: 02-25-2021 Nursing evaluation of patient and report Tank Melchor MD Work Phone: [employer] Start: 02-19-2021 End: 02-19-2021 Orders Tank Melchor MD Work Phone: [employer]. Start: 11-17-2020 End: 11-17-2020 Medication Tank Melchor MD Work Phone: [employer] Start: 08-20-2020 End: 08-20-2020 Office outpatient visit 15 minutes Tank Melchor MD Work Phone: [employer] Start: 04-24-2020 End: 04-24-2020 Historical Summary Tank Melchor MD Work Phone: [employer] Start: 02-27-2020 End: 02-27-2020 Patient encounter status Tank Melchor MD Work Phone: [employer]; [employer] Start: 02-27-2020 End: 02-27-2020 Periodic preventive med est patient 40-64yrs Tank Melchor MD Work Phone: [employer] Start: 02-27-2020 End: 02-26-2020 Historical Summary Tank Melchor MD Work Phone: [employer] Start: 02-18-2020 End: 02-18-2020 Orders Tank Melchor MD Work Phone: [employer]. Start: 01-07-2020 End: 01-07-2020 Orders Tank Melchor MD Work Phone: [employer]. Start: 01-07-2020 End: 01-07-2020 Patient encounter procedure Tank Melchor MD Work Phone: [employer]. Start: 04-20-2019 End: 04-20-2019 Medication Tank Melchor MD Work Phone: [employer]. Start: 04-06-2019 End: 04-06-2019 Office outpatient visit 15 minutes Tank Melchor MD Work Phone: [employer] Start: 02-26-2019 End: 02-26-2019 Patient encounter status Sonal Arguello RN [employer]; [employer]. Start: 02-26-2019 End: 02-26-2019 Periodic preventive med est patient 40-64yrs Tank Melchor MD Work Phone: [employer] Start: 02-19-2019 End: 02-19-2019 Orders Tank Melchor MD Work Phone: [employer] Start: 01-24-2019 End: 01-24-2019 Orders Tank Melchor MD Work Phone: [employer] Start: 09-18-2018 End: 09-18-2018 Telephone follow-up Tank Melchor MD Work Phone: [employer] Start: 04-28-2018 Patient encounter procedure CHARLENE GARCIA Facility:[facility] Start: 03-31-2018 End: 03-31-2018 Patient encounter procedure JORGE BAUM Facility:[facility] Start: 03-30-2018 End: 03-30-2018 Patient encounter procedure CHARLENE GARCIA Facility:[facility] Start: 03-17-2018 End: 03-17-2018 Office outpatient visit 15 minutes Tank Melchor MD Work Phone: [employer] Start: 03-06-2018 End: 03-06-2018 Patient encounter procedure JORGE BAUM Facility:[facility] Start: 10-13-2017 End: 10-13-2017 Patient encounter procedure CHARLENE GARCIA Facility:[facility] Start: 09-30-2017 End: 09-30-2017 Patient encounter status Tank Melchor MD Work Phone: [employer] Start: 09-30-2017 End: 09-30-2017 Periodic preventive med est patient 40-64yrs Tank Melchor MD Work Phone: [employer]. Start: 09-26-2017 End: 09-26-2017 Patient encounter procedure JORGE BAUM Facility:[facility] Start: 09-21-2017 End: 09-28-2017 Patient encounter procedure Tank Melchor MD Work Phone: [employer] Start: 09-19-2017 End: 09-19-2017 Orders Tank Melchor MD Work Phone: [employer]. Start: 09-08-2017 End: 09-08-2017 Patient encounter procedure CHARLENE GARCIA Facility:[facility] Start: 08-22-2017 End: 08-22-2017 Patient encounter procedure JORGE BAUM Facility:[facility] Start: 06-06-2017 End: 06-06-2017 Office outpatient visit 15 minutes Tank Melchor MD Work Phone: [employer] Start: 03-14-2017 End: 03-14-2017 Office outpatient visit 15 minutes Tank Melchor MD Work Phone: [employer]. Start: 03-08-2017 End: 03-08-2017 Historical Summary Tank Melchor MD Work Phone: [employer] Start: 09-01-2016 End: 09-01-2016 Patient encounter status Tank Melchor MD Work Phone: [employer] Start: 09-01-2016 End: 09-01-2016 Periodic preventive med est patient 40-64yrs Tank Melchor MD Work Phone: [employer]. Start: 08-27-2016 End: 08-27-2016 Orders Tank Meclhor MD Work Phone: [employer]. Start: 08-25-2016 End: 08-25-2016 Office outpatient visit 15 minutes Tank Melchor MD Work Phone: [employer]. Start: 08-14-2016 End: 08-14-2016 Office outpatient visit 15 minutes Tnak Melchor MD Work Phone: [employer]. Start: 05-28-2016 End: 05-28-2016 Office outpatient visit 15 minutes Tank Melchor MD Work Phone: [employer]. Start: 02-13-2016 End: 02-13-2016 Office outpatient visit 15 minutes Tank Melchor MD Work Phone: [employer]. Start: 08-13-2015 End: 08-13-2015 Office outpatient visit 15 minutes Tank Melchor MD Work Phone: [employer]. Start: 02-07-2015 End: 02-07-2015 Office outpatient visit 15 minutes Tank Melchor MD Work Phone: [employer]. Start: 08-09-2014 End: 08-09-2014 Office outpatient visit 15 minutes Tank Melchor MD Work Phone: [employer]. Start: 03-18-2014 End: 03-18-2014 Medication Tank Melchor MD Work Phone: [employer]. Start: 03-05-2014 End: 03-05-2014 Office outpatient visit 15 minutes Tank Melchor MD Work Phone: [employer]. Start: 02-28-2014 End: 03-01-2014 Office outpatient visit 15 minutes Tank Melchor MD Work Phone: [employer]. Start: 02-22-2014 End: 02-22-2014 Office outpatient visit 15 minutes Tank Melchor MD Work Phone: [employer] Start: 12-28-2013 End: 12-28-2013 Medication Tank Melchor MD Work Phone: [employer]. Start: 07-25-2013 End: 07-25-2013 Medication Tank Melchor MD Work Phone: [employer]. Start: 02-02-2013 End: 02-02-2013 Patient encounter procedure Tank Melchor MD Work Phone: [employer] Start: 01-30-2013 End: 01-30-2013 Medication Tank Melchor MD Work Phone: [employer]. Start: 08-04-2012 End: 08-04-2012 Patient encounter procedure Tank Melchor MD Work Phone: [employer]. Start: 04-29-2012 End: 04-29-2012 Patient encounter procedure Tank Melchor MD Work Phone: [employer] Start: 02-04-2012 End: 02-04-2012 Patient encounter procedure Tank Melchor MD Work Phone: [employer]. Start: 07-05-2011 End: 07-05-2011 Patient encounter procedure Tank Melchor MD Work Phone: [employer] Start: 02-01-2011 End: 02-01-2011 Office outpatient visit 5 minutes Tank Melchor MD Work Phone: [employer]. Start: 01-04-2011 End: 01-04-2011 Patient encounter procedure Tank Melchor MD Work Phone: [employer]. Start: 10-27-2010 End: 10-27-2010 Patient encounter procedure Tank Melchor MD Work Phone: [employer]. Start: 10-27-2010 End: 10-27-2010 Pre-operative cardiovascular examination Tank Melchor MD Work Phone: [employer]; [employer]. Start: 09-28-2010 End: 09-28-2010 Medication Tank Melchor MD Work Phone: [employer]. Start: 09-18-2010 End: 09-18-2010 Medication Tank Melchor MD Work Phone: [employer]. Start: 09-17-2010 End: 09-17-2010 Medication Tank Melchor MD Work Phone: [employer]. Start: 07-09-2010 End: 07-09-2010 Orders Tank Melchor MD Work Phone: [employer]. Start: 07-09-2010 End: 07-09-2010 Medication Tank Melchor MD Work Phone: [employer]. Start: 07-06-2010 End: 07-06-2010 Orders Tank Melchor MD Work Phone: [employer]. Start: 07-06-2010 End: 07-06-2010 Patient encounter procedure Tank Melchor MD Work Phone: [employer]. Start: 04-09-2010 End: 04-09-2010 Nursing evaluation of patient and report Tank Melchor MD Work Phone: [employer]. Start: 02-19-2010 End: 02-19-2010 Nursing evaluation of patient and report Tank Melchor MD Work Phone: [employer]. Start: 01-06-2010 End: 01-06-2010 Patient encounter procedure Tank Melchor MD Work Phone: [employer]. Start: 12-02-2009 End: 12-02-2009 Historical Summary Tank eMlchor MD Work Phone: [employer]. Patient encounter procedure Tank Melchor MD Work Phone: [employer] Patient encounter status Gracie menjivar ENERGY AUDIT ADVISOR [employer]. Patient encounter status Tigist COLBERT [employer].; [employer]. Physical examination [facility] [employer] Physical examination Tigist Lao ENERGY AUDIT ADVISOR [facility].; [facility] Procedures Date Procedure Procedure Detail Performing Clinician Start: 10-17-2024 MRI of pelvis with contrast Dr. Tank Melchor MD Work Phone: Start: 10-09-2024 Free prostate specif ic antigen level Dr. Tank Melchor MD Work Phone: Comment on above: [facility] [employer]. Start: 10-09-2024 Prostate specific an tigen measurement Dr. Tank Melchor MD Work Phone: Comment on above: [employer].According to the [place] [employer], Serum PSAshould decrease and remain at undetectable levels afterradical prostatectomy. The AUA defines biochemicalrecurrence as an initial PSA value 0.200 ng/mL or greaterfollowed by a subsequent confirmatory PSA value 0.200 ng/mLor greater. Values obtained with different assay methods orkits cannot be used interchangeably. Results cannot beinterpreted as absolute evidence of the presence or absenceof malignant disease. Start: 09-20-2024 End: 09-20-2024 Adv care pln/ no alt dcsn mkr docd or refusal Tank Melchor MD Work Phone: Start: 09-20-2024 End: 09-20-2024 Depression screening Tank Melchor MD Work Phone: Start: 09-20-2024 End: 09-20-2024 Falls risk assessment documented Tank Melchor MD Work Phone: Start: 09-20-2024 End: 09-20-2024 Pos clin depres scrn f/u doc Tank ivey MD Work Phone: Start: 09-20-2024 End: 09-20-2024 PPPS, subseq visit Tank Melchor MD Work Phone: Start: 09-20-2024 End: 09-20-2024 Pt falls assess docd w/o fall/injury past year Tank Melchor MD Work Phone: Start: 09-20-2024 End: 09-20-2024 Scr dep neg, no plan reqd Tank eMlchor MD Work Phone: Start: 03-14-2024 End: 03-14-2024 Lab findings surveillance Tigist Lao LPN Comment on above: 96 Start: 03-14-2024 End: 03-14-2024 Lipid panel Tigist Lao LPN Comment on above: TC 144 HDL 61 LDL 69 TRI 72 Start: 03-14-2024 End: 03-14-2024 PSA screening Tigist Lao LPN Comment on above: Performed By: #### [id number] #### [facility],[address] [address] 04.02 Start: 03-22-2023 End: 03-22-2023 Right hand surgery Tigist Lao LPN Comment on above: [facility] Dr. Benito medina Start: 03-17-2023 End: 03-17-2023 Adv care pln/ no alt dcsn mkr docd or refusal Tank Melchor MD Work Phone: Start: 03-17-2023 End: 03-17-2023 Depression screening Tank Melchor MD Work Phone: Start: 03-17-2023 End: 03-17-2023 Falls risk assessment documented Tank Melchor MD Work Phone: Start: 03-17-2023 End: 03-17-2023 Initial preventive exam Tank Melchor MD Work Phone: Start: 03-17-2023 End: 03-17-2023 Pos clin depres scrn f/u doc Tank ivey MD Work Phone: Start: 03-17-2023 End: 03-17-2023 Pt falls assess docd w/o fall/injury past year Tank Melchor MD Work Phone: Start: 03-17-2023 End: 03-17-2023 Screening test visual acuity quantitative bilat Tank Melchor MD Work Phone: Start: 03-10-2023 End: 03-10-2023 Lab findings surveillance Gracie cash LPN Comment on above: Results:. 94 CMP Start: 03-10-2023 End: 03-10-2023 Lipid panel Gracie Turner LPN Start: 03-10-2023 End: 03-10-2023 Prostate specific antigen measurement Gracie Turner LPN Comment on above: 7.97 Start: 12-02-2022 End: 12-06-2022 Radex hand minimum 3 views Tank Melchor MD Work Phone: Start: 03-24-2022 End: 03-24-2022 Depression screening Tank Melchor MD Work Phone: Start: 03-24-2022 End: 03-24-2022 Scr dep neg, no plan reqd Tank Melchor MD Work Phone: Start: 04-02-2021 End: 04-02-2021 Depression screening Tank Melchor MD Work Phone: Start: 04-02-2021 End: 04-02-2021 Scr dep neg, no plan reqd Tank Melchor MD Work Phone: Start: 04-14-2020 End: 04-14-2020 Cologuard Gracie Turner LPN Comment on above: Normal. Negative Start: 02-27-2020 End: 02-27-2020 Depression screening Tank Melchor MD Work Phone: Start: 02-27-2020 End: 04-24-2020 Oncology colorectal screening ralph 10 dna markrs Tank Melchor MD Work Phone: Start: 02-27-2020 End: 02-27-2020 Scr dep neg, no plan reqd Tank Melchor MD Work Phone: Start: 02-18-2020 End: 02-18-2020 Flu immunize order/admin FLOAT NURSE Start: 02-18-2020 End: 02-18-2020 Hemoglobin A1c/Hemoglobin.total in Blood Gracie Turner LPN Comment on above: 5.7 Start: 02-26-2019 End: 02-26-2019 Depression screening Tank Melchor MD Work Phone: Start: 02-26-2019 End: 02-26-2019 Scr dep neg, no plan reqd Tank Melchor MD Work Phone: Start: 09-13-2018 End: 09-13-2018 Lumbar Fusion Gracie Turner LPN Comment on above: [facility] Start: 09-13-2018 Antibody screen Comment on above: Order Comment: CONSE RVATION CBN: NO Hitchcock: MAIN Transfusion Status: CONSERVATION Blood Bank service requested: TYPE AND SCREEN Comments To Phleb: IN SDS-COMPLETED Performed By: #### B [id number] #### Test performed at: [place] [id number] Start: 08-29-2018 Antibody screen Comment on above: Order Comment: CBN: YES [place]: MAIN Transfusion Status: CONSERVATION Blood Bank service requested: TYPE AND SCREEN Specimen Comment: SURG 09/13 Performed By: #### B [id number] #### Test performed at: [place] [id number] Start: 08-29-2018 Electrocardiogram Start: 03-17-2018 End: 03-17-2018 Scr dep neg, no plan reqd Tank Melchor MD Work Phone: Start: 03-17-2018 End: 03-17-2018 Depression screen annual Tank Greer Work Phone: Start: 06-06-2017 End: 06-06-2017 Body mass index documented Tank Melchor MD Work Phone: Start: 06-06-2017 End: 06-06-2017 Radiologic exam knee complete 4/more views Tank Melchor MD Work Phone: Start: 03-14-2017 End: 03-14-2017 Most recent diastolic blood pressure < 80 mm hg Tank Melchor MD Work Phone: Start: 03-14-2017 End: 03-14-2017 Most recent systolic blood pressure <130 mm hg Tank Melchor MD Work Phone: Start: 03-14-2017 End: 06-14-2017 Body mass index documented Radha Hurst LPN Start: 08-25-2016 End: 08-27-2016 Radex spine lumbosacral 2/3 views Tank Melchor MD Work Phone: Start: 02-28-2014 End: 02-28-2014 No Known Health Maintenance History Gracie Turner LPN Start: 02-22-2014 End: 02-22-2014 Exc b9 lesion mrgn xcp sk tg s/n/h/f/g 0.5 cm/< Tank Melchor MD Work Phone: Start: 07-07-2010 End: 07-09-2010 Mri spinal canal lumbar w/o contrast material Tank Melchor MD Work Phone: Start: 04-11-2010 End: 04-11-2010 Spinal arthrodesis Gracie Turner LPN Comment on above: [facility] Start: 04-09-2010 End: 04-09-2010 Dexamethasone sodium phos Angelic Ehsan L PN Work Phone: Start: 07-18-2009 End: 07-18-2009 Screening for malignant neoplasm of large intestine Gracie Turner LPN Comment on above: Within Normal Limits . Plan of Treatment Date Care Activity Detail Author Start: 03-04-2025 Patient encounter procedure Medical; RTN OFFICE VISIT - 6 MO RTN [facility]. Start: 04-Mar-2025 08:00-05:00 MD Tank Melchor Appointment Request [facility]. Start: 09-20-2024 Oncology colorectal screening ralph 10 dna markrs COLOGUARD COLON CANCER SCREENING USING STOOL DNA AT POINT OF CARE (89925) Start: 20-Sep-2024 Intent [facility] Start: 09-20-2024 Patient encounter procedure Medical; PHYSICAL - AWV [facility]. Start: 20-Sep-2024 10:00-04:00 MD Tank Melchor Appointment Request [facility]. Start: 03-28-2024 Patient encounter procedure Medical; PHYSICAL - AW [facility]. Start: 28-Mar-2024 08:40-05:00 MD Tank Melchor Appointment Request [facility]. Start: 02-13-2024 Assay of prostate specific antigen total PSA TOTAL (PROSTATE SPECIFIC ANTIGEN) (15359) Start: 13-Feb-2024 Request [facility]. Start: 02-13-2024 Comprehensive metabo lic panel CMP w/ GFR* (24124) Start: 13-Feb-2024 Request [facility] Start: 02-13-2024 Lipid panel LIPID PANEL (8 0061) Start: 13-Feb-2024 Request [facility]. Start: 09-22-2023 Patient encounter procedure Medical; RTN OFFICE VISIT - rtn, f/u labs [email or web address]. Start: 22-Sep-2023 08:30-04:00 MD Tank Melchor Appointment Request [email or web address] dexAMETHasone so d phos (bulk) 100 % powder Ordered: 09-Apr-2010 ELLA Moser Angelic Intent [email or web address]. Immunizations Immunization Date Immunization Notes Care Provider Fa cility 09-20-2024 pneumococcal Conjuga te, unspecified formulation Tank Melchor MD Work Phone: [email or web address]; [facility] 09-20-2024 Counseled parent on risks/benefits of vaccines (91128) Tank Melchor MD Work Phone: [facility]; [facility]. 09-20-2024 Pneumococcal conjuga te, 20 valent (PCV20) Tank Melchor MD Work Phone: [email or web address]; [facility]. Comment on above: Site: Left ArmVIS Gi argenis: * Pneumococcal Conjugate Vaccine (08/20/22) 03-28-2024 zoster vaccine, live Tank whitten MD Work Phone: [facility]; [facility]. 02-25-2024 influenza, injectabl e, quadrivalent, contains preservative Tank Melchor MD Work Phone: [facility]; [facility]. 12-20-2023 zoster vaccine recombinant Tank Melchor MD Work Phone: [email or web address]; [facility] 02-11-2023 influenza, injectabl e, quadrivalent, contains preservative Tank Melchor MD Work Phone: [facility]; [facility]. 02-19-2022 influenza, injectabl e, quadrivalent, contains preservative Tank Melchor MD Work Phone: [facility]; [facility]. 10-28-2021 COVID-Pfizer (30 MCG /0.3 ML) Tank Melchor MD Work Phone: [facility]; [facility]. 03-17-2021 COVID-Moderna (100 MCG/0.5 ML) Tank Melchor MD Work Phone: [facility]; [facility]. 02-25-2021 influenza, injectabl e, quadrivalent, contains preservative Tank Melchor MD Work Phone: [facility]; [facility]. Comment on above: Site: Left DeltoidVI S Given: * Influenza - Inactivated (11/23/18) 07-16-2020 COVID-Moderna (100 MCG/0.5 ML) Tank Melchor MD Work Phone: [facility]; [facility]. 06-18-2020 COVID-Moderna (100 MCG/0.5 ML) Tank Melchor MD Work Phone: [facility]; [facility]. 02-18-2020 influenza, injectabl e, quadrivalent, contains preservative Tank Melchor MD Work Phone: [facility]; [facility]. Comment on above: Site: Left ArmVIS Gi argenis: * Influenza - Inactivated (11/23/18) 02-26-2019 Shingrix 50 MCG/0.5M L Intramuscular Suspension Reconstituted Tank Melchor MD [facility]; [facility]. Comment on above: Repeat in 2-6 months 02-26-2019 measles, mumps and rubella virus vaccine Tank Melchor MD Work Phone: [email or web address]; [facility] Comment on above: Site: Left ArmVIS Gi argenis: * Measles/Mumps/Rubella (MMR) (05/23/17) 01-31-2019 influenza, injectabl e, quadrivalent, contains preservative Tank Melchor MD Work Phone: [email or web address]; [email or web address] 02-04-2018 influenza, injectabl e, quadrivalent, contains preservative Tank Melchor MD Work Phone: [email or web address]; [email or web address] 09-30-2017 tetanus toxoid, redu gerard diphtheria toxoid, and acellular pertussis vaccine, adsorbed Tank Melchor MD Work Phone: [email or web address]; [facility]. Comment on above: Site: Right DeltoidV IS Given: * Tdap (Tetanus, Diphtheria, Pertussis) (06/04/14) 02-09-2017 influenza, injectabl e, quadrivalent, contains preservative Tank Melchor MD Work Phone: [email or web address]; [facility]. Comment on above: Received at [facility] 09-01-2016 pneumococcal Conjuga te, unspecified formulation Tank Melchor MD Work Phone: [email or web address]; [facility] 09-01-2016 pneumococcal polysaccharide vaccine, 23 valent Tank Melchor MD Work Phone: [email or web address]; [facility] Comment on above: Site: Deltoid (Left) VIS Given: * Pneumococcal Polysaccharide (PPSV23) (08/02/14) 02-13-2016 unknown vaccine or i mmune globulin Tank Melchor MD Work Phone: [email or web address]; [facility]. 02-13-2016 influenza, injectabl e, quadrivalent, contains preservative Tank Melchor MD Work Phone: [email or web address]; [facility] Comment on above: Site: Deltoid (Left) VIS Given: * Influenza - Inactivated (11/15/14) 02-07-2015 IMMUNIZATION ADMIN ([id number]) Tank Melchor MD Work Phone: [facility]; [facility]. 02-07-2015 influenza, seasonal, injectable Tank Melchor MD Work Phone: [facility]; [facility]. Comment on above: Site: Deltoid (Left) VIS Given: * Inactivated Influenza (11/15/2014) 02-22-2014 IMMUNIZATION ADMIN ([id number]) Tank Melchor MD Work Phone: [facility]; [facility]. 02-22-2014 influenza, seasonal, injectable Tank Melchor MD Work Phone: [facility]; [facility]. Comment on above: Site: Deltoid (Left) VIS Given: * Influenza, Inactivated () 02-02-2013 influenza, seasonal, injectable Tank Melchor MD Work Phone: [facility]; [facility]. Comment on above: Site: Deltoid (Right )VIS Given: * Inactivated Influenza Vaccine (11/19/08) * Inactivated Influenza Vaccine (11/03/10) * Influenza vaccine [id number], inactivated (10/11/2011) * VIS Given (Unspecified) 02-02-2013 IMMUNIZATION ADMIN ([id number]) Tank Melchor MD Work Phone: [facility]; [facility]. 02-04-2012 influenza, seasonal, injectable Tank Melchor MD Work Phone: [facility]; [facility]. Comment on above: Site: Deltoid (Right )VIS Given: * Inactivated Influenza Vaccine (11/19/08) * Inactivated Influenza Vaccine (11/03/10) * Influenza vaccine [id number], inactivated (10/11/2011) * VIS Given (Unspecified) 02-04-2012 IMMUNIZATION ADMIN ([id number]) Tank Melchor MD Work Phone: [facility]; [facility]. 02-01-2011 influenza, seasonal, injectable Tank Melchor MD [facility]: [facility]; [facility]. Comment on above: Site: Deltoid (Right )VIS Given: * Inactivated Influenza Vaccine (11/19/08) * Inactivated Influenza Vaccine (11/03/10) * Inactivated Influenza Vaccine (11/03/10) * Inactivated Influenza Vaccine (11/03/10) * Inactivated Influenza Vaccine (11/03/10) * Inactivated Influenza Vaccine (11/03/10) * Inactivated Influenza Vaccine (11/03/10) * VIS Given (Unspecified) * VIS Given (Unspecified) 02-01-2011 IMMUNIZATION ADMIN ([id number]) Tank Melchor MD Work Phone: [email or web address]; [facility]. 02-19-2010 influenza, seasonal, injectable Tank Melchor MD Work Phone: [email or web address]; [facility]. Comment on above: Site: Deltoid (Right )VIS Given: * Inactivated Influenza Vaccine (11/19/08) 02-19-2010 IMMUNIZATION ADMIN ([id number]) Tank Melchor MD Work Phone: [facility]; [facility] Payers Date Payer Category Payer Medicare [id number] 2024 Self-pay 2024 Unknown [id number] 1955 Unknown [id number] 2.16.8 [id number] 1955 Unknown [id number] 2.16.8 [id number] 1957 Unknown [id number] 2.16.8 [id number] 1955 Unknown [id number] 2.16.8 [id number] 1957 Unknown [id number] 2.16.8 [id number] 1957 Unknown [id number] 2.16.8 [id number] 1957 Unknown [id number] 2.16.8 [id number] 1957 Unknown [id number] 2.16.8 [id number] 1957 Unknown [id number] 2.16.8 [id number] Unknown [id number] Unknown [id number] 2.16.8 [id number] Unknown [id number] 2.16.8 [id number] Unknown [id number] 2.16.8 [id number] Unknown [id number] 2.16.8 [id number] Unknown [id number] 2.16.8 [id number] Social History Date Type Detail Facility End: 02-26-2019 Alcohol Use Alcohol Use [facility]; [facility] Current Work/Study Status: Current Work/Study Status: ; [facility]; [facility] Exercise History: Exercise Histo ry: ; Light. [facility]; [facility] Tobacco Use: Tobacco Use: ; F ormer smoker. [facility]; [facility] Start: 1955 Male [facility] Occasional alcohol use [facility]; [facility] Work Phone: [facility]ired [facility]; [facility] Work Phone: Start: 11-28-2024 Ex-smoker [facility] Tobacco smoking stat [facility] Unknown if ever smoked [facility] Work Phone: Evaluation note Note Date & Type Note Facility Evaluation note No assessment information availa ble [facility] Work Phone: Reason for referral (narrative) Note Date & Type Note Facility Reason for referral (narrative) No reason for referral information available [facility] Work Phone: Summary Purpose Family History No Family History Records Found Cancer Status:Active Comments:Negativ e Family History Of. Cerebrovascular Accident Status:Active Comment s:Mother. Coronary Artery Disease Status:Active Comments :Mother. Father. grandparents Diabetes Mellitus Status:Active Comments:Felix arce Grandmother. Diabetes Mellitus Type I Status:Active Comment s:Father. Hypertension Status:Active Comments:Mother. Osteoarthritis Status:Active Comments:Mother. Cancer Status:Active Comments:Negativ e Family History Of. Cerebrovascular Accident Status:Active Comment s:Mother. Coronary Artery Disease Status:Active Comments :Mother. Father. grandparents Diabetes Mellitus Status:Active Comments:Felix arce Grandmother. Diabetes Mellitus Type I Status:Active Comment s:Father. Hypertension Status:Active Comments:Mother. Osteoarthritis Status:Active Comments:Mother. Cancer Status:Active Comments:Negativ e Family History Of. Cerebrovascular Accident Status:Active Comment s:Mother. Coronary Artery Disease Status:Active Comments :Mother. Father. grandparents Diabetes Mellitus Status:Active Comments:Felix arce Grandmother. Diabetes Mellitus Type I Status:Active Comment s:Father. Hypertension Status:Active Comments:Mother. Osteoarthritis Status:Active Comments:Mother. Cancer Status:Active Comments:Negativ e Family History Of. Cerebrovascular Accident Status:Active Comment s:Mother. Coronary Artery Disease Status:Active Comments :Mother. Father. grandparents Diabetes Mellitus Status:Active Comments:Felix arce Grandmother. Diabetes Mellitus Type I Status:Active Comment s:Father. Hypertension Status:Active Comments:Mother. Osteoarthritis Status:Active Comments:Mother. Cancer Status:Active Comments:Negativ e Family History Of. Cerebrovascular Accident Status:Active Comment s:Mother. Coronary Artery Disease Status:Active Comments :Mother. Father. grandparents Diabetes Mellitus Status:Active Comments:Felix [facility] Grandmother. Diabetes Mellitus Type I Status:Active Comment s:Father. Hypertension Status:Active Comments:Mother. Osteoarthritis Status:Active Comments:Mother. Cancer Status:Active Comments:Negativ e Family History Of. Cerebrovascular Accident Status:Active Comment s:Mother. Coronary Artery Disease Status:Active Comments :Mother. Father. grandparents Diabetes Mellitus Status:Active Comments:Felix arce Grandmother. Diabetes Mellitus Type I Status:Active Comment s:Father. Hypertension Status:Active Comments:Mother. Osteoarthritis Status:Active Comments:Mother. Cancer Status:Active Comments:Negativ e Family History Of. Cerebrovascular Accident Status:Active Comment s:Mother. Coronary Artery Disease Status:Active Comments :Mother. Father. grandparents Diabetes Mellitus Status:Active Comments:Felix arce Grandmother. Diabetes Mellitus Type I Status:Active Comment s:Father. Hypertension Status:Active Comments:Mother. Osteoarthritis Status:Active Comments:Mother. Cancer Status:Active Comments:Negativ e Family History Of. Cerebrovascular Accident Status:Active Comment s:Mother. Coronary Artery Disease Status:Active Comments :Mother. Father. grandparents Diabetes Mellitus Status:Active Comments:Felix arce Grandmother. Diabetes Mellitus Type I Status:Active Comment s:Father. Hypertension Status:Active Comments:Mother. Osteoarthritis Status:Active Comments:Mother. Cancer Status:Active Comments:Negativ e Family History Of. Cerebrovascular Accident Status:Active Comment s:Mother. Coronary Artery Disease Status:Active Comments :Mother. Father. grandparents Diabetes Mellitus Status:Active Comments:Fleix arce Grandmother. Diabetes Mellitus Type I Status:Active Comment s:Father. Hypertension Status:Active Comments:Mother. Osteoarthritis Status:Active Comments:Mother. Cancer Status:Active Comments:Negativ e Family History Of. Cerebrovascular Accident Status:Active Comment s:Mother. Coronary Artery Disease Status:Active Comments :Mother. Father. grandparents Diabetes Mellitus Status:Active Comments:Felix arce Grandmother. Diabetes Mellitus Type I Status:Active Comment s:Father. Hypertension Status:Active Comments:Mother. Osteoarthritis Status:Active Comments:Mother. Cancer Status:Active Comments:Negativ e Family History Of. Cerebrovascular Accident Status:Active Comment s:Mother. Coronary Artery Disease Status:Active Comments :Mother. Father. grandparents Diabetes Mellitus Status:Active Comments:Felix arce Grandmother. Diabetes Mellitus Type I Status:Active Comment s:Father. Hypertension Status:Active Comments:Mother. Osteoarthritis Status:Active Comments:Mother. Cancer Status:Active Comments:Negativ e Family History Of. Cerebrovascular Accident Status:Active Comment s:Mother. Coronary Artery Disease Status:Active Comments :Mother. Father. grandparents Diabetes Mellitus Status:Active Comments:Felix arce Grandmother. Diabetes Mellitus Type I Status:Active Comment s:Father. Hypertension Status:Active Comments:Mother. Osteoarthritis Status:Active Comments:Mother. Cancer Status:Active Comments:Negativ e Family History Of. Cerebrovascular Accident Status:Active Comment s:Mother. Coronary Artery Disease Status:Active Comments :Mother. Father. grandparents Diabetes Mellitus Status:Active Comments:Felix arce Grandmother. Diabetes Mellitus Type I Status:Active Comment s:Father. Hypertension Status:Active Comments:Mother. Osteoarthritis Status:Active Comments:Mother. Cancer Status:Active Comments:Negativ e Family History Of. Cerebrovascular Accident Status:Active Comment s:Mother. Coronary Artery Disease Status:Active Comments :Mother. Father. grandparents Diabetes Mellitus Status:Active Comments:Felix arce Grandmother. Diabetes Mellitus Type I Status:Active Comment s:Father. Hypertension Status:Active Comments:Mother. Osteoarthritis Status:Active Comments:Mother. Cancer Status:Active Comments:Negativ e Family History Of. Cerebrovascular Accident Status:Active Comment s:Mother. Coronary Artery Disease Status:Active Comments :Mother. Father. grandparents Diabetes Mellitus Status:Active Comments:Felix arce Grandmother. Diabetes Mellitus Type I Status:Active Comment s:Father. Hypertension Status:Active Comments:Mother. Osteoarthritis Status:Active Comments:Mother. Cancer Status:Active Comments:Negativ e Family History Of. Cerebrovascular Accident Status:Active Comment s:Mother. Coronary Artery Disease Status:Active Comments :Mother. Father. grandparents Diabetes Mellitus Status:Active Comments:Felix arce Grandmother. Diabetes Mellitus Type I Status:Active Comment s:Father. Hypertension Status:Active Comments:Mother. Osteoarthritis Status:Active Comments:Mother. Cancer Status:Active Comments:Negativ e Family History Of. Cerebrovascular Accident Status:Active Comment s:Mother. Coronary Artery Disease Status:Active Comments :Mother. Father. grandparents Diabetes Mellitus Status:Active Comments:Felix arce Grandmother. Diabetes Mellitus Type I Status:Active Comment s:Father. Hypertension Status:Active Comments:Mother. Osteoarthritis Status:Active Comments:Mother. Cancer Status:Active Comments:Negativ e Family History Of. Cerebrovascular Accident Status:Active Comment s:Mother. Coronary Artery Disease Status:Active Comments :Mother. Father. grandparents Diabetes Mellitus Status:Active Comments:Felix arce Grandmother. Diabetes Mellitus Type I Status:Active Comment s:Father. Hypertension Status:Active Comments:Mother. Osteoarthritis Status:Active Comments:Mother. Cancer Status:Active Comments:Negativ e Family History Of. Cerebrovascular Accident Status:Active Comment s:Mother. Coronary Artery Disease Status:Active Comments :Mother. Father. grandparents Diabetes Mellitus Status:Active Comments:Felix arce Grandmother. Diabetes Mellitus Type I Status:Active Comment s:Father. Hypertension Status:Active Comments:Mother. Osteoarthritis Status:Active Comments:Mother. Cancer Status:Active Comments:Negativ e Family History Of. Cerebrovascular Accident Status:Active Comment s:Mother. Coronary Artery Disease Status:Active Comments :Mother. Father. grandparents Diabetes Mellitus Status:Active Comments:Felix arce Grandmother. Diabetes Mellitus Type I Status:Active Comment s:Father. Hypertension Status:Active Comments:Mother. Osteoarthritis Status:Active Comments:Mother. Cancer Status:Active Comments:Negativ e Family History Of. Cerebrovascular Accident Status:Active Comment s:Mother. Coronary Artery Disease Status:Active Comments :Mother. Father. grandparents Diabetes Mellitus Status:Active Comments:Felix arce Grandmother. Diabetes Mellitus Type I Status:Active Comment s:Father. Hypertension Status:Active Comments:Mother. Osteoarthritis Status:Active Comments:Mother. Cancer Status:Active Comments:Negativ e Family History Of. Cerebrovascular Accident Status:Active Comment s:Mother. Coronary Artery Disease Status:Active Comments :Mother. Father. grandparents Diabetes Mellitus Status:Active Comments:Felix arce Grandmother. Diabetes Mellitus Type I Status:Active Comment s:Father. Hypertension Status:Active Comments:Mother. Osteoarthritis Status:Active Comments:Mother. Cancer Status:Active Comments:Negativ e Family History Of. Cerebrovascular Accident Status:Active Comment s:Mother. Coronary Artery Disease Status:Active Comments :Mother. Father. grandparents Diabetes Mellitus Status:Active Comments:Felix arce Grandmother. Diabetes Mellitus Type I Status:Active Comment s:Father. Hypertension Status:Active Comments:Mother. Osteoarthritis Status:Active Comments:Mother. Cancer Status:Active Comments:Negativ e Family History Of. Cerebrovascular Accident Status:Active Comment s:Mother. Coronary Artery Disease Status:Active Comments :Mother. Father. grandparents Diabetes Mellitus Status:Active Comments:[facility] claude Grandmother. Diabetes Mellitus Type I Status:Active Comment s:Father. Hypertension Status:Active Comments:Mother. Osteoarthritis Status:Active Comments:Mother. Cancer Status:Active Comments:Negativ e Family History Of. Cerebrovascular Accident Status:Active Comment s:Mother. Coronary Artery Disease Status:Active Comments :Mother. Father. grandparents Diabetes Mellitus Status:Active Comments:Felix arce Grandmother. Diabetes Mellitus Type I Status:Active Comment s:Father. Hypertension Status:Active Comments:Mother. Osteoarthritis Status:Active Comments:Mother. Cancer Status:Active Comments:Negativ e Family History Of. Cerebrovascular Accident Status:Active Comment s:Mother. Coronary Artery Disease Status:Active Comments :Mother. Father. grandparents Diabetes Mellitus Status:Active Comments:Felix arce Grandmother. Diabetes Mellitus Type I Status:Active Comment s:Father. Hypertension Status:Active Comments:Mother. Osteoarthritis Status:Active Comments:Mother. Cancer Status:Active Comments:Negativ e Family History Of. Cerebrovascular Accident Status:Active Comment s:Mother. Coronary Artery Disease Status:Active Comments :Mother. Father. grandparents Diabetes Mellitus Status:Active Comments:Felix arce Grandmother. Diabetes Mellitus Type I Status:Active Comment s:Father. Hypertension Status:Active Comments:Mother. Osteoarthritis Status:Active Comments:Mother. Cancer Status:Active Comments:Negativ e Family History Of. Cerebrovascular Accident Status:Active Comment s:Mother. Coronary Artery Disease Status:Active Comments :Mother. Father. grandparents Diabetes Mellitus Status:Active Comments:Felix arce Grandmother. Diabetes Mellitus Type I Status:Active Comment s:Father. Hypertension Status:Active Comments:Mother. Osteoarthritis Status:Active Comments:Mother. Cancer Status:Active Comments:Negativ e Family History Of. Cerebrovascular Accident Status:Active Comment s:Mother. Coronary Artery Disease Status:Active Comments :Mother. Father. grandparents Diabetes Mellitus Status:Active Comments:Felix arce Grandmother. Diabetes Mellitus Type I Status:Active Comment s:Father. Hypertension Status:Active Comments:Mother. Osteoarthritis Status:Active Comments:Mother. Cancer Status:Active Comments:Negativ e Family History Of. Cerebrovascular Accident Status:Active Comment s:Mother. Coronary Artery Disease Status:Active Comments :Mother. Father. grandparents Diabetes Mellitus Status:Active Comments:Felix arce Grandmother. Diabetes Mellitus Type I Status:Active Comment s:Father. Hypertension Status:Active Comments:Mother. Osteoarthritis Status:Active Comments:Mother. Cancer Status:Active Comments:Negativ e Family History Of. Cerebrovascular Accident Status:Active Comment s:Mother. Coronary Artery Disease Status:Active Comments :Mother. Father. grandparents Diabetes Mellitus Status:Active Comments:Felix arce Grandmother. Diabetes Mellitus Type I Status:Active Comment s:Father. Hypertension Status:Active Comments:Mother. Osteoarthritis Status:Active Comments:Mother. Cancer Status:Active Comments:Negativ e Family History Of. Cerebrovascular Accident Status:Active Comment s:Mother. Coronary Artery Disease Status:Active Comments :Mother. Father. grandparents Diabetes Mellitus Status:Active Comments:Felix arce Grandmother. Diabetes Mellitus Type I Status:Active Comment s:Father. Hypertension Status:Active Comments:Mother. Osteoarthritis Status:Active Comments:Mother. Cancer Status:Active Comments:Negativ e Family History Of. Cerebrovascular Accident Status:Active Comment s:Mother. Coronary Artery Disease Status:Active Comments :Mother. Father. grandparents Diabetes Mellitus Status:Active Comments:Felix arce Grandmother. Diabetes Mellitus Type I Status:Active Comment s:Father. Hypertension Status:Active Comments:Mother. Osteoarthritis Status:Active Comments:Mother. Cancer Status:Active Comments:Negativ e Family History Of. Cerebrovascular Accident Status:Active Comment s:Mother. Coronary Artery Disease Status:Active Comments :Mother. Father. grandparents Diabetes Mellitus Status:Active Comments:Felix arce Grandmother. Diabetes Mellitus Type I Status:Active Comment s:Father. Hypertension Status:Active Comments:Mother. Osteoarthritis Status:Active Comments:Mother. Cancer Status:Active Comments:Negativ e Family History Of. Cerebrovascular Accident Status:Active Comment s:Mother. Coronary Artery Disease Status:Active Comments :Mother. Father. grandparents Diabetes Mellitus Status:Active Comments:Felix arce Grandmother. Diabetes Mellitus Type I Status:Active Comment s:Father. Hypertension Status:Active Comments:Mother. Osteoarthritis Status:Active Comments:Mother. Cancer Status:Active Comments:Negativ e Family History Of. Cerebrovascular Accident Status:Active Comment s:Mother. Coronary Artery Disease Status:Active Comments :Mother. Father. grandparents Diabetes Mellitus Status:Active Comments:Felix arce Grandmother. Diabetes Mellitus Type I Status:Active Comment s:Father. Hypertension Status:Active Comments:Mother. Osteoarthritis Status:Active Comments:Mother. Cancer Status:Active Comments:Negativ e Family History Of. Cerebrovascular Accident Status:Active Comment s:Mother. Coronary Artery Disease Status:Active Comments :Mother. Father. grandparents Diabetes Mellitus Status:Active Comments:Pater nal Grandmother. Diabetes Mellitus Type I Status:Active Comment s:Father. Hypertension Status:Active Comments:Mother. Osteoarthritis Status:Active Comments:Mother. Advance Directives No Advanced Directives Records FoundNo Advanced Directives Records FoundNo Advanced Directives Records FoundNo Advanced Directives Records FoundNo Advanced Directives Records FoundNo Advanced Directives Records FoundNo Advanced Directives Records Found Chief Complaint and Reason for Visit Chief Complaint Admit Date [id number] Elevated prostate specific antigen [PSA] October 17, 2024 10:50am Additional Source Comments (unrecognized sect ion and content) No Status Records FoundNo Status Records FoundNo Status Records FoundNo Status Records FoundNo Status Records FoundNo Status Records FoundNo Status Records Found INFORMATION SOURCE (unrecogn ized section and content) DATE CREATED AUTHOR 10/05/2017 [facility] DATE CREATED AUTHOR AUTHOR'S ORGANIZ ATION 04/03/2018 [facility] DATE CREATED AUTHOR AUTHOR'S ORGANIZ ATION 04/05/2018 [facility] DATE CREATED AUTHOR AUTHOR'S ORGANIZ ATION 12/20/2018 [facility] DATE CREATED AUTHOR AUTHOR'S ORGANIZ ATION 03/13/2023 [facility] DATE CREATED AUTHOR AUTHOR'S ORGANIZ ATION 03/16/2024 [facility] DATE CREATED AUTHOR AUTHOR'S ORGANIZ ATION 12/06/2024 [facility] Care Teams (unrecognized sec tion and content) Team Status: Active Member Role/Relationship Status Dates Dr. Tank Melchor MD Primary Care Provider Active Team Status: Inactive Member Role/Relationship Status Dates Dr. Tank Melchor MD Primary Care Provider Active Start: October 09, 2024 End: October 09, 2024 Marielos Urban Attending Provider Active Start : October 09, 2024 End: October 09, 2024 Marielos Urban Referring Provider Active Start : October 09, 2024 End: October 09, 2024 Team Status: Inactive Member Role/Relationship Status Dates Dr. Tank Melchor MD Primary Care Provider Active Start: October 17, 2024 End: October 17, 2024 Dr. Miah Pink MD Attending Provider Active Start: October 17, 2024 End: October 17, 2024 Dr. Miah Pink MD Referring Provider Active Start: October 17, 2024 End: October 17, 2024 Team Status: Inactive Member Role/Relationship Status Dates Dr. Tank Melchor MD Primary Care Provider Active Start: November 12, 2024 End: November 12, 2024 Dr. Miah Pink MD Attending Provider Active Start: November 12, 2024 End: November 12, 2024 Dr. Miah Pink MD Referring Provider Active Start: November 12, 2024 End: November 12, 2024 Team Status: Inactive Member Role/Relationship Status Dates Dr. Tank Melchor MD Primary Care Provider Active Start: November 27, 2024 End: November 27, 2024 Dr. Miah Pink MD Attending Provider Active Start: November 27, 2024 End: November 27, 2024 Dr. Miah Pink MD Referring Provider Active Start: November 27, 2024 End: November 27, 2024 Goals (unrecognized section and content) Goals may be documented in a n alternate sectionGoals may be documented in an alternate sectionGoals may be documented in an alternate sectionGoals may be documented in an alternate section FOR RECORDS PERTAINING TO PATIENTS WHO ARE OR HAVE BEEN ENROLLED IN A CHEMICAL DEPENDENCY/SUBSTANCEABUSE PROGRAM, SOME INFORMATION MAY BE OMITTED. This clinical summary was aggregated from multiple sources. Caution should be exercised in using it in the provision of clinical care. This summary normalizes information from multiple sources, and as a consequence, information in this document may materially change the coding, format and clinical context of patient data. In addition, data may be omitted in some cases. CLINICAL DECISIONS SHOULD BE BASED ON THE PRIMARY CLINICAL RECORDS. [employer] provides no warranty or guarantee of the accuracy or completeness of information in this document.
--- NOTE | 2024-12-07 06:34 | PRE.ANES_ITS ---
ASA Classification* ASA Classification ASA Classification: 2 Assessment & Plan Anesthesia* Anesthesia Assessment Anesthesia Assessment: Discussed sedation and/or anesthesia options, risks, benefits, and alternatives with patient/parents/legal guardian/POA. Questions invited. The patient/parents/legal guardian/POA seems to understand and agrees to proceed with anesthesia plan. Reviewed the physical assessment, medical history, allergy history and patient home medications list prior to surgery/procedure/anesthetic and documented any changes. Performed airway and anesthesia risk assessments. Anesthesia Type Anesthesia Type: General Anesthesia Focused Assessment* Airway Assessment Mouth opens: >3 cm Mallampati Score: II Labs Anesthesia Preop lab: CBC WBC 8.5 K/mm3 (4.4-11.0) 11/27/24 11:47 11/27/24 RBC 4.71 M/mm3 (4.6-6.2) 11/27/24 11:47 11/27/24 Hgb 14.4 g/dL (13.0-16.5) 11/27/24 11:47 11/27/24 Hct 41.8 % (40-54) 11/27/24 11:47 11/27/24 Plt Count 219 K/mm3 (150-450) 11/27/24 11:47 11/27/24 CHEMISTRY Potassium 4.5 mmol/L (3.3-5.1) 11/27/24 11:47 11/27/24 Sodium 140 mmol/L (133-145) 11/27/24 11:47 11/27/24 BUN 17 mg/dL (4-19) 11/27/24 11:47 11/27/24 Creatinine 1.15 mg/dL (0.70-1.20) 11/27/24 11:47 11/27/24 Glucose 105 mg/dL (70-99) H 11/27/24 11:47 11/27/24 COAG Pre-Assessment Diagnosis/Proposed Procedure Planned Operative Procedure(s): RADICAL ROBOTIC PROSTATECTOMY Anesthesia History 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 When Was Last Pacemaker Check QUESTION #4 FULL TEXT: You/Your Family Experience fever (hyperthermia) with Anesthesia Last Oral Intake Last Oral intake: Last Oral Intake NPO since Meds taken in AM with sips of water? Meds patient instructed to take am of surgery PONV PONV - table games shift manager: PONV - table games shift manager Female No 11/28/24 14:13 HX of Motion Sickness No 11/28/24 14:13 HX of N/V After Surgery No 11/28/24 14:13 Non-Smoker Yes 11/28/24 14:13 Duration of Surgery greater Yes 11/28/24 14:13 than 60 minutes Number of Risk Factors 2 11/28/24 14:13 PONV Score Moderate Risk 11/28/24 14:13 Respiratory Assessment Respiratory Assessment - table games shift manager: Respiratory Tract Infection Hx - table games shift manager Hx Respiratory Tract Infection No 11/28/24 14:13 STOP Sleep Apnea STOP Sleep Apnea - table games shift manager: STOP Sleep Apnea - table games shift manager Hx Hypertension Yes 11/28/24 14:13 Hx Sleep Apnea No 11/28/24 14:13 CPAP BIPAP Do you snore loudly (louder No 11/28/24 14:13 than talking or can be heard Do you often feel tired/ No 11/28/24 14:13 fatigued/ sleepy during daytime? Has anyone observed you stop No 11/28/24 14:13 breathing during sleep? STOP Results Negative 11/28/24 14:13 QUESTION #5 FULL TEXT : Do you snore loudly (louder than talking or can be heard through closed doors)? 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 Specify any problems Hx of Preganancy in last 3 N/A 11/28/24 14:13 Months Nurse Filling Out Transfusion [id number] 11/28/24 14:13 & Questions: Date: 11/28/24 11/28/24 14:13 Time: 14:17 11/28/24 14:13 Patient unable to answer at this time (ie. confused, unrespo /Reproduction History /Reproductive History - table games shift manager: /Reproductive Hx- table games shift manager Hx Now Gestational Age (in weeks): EDC: Hx Hx Para Hx Section SAB Active Medications Active Medications: Current Medications Generic Name Dose Route Start Last Admin Trade Name Freq PRN Reason Stop Dose Admin Cefazolin Sodium 2 gm/ Sodium 110 mls @ 200 mls/hr 12/07/24 07:30 Chloride IV 12/07/24 08:02 INTRAOP ONE Lactated Ringer's 1,000 mls @ 15 mls/hr 12/07/24 06:15 IV .Q48H NAATLIO PFSH Medical History Kidney stones Wears glasses Cancer Arthritis Prostate disease High cholesterol Migraine headache Back pain History of pain when walking Hypertension History of echocardiogram History of stress test Home Medications ?Medication ?Instructions ?Recorded ?Last Taken ?Type aspirin 81 mg tablet,delayed 81 mg PO DAILY BLOOD THIN NER 11/28/24 11/29/24 History release (Adult Aspirin Regimen) atorvastatin 20 mg tablet (Lipitor) 20 mg PO DAILY HIG H CHOLESTEROL 11/28/24 12/06/24 History docusate sodium 100 mg capsule 100 mg PO DAILY STOOL S OFTNER 11/28/24 12/06/24 History (Colace) fluticasone propionate 50 1 spray intranasal DAILY PRN 11/28/24 Unknown History mcg/actuation nasal allergy symptoms spray,suspension (24 Hour Allergy Relief) [id number]-glw C-Mn 500 1 cap PO DAILY SUPP LEMENT 11/28/24 12/05/24 History mg-400 mg capsule (Glucosamine Chondroitin Maximum Strength) lisinopril 10 mg tablet 10 mg PO DAILY HTN 08/20/25 08/28/25 History tamsulosin 0.4 mg capsule (Flomax) 0.4 mg PO DAILY BPH 11/28/24 12/06/24 History Allergy/AdvReac Type Severity Reaction Status Date / Time No Known Allergies Allergy Verified 12/07/24 06:28 Surgical History H/O hand surgery Previous back surgery Social History Smoking Status: Former smoker Review of Systems (Anesthesia) ROS Narrative System reviewed and no additional complaints, except as documented.
[2024-12-07] MEDS: Lactated Ringers 1,000 ML 15 ML IV (06:59)
[2024-12-07] MEDS: Cefazolin 1 GM/5 ML Vial 2 GM IV (07:20)
[2024-12-07] MEDS: Lactated Ringers 2,000 ML 2000 ML IV (07:26)
--- NOTE | 2024-12-07 07:30 | PROST_PTH ---
PATIENT: JONATHAN MCCRARY LOC: MS3 U#:[id number] AGE/SX: 69/M ROOM: [facility] [place] RE12/07/[address]: Dr. Miah Pink MD : 1955 BED: 1 DIS: 12/08/2024 SPEC #: [id number] RECD: 12/07/24 12:42 STATUS: RUSLAN REJoselo #: [id number] SKIP: 12/07/24 07:[address]: Miah Pink DEPT: SURGICAL PATHOLOGY RECD BY: Darren Dykes ENTERED: 12/07/24 14:45 SP TYPE: PROSTATE OTHR DR: Dr. Tank Peterson MD Tissues: A - Prostate, NOS Procedures: Surgery Specimen Level HEADER OPERATION: Radical robotic prostatectomy PRE-OP DIAGNOSIS: Malignant neoplasm of prostate TISSUE SUBMITTED: A- Prostate MICROSCOPIC DIAGNOSIS A. Prostate, robotic assisted radical prostatectomy: * Prostatic adenocarcinoma (See COMMENT for SYNOPTIC REPORT) COMMENT SYNOPTIC REPORT FOR CARCINOMA OF THE PROSTATE: Procedure: RADICAL PROSTATECTOMY Histologic type: ACINAR Mindy score: 4 + 3 = 7 (~60% is pattern 4) Grade group (1-5): 3 % pattern 4 in [place] 3+4=7 (na=not applicable): na % tumor: 28% Tumor extent (n=no, y=yes, na=not applicable): Extraprostatic extension (f=focal, m=multifocal): n Location of extraprostatic extension: n Microscopic invasion of bladder neck: n Seminal vesicle muscle wall invasion: n Margins of main specimen (n=negative, p=positive, na=not applicable): p Distance of tumor to closest margin (cm): na Longest contiguous positive margin (cm): 0.25 cm (left apex) Positive margin location: left apex and left lobe (anterior aspect 0.175 cm) Regional lymph nodes (na=not applicable): Number examined: 0 Number positive: na Additional findings (cribriform glands, intraductal carcinoma, lymphovascular invasion, therapy effect): Most of pattern 4 is cribriform pTNM: pT2 pNX Comments: NONE Grade Group Definitions 1=[place] 5-6, 2=[place] 3+4=7; 3=[place]indy 4+3=7, 4=Mindy 8; 5=[place]indy 9-10 Pathologic Staging Definitions (pTNM) Primary Tumor (pT) pT2: Organ confined pT3a: Extraprostatic extension (focal is <1 high power field in 1-2 slides, multifocal is more) or Microscopic invasion of bladder neck (in thick muscle, no adjacent non-neoplastic glands) pT3b: Seminal vesicle muscle wall invasion pT4: Invasion of external sphincter, rectum, bladder, levator muscles or pelvic wall Regional Lymph Nodes (pN) (periprostatic, pelvic, hypogastric, obturator, fossa of [place], internal iliac, external iliac, sacral) pNX: Cannot be assessed pN0: No regional lymph node metastasis pN1: Regional lymph node metastasis Distant Metastasis (pM) pM1a: Metastasis in non-regional lymph node (ex: aortic, common iliac, caval, deep inguinal, superficial inguinal, retroperitoneal) pM1b: Metastasis in bone pM1c: Metastasis in other distant site The above synoptic report complies, in slightly modified form, with the guidelines of the [employer] [place] [employer] and the Association of Directors of Anatomic and Surgical Pathology for the reporting of cancer specimens MICROSCOPIC DESCRIPTION A microscopic examination has been performed. GROSS DESCRIPTION A. Received in formalin labeled with the patient's name and date of . Designated as prostate is a 38.3 g radical prostatectomy with attached bilateral adnexa, measuring 4.8 (AB) x 4.6 (LR) x 2.6 (AP) cm. Capsular defects are not grossly present. The specimen is inked as follows: Left: BlueRight: GreenPosterior: BlackAnterior: [place] The specimen is serially sectioned from apex to base to 8 slices revealing conway-yellow to white parenchyma with coalescing nodules and a distinct, separate 1.5 x 0.9 x 0.8 cm pale pink nodule involving the right mid/posterior prostate that abuts the margin. The left and right seminal vesicles/vasa deferentia measure as follows:Left vas deferens: 3.4 x 0.6 cmLeft seminal vesicle: 2.7 x 1.3 x 0.9 cmRight vas deferens 3.8 x 0.6 cmRight seminal vesicle: 3.1 x 2.0 x 0.6 cm Pain Management Specialist sections are sequentially submitted, from apex to base, as follows: Slice #1, apex, entirely submitted:A1-A2: Left apex, radially sectioned (blue/black/orange)A3-A4: Right apex, radially sectioned (green/black/orange) Slice #2, entirely submitted:A5: Left half (blue/black/orange)A6: Right half (green/black/orange) Slice #3, 90% submitted:A7: Left half (blue/black)A8: Right half (green/black/orange) Slice #4, 60% submitted:A9-A10: Right half, including discrete nodule (green/black)Slice #5, 50% submitted:A11: Right half (green/black) Slice #6, 50% submitted:A12: Right half (green/black) Slice #7, entirely submitted:A13-A14: Left half, perpendicular to adnexa insertion (blue/black)A14-A15: Right half, perpendicular to adnexa insertion (green/black)Slice #8, bladder base, entirely submitted:A17-A18: Left bladder base, perpendicular (blue)A19-A20: Right bladder base, perpendicular (green)Adnexa, entirely submitted:A21: Left vas deferens (blue/black)A22: Right vas deferens (green/black)A23-A24: Left seminal vesicle, perpendicular (blue/black)A25-A26: Right seminal vesicle, perpendicular (green/black) HI 12/07/2024 CPT:74814
--- NOTE | 2024-12-07 07:47 | PCM.DC ---
Discharge Instructions DC O2, CPAP, BIPAP needs Home O2 Discharge instructions: No Dressing / Incision Discharge Activity: May Not Drive and May Shower Return to work on:: 01/11/25 May shower in (days): 1 Weight Bearing Status: Full weight bearing Lifting Restrictions: no lifting for 6 weeks Additional Activity Instructions:: push fluids Dressing / Incision Call your doctor if your incision/area has: Sudden Increased Bleeding Call your doctor if you observe: Fever of 101 or Higher, Inability to have a bowel movement and Uncontrolled pain Suture Line Care: Avoid Pulling/Pushing and Avoid Pinching/Bending Cleanse incision/area with: Soap & Water Catheter: Christie to leg bag and Christie to large bag Drain: [place] Follow Up Care Please Follow Up With: Miah Pink MD When: Call [phone] for an appointment Test Results: Test results from this visit will be discussed in further detail at your follow-up appointment, if applicable. Discharge Plan Admission Primary Reason for Your Visit: radical prostatectomy Attending Provider: Miah Pink Primary Care Provider: Tank Peterson Instructions Patient Instructions: Radical Prostatectomy, Radical Prostatectomy Dc Print Language: Tunisian Discharge Orders/Prescriptions Prescriptions: New docusate sodium [Colace] 100 mg capsule 100 mg PO BID Qty: 20 0RF ciprofloxacin HCl [Cipro] 500 mg tablet 500 mg PO BID Qty: 20 0RF oxycodone 5 mg tablet 5 mg PO Q6H PRN (Reason: pain) 7 Days Qty: 20 0RF Continued lisinopril 10 mg tablet 10 mg PO DAILY atorvastatin [Lipitor] 20 mg tablet 20 mg PO DAILY fluticasone propionate [24 Hour Allergy Relief] 50 mcg/actuation spray,suspension 1 spray intranasal DAILY PRN (Reason: allergy symptoms) Rx Instructions: administer into each nostril [id number]-[id number] C-Mn [Glucosamine Chondroitin MaxStr] 500-400 mg capsule 1 cap PO DAILY docusate sodium [Colace] 100 mg capsule 100 mg PO DAILY Discontinued aspirin [Adult Aspirin Regimen] 81 mg tablet,delayed release (DR/EC) 81 mg PO DAILY tamsulosin [Flomax] 0.4 mg capsule 0.4 mg PO DAILY Referrals / Follow Up: Miah Pink MD [Med Staff - Active Staff] - Tank Peterson MD [Primary Care Provider] - Disposition Disposition (needs filled in before D/C Order can be placed): Home, Self Care
[2024-12-07] MEDS: Lidocaine 1% (5 ml sdv) 5 ML Vial 3 ML IV (10:34)
[2024-12-07] MEDS: Midazolam 2 MG/2 ML Syringe IV (10:34)
[2024-12-07] MEDS: fentaNYL 100 MCG/2 ML Ampul IV (10:34)
--- NOTE | 2024-12-07 11:01 | PCM.OPRPT ---
Operative Report (Standard) Operative Information Date of Procedure: 12/07/24 Pre-Operative Diagnosis: Prostate cancer Post-Operative Diagnosis: The same Surgery/Procedure Performed: Laparoscopic robotic assisted radical prostatectomy with Retzius sparing approach sap basis consultant: No Type of Anesthesia: General RN Documented Start/Stop Times: Operation Date: 12/07/24 07:30 Case Time Into Pre-Op 12/07/24 06:09 Out of Pre-Op 12/07/24 07:16 Anesthesia Start 12/07/24 07:20 Into Room 12/07/24 07:20 Procedure Start 12/07/24 07:58 Procedure Start Time: 07:58 Procedure Stop Time: 11:01 Select all DRAINS/GRAFTS/IMPLANTS that apply: Drains Drain details: collin drain, carlos Estimated Blood Loss: 250 cc Specimen collected: Yes Description of specimen(s) removed: Prostate Description of surgery: This is a 69-year-old male who was diagnosed with high-volume Mindy 7 disease involving the apex of the prostate we talked about options of management for his cancer including observation, radical prostatectomy, and radiation therapy. After discussion with the patient he wishes to proceed with a radical prostatectomy with curative intent he understands the risk of the surgery include the risk of incontinence leakage of urine and the loss of erections failure to control the cancer and needing more treatment afterwards such as radiation therapy and hormone therapy. Patient was taken back to the operating room after induction of anesthesia he was placed in the supine on the table we secured him with the pink pads on the table arms were secured legs in stirrups he was mobility tilt test the patient was secured to the table and then his abdomen was shaved prepped and draped in usual sterile fashion I marked out my incision umbilical port for the camera right arm port left arm port and then second left arm port for the retractor and. I had an air seal port for the offset assistant press operator and another port for suction for offset assistant press operator if necessary. The robot was docked camera was placed scissors in the right arm ProGrasp and bipolar in the left arm and proceeded with the dissection first I reflected the sigmoid colon off the lateral wall completely this allowed for nice retraction of the colon from the pelvis the patient was in full Trendelenburg. I then identified the vas deferens on the right side of the pelvis dissected over this over the peritoneum and dissected all the way underneath following the vas deferens posteriorly to the bladder opened up to the peritoneum over the vas deferens and the seminal vesicle on the right side and then the vas deferens and several Matheus on the left side I then came below the vas deferens and identified the Denonvilliers' fascia I decided to transect the fascia as I transected the fascia in the midline went laterally both sides and then this allowed me to get underneath the prostate then once I went all the way to the apex of the prostate we then switched to the 30 degree up lens to allow for visualization of the prostate and continue with the dissection I first identified the prostate anatomy the apex and then went laterally and then identified the neurovascular bundle and underneath the prostate on the left side and the right side and swept these off the prostate laterally is much as possible with minimal traction on the neurovascular bundles I then came back and dissected out the vas deferens and several vesicle on the right side and then came to the right side and then I followed back from the prostate back to the pedicle and then transected to the pedicle with electrocautery using pinpoint electrocautery and then was able to then release the prostate on the right side and became went into the avascular plane between the lateral fascia and the prostate this peeled up fairly nicely all the way up to the apex was able to release neurovascular bundle very nicely on the right side all the way up to the apex. Then went to the left side dissected out the left vas deferens and vesicles I got into the prostate swept off the neurovascular bundles off the left side and then worked my way back to the pedicle I was then able to identify the junction of the pedicle of the prostate and then came through the pedicle and then again was able to sweep the neurovascular bundles off the left side perfectly and then dissect up on the left side sweeping the fascia up off the prostate and the left side all the way to the apex. Then I put traction in the midline of the bladder up and then I dissected between the bladder neck and the prostate and I was able to get to the urethra the balloon and the catheter was removed deflated and pulled back so that I can dissect the posterior urethra and then dissected between the prostate and the bladder anteriorly until it got all the way to the apex then in the apex and very carefully dissected circumferentially all the way around making sure I stayed outside the prostate since the cancer was in the apex and I was able to get a nice gross margin all the way around the apex and then came to the urethra and in the urethra I transected through the urethra and then the prostate was then removed intact. Then we irrigated there was no excess excessive bleeding at this point blood loss about 250 cc and then I completed my anastomosis between the bladder and the urethra using a STRATAFIX stitch continuous fashion starting at the 12 o'clock position working away at 6 o'clock position at the last stitch was put and then a new catheter was put in it went easily into the bladder 10 cc put in the new catheter and then finished at the anastomosis between the urethra and the bladder neck abdomen iswas done then we placed Surgiflo in the in the pelvis to control any minor oozing we put a drain in the pelvis we undocked the robot we removed all the trocars and then extracted the prostate through the umbilical port and then closed the umbilical port with 1-0 Vicryl suture closing the extraction port we then closed all the second reticular stitches using stitches for 4-0 Monocryl and the skin and then place a drain stitch and dressings on all the incisions patient anesthetic is currently being reversed very nice dissection on both sides releasing both the neurovascular bundles on both sides no gross violation of the prostate and complete removal of the prostate and everything looked intact no stickiness when I went to the dissection grossly negative margins patient ascetic is currently being reversed I will go talk to the family. Surgical Findings: Prostate removed intact gross negative margins Complications Complications: No Admit VTE Documentation VTE Present on Admission: No VTE Mechan Device Prophylaxis: SCD's VTE Pharm Prophylaxis ordered?: No
--- NOTE | 2024-12-07 11:26 | PCM.POST.ANE ---
Anesthesia: Postop Eval I Current Vital Signs Temperature: 97.6 F Pulse Rate: 65 Blood Pressure: 85/50 Respiratory Rate: 16 Pulse Ox: 100 Assessment Airway patent: Yes Spontaneous unlabored respirations: Yes nausea: No Vomiting: No Anesthesia Complication: No Fluid Hydration Crystalloid volume administer (ml): 2,100 Total IV fluid infused: 2,100 Progress Note Anesthesia document: Postop Eval 1 completed: Yes
--- NOTE | 2024-12-07 11:30 | SUR.PHASEI ---
AGITATED, DISORIENTED, REPEATEDLY STATING I NEED TO PEE...LET ME UP, TRYING TO GET OOB, BELLIGERENT AT TIMES; 3 STAFF MEMBERS, DR ANTONY & DR ROBERT AT BEDSIDE TO MAINTAIN PATIENT SAFETY.
--- NOTE | 2024-12-07 12:00 | SUR.PHASEI ---
CONTINUES TO C/O SIGNIFICANT URGE TO URINATE, GENTLY IRRIGATED CATHETER WITH 40 ML NSS, RETURNED ADEQUATE PLUS, FLUSHED EASILY. REPORTS HELPED SMALL AMOUNT. DR ROBERT UPDATED AT 1208 WHO THEN IRRIGATED CATHETER AGAIN WITH GOOD RETURN.
[2024-12-07] MEDS: Tolterodine Tartrate 4 MG CAP.SA PO (12:07)
--- NOTE | 2024-12-07 12:21 | POSTOPAN2_ITS ---
Anesthesia Postop Eval I Sum Postop Eval Completion status Anesthesia document: Postop Eval 1 completed: Yes Anesthesia Postop Eval I Summary Anesthesia Postop Eval I Summary: Anesthesia Postop Eval I: Assessment Summary Airway patent Yes 12/07/24 11:28 [email or web address] Spontaneous unlabored Yes 12/07/24 11:28 [email or web address] respirations Mental status nausea No 12/07/24 11:28 [email or web address] Vomiting Anesthesia Postop Eval I: Fluid Summary Crystalloid volume administer 2,100 12/07/24 11:28 [email or web address] (ml) Colloids volume administered ( ml) Blood Product volume administered (ml) Total IV fluid infused 2,100 12/07/24 11:28 [email or web address] Anesthesia Postop Eval I: Summary Notes Anesthesia Complication No 12/07/24 11:28 [email or web address] Anesthesia Complication Comment: Post-operative progress note Anesthesia: Postop Eval II Evaluation Mental status: Apprehensive Pain Level: 4 nausea: No Vomiting: No
--- NOTE | 2024-12-07 12:21 | PCM.POSTANE2 ---
Anesthesia Postop Eval I Sum Postop Eval Completion status Anesthesia document: Postop Eval 1 completed: Yes Anesthesia Postop Eval I Summary Anesthesia Postop Eval I Summary: Anesthesia Postop Eval I: Assessment Summary Airway patent Yes 12/07/24 11:28 [email or web address] Spontaneous unlabored Yes 12/07/24 11:28 RESIDENTIAL [email or web address] respirations Mental status nausea No 12/07/24 11:28 [email or web address] [email or web address] Vomiting Anesthesia Postop Eval I: Fluid Summary Crystalloid volume administer 2,100 12/07/24 11:28 [email or web address] (ml) Colloids volume administered ( ml) Blood Product volume administered (ml) Total IV fluid infused 2,100 12/07/24 11:28 [email or web address] Anesthesia Postop Eval I: Summary Notes Anesthesia Complication No 12/07/24 11:28 RESIDENTIAL [email or web address] Anesthesia Complication Comment: Post-operative progress note Anesthesia: Postop Eval II Evaluation Mental status: Apprehensive Pain Level: 4 nausea: No Vomiting: No
[2024-12-07] MEDS: 0.9% Normal Saline (1000mL) 1,000 ML 125 ML IV ×2 (15:47→23:31)
[2024-12-08 00:15] VITALS: BP 105/69; PULSE 70; RESP 16; TEMP 36.9; O2SAT 97
[2024-12-08] MEDS: 0.9% Saline Lock 10 ML Syringe IV ×2 (00:15→06:00)
[2024-12-08 04:15] VITALS: BP 98/69; PULSE 73; RESP 17; TEMP 36.8; O2SAT 98
[2024-12-08] MEDS: 0.9% Normal Saline (1000mL) 1,000 ML 125 ML IV (07:06)
[2024-12-08 07:41] VITALS: BP 116/69; PULSE 63; RESP 18; TEMP 37; O2SAT 99
--- NOTE | 2024-12-08 09:11 | PCM.DC.SUM ---
Providers Date of Admission: 12/07/24 Primary Care Physician: Dr. Tank Peterson MD Reason For Visit: Radical Robotic Prostatectomy Medications at Discharge Home Medications atorvastatin 20 mg tablet (Lipitor) 20 mg PO DAILY HIGH CHOLESTEROL 11/28/24 docusate sodium 100 mg capsule (Colace) 100 mg PO DAILY STOOL SOFTNER 11/28/24 fluticasone propionate 50 mcg/actuation nasal spray,suspension (24 Hour Allergy Relief) 1 spray intranasal DAILY PRN allergy symptoms 11/28/24 eeaoclzweiu-ytiwlhrso-fnj C-Mn 500 mg-400 mg capsule (Glucosamine Chondroitin Maximum Strength) 1 cap PO DAILY SUPPLEMENT 11/28/24 lisinopril 10 mg tablet 10 mg PO DAILY HTN 11/28/24 ciprofloxacin HCl 500 mg tablet (Cipro) 500 mg PO BID #20 tabs 12/07/24 docusate sodium 100 mg capsule (Colace) 100 mg PO BID #20 caps 12/07/24 oxycodone 5 mg tablet 5 mg PO Q6H PRN pain 7 days #20 tabs 12/07/24 Hospital Course Operations - (Robotic Radical Prostatectomy) Weight / BMI Weight Weight: 91.9 kg Body Mass Index (BMI) 29.9 D/C Instructions Return to work on: 01/11/25August shower in (days): 1 Weight Bearing Status: Full weight bearing Additional Activity Instructions: push fluids Call your doctor if your incision/area has: Sudden Increased Bleeding Call your doctor if you observe: Fever of 101 or Higher, Inability to have a bowel movement and Uncontrolled pain Suture Line Care: Avoid Pulling/Pushing and Avoid Pinching/Bending Cleanse incision/area with: Soap & Water Catheter: Christie to leg bag and Christie to large bag Drain: [place] DC O2, CPAP, BIPAP Needs Home O2 Discharge instructions: No Please Follow Up With: Miah Pink MD When: Call [phone] for an appointment Meaningful Use Info Meaningful Use Meaningful Use Diagnoses (Choose all that apply): None applicable Discharge Plan Admission Admit Date/Time: 12/07/24 07:42 Primary Reason for Your Visit: radical prostatectomy Attending Provider: Miah Pink Primary Care Provider: Tank Peterson Instructions Patient Instructions: Radical Prostatectomy, Radical Prostatectomy Dc Discharge Orders/Prescriptions Prescriptions: New docusate sodium [Colace] 100 mg capsule 100 mg PO BID Qty: 20 0RF ciprofloxacin HCl [Cipro] 500 mg tablet 500 mg PO BID Qty: 20 0RF oxycodone 5 mg tablet 5 mg PO Q6H PRN (Reason: pain) 7 Days Qty: 20 0RF Continued lisinopril 10 mg tablet 10 mg PO DAILY atorvastatin [Lipitor] 20 mg tablet 20 mg PO DAILY fluticasone propionate [24 Hour Allergy Relief] 50 mcg/actuation spray,suspension 1 spray intranasal DAILY PRN (Reason: allergy symptoms) Rx Instructions: administer into each nostril [id number] C-Mn [Glucosamine Chondroitin MaxStr] 500-400 mg capsule 1 cap PO DAILY docusate sodium [Colace] 100 mg capsule 100 mg PO DAILY Discontinued aspirin [Adult Aspirin Regimen] 81 mg tablet,delayed release (DR/EC) 81 mg PO DAILY tamsulosin [Flomax] 0.4 mg capsule 0.4 mg PO DAILY Referrals / Follow Up: Miah Pink MD [Med Staff - Active Staff] - Tank Peterson MD [Primary Care Provider] - Disposition Discharge Orders: Discharge Patient (Routine); Ordered 12/08/24 Ordered By: Dr. Miah Pink
--- NOTE | 2024-12-08 11:03 | CASEMGMT ---
SHEILA CM to floor to review VALLECILLO form. Pt has been dc'd and left the building.
== END 2024-12-08 10:52 | disposition home or self-care (01) ==
LOC: SDC 13:06 → MS3 13:06
PROVIDERS: Admitting Provider Urology; PCP Family Medicine; Referring Provider Urology; Visit Provider Urology
PROC: 0VT04ZZ Resection of Prostate, Percutaneous Endoscopic Approach (ICD-10-PCS; CPT 55866; principal; 2024-12-07 07:10)
DX: C61 Malignant neoplasm of prostate (principal); Z79.899 Other long term (current) drug therapy; Z79.82 Long term (current) use of aspirin; N40.1 Benign prostatic hyperplasia with lower urinary tract symptoms; R35.0 Frequency of micturition; R39.11 Hesitancy of micturition; I10 Essential (primary) hypertension
CPT/HCPCS: 55866; 88309; 93005; 94668; 96361; 96365; 96366; 96372; 96375; 96376; 99221; 99252; A4216; G0378; G0463; J0744; J2405

== ENCOUNTER → 2025-02-05 | Outpatient (CLI) | payer MEDICARE, BC, SELFPAY ==
[2025-02-05 10:50] LABS: PSA,Total- Diagnostic < 0.02 ng/mL (0.00-4.00)
== END | disposition home or self-care (01) ==
LOC: LAB 09:13
PROVIDERS: PCP Family Medicine; Referring Provider Urology; Visit Provider Urology
DX: C61 Malignant neoplasm of prostate (principal)
CPT/HCPCS: 36415; 84153